=== PATIENT | female | born 1950 | race Caucasian/White ===

== ENCOUNTER 2020-09-01 17:21 | Observation (INO) ==
[2020-09-01 17:55] LABS: Basophils # (auto) 0.02 K/uL (0-0.2); Basophils % (auto) 0.2 %; Eosinophils # (auto) 0.32 K/uL (0-0.5); Eosinophils % (auto) 3.3 %; Hematocrit (blood only) 36.5 % (37-47); Hemoglobin 12.3 g/dL (12.0-16.0); Immature Granulocytes # (auto) 0.02 K/uL (0.00-0.02); Immature Granulocytes % (auto) 0.2 %; Lymphocytes # (auto) 1.85 K/uL (1.2-3.4); Lymphocytes % (auto) 19.2 %; Mean Corpuscular Hemoglobin 29.2 pg (25-34); Mean Corpuscular Hgb Conc 33.7 g/dL (32-36); Mean Corpuscular Volume 86.7 fL (80-100); Mean Platelet Volume 8.9 fL (7.4-10.4); Monocytes # (auto) 0.64 K/uL (0.11-0.59); Monocytes % (auto) 6.6 %; Neutrophils % (auto) 70.5 %; Platelet Count 248 K/uL (130-400); RDW Coefficient of Variation 12.8 % (11.5-14.5); Red Blood Count 4.21 M/uL (4.2-5.4); White Blood Count 9.65 K/uL (4.8-10.8)
[2020-09-01 18:05] LABS: Partial Thromboplastin Ratio 0.9; Partial Thromboplastin Time 22.8 Seconds (21.0-31.0); Prothrombin Time 10.1 Seconds (9.0-12.0)
[2020-09-01 18:10] LABS: Alanine Aminotransferase 16 U/L (12-78); Albumin Level 3.4 gm/dl (3.4-5.0); Aspartate Aminotransferase 11 U/L (15-37); BUN Creatinine Ratio 13.7 (10-20); Blood Urea Nitrogen 17 mg/dl (7-18); Calcium 8.6 mg/dl (8.5-10.1); Carbon Dioxide 27 mmol/L (21-32); Chloride 103 mmol/L (98-107); Creatinine Clr Calc Pharmacy 44.6 ml/min; Est GFR (African American) 50.3; Est GFR (Non-African American) 43.4; Glucose 132 mg/dl (70-99); Lipase 140 U/L (73-393); Magnesium 1.7 mg/dl (1.8-2.4); Potassium 3.7 mmol/L (3.5-5.1); Sodium 136 mmol/L (136-145)
--- NOTE | 2020-09-01 18:14 | CT Scan Report ---
CT SCAN OF THE BRAIN WITHOUT IV CONTRAST CLINICAL HISTORY: Generalized weakness. Nausea. COMPARISON STUDY: CT of the brain dated 03/25/2018. TECHNIQUE: Unenhanced axial CT scan of the brain is performed from the vertex to the skull base. A do se lowering technique was utilized adhering to the principles of ALARA. FINDINGS: Brain parenchyma: There are age-related involutional changes noting mild to moderate subcortical and periventricular microangiopathic change. There is no hemorrhage, mass effect, or evidence of acute t erritorial ischemia by CT criteria. Chronic lacunar infarcts are noted in the left basal ganglia. Gra y-white matter differentiation is preserved. No extra-axial fluid collection is seen. Ventricles, sulci, cisterns: Prominent secondary to involutional change. Intracranial vasculature: There is atherosclerotic calcification of the cavernous carotid and vertebr al arteries. Calvarium: Unremarkable. Sinuses and mastoids: There is evidence of previous paranasal sinus surgery. The visualized paranasal sinuses are clear. The mastoid air cells are well pneumatized. Orbits: The bony orbits are grossly intact. IMPRESSION: There is no hemorrhage, mass effect, or evidence of acute territorial ischemia by CT martinez genao. ACT 112: Negative or not required by law. Electronically signed by: Noam Luque M.D. 09/01/2020 6:13 PM
--- NOTE | 2020-09-01 18:15 | Emergency Department Note ---
Impression & Plan Weakness, Confusion, Hypomagnesemia, Near syncope ED Provider Note NAME: LIU BALLARD AGE: 70 SEX: F : 1950 ARRIVES VIA: Ambulance INFORMANT: Patient, the patient's family members ED PROVIDER(S): Hai Huston DO CHIEF COMPLAINT: Generalized weakness HPI: Patient is a 70-year-old female who presented to the emergency department for an evaluation of generalized weakness. The patient had 2 episodes today where she had what sounds like generalized weakness lower extremity weakness and near syncope. At this time the patient offers no specific complaints. She states that at the time she had significant nausea but did not have vomiting. She states that she felt very weak in both lower extremities. She denies having any weakness in the arms. She denies having any headache. She denies having any chest pain or difficulty breathing at this time. Apparently the patient did have some outpatient laboratory studies and was sent to the emergency department for evaluation. The patient denies having any recent falls or striking her head. The patient states that she has been compliant with all of her outpatient medication regimen. Currently she is being evaluated for a bladder mass. She did have a bladder ultrasound today. She also had outpatient laboratory studies today. ROS: See above HPI for pertinent positives & negatives. A total of 10 systems reviewed and were otherwise negative. PAST MEDICAL HISTORY: See Below PAST SURGICAL HISTORY: See Below FAMILY HISTORY: See Below SOCIAL HISTORY: See Below HOME MEDICATIONS: See Below ALLERGIES: See Below VITALS: See Below PHYSICAL EXAMINATION: GENERAL: The patient is awake and alert. The patient is nonanxious appearing. EARS, NOSE, MOUTH AND THROAT: The nose is without any evidence of any deformity. NECK: The neck is nontender and supple. RESPIRATORY: Normal respiratory effort is noted there is no evidence of wheezing rhonchi or rales CARDIOVASCULAR: Regular rate and rhythm noted there no murmurs rubs or gallops normal S1 normal S2. GASTROINTESTINAL: The abdomen is soft and nondistended. There is no specific te nderness guarding rigidity. MUSCULOSKELETAL/EXTREMITIES: There is no evidence of gross deformity full range of motion is noted in the hips and shoulders. SKIN: Trace pedal edema was noted bilaterally. Skin is warm dry. NEUROLOGIC: Patient is awake alert and oriented x3. The patient is able to hol d each leg off the bed for greater than 5 seconds. Track Laying Equipment Operator strength is symmetric. There is no facial droop. MEDICAL DECISION MAKING: The patient is a 70-year-old female who presented to the emergency department by ambulance. The patient lives at [facility]. She does have a history of a stroke in the past. The patient was with her power of imaging account manager who is a friend this morning. She had a work-up for a bladder mass as well as a pancreatic mass. This is something the patient has known and is currently undergoing radiographic work-up of. She was at our facility this morning having studies done. After the study she became very weak and needed help standing. According to her friend who witnessed this there was no specific unilateral weakness or slurred speech. She appeared to be having difficulty breathing. The patient himself complains of no cough. She denies having any chest pain. She had another episode which was similar. At that time she was evaluated by the nursing staff at the [facility]. She was sent to the emergency department for further evaluation. She did have a D-dimer which was reportedly elevated but given the patient's lack of complaints at this time for chest pain or shortness of breath I do not feel that this D-dimer would need explored further. Furthermore the patient would have a negative D-dimer with age adjustment. I discussed the patient's laboratory and radiographic studies with her and her power of imaging account manager. She was treated with IV fluids and magnesium replacement. There was significant concern that the patient's condition could deteriorate again. Her power of imaging account manager was also concerned because the patient appears to be intermittently short of breath as well as confused. For this reason I will discuss his case with the hospitalist group for possible inpatient management and observation. Triage Nursing notes reviewed. Prior medical records reviewed Vital Signs: reviewed and remarkable for no significant abnormalities Differential diagnosis: Infection, dehydration, metabolic abnormality, hypo/hyperglycemia, electrolyte disturbance, anemia, hypoxia, cardiac sources, intracerebral event, toxicologic, neurologic, as well as other pathologies. ER treatment provided: See below Diagnostics interpreted by me: ECG: EKG was obtained in the emergency department. My interpretation is normal sinus rhythm at 73 bpm. There was no ectopy. Diffuse T wave flattening was noted. There was no acute ST segment abnormalities noted. This was compared to a tracing from March 262017. The T wave abnormalities appear new compared the previous tracing. Cardiac Monitoring: An order was placed for continuous cardiac monitoring. The monitor shows a rate of 75 bpm with sinus rhythm. Laboratory studies: As stated above and show below. Imaging studies: See below Consultation(s): 1940: I discussed this case with Dr. Fair who is on for the [facility] hospitalist group. He will evaluate the patient in the emergency department. Past Med/Surg History Medical History (Updated 09/01/20 @ 19:22 by Hai Huston DO) CVA (cerebral vascular accident) Depression Hx of recurrent urinary tract infection Retinopathy Family History Other Family history unknown Social History Smoking Status: Former smoker Hx Alcohol Use: No Hx Substance Use: No Preferred Language: Tristanian Communication Ability: Impaired Wool Merchant Required: No Beliefs That Will Affect Care: None Current Living Situation: [facility] Feels Safe at Home: Yes Assistive Devices: Glasses and Walker Allergies Allergies Allergy/AdvReac Type Severity Reaction Status Date / Time ampicillin Allergy Mild Gastrointestinal Verified 09/01/20 19:09 Upset prednisone Allergy Mild ITCHING Verified 09/01/20 19:09 azithromycin AdvReac Mild Gastrointestinal Verified 09/01/20 19:09 Upset lisinopril AdvReac Mild Gastrointestinal Verified 09/01/20 19:09 Upset Home Meds Home Medications Medication Instructions Recorded Confirmed atorvastatin 80 mg PO 02/10/18 09/01/20 cholecalciferol (vitamin D3) 2,000 unit PO QAM 02/10/18 09/01/20 [Vitamin D3] oMo Serna U-100 Insulin 16 unit SUBCUT 03/25/18 09/01/20 Januvia 100 mg PO QAM 03/25/18 09/01/20 cyanocobalamin (vitamin B-12) 1,000 mcg PO QAM 03/25/18 09/01/20 [Vitamin B-12] amlodipine 2.5 mg PO QAM 09/01/20 09/01/20 aspirin 81 mg PO QAM 09/01/20 09/01/20 bimatoprost [Lumigan] 1 drp OPB HS 09/01/20 09/01/20 cetirizine 10 mg PO 09/01/20 09/01/20 citalopram 40 mg PO QAM 09/01/20 09/01/20 ferrous sulfate 325 mg PO QAM 09/01/20 09/01/20 losartan 100 mg PO QAM 09/01/20 09/01/20 metformin 500 mg PO QAM 09/01/20 09/01/20 polyethylene glycol 3350 [Miralax] 17 g PO QAM 09/01/20 09/01/20 potassium chloride 10 meq PO BID 09/01/20 09/01/20 Results & Data (ED) Vital Signs Vital Signs - 24 hr 09/01/20 17:21 09/01/20 17:46 09/01/20 17:49 Temperature 37.0 C Temperature Source Oral Pulse Rate 75 75 73 Pulse Rate from SpO2 Sensor 72 Pulse Rhythm Regular Regular Respiratory Rate 18 18 19 Respiratory Effort / Characteristics Non-Labored Spontaneous Respiratory Depth Normal Respiratory Pattern Regular Blood Pressure 138/59 L 112/64 Blood Pressure Mean 85 80 Pulse Oximetry 97 97 98 Oxygen Delivery Method Room Air Room Air Sepsis Recent Fever Within 48 Hours No Sepsis New/Unexplained Change in Mental Status No Sepsis Action Taken by Nursing No Action Required 09/01/20 18:31 09/01/20 19:00 09/01/20 19:30 Temperature Temperature Source Pulse Rate 67 61 70 Pulse Rate from SpO2 Sensor 63 70 Pulse Rhythm Respiratory Rate 20 17 22 Respiratory Effort / Characteristics Respiratory Depth Respiratory Pattern Blood Pressure 135/70 109/66 131/81 Blood Pressure Mean 91 80 97 Pulse Oximetry 99 99 100 Oxygen Delivery Method Sepsis Recent Fever Within 48 Hours Sepsis New/Unexplained Change in Mental Status Sepsis Action Taken by [facility] Medications Current Medication List: was personally reviewed by me Laboratory Data Attestation: I reviewed the patient's lab results. Result diagrams: 09/01/20 17:45 09/01/20 17:45 Lab Results 09/01/20 09/01/20 09/01/20 Range/Units 17:45 17:45 17:45 WBC 9.65 (4.8-10.8) K/uL RBC 4.21 (4.2-5.4) M/uL Hgb 12.3 (12.0-16.0) g/dL Hct 36.5 L (37-47) % MCV 86.7 (80-100) fL MCH 29.2 (25-34) pg MCHC 33.7 (32-36) g/dL RDW Std Deviation 41.0 (36.4-46.3) fL RDW Coeff of Rocky 12.8 (11.5-14.5) % Plt Count 248 (130-400) K/uL MPV 8.9 (7.4-10.4) fL Immature Gran % (Auto) 0.2 % Neut % (Auto) 70.5 % Lymph % (Auto) 19.2 % [place] % (Auto) 6.6 % Eos % (Auto) 3.3 % Baso % (Auto) 0.2 % Neut # (Auto) 6.80 H (1.4-6.5) K/uL Lymph # (Auto) 1.85 (1.2-3.4) K/uL [place] # (Auto) 0.64 H (0.11-0.59) K/uL Eos # (Auto) 0.32 (0-0.5) K/uL Baso # (Auto) 0.02 (0-0.2) K/uL Immature Gran # (Auto) 0.02 (0.00-0.02) K/uL PT 10.1 (9.0-12.0) Seconds INR 1.0 (0.9-1.1) APTT 22.8 (21.0-31.0) Seconds PTT Ratio 0.9 Sodium 136 (136-145) mmol/L Potassium 3.7 (3.5-5.1) mmol/L Chloride 103 (98-107) mmol/L Carbon Dioxide 27 (21-32) mmol/L Anion Gap 6.0 (3-11) BUN 17 (7-18) mg/dl Creatinine 1.26 H (0.6-1.2) mg/dl Est Cr Clr Drug Dosing 44.6 ml/min Est GFR ( Amer) 50.3 Est GFR (Non-Af Amer) 43.4 BUN/Creatinine Ratio 13.7 (10-20) Glucose 132 H (70-99) mg/dl Calcium 8.6 (8.5-10.1) mg/dl Magnesium 1.7 L (1.8-2.4) mg/dl Total Bilirubin 1.2 H (0.2-1) mg/dl AST 11 L (15-37) U/L ALT 16 (12-78) U/L Alkaline Phosphatase 98 (45-117) U/L Total Creatine Kinase 63 (26-192) U/L Troponin I < 0.015 (0-0.045) ng/ml Total Protein 7.0 (6.4-8.2) gm/dl Albumin 3.4 (3.4-5.0) gm/dl Globulin 3.6 (2.5-4.0) gm/dl Albumin/Globulin Ratio 1.0 (0.9-2) Lipase 140 (73-393) U/L TSH 6.270 H (0.300-4.500) uIu/ml Free T4 1.04 (0.8-1.6) ng/dl COVID-19 Eval Order 09/01/20 Range/Units 19:30 WBC (4.8-10.8) K/uL RBC (4.2-5.4) M/uL Hgb (12.0-16.0) g/dL Hct (37-47) % MCV (80-100) fL MCH (25-34) pg MCHC (32-36) g/dL RDW Std Deviation (36.4-46.3) fL RDW Coeff of Rocky (11.5-14.5) % Plt Count (130-400) K/uL MPV (7.4-10.4) fL Immature Gran % (Auto) % Neut % (Auto) % Lymph % (Auto) % [place] % (Auto) % Eos % (Auto) % Baso % (Auto) % Neut # (Auto) (1.4-6.5) K/uL Lymph # (Auto) (1.2-3.4) K/uL [place] # (Auto) (0.11-0.59) K/uL Eos # (Auto) (0-0.5) K/uL Baso # (Auto) (0-0.2) K/uL Immature Gran # (Auto) (0.00-0.02) K/uL PT (9.0-12.0) Seconds INR (0.9-1.1) APTT (21.0-31.0) Seconds PTT Ratio Sodium (136-145) mmol/L Potassium (3.5-5.1) mmol/L Chloride (98-107) mmol/L Carbon Dioxide (21-32) mmol/L Anion Gap (3-11) BUN (7-18) mg/dl Creatinine (0.6-1.2) mg/dl Est Cr Clr Drug Dosing ml/min Est GFR ( Amer) Est GFR (Non-Af Amer) BUN/Creatinine Ratio (10-20) Glucose (70-99) mg/dl Calcium (8.5-10.1) mg/dl Magnesium (1.8-2.4) mg/dl Total Bilirubin (0.2-1) mg/dl AST (15-37) U/L ALT (12-78) U/L Alkaline Phosphatase (45-117) U/L Total Creatine Kinase (26-192) U/L Troponin I (0-0.045) ng/ml Total Protein (6.4-8.2) gm/dl Albumin (3.4-5.0) gm/dl Globulin (2.5-4.0) gm/dl Albumin/Globulin Ratio (0.9-2) Lipase (73-393) U/L TSH (0.300-4.500) uIu/ml Free T4 (0.8-1.6) ng/dl COVID-19 Eval Order CovFluRsv at [facility] Administered Medications Magnesium Sulfate/Dextrose (Magnesium Sulfate / D5w) 1 gm in 100 mls @ 100 mls/hr IV NOW STA Stop: 09/01/20 20:21 Last Admin: 09/01/20 19:30 Dose: 100 mls/hr Documented by: [id number] Discontinued Medications Sodium Chloride (Nss 1000ml) 500 mls @ 999 mls/hr IV .Q31M ONE Stop: 09/01/20 19:22 Last Infusion: 09/01/20 19:35 Dose: 0 mls/hr Documented by: [id number] Admin: 09/01/20 19:03 Dose: 999 mls/hr Documented by: [id number] Imaging Data Radiologist's Impression: Chest X-Ray 09/01/20 17:37 SINGLE VIEW CHEST CLINICAL HISTORY: Generalized weakness. FINDINGS: An AP, portable, upright chest radiograph is compared to study dated 03/25/2018. Surgical clips project over the mediastinum. The cardiomediastinal silhouette is unremarkable. The lungs and pleural spaces are clear. No pneumothorax is seen. The skeletal structures are osteopenic. The bony thorax is grossly intact. IMPRESSION: No active disease in the chest. ACT 112: Negative or not required by law. Electronically signed by: Noam Luque M.D. 09/01/2020 6:[address] 09/01/20 17:37 CT SCAN OF THE BRAIN WITHOUT IV CONTRAST CLINICAL HISTORY: Generalized weakness. Nausea. COMPARISON STUDY: CT of the brain dated 03/25/2018. TECHNIQUE: Unenhanced axial CT scan of the brain is performed from the vertex to the skull base. A dose lowering technique was utilized adhering to the principles of ALARA. FINDINGS: Brain parenchyma: There are age-related involutional changes noting mild to moderate subcortical and periventricular microangiopathic change. There is no hemorrhage, mass effect, or evidence of acute territorial ischemia by CT crite mary. Chronic lacunar infarcts are noted in the left basal ganglia. Woo-white matter differentiation is preserved. No extra-axial fluid collection is seen. Ventricles, sulci, cisterns: Prominent secondary to involutional change. Intracranial vasculature: There is atherosclerotic calcification of the cavernous carotid and vertebral arteries. Calvarium: Unremarkable. Sinuses and mastoids: There is evidence of previous paranasal sinus surgery. The visualized paranasal sinuses are clear. The mastoid air cells are well pneumatized. Orbits: The bony orbits are grossly intact. IMPRESSION: There is no hemorrhage, mass effect, or evidence of acute territorial ischemia by CT criteria. ACT 112: Negative or not required by law. Electronically signed by: Noam Luque M.D. 09/01/2020 6:13 PM Abdomen/Pelvis CT 09/01/20 17:40 CT SCAN OF THE ABDOMEN AND PELVIS WITHOUT IV CONTRAST CLINICAL HISTORY: Nausea. COMPARISON STUDY: Abdominal CT dated 08/25/2020. TECHNIQUE: CT scan of the abdomen and pelvis is performed from the lung bases to the proximal femora. Images are reviewed in the axial, sagittal, and coronal planes. IV contrast was not administered for this examination. Note that the examination was performed in suboptimal fashion without oral and IV contrast. A dose lowering technique was utilized adhering to the principles of ALARA. The examination is degraded by motion artifact. CT DOSE: 1641.33 mGy.cm FINDINGS: Lung bases: The heart is normal in size noting a small pericardial effusion. The mitral annulus is densely calcified. The lung bases are clear noting bibasilar scarring/atelectasis. There is a tiny hiatal hernia. Liver: The unenhanced liver is normal in size, contour, and attenuation. There is no intrahepatic biliary ductal dilatation. Gallbladder: The gallbladder is contracted and contains calcified gallstones. There is no CT evidence of acute cholecystitis. Spleen: Normal in size and attenuation. Pancreas: The subcentimeter hypodensity is again suggested in the pancreatic tail on image #129. The unenhanced pancreas is moderately atrophic and otherwise grossly unremarkable. Adrenal glands: Unremarkable. Kidneys: The unenhanced kidneys demonstrate cortical atrophy and are without hydronephrosis. There are no renal calculi identified. There is no evidence of contour deforming renal mass lesion. Abdominal vasculature: The abdominal aorta is normal in course and caliber noting mild atherosclerotic calcification. Bowel: There is mild colonic diverticulosis without CT evidence of acute diverticulitis. The stomach is distended with ingested material. No bowel obstruction is seen. The appendix is not identified and reported surgically absent. Peritoneum: There is no intraperitoneal free air or abdominal ascites. Mesenteric haziness is similar to previous. Lymphadenopathy: None. Pelvic viscera: The bladder nodule suggested on 08/25/2020 is not visualized, likely due to lack of IV contrast. The bladder is grossly unremarkable. There are calcified uterine fibroids. No adnexal lesion is seen. Skeletal structures: The skeletal structures are osteopenic. There is mild to moderate lumbosacral spondylosis and scoliosis. Sclerotic change is noted in the sacroiliac joints. No lytic or blastic lesions are seen. IMPRESSION: 1. Suboptimal examination without oral and IV contrast. The examination is also degraded by motion artifact. 2. There are no acute infectious or inflammatory findings in the abdomen or pelvis. 3. Colonic diverticulosis without CT evidence of acute diverticulitis. 4. Cholelithiasis. 5. A subcentimeter hypodensity in the pancreatic tail and a subcentimeter b ladder nodule suggested on 08/25/2020 are not well assessed on this unenhanced examination. See report of the prior study for detailed findings. 6. Additional findings as above. ACT 112: Negative or not required by law. Electronically signed by: Noam Luque M.D. 09/01/2020 6:34 PM Discharge Plan Visit Data Chief Complaint: Illness ED Provider: Hai Huston Discharge Problem: Weakness, Confusion, Hypomagnesemia, Near syncope Patient Disposition: Being Evaluated by Hospitalist Condition: Good Forms Stand Alone Forms: My [facility] Handprint Prescriptions Prescriptions: No Action cyanocobalamin (vitamin B-12) [Vitamin B-12] 500 mcg Tablet 1,000 mcg PO QAM RF: 0 Januvia 100 mg Tablet 100 mg PO QAM RF: 0 Basaglar KwikPen U-100 Insulin 100 unit/mL (3 mL) Insulin Pen 16 unit SUBCUT HS RF: 0 atorvastatin 80 mg Tablet 80 mg PO HS RF: 0 cholecalciferol (vitamin D3) [Vitamin D3] 2,000 unit Capsule 2,000 unit PO QAM RF: 0 citalopram 40 mg tablet 40 mg PO QAM RF: 0 cetirizine 10 mg Tablet 10 mg PO HS RF: 0 amlodipine 2.5 mg tablet 2.5 mg PO QAM RF: 0 potassium chloride 10 mEq tablet extended release 10 meq PO BID RF: 0 ferrous sulfate 325 mg (65 mg iron) Tablet 325 mg PO QAM RF: 0 aspirin 81 mg Tablet,Chewable 81 mg PO QAM RF: 0 polyethylene glycol 3350 [Miralax] 17 gram/dose Powder 17 g PO QAM RF: 0 losartan 100 mg tablet 100 mg PO QAM RF: 0 metformin 500 mg tablet extended release 24 hr 500 mg PO QAM RF: 0 Lumigan 0.01 % drops 1 drp OPB HS RF: 0 [place]errals [place] [[place] Care Provider] -
[2020-09-01 18:20] LABS: Alkaline Phosphatase 98 U/L (45-117); Bilirubin,Total 1.2 mg/dl (0.2-1); Creatine Kinase 63 U/L (26-192); Globulin 3.6 gm/dl (2.5-4.0); Troponin I < 0.015 ng/ml (0-0.045)
--- NOTE | 2020-09-01 18:28 | XRay Report ---
SINGLE VIEW CHEST CLINICAL HISTORY: Generalized weakness. FINDINGS: An AP, portable, upright chest radiograph is compared to study dated 03/25/2018. Surgical c lips project over the mediastinum. The cardiomediastinal silhouette is unremarkable. The lungs and pl eural spaces are clear. No pneumothorax is seen. The skeletal structures are osteopenic. The bony tho rax is grossly intact. IMPRESSION: No active disease in the chest. ACT 112: Negative or not required by law. Electronically signed by: Noam Luque M.D. 09/01/2020 6:26 PM
[2020-09-01 18:33] LABS: T4 Free Thyroxine 1.04 ng/dl (0.8-1.6)
--- NOTE | 2020-09-01 18:35 | CT Scan Report ---
CT SCAN OF THE ABDOMEN AND PELVIS WITHOUT IV CONTRAST CLINICAL HISTORY: Nausea. COMPARISON STUDY: Abdominal CT dated 08/25/2020. TECHNIQUE: CT scan of the abdomen and pelvis is performed from the lung bases to the proximal femora. Images are reviewed in the axial, sagittal, and coronal planes. IV contrast was not administered for this examination. Note that the examination was performed in suboptimal fashion without oral and IV contrast. A dose lowering technique was utilized adhering to the principles of ALARA. The examination is degraded by motion artifact. CT DOSE: 1641.33 mGy.cm FINDINGS: Lung bases: The heart is normal in size noting a small pericardial effusion. The mitral annulus is de nsely calcified. The lung bases are clear noting bibasilar scarring/atelectasis. There is a tiny hiat al hernia. Liver: The unenhanced liver is normal in size, contour, and attenuation. There is no intrahepatic tereza iary ductal dilatation. Gallbladder: The gallbladder is contracted and contains calcified gallstones. There is no CT evidence of acute cholecystitis. Spleen: Normal in size and attenuation. Pancreas: The subcentimeter hypodensity is again suggested in the pancreatic tail on image #129. The unenhanced pancreas is moderately atrophic and otherwise grossly unremarkable. Adrenal glands: Unremarkable. Kidneys: The unenhanced kidneys demonstrate cortical atrophy and are without hydronephrosis. There ar e no renal calculi identified. There is no evidence of contour deforming renal mass lesion. Abdominal vasculature: The abdominal aorta is normal in course and caliber noting mild atheroscleroti c calcification. Bowel: There is mild colonic diverticulosis without CT evidence of acute diverticulitis. The stomach is distended with ingested material. No bowel obstruction is seen. The appendix is not identified an d reported surgically absent. Peritoneum: There is no intraperitoneal free air or abdominal ascites. Mesenteric haziness is similar to previous. Lymphadenopathy: None. Pelvic viscera: The bladder nodule suggested on 08/25/2020 is not visualized, likely due to lack of IV contrast. The bladder is grossly unremarkable. There are calcified uterine fibroids. No adnexal lesi on is seen. Skeletal structures: The skeletal structures are osteopenic. There is mild to moderate lumbosacral sp ondylosis and scoliosis. Sclerotic change is noted in the sacroiliac joints. No lytic or blastic lesi ons are seen. IMPRESSION: 1. Suboptimal examination without oral and IV contrast. The examination is also degraded by motion ar tifact. 2. There are no acute infectious or inflammatory findings in the abdomen or pelvis. 3. Colonic diverticulosis without CT evidence of acute diverticulitis. 4. Cholelithiasis. 5. A subcentimeter hypodensity in the pancreatic tail and a subcentimeter bladder nodule suggested on 08/25/2020 are not well assessed on this unenhanced examination. See report of the prior study for de tailed findings. 6. Additional findings as above. ACT 112: Negative or not required by law. Electronically signed by: Noam Luque M.D. 09/01/2020 6:34 PM
[2020-09-01] MEDS ORDERED: SODIUM CHLORIDE 0.9% 1000ML 500 ML IV ONE (18:52)
[2020-09-01] MEDS ORDERED: MAGNESIUM SULFATE / D5W 1 GM/100 ML BAG IV STA (19:22)
[2020-09-01 20:20] LABS: Influenza A virus by PCR Negative (Neg); Influenza B virus by PCR Negative (Neg); RSV by PCR Negative (Neg)
[2020-09-01 20:31] LABS: SARS CoV2 RNA(COVID-19) InHosp POSITIVE (Negative)
--- NOTE | 2020-09-01 23:02 | History and Physical Report ---
DATE OF ADMISSION: 09/01/2020 CHIEF COMPLAINT: Weakness. HISTORY OF PRESENT ILLNESS: This is a 70-year-old female with past medical history significant for type 2 diabetes, nonproliferative diabetic retinopathy of left eye, chronic kidney disease stage III, hyperlipidemia, hypertension, diastolic dysfunction, history of urinary incontinence, history of CVA with hemiplegia on the right side, ambulates with a walker, depression, , history of tobacco abuse. Currently living in personal correction, was brought in because of weakness. The patient was recently found to have bladder mass had ultrasound today morning for it. After that ultrasound she went for breakfast with her friends. After breakfast, she could not walk, she was feeling very weak and near syncope. She has some nausea, but no vomiting, no cough, no chest pain, no fevers and she went to her personal correction. At the personal correction she had similar symptoms and in the personal correction some lab was done and D-dimer was slightly elevated in the 500 range and she was sent here for further evaluation here. Her hemodynamics are stable, afebrile, no leukocytosis. Creatinine is 1.2 which seemed to be at baseline. Magnesium is 1.7, which was replaced in the ER, but CT of the head and CT of the abdomen and pelvis were fine. Chest x-ray was okay. She was saturating fine on room air. She says she took 2 shots of COVID vaccine. Last shot was about 2 weeks ago, but her SARS-CoV-2 PCR came back positive in the ER. No infiltrate on chest x-ray and she is hemodynamically stable and saturating 100% on room air. Denies any headache, denies any dizziness, no blurred vision, no earache, no runny nose, no sore throat, no cough. Her appetite is okay and no difficulty swallowing. Currently, no chest pain, no shortness of breath, no abdominal pain. Normal bowel and bladder movements. She ambulates with a walker. ALLERGIES: AMPICILLIN, PENICILLIN, ERYTHROMYCIN AND LISINOPRIL. PAST MEDICAL HISTORY: As mentioned above. PAST SURGICAL HISTORY: Right breast lesion excision, bilateral iridotomy, appendectomy. MEDICATIONS: The patient is on amlodipine 2.5 mg p.o. a.m., aspirin 81 mg p.o. a.m., atorvastatin 80 mg p.o. at bedtime, Basaglar insulin 16 units subcutaneous at bedtime, Lumigan 1 drop ophthalmic at bedtime, cetirizine 10 mg p.o. at bedtime, vitamin D 2000 units p.o. a.m., citalopram 40 mg p.o. a.m., vitamin B12 1000 mcg p.o. a.m., ferrous sulfate 325 mg p.o. a.m., Januvia 100 mg p.o. a.m., losartan 100 mg p.o. a.m., metformin 500 mg p.o. a.m., MiraLax 17 grams p.o. a.m., potassium chloride 10 mEq p.o. b.i.d. FAMILY HISTORY: Significant for mother has Alzheimer disease and thyroid disorder. Father has diabetes, heart disorder, hypertension. Brother has pancreatic cancer. SOCIAL HISTORY: , currently living in a personal correction. Smoked an average of 0.5 packs a day for 30 years. Former smoker. Alcohol rarely. No drug use. REVIEW OF SYMPTOMS: As per HPI. Rest of the review of systems negative. PHYSICAL EXAMINATION: GENERAL: The patient is of moderate build, not in acute distress. VITAL SIGNS: Temperature 37, pulse 70, respiratory rate 22, blood pressure 131/81, oxygen 100% on room air. HEENT: Pupils equal, round, reactive to light. Oral mucosa moist. NECK: No JVD, no neck masses. CARDIOVASCULAR: S1, S2, regular rate and rhythm, no murmur, no gallop. RESPIRATORY SYSTEM: Normal AP diameter. No accessory muscle use. No wheezing, no crackles. ABDOMEN: Soft, bowel sounds present. Mild abdominal discomfort. No guarding, no rigidity. No distention. CENTRAL NERVOUS SYSTEM: Cranial nerves II-XII grossly intact, nonfocal. Right lower extremity power, 3-4/5 strength. EXTREMITIES: No edema, no erythema. LABORATORY DATA: WBC 9.6, hemoglobin 12.3, hematocrit 36.5, platelets 248. PT 10.1, INR 1, APTT 22.8. Sodium 136, potassium 3.7, chloride 103, bicarbonate 27, BUN 17, creatinine 1.2, serum glucose 132, calcium 8.6, magnesium 1.7, total bilirubin 1.2, AST 11, ALT 16, alkaline phosphatase 98, total creatinine kinase 63, troponin I less than 0.015. Lipase 140. TSH 6.2, free T4 1.04. SARS-CoV-2 PCR positive. Influenza A and B PCR negative, RSV PCR negative. IMAGING: CT abdomen and pelvis without contrast shows no acute infectious or inflammatory findings in the abdomen and pelvis, colonic diverticulosis without CT evidence of acute diverticulitis, cholelithiasis, subcentimeter hyperdensity in the pancreatic tail and subcentimeter in the bladder noted on CT scan on 08/25/2020 are not well assessed on this unenhanced exam. CT of the head, no acute findings. Chest x-ray, no acute findings. EKG: Normal sinus rhythm, rate of 73, left axis deviation, nonspecific T-wave abnormality, no significant change was found, rate of 73. ASSESSMENT AND PLAN: This is a 70-year-old female who presents with weakness, question of some shortness of breath. 1. Weakness, ambulatory dysfunction, could not able to ambulate today when she went outside for breakfast with her friends, similar thing happened in the personal correction and symptoms include somewhat short of breath, but D-dimer was slightly elevated and she was sent in here. D-dimer was slightly higher in the 500s which is normal adjusted for her age per er and she was saturating fine on room air and hemodynamics are stable. Her SARS-CoV-2 came back as positive. She said she had 2 shots of the COVID vaccine, the last one was about 2 weeks ago. Chest x-ray, no infiltrates seen. We will get a CT of the chest. We will place on gentle fluids. We will also follow urinalysis and monitor in the hospital. PT and OT before discharge. 2.Covid. Possible cause of weakness .Saturating fine on room air. Will follow ct chest. follow inflammaory markers. 3. History of cerebrovascular accident, right sided weakness and ambulates with a walker. On aspirin, high dose statin. 4. History of diabetes. Hold Januvia. Hold metformin. Continue her home Lantus, long-acting insulin and continue on insulin sliding scale. Follow HbA1c levels. Follow the blood sugars. 5. History of hypertension. Continue losartan, amlodipine. We will monitor the blood pressure. 6. History of hyperlipidemia. Continue statin. 7. Depression. Continue citalopram. 8. Bladder mass and pancreatic mass,had ultrasound today. Needs to follow up once discharged from the hospital. 9. History of hypokalemia, on potassium supplement. Follow the labs. 10 History of past tobacco abuse. 11. Deep venous thrombosis prophylaxis. We will place her on Lovenox. Level 1 full code. PT and OT prior to discharge. Social service to help with discharge planning. LAZARO
[2020-09-01] MEDS ORDERED: NITROGLYCERIN SL 0.4 MG/TAB TAB SL PRN (23:36)
[2020-09-01] MEDS ORDERED: ONDANSETRON INJ 2 MG/ML 2 ML VIAL IV PRN (23:36)
[2020-09-01] MEDS ORDERED: ACETAMINOPHEN 325 MG TAB PO PRN (23:36)
[2020-09-02] MEDS: SODIUM CHLORIDE 0.9% 1000ML 1,000 ML IV SCH ×3 (00:08→20:40)
[2020-09-02 00:41] LABS: Appearance Urine Clear (Clear); Bacteria Urine Automated Negative (Negative); Bilirubin Urine Negative (Negative); Blood Urine Negative (Negative); Cast Urine Automated 0 /lpf (0-5); Color Urine Yellow; Glucose Urine UA Negative (Negative); Ketones Urine Negative (Negative); Leukocyte Esterase Urine Trace (Negative); Nitrite Urine Negative (Negative); Protein Urine Negative (Negative); RBC Urine Automated 0-4 /hpf (0-4); Urobilinogen Urine Negative (Negative); pH Urine 5.5 (4.5-7.5)
[2020-09-02 06:40] LABS: BUN Creatinine Ratio 17.8 (10-20); Blood Urea Nitrogen 19 mg/dl (7-18); Calcium 8.4 mg/dl (8.5-10.1); Carbon Dioxide 28 mmol/L (21-32); Chloride 111 mmol/L (98-107); Est GFR (Non-African American) 51.8; Glucose 180 mg/dl (70-99); Magnesium 2.3 mg/dl (1.8-2.4); Sodium 141 mmol/L (136-145)
[2020-09-02 06:43] LABS: Basophils # (auto) 0.03 K/uL (0-0.2); Basophils % (auto) 0.4 %; Eosinophils # (auto) 0.37 K/uL (0-0.5); Eosinophils % (auto) 4.5 %; Hematocrit (blood only) 35.9 % (37-47); Hemoglobin 12.2 g/dL (12.0-16.0); Immature Granulocytes # (auto) 0.01 K/uL (0.00-0.02); Immature Granulocytes % (auto) 0.1 %; Lymphocytes # (auto) 1.46 K/uL (1.2-3.4); Lymphocytes % (auto) 17.7 %; Mean Corpuscular Hemoglobin 29.5 pg (25-34); Mean Corpuscular Volume 86.7 fL (80-100); Mean Platelet Volume 9.2 fL (7.4-10.4); Monocytes # (auto) 0.77 K/uL (0.11-0.59); Monocytes % (auto) 9.3 %; Neutrophils # (auto) 5.62 K/uL (1.4-6.5); Platelet Count 241 K/uL (130-400); RDW Coefficient of Variation 12.8 % (11.5-14.5); RDW Standard Deviation 41.5 fL (36.4-46.3); Red Blood Count 4.14 M/uL (4.2-5.4); White Blood Count 8.26 K/uL (4.8-10.8)
[2020-09-02 06:46] LABS: C Reactive Protein < 0.29 mg/dl (0-0.29); Ferritin 151.4 ng/ml (8-388); Troponin I < 0.015 ng/ml (0-0.045)
[2020-09-02 07:11] LABS: D Dimer 710 ug/L FEU (0-500)
[2020-09-02 07:32] LABS: Estimated Average Glucose 171 mg/dl; Hemoglobin A1C 7.6 % (4.5-5.6)
[2020-09-02] MEDS ORDERED: OPTIRAY 320 125ml IV ONE (08:37)
--- NOTE | 2020-09-02 08:57 | Electrocardiogram Report ---
Test Reason : Blood Pressure : / mmHG Vent. Rate : 073 BPM Atrial Rate : 073 BPM P-R Int : 196 ms QRS Dur : 090 ms QT Int : 432 ms P-R-T Axes : -21 -44 -12 degrees QTc Int : 475 ms Normal sinus rhythm Left axis deviation Diffuse Nonspecific T wave abnormality Abnormal ECG When compared with ECG of 26-MAR-2018 06:36, No significant change was found Confirmed by Poncho Rivera ([id number]) on 09/02/2020 8:57:32 AM Referred By: REFERRED SELF Confirmed By:Poncho Rivera
--- NOTE | 2020-09-02 09:00 | CT Scan Report ---
CT ANGIOGRAM OF THE CHEST CLINICAL HISTORY: Atypical chest pain or shortness of breath. Possible acute pulmonary embolism COMPARISON STUDY: Chest x-ray dated 09/01/2020 TECHNIQUE: Following the IV administration of 120 mL of Optiray-320, CT angiogram of the thorax was p erformed from the thoracic inlet to the lung bases utilizing the pulmonary embolus protocol. Images a re reviewed in the axial, sagittal, and coronal planes. IV contrast was administered without complica tion. MIP imaging was performed. A dose lowering technique was utilized adhering to the principles o f ALARA. CT DOSE: 362.40 mGy.cm FINDINGS: No pathologically enlarged axillary mediastinal or hilar lymph nodes were visualized. There was no evidence of thoracic aortic dilatation. There were no pulmonary artery filling defects to indicate acute pulmonary embolism. No pleural effusions are visualized. There is respiratory motion artifact. There are no areas of parenchymal consolidation to indicate pne umonia. There is mild basilar atelectasis. There are coronary artery calcifications. There is minimal pericardial fluid. There is probable cholelithiasis IMPRESSION: 1. No evidence of acute pulmonary embolism 2. No evidence of focal pulmonary consolidation. 3. Probable cholelithiasis. ACT 112: Negative or not required by law. Electronically signed by: Yoel Short M.D. 09/02/2020 8:59 AM
--- NOTE | 2020-09-02 09:11 | Ultrasound Report ---
US venous doppler LE BI CLINICAL HISTORY: Positive d-dimer. Covid positive patient. Possible DVT. COMPARISON STUDY: No previous studies for comparison. FINDINGS: Real-time and color flow Doppler imaging were performed. Flow was seen within the femoral, popliteal and calf veins with no intraluminal thrombus demonstrated. The saphenous vein is patent. IMPRESSION: No evidence of lower extremity DVT. ACT 112: Negative or not required by law. Electronically signed by: Yoel Short M.D. 09/02/2020 9:10 AM
[2020-09-02] MEDS: LOSARTAN POTASSIUM 50 MG TAB PO SCH (09:26)
[2020-09-02] MEDS: CITALOPRAM 40 MG TAB PO SCH (09:26)
[2020-09-02] MEDS: POTASSIUM CHLORIDE 10 MEQ TABCR PO SCH ×2 (09:27→20:41)
[2020-09-02] MEDS: CYANOCOBALAMIN 500 MCG TABLET (VITAMIN B-12) PO SCH (09:27)
[2020-09-02] MEDS: amLODIPine BESYLATE 5 MG TAB PO SCH (09:27)
[2020-09-02] MEDS: ASPIRIN 81 MG ECTAB PO SCH (09:27)
[2020-09-02] MEDS: FERROUS SULFATE 325 MG TAB PO SCH (09:28)
[2020-09-02] MEDS: ENOXAPARIN INJ 40 MG/0.4 ML SYR SQ SCH (09:28)
[2020-09-02] MEDS: POLYETHYLENE (MIRALAX) 17 GM PACK PO SCH (09:28)
[2020-09-02] MEDS: CHOLECALCIFEROL 1,000 UNITS 25 MCG TAB PO SCH (09:28)
[2020-09-02] MEDS: INSULIN ASPART 100 UNITS/ML 3 ML PEN SC SCH ×4 (10:16→21:19)
[2020-09-02] MEDS ORDERED: CETIRIZINE HCL 10 MG TABLET PO SCH (21:00)
[2020-09-02] MEDS ORDERED: BIMATOPROST 0.01% OP SOLN 2.5 ML BTL OP SCH (21:00)
[2020-09-02] MEDS ORDERED: ATORVASTATIN 40 MG TAB PO SCH (21:00)
[2020-09-02] MEDS ORDERED: INSULIN GLARGINE SOLOSTAR 100 UNITS/ML 3 ML PEN SQ SCH (21:00)
[2020-09-03] MEDS: SODIUM CHLORIDE 0.9% 1000ML 1,000 ML IV SCH (05:45)
[2020-09-03 06:30] LABS: Hematocrit (blood only) 35.5 % (37-47); Hemoglobin 11.7 g/dL (12.0-16.0); Mean Corpuscular Volume 87.9 fL (80-100); Mean Platelet Volume 9.5 fL (7.4-10.4); Platelet Count 231 K/uL (130-400); RDW Coefficient of Variation 12.9 % (11.5-14.5); RDW Standard Deviation 41.6 fL (36.4-46.3); Red Blood Count 4.04 M/uL (4.2-5.4); White Blood Count 7.67 K/uL (4.8-10.8)
[2020-09-03 06:58] LABS: BUN Creatinine Ratio 14.1 (10-20); Creatinine Clr Calc Pharmacy 54.1 ml/min; Est GFR (African American) 68.2; Est GFR (Non-African American) 58.9; Magnesium 1.9 mg/dl (1.8-2.4); Potassium 3.8 mmol/L (3.5-5.1)
[2020-09-03 06:59] LABS: Phosphorus 2.7 mg/dl (2.5-4.9)
--- NOTE | 2020-09-03 07:45 | Hospitalist Progress Note ---
Date of Service September 02, 2020 Assessment & Plan (1) Weakness: (2) Near syncope: This is a 70-year-old female who presents with weakness, question of some shortness of breath. 1. Weakness, ambulatory dysfunction, could not able to ambulate when she went outside for breakfast with her friends, similar thing happened in the personal alf and symptoms include somewhat short of breath, but D-dimer was slightly elevated and she was sent in here. D-dimer was slightly higher in the 500s which is normal adjusted for her age and she was saturating fine on room air and hemodynamics are stable. Her SARS-CoV-2 came back as positive. She said she had 2 shots of the COVID vaccine, the last one was about 2 weeks ago. Chest x-ray, no infiltrates seen. CT PE of the chest obtained, and negative for PE or pneumonia. Placed on gentle fluids. Urinalysis also obtained and negative. PT and OT before discharge. Discussed further with patient's friend/caregiver Sulema, patient drank a lot of water in the morning, for her bladder ultrasound test, and then vomited. She had several episodes of weakness and some transient shortness of breath. Sulema reports that patient is quite deconditioned, does not ambulate/move much usually. 2. Covid. Possible cause of weakness Saturating fine on room air. CT chest obtained and negative for PE or pneumonia. follow inflammatory markers. Currently feeling well, no complaints, able to ambulate in the room. Awaiting PT OT eval. 3. History of CVA, right sided weakness and ambulates with a walker. On aspirin, high dose statin. 4. History of diabetes. Hold Januvia. Hold metformin. Continue her home Lantus, long-acting insulin and continue on insulin sliding scale. Follow HbA1c levels. Follow the blood sugars. 5. History of hypertension. Continue losartan, amlodipine. We will monitor the blood pressure. 6. History of hyperlipidemia. Continue statin. 7. Depression. Continue citalopram. 8. Bladder mass and pancreatic mass, had ultrasound today. Needs to follow up once discharged from the hospital. 9. History of hypokalemia, on potassium supplement. Follow the labs. 10 History of past tobacco abuse. DVT prophylaxis. We will place her on Lovenox. Admission and Anticipated Discharge Date Admission Date: September 01, 2020 Subjective Patient seen in follow-up of weakness Currently patient is lying in bed, in no acute distress She was able to walk to bathroom, no significant weakness noted in the hospital She denies any dizziness, lightheadedness, chest pain shortness of breath Discussed with Sulema, patient's friend/caregiver Per Sulema, patient drank a lot of water in the morning for her bladder ultrasound, and then threw up. Then became weak several times during the day. Sulema also says that patient is quite deconditioned, does not walk or move much usually. Review of Systems Review of Systems: All systems reviewed & are unremarkable except as noted in HPI & below Constitutional: no fever and no chills Respiratory: no cough and no dyspnea Cardiovascular: no chest pain and no palpitations Gastrointestinal: no abdominal pain, no nausea and no vomiting Physical Exam Physical Exam: GENERAL: The patient is of moderate build, not in acute distress. HEENT: NC/AT, EOMI, Pupils equal, round, reactive to light. Oral mucosa moist. NECK: No JVD, no neck masses. CARDIOVASCULAR: S1, S2, regular rate and rhythm, no murmur, no gallop. RESPIRATORY SYSTEM: Normal AP diameter. No accessory muscle use. No wheezing, no crackles. ABDOMEN: Soft, bowel sounds present. Mild abdominal discomfort. No guarding, no rigidity. No distention. NEURO: Cranial nerves II-XII grossly intact, nonfocal. Right lower extremity, 3-4/5 strength. EXTREMITIES: No edema, no erythema. Results & Data Results & Data ([facility]) Vital Signs (Past 12 Hours) Vital Signs Temp Pulse Pulse Resp BP Pulse Ox 09/03/20 07:25 36.5 C 65 17 136/89 97 09/03/20 03:52 36.7 C 69 18 133/94 96 09/02/20 23:33 37 C 66 18 124/63 95 09/02/20 23:13 68 09/02/20 20:09 37 C 61 18 127/83 98 Laboratory Results 09/03/20 09/03/20 09/03/20 Range/Units 07:24 05:54 05:54 WBC 7.67 (4.8-10.8) K/uL RBC 4.04 L (4.2-5.4) M/uL Hgb 11.7 L (12.0-16.0) g/dL Hct 35.5 L (37-47) % MCV 87.9 (80-100) fL MCH 29.0 (25-34) pg MCHC 33.0 (32-36) g/dL RDW Std Deviation 41.6 (36.4-46.3) fL RDW Coeff of Rocky 12.9 (11.5-14.5) % Plt Count 231 (130-400) K/uL MPV 9.5 (7.4-10.4) fL Sodium 141 (136-145) mmol/L Potassium 3.8 (3.5-5.1) mmol/L Chloride 113 H (98-107) mmol/L Carbon Dioxide 24 (21-32) mmol/L Anion Gap 4.0 (3-11) BUN 14 (7-18) mg/dl Creatinine 0.98 (0.6-1.2) mg/dl Est Cr Clr Drug Dosing 54.1 ml/min Est GFR ( Amer) 68.2 Est GFR (Non-Af Amer) 58.9 BUN/Creatinine Ratio 14.1 (10-20) Glucose 112 H (70-99) mg/dl POC Glucose 137 H (70-99) mg/dl Calcium 8.0 L (8.5-10.1) mg/dl Phosphorus 2.7 (2.5-4.9) mg/dl Magnesium 1.9 (1.8-2.4) mg/dl 09/02/20 09/02/20 09/02/20 Range/Units 16:43 11:15 07:42 WBC (4.8-10.8) K/uL RBC (4.2-5.4) M/uL Hgb (12.0-16.0) g/dL Hct (37-47) % MCV (80-100) fL MCH (25-34) pg MCHC (32-36) g/dL RDW Std Deviation (36.4-46.3) fL RDW Coeff of Rocky (11.5-14.5) % Plt Count (130-400) K/uL MPV (7.4-10.4) fL Sodium (136-145) mmol/L Potassium (3.5-5.1) mmol/L Chloride (98-107) mmol/L Carbon Dioxide (21-32) mmol/L Anion Gap (3-11) BUN (7-18) mg/dl Creatinine (0.6-1.2) mg/dl Est Cr Clr Drug Dosing ml/min Est GFR ( Amer) Est GFR (Non-Af Amer) BUN/Creatinine Ratio (10-20) Glucose (70-99) mg/dl POC Glucose 125 H 183 H 145 H (70-99) mg/dl Calcium (8.5-10.1) mg/dl Phosphorus (2.5-4.9) mg/dl Magnesium (1.8-2.4) mg/dl Medications Administered Current Inpatient Medications Acetaminophen (Acetaminophen 325 Mg Tab) 650 mg PO Q4H PRN PRN Reason: Pain or Fever Stop: 10/01/20 23:35 Amlodipine Besylate (Amlodipine Besylate 5 Mg Tab) 2.5 mg PO [facility] Stop: 10/02/20 08:59 Last Admin: 09/02/20 09:27 Dose: 2.5 mg Documented by: Aspirin (Aspirin 81 Mg Ectab) 81 mg PO [facility] Stop: 10/02/20 08:59 Last Admin: 09/02/20 09:27 Dose: 81 mg Documented by: Atorvastatin Calcium (Atorvastatin 40 Mg Tab) 80 mg PO [facility] Stop: 10/02/20 20:59 Last Admin: 09/02/20 20:41 Dose: 80 mg Documented by: Bimatoprost (Bimatoprost 0.01% Op Soln 2.5 Ml Btl) 1 drops OP [facility] Stop: 10/02/20 20:59 Last Admin: 09/02/20 20:41 Dose: 1 drops Documented by: Cetirizine HCl (Cetirizine Hcl 10 Mg Tablet) 10 mg PO [facility] Stop: 10/02/20 20:59 Last Admin: 09/02/20 20:41 Dose: 10 mg Documented by: Citalopram Hydrobromide (Citalopram 40 Mg Tab) 40 mg PO [facility] Stop: 10/02/20 08:59 Last Admin: 09/02/20 09:26 Dose: 40 mg Documented by: Cyanocobalamin (Cyanocobalamin 500 Mcg Tablet (Vitamin B-12)) 1,000 mcg PO [facility] Stop: 10/02/20 08:59 Last Admin: 09/02/20 09:27 Dose: 1,000 mcg Documented by: Enoxaparin Sodium (Enoxaparin Inj 40 Mg/0.4 Ml Syr) 40 mg SQ Q24H [facility] Stop: 10/02/20 08:59 Last Admin: 09/02/20 09:28 Dose: 40 mg Documented by: Ferrous Sulfate (Ferrous Sulfate 325 Mg Tab) 325 mg PO QAM [facility] Stop: 10/02/20 08:59 Last Admin: 09/02/20 09:28 Dose: 325 mg Documented by: Sodium Chloride (Nss 1000ml) 1,000 mls @ 100 mls/hr IV .Q10H [facility] Stop: 10/01/20 23:35 Last Admin: 09/03/20 05:45 Dose: 100 mls/hr Documented by: Insulin Aspart (Insulin Aspart 100 Units/Ml 3 Ml Pen) 0 units SC ACHS [facility] Stop: 10/02/20 07:29 Last Admin: 09/02/20 21:19 Dose: Not Given Documented by: Insulin Glargine (Insulin Glargine Solostar 100 Units/Ml 3 Ml Pen) 16 units SQ HS [facility] Stop: 10/02/20 20:59 Last Admin: 09/02/20 21:19 Dose: 16 units Documented by: Losartan Potassium (Losartan Potassium 50 Mg Tab) [facility] [place] Stop: 10/02/20 08:59 Last Admin: 09/02/20 09:26 Dose: 100 mg Documented by: Nitroglycerin (Nitroglycerin Sl 0.4 Mg/Tab Tab) 0.4 mg SL UD PRN PRN Reason: Chest Pain Stop: 10/01/20 23:35 Ondansetron HCl (Ondansetron Inj 2 Mg/Ml 2 Ml Vial) 4 mg IV Q6H PRN PRN Reason: Nausea Stop: 10/01/20 23:35 Polyethylene Glycol (Polyethylene (Miralax) 17 Gm Pack) 17 gm PO [facility] Stop: 10/02/20 08:59 Last Admin: 09/02/20 09:28 Dose: Not Given Documented by: Potassium Chloride (Potassium Chloride 10 Meq Tabcr) 10 meq PO BID [facility] Stop: 10/02/20 08:59 Last Admin: 09/02/20 20:41 Dose: 10 meq Documented by: Vitamin D (Cholecalciferol 1,000 Units 25 Mcg Tab) 2,000 units [facility] [place] Stop: 10/02/20 08:59 Last Admin: 09/02/20 09:28 Dose: 2,000 units Documented by:
[2020-09-03] MEDS: CYANOCOBALAMIN 500 MCG TABLET (VITAMIN B-12) PO SCH (07:46)
[2020-09-03] MEDS: CHOLECALCIFEROL 1,000 UNITS 25 MCG TAB PO SCH (07:46)
[2020-09-03] MEDS: ASPIRIN 81 MG ECTAB PO SCH (07:46)
[2020-09-03] MEDS: LOSARTAN POTASSIUM 50 MG TAB PO SCH (07:46)
[2020-09-03] MEDS: amLODIPine BESYLATE 5 MG TAB PO SCH (07:46)
[2020-09-03] MEDS: CITALOPRAM 40 MG TAB PO SCH (07:46)
[2020-09-03] MEDS: POTASSIUM CHLORIDE 10 MEQ TABCR PO SCH (07:47)
[2020-09-03] MEDS: ENOXAPARIN INJ 40 MG/0.4 ML SYR SQ SCH (07:47)
[2020-09-03] MEDS: FERROUS SULFATE 325 MG TAB PO SCH (07:47)
[2020-09-03] MEDS: POLYETHYLENE (MIRALAX) 17 GM PACK PO SCH (07:48)
--- NOTE | 2020-09-03 08:05 | Hospitalist Progress Note ---
Date of Service September 03, 2020 Assessment & Plan (1) Weakness: (2) Near syncope: This is a 70-year-old female who presents with weakness, question of some shortness of breath. 1. Weakness, ambulatory dysfunction, could not able to ambulate when she went outside for breakfast with her friends, similar thing happened in the personal [facility] and symptoms include somewhat short of breath, but D-dimer was slightly elevated and she was sent in here. D-dimer was slightly higher in the 500s which is normal adjusted for her age and she was saturating fine on room air and hemodynamics are stable. Her SARS-CoV-2 came back as positive. She said she had 2 shots of the COVID vaccine, the last one was about 2 weeks ago. Chest x-ray, no infiltrates seen. CT PE of the chest obtained, and negative for PE or pneumonia. Placed on gentle fluids on admission. Urinalysis also obtained and negative. Mag bit low on admission, replaced. PT and OT obtained, patient to return back to [facility]. Discussed further with patient's friend/caregiver Sulema, patient drank a lot of water in the morning, for her bladder ultrasound test, and then vomited. She had several episodes of weakness and some transient shortness of breath. Sulema reports that patient is quite deconditioned, does not ambulate/move much usually. 2. Covid. Possible cause of weakness Saturating fine on room air. CT chest obtained and negative for PE or pneumonia. follow inflammatory markers. CRP normal Currently feeling well, no complaints, able to ambulate in the room. PT OT obtained, patient to return back to [facility] 3. History of CVA, right sided weakness and ambulates with a walker. On aspirin, high dose statin. 4. History of diabetes. Hold Januvia. Hold metformin. Continue her home Lantus, long-acting insulin and continue on insulin sliding scale. Current HbA1c 7.6%. Follow the blood sugars. Follow up as outpt. 5. History of hypertension. Continue losartan, amlodipine. We will monitor the blood pressure. 6. History of hyperlipidemia. Continue statin. 7. Depression. Continue citalopram. 8. Bladder mass and pancreatic mass, had ultrasound today. Needs to follow up once discharged from the hospital. 9. History of hypokalemia, on potassium supplement. Follow the labs. 10 History of past tobacco abuse. DVT prophylaxis. Lovenox while inpt. Dispo: Return to [facility] Admission and Anticipated Discharge Date Admission Date: September 01, 2020 Subjective Patient seen in follow-up of weakness Currently patient is lying in bed, in no acute distress She was able to walk to bathroom, no significant weakness noted in the hospital She denies any dizziness, lightheadedness, chest pain shortness of breath Discussed with Sulema, patient's friend/caregiver Per Sulema, patient drank a lot of water in the morning for her bladder ultrasound, and then threw up. Then became weak several times during the day. Sulema also says that patient is quite deconditioned, does not walk or move much usually. Today again patient has no complaints, she was seen by PT, recommend return to [facility] Review of Systems Review of Systems: All systems reviewed & are unremarkable except as noted in HPI & below Constitutional: no fever and no chills Respiratory: no cough and no dyspnea Cardiovascular: no chest pain and no palpitations Gastrointestinal: no abdominal pain, no nausea and no vomiting Physical Exam Physical Exam: GENERAL: The patient is of moderate build, not in acute distress. HEENT: NC/AT, EOMI, Pupils equal, round, reactive to light. Oral mucosa moist. NECK: No JVD, no neck masses. CARDIOVASCULAR: S1, S2, regular rate and rhythm, no murmur, no gallop. RESPIRATORY SYSTEM: Normal AP diameter. No accessory muscle use. No wheezing, no crackles. ABDOMEN: Soft, bowel sounds present. Mild abdominal discomfort. No guarding, no rigidity. No distention. NEURO: Cranial nerves II-XII grossly intact, nonfocal. Right lower extremity, 3-4/5 strength (prior stroke) EXTREMITIES: No edema, no erythema. Results & Data Results & Data ([facility]) Vital Signs (Past 12 Hours) Vital Signs Temp Pulse Pulse Resp BP Pulse Ox 09/03/20 07:25 36.5 C 65 17 136/89 97 09/03/20 03:52 36.7 C 69 18 133/94 96 09/02/20 23:33 37 C 66 18 124/63 95 09/02/20 23:13 68 09/02/20 20:09 37 C 61 18 127/83 98 Laboratory Results 09/03/20 09/03/20 09/03/20 Range/Units 07:24 05:54 05:54 WBC 7.67 (4.8-10.8) K/uL RBC 4.04 L (4.2-5.4) M/uL Hgb 11.7 L (12.0-16.0) g/dL Hct 35.5 L (37-47) % MCV 87.9 (80-100) fL MCH 29.0 (25-34) pg MCHC 33.0 (32-36) g/dL RDW Std Deviation 41.6 (36.4-46.3) fL RDW Coeff of Rocky 12.9 (11.5-14.5) % Plt Count 231 (130-400) K/uL MPV 9.5 (7.4-10.4) fL Sodium 141 (136-145) mmol/L Potassium 3.8 (3.5-5.1) mmol/L Chloride 113 H (98-107) mmol/L Carbon Dioxide 24 (21-32) mmol/L Anion Gap 4.0 (3-11) BUN 14 (7-18) mg/dl Creatinine 0.98 (0.6-1.2) mg/dl Est Cr Clr Drug Dosing 54.1 ml/min Est GFR ( Amer) 68.2 Est GFR (Non-Af Amer) 58.9 BUN/Creatinine Ratio 14.1 (10-20) Glucose 112 H (70-99) mg/dl POC Glucose 137 H (70-99) mg/dl Calcium 8.0 L (8.5-10.1) mg/dl Phosphorus 2.7 (2.5-4.9) mg/dl Magnesium 1.9 (1.8-2.4) mg/dl 09/02/20 09/02/20 Range/Units 16:43 11:15 WBC (4.8-10.8) K/uL RBC (4.2-5.4) M/uL Hgb (12.0-16.0) g/dL Hct (37-47) % MCV (80-100) fL MCH (25-34) pg MCHC (32-36) g/dL RDW Std Deviation (36.4-46.3) fL RDW Coeff of Rocky (11.5-14.5) % Plt Count (130-400) K/uL MPV (7.4-10.4) fL Sodium (136-145) mmol/L Potassium (3.5-5.1) mmol/L Chloride (98-107) mmol/L Carbon Dioxide (21-32) mmol/L Anion Gap (3-11) BUN (7-18) mg/dl Creatinine (0.6-1.2) mg/dl Est Cr Clr Drug Dosing ml/min Est GFR ( Amer) Est GFR (Non-Af Amer) BUN/Creatinine Ratio (10-20) Glucose (70-99) mg/dl POC Glucose 125 H 183 H (70-99) mg/dl Calcium (8.5-10.1) mg/dl Phosphorus (2.5-4.9) mg/dl Magnesium (1.8-2.4) mg/dl Medications Administered Current Inpatient Medications Acetaminophen (Acetaminophen 325 Mg Tab) 650 mg PO Q4H PRN PRN Reason: Pain or Fever Stop: 10/01/20 23:35 Amlodipine Besylate (Amlodipine Besylate 5 Mg Tab) 2.5 mg PO [facility] Stop: 10/02/20 08:59 Last Admin: 09/03/20 07:46 Dose: 2.5 mg Documented by: Aspirin (Aspirin 81 Mg Ectab) 81 mg PO [facility] Stop: 10/02/20 08:59 Last Admin: 09/03/20 07:46 Dose: 81 mg Documented by: Atorvastatin Calcium (Atorvastatin 40 Mg Tab) 80 mg PO [facility] Stop: 10/02/20 20:59 Last Admin: 09/02/20 20:41 Dose: 80 mg Documented by: Bimatoprost (Bimatoprost 0.01% Op Soln 2.5 Ml Btl) 1 drops OP [facility] Stop: 10/02/20 20:59 Last Admin: 09/02/20 20:41 Dose: 1 drops Documented by: Cetirizine HCl (Cetirizine Hcl 10 Mg Tablet) 10 mg PO [facility] Stop: 10/02/20 20:59 Last Admin: 09/02/20 20:41 Dose: 10 mg Documented by: Citalopram Hydrobromide (Citalopram 40 Mg Tab) 40 mg PO [facility] Stop: 10/02/20 08:59 Last Admin: 09/03/20 07:46 Dose: 40 mg Documented by: Cyanocobalamin (Cyanocobalamin 500 Mcg Tablet (Vitamin B-12)) 1,000 mcg PO QAM [facility] Stop: 10/02/20 08:59 Last Admin: 09/03/20 07:46 Dose: 1,000 mcg Documented by: Enoxaparin Sodium (Enoxaparin Inj 40 Mg/0.4 Ml Syr) 40 mg SQ Q24H [facility] Stop: 10/02/20 08:59 Last Admin: 09/03/20 07:47 Dose: 40 mg Documented by: Ferrous Sulfate (Ferrous Sulfate 325 Mg Tab) 325 mg PO QAM [facility] Stop: 10/02/20 08:59 Last Admin: 09/03/20 07:47 Dose: 325 mg Documented by: Sodium Chloride (Nss 1000ml) 1,000 mls @ 100 mls/hr IV .Q10H [facility] Stop: 10/01/20 23:35 Last Admin: 09/03/20 05:45 Dose: 100 mls/hr Documented by: Insulin Aspart (Insulin Aspart 100 Units/Ml 3 Ml Pen) 0 units SC ACHS [facility] Stop: 10/02/20 07:29 Last Admin: 09/02/20 21:19 Dose: Not Given Documented by: Insulin Glargine (Insulin Glargine Solostar 100 Units/Ml 3 Ml Pen) 16 units SQ HS [facility] Stop: 10/02/20 20:59 Last Admin: 09/02/20 21:19 Dose: 16 units Documented by: Losartan Potassium (Losartan Potassium 50 Mg Tab) [facility] [place]: 10/02/20 08:59 Last Admin: 09/03/20 07:46 Dose: 100 mg Documented by: Nitroglycerin (Nitroglycerin Sl 0.4 Mg/Tab Tab) 0.4 mg SL UD PRN PRN Reason: Chest Pain Stop: 10/01/20 23:35 Ondansetron HCl (Ondansetron Inj 2 Mg/Ml 2 Ml Vial) 4 mg IV Q6H PRN PRN Reason: Nausea Stop: 10/01/20 23:35 Polyethylene Glycol (Polyethylene (Miralax) 17 Gm Pack) [facility] [place]: 10/02/20 08:59 Last Admin: 09/03/20 07:48 Dose: Not Given Documented by: Potassium Chloride (Potassium Chloride 10 Meq Tabcr) 10 meq PO BID [facility] Stop: 10/02/20 08:59 Last Admin: 09/03/20 07:47 Dose: 10 meq Documented by: Vitamin D (Cholecalciferol 1,000 Units 25 Mcg Tab) 2,000 units PO QAM [facility] Stop: 10/02/20 08:59 Last Admin: 09/03/20 07:46 Dose: 2,000 units Documented by:
[2020-09-03] MEDS: INSULIN ASPART 100 UNITS/ML 3 ML PEN SC SCH ×2 (08:29→12:45)
--- NOTE | 2020-09-03 14:35 | Discharge Summary ---
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 Currently living in personal group home, was brought in because of weakness. The patient was recently found to have bladder mass had ultrasound today morning for it. After that ultrasound she went for breakfast with her friends. After breakfast, she could not walk, she was feeling very weak and near syncope. She has some nausea, but no vomiting, no cough, no chest pain, no fevers and she went to her personal group home. At the personal group home she had similar symptoms and in the personal group home some lab was done and D-dimer was slightly elevated in the 500 range and she was sent here for further evaluation here. Her hemodynamics are stable, afebrile, no leukocytosis. Creatinine is 1.2 which seemed to be at baseline. Magnesium is 1.7, which was replaced in the ER, but CT of the head and CT of the abdomen and pelvis were fine. Chest x-ray was okay. She was saturating fine on room air. She says she took 2 shots of COVID vaccine. Last shot was about 2 weeks ago, but her SARS-CoV-2 PCR came back positive in the ER. No infiltrate on chest x-ray and she is hemodynamically stable and saturating 100% on room air. Denies any headache, denies any dizziness, no blurred vision, no earache, no runny nose, no sore throat, no cough. Her appetite is okay and no difficulty swallowing. Currently, no chest pain, no shortness of breath, no abdominal pain. Normal bowel and bladder movements. She ambulates with a walker. Admission Exam Per Admitting Provider GENERAL: The patient is of moderate build, not in acute distress. VITAL SIGNS: Temperature 37, pulse 70, respiratory rate 22, blood pressure 131/81, oxygen 100% on room air. HEENT: Pupils equal, round, reactive to light. Oral mucosa moist. NECK: No JVD, no neck masses. CARDIOVASCULAR: S1, S2, regular rate and rhythm, no murmur, no gallop. RESPIRATORY SYSTEM: Normal AP diameter. No accessory muscle use. No wheezing, no crackles. ABDOMEN: Soft, bowel sounds present. Mild abdominal discomfort. No guarding, no rigidity. No distention. CENTRAL NERVOUS SYSTEM: Cranial nerves II-XII grossly intact, nonfocal. Right lower extremity power, 3-4/5 strength. EXTREMITIES: No edema, no erythema. Principal Diagnosis Weakness, ambulatory dysfunction Hypomagnesemia History of COVID 19 Discharge Exam GENERAL: The patient is of moderate build, not in acute distress. HEENT: NC/AT, EOMI, Pupils equal, round, reactive to light. Oral mucosa moist. NECK: No JVD, no neck masses. CARDIOVASCULAR: S1, S2, regular rate and rhythm, no murmur, no gallop. RESPIRATORY SYSTEM: Normal AP diameter. No accessory muscle use. No wheezing, no crackles. ABDOMEN: Soft, bowel sounds present. Mild abdominal discomfort. No guarding, no rigidity. No distention. NEURO: Cranial nerves II-XII grossly intact, nonfocal. Right lower extremity, 3-4/5 strength (prior stroke) EXTREMITIES: No edema, no erythema. Discharge Data Allergies Allergy/AdvReac Type Severity Reaction Status Date / Time ampicillin Allergy Mild Gastrointestinal Verified 09/01/20 19:09 Upset prednisone Allergy Mild ITCHING Verified 09/01/20 19:09 azithromycin AdvReac Mild Gastrointestinal Verified 09/01/20 19:09 Upset lisinopril AdvReac Mild Gastrointestinal Verified 09/01/20 19:09 Upset Consultations 09/01/20 19:41 ED Decision to Admit Stat Ordered Studies 09/01/20 17:37 CT head/brain wo con Stat IMPRESSION: There is no hemorrhage, mass effect, or evidence of acute territorial ischemia by CT criteria. 09/01/20 17:40 CT abd pelvis wo con Stat IMPRESSION: 1. Suboptimal examination without oral and IV contrast. The examination is also degraded by motion artifact. 2. There are no acute infectious or inflammatory findings in the abdomen or pelvis. 3. Colonic diverticulosis without CT evidence of acute diverticulitis. 4. Cholelithiasis. 5. A subcentimeter hypodensity in the pancreatic tail and a subcentimeter bladder nodule suggested on 08/25/2020 are not well assessed on this unenhanced examination. See report of the prior study for detailed findings. 6. Additional findings in full report. 04/03/21 07:15 CT angio chest PE protocol Urgent IMPRESSION: 1. No evidence of acute pulmonary embolism 2. No evidence of focal pulmonary consolidation. 3. Probable cholelithiasis. 09/02/20 07:16 US venous doppler LE BI Urgent IMPRESSION: No evidence of lower extremity DVT. Hospital Course (1) Weakness: (2) Near syncope: This is a 70-year-old female who presents with weakness, question of some shortness of breath. 1. Weakness, ambulatory dysfunction, could not able to ambulate when she went outside for breakfast with her friends, similar thing happened in the personal group home and symptoms include somewhat short of breath, but D-dimer was slightly elevated and she was sent in here. D-dimer was slightly higher in the 500s which is normal adjusted for her age and she was saturating fine on room air and hemodynamics are stable. Her SARS-CoV-2 came back as positive. She said she had 2 shots of the COVID vaccine, the last one was about 2 weeks ago. Chest x-ray, no infiltrates seen. CT PE of the chest obtained, and negative for PE or pneumonia. Placed on gentle fluids on admission. Urinalysis also obtained and negative. Mag bit low on admission, replaced. PT and OT obtained, patient to return back to personal group home. Discussed further with patient's friend/caregiver Sulema, patient drank a lot of water in the morning, for her bladder ultrasound test, and then vomited. She had several episodes of weakness and some transient shortness of breath. Sulema reports that patient is quite deconditioned, does not ambulate/move much usuall y. 2. Covid. Possible cause of weakness Saturating fine on room air. CT chest obtained and negative for PE or pneumonia. follow inflammatory markers. CRP normal Currently feeling well, no complaints, able to ambulate in the room. PT OT obtained, patient to return back to personal group home 3. History of CVA, right sided weakness and ambulates with a walker. On aspi rin, high dose statin. 4. History of diabetes. Hold Januvia. Hold metformin. Continue her home Lantus, long-acting insulin and continue on insulin sliding scale. Current HbA1c 7.6%. Follow the blood sugars. Follow up as outpt. 5. History of hypertension. Continue losartan, amlodipine. We will monitor the blood pressure. 6. History of hyperlipidemia. Continue statin. 7. Depression. Continue citalopram. 8. Bladder mass and pancreatic mass, had ultrasound today. Needs to follow up once discharged from the hospital. 9. History of hypokalemia, on potassium supplement. Follow the labs. 10 History of past tobacco abuse. DVT prophylaxis. Lovenox while inpt. Dispo: Return to personal group home Total Time Total Time Spent Total Time Spent (In Minutes): 35 Total Time Includes: Examination of the Patient, Discharge Planning and Medication Reconciliation Discharge Plan Discharge Items Patient Disposition: Personal Nursing Home Reason For Visit: WEAKNESS Discharge Diagnosis: Weakness, ambulatory dysfunction Hypomagnesemia History of COVID 19 Condition on Discharge: Good Activity: Per Instructions section Non-emergency contact: Primary Care Provider Call non-emergency contact if: you have any medication questions and your symptoms worsen Follow-up/Referrals: [facility] [place] [Primary Care Provider] - Diet: Carb Consistent or DM2 and Heart Healthy Addtl Attending Provider Instructions: Follow-up with your primary care provider within a week. There were no medication changes made. Make sure to follow-up with your other appointments as scheduled. Addtl Recruiting Manager Provider Instructions: Coronavirus disease 2019 (COVID-19) is a virus that causes a respiratory illness. It is caused by a coronavirus called 2019 novel coronavirus (2019- nCoV). There are many types of coronavirus. Coronaviruses are a very common cause of bronchitis. They may sometimes cause lung infection(pneumonia). Symptoms can range from mild to severe respiratory illness. These viruses are also foundin some animals. COVID-19 was first found in people in [facility], in late 2019. In 2020, several cases of COVID-19 have been confirmed in the [place] Public health officials are working to find the source. How the virus spreads is not yet fully known. It may be spread through droplets of fluid that a person coughs or sneezes into the air. It may be spread if you touch a surface with virus on it, such as a handle or object, and then touch your mouth. What are the symptoms of COVID-19? Some people have no symptoms or mild symptoms. Symptoms may appear 2 to 14 days after contact with the virus. Symptoms can include: Fever Coughing Trouble breathing What are possible complications from COVID-19? In many cases, this virus can cause infection (pneumonia) in both lungs. In some cases, this can cause . How is COVID-19 diagnosed? Your healthcare provider will ask about your symptoms. He or she will also ask about your recent travel and contact with sick people. Testing for the virus is only done through the CDC. If yourhealthcare provider thinks you may have COVID- 19, he or she will work with your local health department and the CDC on testing. Follow all instructions from your healthcare provider. COVID-19 is diagnosed by: Nasal and throat swab. A cotton-tipped swab is wiped inside your nose or throat. This is done to check for viruses in your nasal mucus. Sputum culture. A small sample of mucus coughed from your lungs (sputum) is collected if you have a cough. It is checked for the virus. How is COVID-19 treated? There is currently no medicine to treat the virus. Treatment is done to help your body while it fights the virus. This is known as supportive care. Supportive care may include: Pain medicine. These include acetaminophen and ibuprofen. They are used to help ease pain and reduce fever. Bed rest. This helps your body fight the illness. For severe illness, you may need to stay in the hospital. Care during severe illness may include: IV (intravenous) fluids.These are given through a vein to help keep your body hydrated. Oxygen. Supplemental oxygen or ventilation with a breathing machine (ventilator) may be given. This is done to keep enough oxygen in your body. Are you at risk for COVID-19? If youve been to a place where people have been sick with this virus, you are at risk for infection. You are at risk if you: Recently traveled to an affected area Had contact with a sick person who recently traveled to this area Had contact with a person who was diagnosed with COVID-19 How can COVID-19 be prevented? There is no vaccine yet. The best prevention is to not have contact with the virus. The CDC advises that people should not travel to areas where there are COVID-19 outbreaks right now for any reason that is not urgent. To help prevent spreading the infection, wash your hands often, or use an alcohol-basedhand consulting project director. If you are in an area with COVID-19: Wash your hands often. Or use an alcohol-based hand consulting project director often. Only touch your eyes, nose, or mouth with clean hands. Dont have contact with people who are sick. Follow local instructions about being in public. For example, you may be told to not use public transport for a period of time. Stay away from markets that have live or animals. Wash your hands after touching any animals. Don't touch animals that may be sick. Dont share eating or drinking tools with sick people. Dont kiss someone who is sick. Clean surfaces often with disinfectant. If you were in an area with COVID-19 in the last 14 days: Call your healthcare provider. He or she can talk with local health staff to see what action may be needed. Follow all instructions from your provider. Take your temperature every morning and evening for at least 14 days. This is to check for fever. Keep a record of the readings. Keep watch for symptoms of the virus. Tell your provider right away if you have symptoms. If you were in an area with COVID-19 and have a fever or other symptoms: Dont panic. Keep in mind that other illnesses can cause similar symptoms. Stay away from work, school, and public places. Limit physical contact with family members. Don't kiss anyone or share eating or drinking utensils. Clean surfaces you touch with disinfectant. This is to help prevent the virus from spreading. Call your healthcare provider. Explain that you have been exposed to COVID-19 and have symptoms. Do this before going to any hospital. Wait for instructions. Keep in mind that healthcare staff may wear protective equipment such as masks, gowns, gloves, and eye protection. You may be put in a separate room. This is to prevent the possible virus from spreading. Tell the healthcare staff about recent travel. This includes local travel on public transport. Staff may need to find other people you have been in contact with. Follow all instructions the healthcare staff give you. If you have been diagnosed with COVID-19 Follow all instructions from your healthcare provider. Dont leave your home, except to get medical care. Call your healthcare providers office before going. They can prepare and give you instructions. This will help prevent the virus from spreading. Dont go to work, school, or public areas. Dont use public transport or taxis. Stay away from other people in your home. Have them wear face masks around you. Dont share household items or food. Wear a face mask if you can. This includes at home or in a medical facility. Cover your face with a tissue when you cough or sneeze. Throw the tissue away. Wash your hands. Wash your hands often. Caregivers should: Follow all instructions from healthcare staff. Wear a face mask and protective clothing as advised. Wash hands often. Keep track of the sick persons symptoms. Clean surfaces, fabrics, and laundry thoroughly. Keep other people away from the sick person. When to call your healthcare provider Call your healthcare provider: If youve recently traveled and have symptoms If you have been diagnosed with COVID-19 and your symptoms are worse To learn more To find out more about COVID-19, visit the CDC website at www.cdc.gov/coronavirus/2019-ncov/index.html. [employer]. [address] [place] [address]. All rights reserved. This information is not intended as a substitute for professional medical care. Always follow your healthcare professional's instructions. This information has been adapted from [employer] Home Isolation COVID-19 Instructions The following information about Home Isolation is from the CDC Website: https://www.cdc.gov/coronavirus/2019-ncov/hcp/lstfmnmg-xcpzrrr-oxsrkf.html Stay home except to get medical care People who are mildly ill with COVID-19 are able to isolate at home during their illness. You should restrict activities outside your home, except for getting medical care. Do not go to work, school, or public areas. Avoid using public transportation, ride-sharing, or taxis. Separate yourself from other people and animals in your home People: As much as possible, you should stay in a specific room and away from other people in your home. Also, you should use a separate bathroom, if available. Animals: You should restrict contact with pets and other animals while you are sick with COVID-19, just like you would around other people. Although there have not been reports of pets or other animals becoming sick with COVID-19, it is still recommended that people sick with COVID-19 limit contact with animals until more information is known about the virus. When possible, have another member of your household care for your animals while you are sick. If you are sick with COVID-19, avoid contact with your pet, including petting, snuggling, being kissed or licked, and sharing food. If you must care for your pet or be around animals while you are sick, wash your hands before and after you interact with pets and wear a face mask. Call ahead before visiting your doctor If you have a medical appointment, call the healthcare provider and tell them that you have or may have COVID-19. This will help the healthcare providers office take steps to keep other people from getting infected or exposed. Wear a face mask You should wear a face mask when you are around other people (e.g., sharing a room or vehicle) or pets and before you enter a healthcare providers office. If you are not able to wear a face mask (for example, because it causes trouble breathing), then people who live with you should not stay in the same room with you, or they should wear a face mask if they enter your room. Cover your coughs and sneezes Cover your mouth and nose with a tissue when you cough or sneeze. Throw used tissues in a lined trash can. Immediately wash your hands with soap and water for at least 20 seconds or, if soap and water are not available, clean your hands with an alcohol-based hand consulting project director that contains at least 60% alcohol. Clean your hands often Wash your hands often with soap and water for at least 20 seconds, especially after blowing your nose, coughing, or sneezing; going to the bathroom; and before eating or preparing food. If soap and water are not readily available, use an alcohol-based hand consulting project director with at least 60% alcohol, covering all surfaces of your hands and rubbing them together until they feel dry. Soap and water are the best option if hands are visibly dirty. Avoid touching your eyes, nose, and mouth with unwashed hands. Avoid sharing personal household items You should not share dishes, drinking glasses, cups, eating utensils, towels, or bedding with other people or pets in your home. After using these items, they should be washed thoroughly with soap and water. Clean all high-touch surfaces everyday High touch surfaces include counters, tabletops, doorknobs, bathroom fixtures, toilets, phones, keyboards, tablets, and bedside tables. Also, clean any surfaces that may have blood, stool, or body fluids on them. Use a household cleaning spray or wipe, according to the label instructions. Labels contain instructions for safe and effective use of the cleaning product including precautions you should take when applying the product, such as wearing gloves and making sure you have good ventilation during use of the product. Monitor your symptoms Seek prompt medical attention if your illness is worsening (e.g., difficulty breathing).Beforeseeking care, call your healthcare provider and tell them that you have, or are being evaluated for, COVID-19. Put on a face mask before you enter the facility. These steps will help the healthcare providers office to keep other people in the office or waiting room from getting infected or exposed. Ask your healthcare provider to call the local or state health department. Persons who are placed under active monitoring or facilitated self- monitoring should follow instructions provided by their local health department or occupational health professionals, as appropriate. When working with your local health department check their available hours. If you have a medical emergency and need to call 911, notify the dispatch person tomas that you have, or are being evaluated for COVID-19. If possible, put on a face mask before emergency medical services arrive. Discontinuing home isolation Patients with confirmed COVID-19 should remain under home isolation precautions until the risk of secondary transmission to others is thought to be low. The decision to discontinue home isolation precautions should be made on a upal-[id number] basis, in consultation with healthcare providers and [facility] and local health departments. Pending Studies at Discharge: No Stand-Alone Forms: [facility], Smoking Cessation Skilled Items Patient informed of condition?: Yes DNR: No Discharge Level of Care: Other Communicable Disease: No Discharge Prognosis: Stable Lines: None Urinary Catheter: No Medications and DC Order Prescriptions: Continued cyanocobalamin (vitamin B-12) [Vitamin B-12] 500 mcg Tablet 1,000 mcg PO QAM RF: 0 Januvia 100 mg Tablet 100 mg PO QAM RF: 0 Basaglar KwikPen U-100 Insulin 100 unit/mL (3 mL) Insulin Pen 16 unit SUBCUT HS RF: 0 atorvastatin 80 mg Tablet 80 mg PO HS RF: 0 cholecalciferol (vitamin D3) [Vitamin D3] 2,000 unit Capsule 2,000 unit PO QAM RF: 0 citalopram 40 mg tablet 40 mg PO QAM RF: 0 cetirizine 10 mg Tablet 10 mg PO HS RF: 0 amlodipine 2.5 mg tablet 2.5 mg PO QAM RF: 0 potassium chloride 10 mEq tablet extended release 10 meq PO BID RF: 0 ferrous sulfate 325 mg (65 mg iron) Tablet 325 mg PO QAM RF: 0 aspirin 81 mg Tablet,Chewable 81 mg PO QAM RF: 0 polyethylene glycol 3350 [Miralax] 17 gram/dose Powder 17 g PO QAM RF: 0 losartan 100 mg tablet 100 mg PO QAM RF: 0 metformin 500 mg tablet extended release 24 hr 500 mg PO QAM RF: 0 Lumigan 0.01 % drops 1 drp OPB HS RF: 0 Discharge Orders: Discharge Order (Routine); Ordered 09/03/20 Ordered By: Nixon Dale/Other Patient Handouts: Managing Type 2 Diabetes, Managing Diabetes: The A1C Test Admission Data Admit Date/Time: 09/01/20 21:30 Attending Provider: Nixon Dale Admit Provider: Kwabena Fair Primary Care Provider: [facility] [place] Other Providers: Kwabena Fair
--- NOTE | 2020-10-02 11:02 | Coding Query ---
A supporting diagnosis is required for the test/procedure performed on this patient in order for us to be reimbursed by the patient's insurance. Please provide a supporting diagnosis for the following test/procedure listed below next to the test name along with your signature. *If there is no additional diagnosis for this patient that would support the following test/procedure please document that below next to the test/procedure. Test(s)/Procedure(s) that require a supporting diagnosis: Venous Doppler DIAGNOSIS:____Elevated dimer, rule out DVT Provider Signature: ___Kwabena Fair Date: ___10/02/2020____ Thank you Sandra Carvre Health Information Management Once completed, please kindly fax back to [phone] For questions please call [phone] LAZARO
== END 2020-09-03 17:05 | disposition home or self-care (01) ==
LOC: ED 17:21 → 2E 21:30 → INTOOBSV 21:30 → 2E 22:32

== ENCOUNTER 2021-02-24 12:16 | Inpatient (IN) ==
[~2021-02-24 12:16] MED LIST: ceFAZolin 2000MG 2,000 MG/15 ML SYR IV SCH
[2021-02-24] MEDS ORDERED: LACTATED RINGER'S 1,000 ML IV SCH (12:45)
[2021-02-24] MEDS: MoRPHine SULFATE 2 MG/ML CARP IV PRN ×2 (12:51→16:25)
[2021-02-24 12:58] LABS: Basophils # (auto) 0.02 K/uL (0-0.2); Basophils % (auto) 0.2 %; Eosinophils # (auto) 0.17 K/uL (0-0.5); Eosinophils % (auto) 1.3 %; Hematocrit (blood only) 41.6 % (37-47); Hemoglobin 13.3 g/dL (12.0-16.0); Immature Granulocytes # (auto) 0.08 K/uL (0.00-0.02); Immature Granulocytes % (auto) 0.6 %; Lymphocytes # (auto) 1.41 K/uL (1.2-3.4); Lymphocytes % (auto) 11.1 %; Mean Corpuscular Volume 90.8 fL (80-100); Monocytes # (auto) 0.68 K/uL (0.11-0.59); Monocytes % (auto) 5.4 %; Neutrophils # (auto) 10.33 K/uL (1.4-6.5); Neutrophils % (auto) 81.4 %; Platelet Count 260 K/uL (130-400); RDW Coefficient of Variation 12.8 % (11.5-14.5); RDW Standard Deviation 42.3 fL (36.4-46.3); Red Blood Count 4.58 M/uL (4.2-5.4); White Blood Count 12.69 K/uL (4.8-10.8)
[2021-02-24 13:09] LABS: Partial Thromboplastin Ratio 0.9; Partial Thromboplastin Time 22.7 Seconds (21.0-31.0); Prothrombin Time 10.3 Seconds (9.0-12.0)
[2021-02-24 13:13] LABS: Alanine Aminotransferase 24 U/L (12-78); Albumin Level 3.5 gm/dl (3.4-5.0); Aspartate Aminotransferase 20 U/L (15-37); BUN Creatinine Ratio 10.3 (10-20); Blood Urea Nitrogen 13 mg/dl (7-18); Calcium 8.7 mg/dl (8.5-10.1); Carbon Dioxide 28 mmol/L (21-32); Chloride 110 mmol/L (98-107); Est GFR (Non-African American) 43.1 ml/min; Glucose 156 mg/dl (70-99); Potassium 3.8 mmol/L (3.5-5.1); Sodium 142 mmol/L (136-145)
--- NOTE | 2021-02-24 13:15 | XRay Report ---
XR hip LT min 2V HISTORY: 71 years-old Female fall, hip pain, r/o fx acute left-sided hip pain status post fall COMPARISON: CT abdomen and pelvis 09/01/2020 TECHNIQUE: 2 views of the left hip FINDINGS: Moderate left hip osteoarthritis. There is an acute mildly impacted nondisplaced transcervical fractu re of the left femur. No dislocation or avascular necrosis. Mild soft tissue swelling. The imaged lef t hemipelvis appears intact. IMPRESSION: Acute mildly impacted nondisplaced transcervical fracture of the left femur. ACT 112: Negative or not required by law. The above report was generated using voice recognition software. It may contain grammatical, syntax o r spelling errors. Electronically signed by: James Edmonds M.D. 02/24/2021 1:14 PM
[2021-02-24 13:16] LABS: Albumin Globulin Ratio 0.9 (0.9-2); Alkaline Phosphatase 107 U/L (45-117); Bilirubin,Total 0.8 mg/dl (0.2-1); Globulin 3.8 gm/dl (2.5-4.0); Total Protein 7.3 gm/dl (6.4-8.2)
--- NOTE | 2021-02-24 13:16 | XRay Report ---
XR chest 1V portable HISTORY: 71 years-old Female preop preoperative exam. No acute chest complaints COMPARISON: Chest radiograph 09/01/2020, CTA chest 09/02/2020 TECHNIQUE: Supine AP view of the chest FINDINGS: Cardiac silhouette is mildly enlarged. Mild right hemidiaphragmatic elevation. Surgical clips project over the mid upper mediastinum. No pneumothorax, pleural effusion, airspace consolidation or overt p ulmonary edema. Degenerative changes of the shoulders and spine. IMPRESSION: No acute process. ACT 112: Negative or not required by law. The above report was generated using voice recognition software. It may contain grammatical, syntax o r spelling errors. Electronically signed by: James Edmonds M.D. 02/24/2021 1:15 PM
[2021-02-24 13:37] LABS: Appearance Urine Clear (Clear); Bilirubin Urine Negative (Negative); Blood Urine Negative (Negative); Color Urine Yellow; Glucose Urine UA Negative (Negative); Ketones Urine Negative (Negative); Leukocyte Esterase Urine Negative (Negative); Nitrite Urine Negative (Negative); Protein Urine Negative (Negative); Specific Gravity Urine 1.015 (1.000-1.030); Urobilinogen Urine Negative (Negative)
[2021-02-24] MEDS ORDERED: ACETAMINOPHEN 1,000 MG/100 ML VIAL IV STA (14:21)
--- NOTE | 2021-02-24 14:38 | History & Physical Report ---
Date of Service February 24, 2021 Assessment & Plan (1) Closed left hip fracture: Plan: Dr. Pearson is consulted will be kept n.p.o. until determine if going to surgery today or or tomorrow. Patient is low risk medically surgical risk calculator is under 10% for any calculation. Cardiac complications and pneumonia are extremely low. I do believe it is prudent to proceed to surgery as able to repair her hip fracture and then proceed to rehabilitation (2) Diabetes mellitus, type 2: Plan: Typically on Basaglar Januvia Metformin. Be on basal bolus insulin this time glycemic pharmacy management consult (3) CVA (cerebral vascular accident): Plan: Patient with history of CVA in the past with complete recovery typically on aspirin and atorvastatin, will hold aspirin in the perioperative. Continue atorvastatin (4) Depression: Plan: Citalopram will be continued (5) Hypertension: Plan: Typically on amlodipine and losartan for hypertension, hold amlodipine Losartan also for protection of diabetic nephropathy dose to be reduced in the face of orthopedic fracture (6) DVT prophylaxis: Plan: SCDs until postoperative state of hemostasis is achieved She is a full code History of Present Illness Primary Care Provider: [facility] 71-year-old female with history of diabetes and stroke with full recovery was a ground-level fall sustaining left hip fracture this morning at [facility]. Patient is a challenging historian not knowing her baseline I do believe she has some dementia probably based upon her previous stroke. She says she has challenges writing with her right hand and walking with her right leg. Subsequently she fell on her way from the bathroom this morning. She states that her blood sugar may have been low this morning and she did not eat breakfast. Currently there is no other signs of injury. She denies having any chest pain orthopnea or dyspnea on exertion however with her questionable historian difficult to ascertain. Her labs are on revealing her EKG although read as accelerated junctional rhythm looks similar to her old and I do believe it sinus rhythm chest x-ray is unremarkable and x-ray of her hip shows a left femoral neck fracture Allergies Allergy/AdvReac Type Severity Reaction Status Date / Time prednisone Allergy Mild ITCHING Verified 02/24/21 14:31 ampicillin AdvReac Mild Gastrointestinal Verified 02/24/21 14:31 Upset azithromycin AdvReac Mild Gastrointestinal Verified 02/24/21 14:31 Upset lisinopril AdvReac Mild Gastrointestinal Verified 02/24/21 14:31 Upset Home Medications Medication Instructions Recorded Confirmed Type atorvastatin 80 mg tablet 80 mg PO HS 02/10/18 02/24/21 History cholecalciferol (vitamin D3) 50 2,000 unit PO QAM 02/10/18 02/24/21 History mcg (2,000 unit) capsule (Vitamin D3) cyanocobalamin (vitamin B-12) 500 1,000 mcg PO QAM 03/25/18 02/24/21 History mcg tablet (Vitamin B-12) insulin glargine 100 unit/mL (3 16 unit SUBCUT QPM 03/25/18 02/24/21 History mL) subcutaneous pen (Basaglar KwikPen U-100 Insulin) sitagliptin 100 mg tablet (Januvia) 100 mg PO QAM 03/25/18 02/24/21 History amlodipine 2.5 mg tablet 2.5 mg PO QAM 09/01/20 02/24/21 History aspirin 81 mg chewable tablet 81 mg PO QAM 09/01/20 02/24/21 History bimatoprost 0.01 % eye drops 1 drp OPB HS 09/01/20 02/24/21 History (Lumigan) citalopram 40 mg tablet 40 mg PO QAM 09/01/20 02/24/21 History ferrous sulfate 325 mg (65 mg 325 mg PO QAM 09/01/20 02/24/21 History iron) tablet losartan 100 mg tablet 100 mg PO QAM 09/01/20 02/24/21 History metformin 500 mg tablet,extended 500 mg PO QAM 09/01/20 02/24/21 History release 24 hr polyethylene glycol 3350 17 17 g PO DAILY PRN 09/01/20 02/24/21 History gram/dose oral powder (Miralax) potassium chloride 10 mEq 10 meq PO BID 09/01/20 02/24/21 History tablet,extended release fesoterodine 4 mg tablet,extended 4 mg PO QAM 10/04/20 02/24/21 History release 24 hr (Toviaz) magnesium oxide 250 mg PO QPM 10/04/20 02/24/21 History acetaminophen 325 mg tablet 650 mg PO QID PRN 10/19/20 02/24/21 History (Tylenol) [id number] 1 applic TOPICAL BID 10/19/20 02/24/21 History petrolatum topical cream (Cetaphil Moisturizing) albuterol sulfate 90 mcg/actuation 2 puff INHALATION QID PRN 11/07/20 02/24/21 History aerosol inhaler cetirizine 5 mg tablet 5 mg PO QPM 11/07/20 02/24/21 History clobetasol 0.05 % topical cream 1 applic TOPICAL BID PRN 11/07/20 02/24/21 History nystatin 100,000 unit/gram topical 1 applic TOPICAL DAILY PRN 11/07/20 02/24/21 History cream Past Med/Surg History Medical History (Updated 02/24/21 @ 14:37 by Naresh Cardenas MD) Anemia Bladder cancer Bladder tumor CVA (cerebral vascular accident) 03/2018 [facility] Depression Diabetes mellitus, type 2 Encephalopathy Glaucoma History of benign bladder tumor History of COVID-19 Had both vaccines, but presented to [facility] 09/01/20 with weakness and tested + for COVID. Saturating fine on RA, discharged to longterm. 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 Beliefs That Will Affect Care: None marital status: / Current Living Situation: Personal Care Facility Feels Safe at Home: Yes Assistive Devices: None Review of Systems Review of Systems: Mild distress and fatigue no headache, no visual changes no speech or swallowing issues no chest pain, pressure or palpitations no shortness of breath, cough or wheezes no abdominal pain, nausea or vomiting, diarrhea or constipation no dysuria, hematuria or frequency Hip pain specially to movement no back pain, CVA tenderness or radicular pain no bruising, bleeding or rashes no focal signs of weakness or numbness or altered sensation no complaints of anxiety or depression.. Physical Exam Physical Exam: The patient appeared well nourished and normally developed. Vital signs as documented. Head exam is normocephalic atraumatic Neck is without JVD, thyromegaly, or carotid bruits. Lungs are clear to auscultation, no focal loss of breath sounds Cardiac exam, Rhythm is regular.. No murmurs, rubs or gallops. Abdominal exam reveals normal bowel sounds, soft non tender, no masses Extremities are nonedematous and Left leg is shortened nonrotated pulses are intact bilaterally although complaining of difficulty writing is no significant cutting machine tender decorative strength or intrinsic hand muscle weakness to the right Neurologic exam is alert and oriented, no focal loss of strength or sensation however patient is difficult times having a cohesive story about why she fell Skin is without bruises or rashes Psychologically is without concerns for anxiety or depression believe she has some memory impairment Results & Data Results & Data ([facility]) Vital Signs (Past 12 Hours) Vital Signs Temp Pulse Resp BP Pulse Ox 02/24/21 12:03 98.2 F 82 16 150/82 H 97 Diagnostic Findings Hip x-ray 02/24/2021 transcervical fracture of the left femur mildly impacted and nondisplaced Chest x-ray 02/24/2021 shows no acute disease ECG Additional Comments: Though read as accelerated junctional I do believe she is in sinus rhythm with a narrow complex QRS similar to old EKGs PG Care Time/CCT Total # of Minutes Spent Total Time Spent with Patient: Total time spent is greater than 50% in coordination of care (as documented) at patient's floor/unit and/or counseling patient: Coding Level of Care Code 04442 Initial Inpt Care Lvl 3 Diagnoses Diabetes mellitus, type 2 E11.9 CVA (cerebral vascular accident) I63.9 Closed left hip fracture S72.002A Depression F32.9 Hypertension I10 DVT prophylaxis Z29.9
--- NOTE | 2021-02-24 15:41 | CT Scan Report ---
CT hip LT wo con HISTORY: 71 years-old Female fall, fracture, preop acute left hip pain status post fall COMPARISON: [Radiographs of same day TECHNIQUE: Multiple axial CT images of the left hip were obtained without the use of IV contrast. A d ose lowering technique was used consistent with the principals of PHYLLIS. FINDINGS: The imaged intrapelvic structures are unremarkable. Decompressed urinary bladder with Michael catheter. Colonic diverticulosis. There is an acute comminuted impacted transcervical fracture of the left femur with fracture separati on measuring up to 1.4 cm. Fracture fragments are displaced a few millimeters both medially and later ally. Mild associated apex volar angulation. Left hip osteoarthritis. No dislocation or additional fr acture. Small left hip hemarthrosis. Lateral hip contusion. IMPRESSION: Acute comminuted impacted mildly displaced and angulated transcervical fracture of the left femur. ACT 112: Negative or not required by law. The above report was generated using voice recognition software. It may contain grammatical, syntax o r spelling errors. Electronically signed by: James Edmonds M.D. 02/24/2021 3:40 PM
--- NOTE | 2021-02-24 16:10 | Emergency Department Note ---
History of Present Illness General Chief complaint: Hip Pain Time Seen by Provider: 02/24/21 12:30 History of Present Illness Maximum Pain Intensity: 8 This 71-year-old female with a history of anemia, cancer, stroke, depression, type 2 diabetes, COVID-19 infection, hypertension, elevated lipids, neutropenia, renal insufficiency, retinopathy, and history of COVID-19 infection in August, is seen today for evaluation of left hip pain. Patient states she was at her residence at [facility], and lost her balance in the bathroom. She fell, landing on her left hip. There was immediate onset of pain. She was unable to bear weight or ambulate. No prior history of significant hip injury. She was found by personal care staff and was sent to the ED for evaluation. No prior history of significant hip injury. She arrives by ambulance. She denies any numbness or tingling. There was no loss of consciousness. She denies striking her head. She denies any chest pain or shortness of breath at the time of the fall. She did not eat breakfast this morning. She states that may have contributed to her fall. She is a diabetic. Patient does have a history of previous stroke but states she had a full recovery. She does have some residual weakness in her right upper and lower ext remity. No other complaints. Home Medications Medication Instructions Recorded Confirmed Type atorvastatin 80 mg tablet 80 mg PO HS 02/10/18 02/24/21 History cholecalciferol (vitamin D3) 50 2,000 unit PO QAM 02/10/18 02/24/21 History mcg (2,000 unit) capsule (Vitamin D3) cyanocobalamin (vitamin B-12) 500 1,000 mcg PO QAM 03/25/18 02/24/21 History mcg tablet (Vitamin B-12) insulin glargine 100 unit/mL (3 16 unit SUBCUT QPM 03/25/18 02/24/21 History mL) subcutaneous pen (Basaglar KwikPen U-100 Insulin) sitagliptin 100 mg tablet (Januvia) 100 mg PO QAM 03/25/18 02/24/21 History amlodipine 2.5 mg tablet 2.5 mg PO QAM 09/01/20 02/24/21 History aspirin 81 mg chewable tablet 81 mg PO QAM 09/01/20 02/24/21 History bimatoprost 0.01 % eye drops 1 drp OPB HS 09/01/20 02/24/21 History (Lumigan) citalopram 40 mg tablet 40 mg PO QAM 09/01/20 02/24/21 History ferrous sulfate 325 mg (65 mg 325 mg PO QAM 09/01/20 02/24/21 History iron) tablet losartan 100 mg tablet 100 mg PO QAM 09/01/20 02/24/21 History metformin 500 mg tablet,extended 500 mg PO QAM 09/01/20 02/24/21 History release 24 hr polyethylene glycol 3350 17 17 g PO DAILY PRN 09/01/20 02/24/21 History gram/dose oral powder (Miralax) potassium chloride 10 mEq 10 meq PO BID 09/01/20 02/24/21 History tablet,extended release fesoterodine 4 mg tablet,extended 4 mg PO QAM 10/04/20 02/24/21 History release 24 hr (Toviaz) magnesium oxide 250 mg PO QPM 10/04/20 02/24/21 History acetaminophen 325 mg tablet 650 mg PO QID PRN 10/19/20 02/24/21 History (Tylenol) josgzzob-pluwhbahzkd-gxcoe 1 applic TOPICAL BID 10/19/20 02/24/21 History petrolatum topical cream (Cetaphil Moisturizing) albuterol sulfate 90 mcg/actuation 2 puff INHALATION QID PRN 11/07/20 02/24/21 History aerosol inhaler cetirizine 5 mg tablet 5 mg PO QPM 11/07/20 02/24/21 History clobetasol 0.05 % topical cream 1 applic TOPICAL BID PRN 11/07/20 02/24/21 History nystatin 100,000 unit/gram topical 1 applic TOPICAL DAILY PRN 11/07/20 02/24/21 History cream Allergies Allergy/AdvReac Type Severity Reaction Status Date / Time prednisone Allergy Mild ITCHING Verified 02/24/21 14:31 ampicillin AdvReac Mild Gastrointestinal Verified 02/24/21 14:31 Upset azithromycin AdvReac Mild Gastrointestinal Verified 02/24/21 14:31 Upset lisinopril AdvReac Mild Gastrointestinal Verified 02/24/21 14:31 Upset Past Med/Surg History Medical History Anemia Bladder cancer Bladder tumor CVA (cerebral vascular accident) 03/2018 [facility] Depression Diabetes mellitus, type 2 Encephalopathy Glaucoma History of benign bladder tumor History of COVID-19 Had both vaccines, but presented to [facility] 09/01/20 with weakness and tested + for COVID. Saturating fine on RA, discharged to [facility]. HTN (hypertension) Hx of recurrent urinary tract infection Hyperlipemia Neutropenia Pancreatic cyst Renal insufficiency Retinopathy Surgical History History of cystoscopy Transurethral Resection Bladder Tumor Hx of appendectomy Family History Father Diabetes Heart disease Hypertension Other Family history unknown Social History Smoking Status: Never smoker Second Hand Exposure: No; Hx Alcohol Use: No Hx Substance Use: No Preferred Language: Zambian Communication Ability: Impaired Stone Mason Required: No Beliefs That Will Affect Care: None marital status: / Current Living Situation: Personal Care [facility] Other Information That Helps Us Care for You: No Feels Safe at Home: Yes Safety Concerns: Feels Safe At This Time Assistive Devices: Glasses and Walker Review of Systems Unobtainable due to cognitive status Patient is a poor historian. Physical Exam Vital Signs Vital Signs - 24 hr 02/24/21 12:03 02/24/21 13:00 02/24/21 15:35 Temperature 36.8 C Temperature Source Oral Pulse Rate 82 82 93 H Pulse Rate from SpO2 Sensor 81 92 H Pulse Rhythm Regular Pulse Strength Normal Respiratory Rate 16 17 17 Respiratory Effort / Characteristics Non-Labored Respiratory Depth Normal Blood Pressure 150/82 H 147/93 H 139/81 Blood Pressure Mean 104 111 100 Pulse Oximetry 97 92 98 Oxygen Delivery Method Room Air Sepsis Recent Fever Within 48 Hours No Sepsis New/Unexplained Change in Mental Status N/A Sepsis Action Taken by Nursing No Action Required General: Well-developed, elderly female, who looks older than her stated age. Conversive. Alert and oriented to the place. Skin: Warm and dry with good turgor. No rashes or lesions. No ecchymosis or e rythema. The patient is not diaphoretic. No abrasions. HEENT: Normocephalic atraumatic. Eyes PERRLA, EOMI. No conjunctiva or scleral injection. Ears TMs intact bilaterally with good light reflexes. No erythema or bulging. No hemotympanum. Canals are patent. Nares patent bilaterally without turbinate enlargement. No significant drainage. No epistaxis. Oropharynx without erythema or exudate. Uvula midline, oral mucosa moist. No lesions present. Lymphatics are palpated without anterior or posterior chain enlargement or tenderness. Heart: Heart RRR. No MGR. Peripheral pulses are 2+. Lungs: Lungs are clear to auscultation. No crackles rhonchi or wheezing. Good air movement. The patient is able to take a deep breath. Abdomen: Abdomen was inspected, auscultated, and palpated. Bowel sounds present x 4. Soft, nontender to palpation. No hepato-splenomegaly. No masses noted. No rebound. Musculoskeletal: Patient has no discomfort with palpation over her cervical spine, chest wall, or upper extremities. She has no pain with passive motion of her shoulders, elbows, or wrists. There is a weakness of her right hand. This is reportedly baseline according to her. Her left leg is flexed and supported on a pillow. She has focal discomfort with palpation over the greater trochanter and anterior flexion crease of the left hip. Supple motion of the right hip for both logrolling as well as hip flexion. Intact motor function to both knees and ankles without pain at those joints. Left knee motion does cause left hip pain. Neurologic: Cranial nerves II through XII are intact. Gross sensation is intact across the upper and lower extremities by soft touch. Patient appears to suffer some baseline confusion and is a poor historian. She is unclear as to who her PCP is as well as possible reasons for her fall. Course Administered Medications Acetaminophen (Acetaminophen 500 Mg Tab) 1,000 mg PO TID PRN PRN Reason: Pain Stop: 03/26/21 16:51 Last Admin: 03/02/21 13:24 Dose: 1,000 mg Documented by: [id number] Admin: 02/28/21 16:21 Dose: 1,000 mg Documented by: [id number] Admin: 02/25/21 13:42 Dose: 1,000 mg Documented by: [id number] Amlodipine Besylate (Amlodipine Besylate 5 Mg Tab) 2.5 mg [facility] [place] Stop: 03/28/21 09:29 Last Admin: 03/02/21 09:22 Dose: 2.5 mg Documented by: [id number] Admin: 03/01/21 09:35 Dose: 2.5 mg Documented by: [id number] Admin: 02/28/21 09:33 Dose: 2.5 mg Documented by: [id number] Admin: 02/27/21 09:58 Dose: 2.5 mg Documented by: [id number] Admin: 02/26/21 09:18 Dose: 2.5 mg Documented by: [id number] Aspirin (Aspirin 81 Mg Chew) 81 mg PO [facility] [place] Stop: 03/28/21 09:29 Last Admin: 02/28/21 10:29 Dose: Not Given Documented by: [id number] Admin: 02/27/21 09:57 Dose: 81 mg Documented by: [id number] Admin: 02/26/21 09:18 Dose: 81 mg Documented by: [id number] Atorvastatin Calcium (Atorvastatin 40 Mg Tab) 80 mg PO [facility] Stop: 03/26/21 20:59 Last Admin: 03/01/21 21:23 Dose: 80 mg Documented by: [id number] Admin: 02/28/21 21:29 Dose: 80 mg Documented by: [id number] Admin: 02/27/21 21:56 Dose: 80 mg Documented by: [id number] Admin: 02/26/21 20:52 Dose: 80 mg Documented by: [id number] Admin: 02/25/21 20:40 Dose: 80 mg Documented by: [id number] Admin: 02/24/21 22:36 Dose: 80 mg Documented by: [id number] Bimatoprost (Bimatoprost 0.01% Op Soln 2.5 Ml Btl) 1 drops OP [facility] Stop: 03/30/21 15:59 Last Admin: 03/01/21 21:23 Dose: 1 drops Documented by: [id number] Admin: 02/28/21 21:30 Dose: 1 drops Documented by: [id number] Citalopram Hydrobromide (Citalopram 40 Mg Tab) 40 mg PO QA [facility] Stop: 03/27/21 08:59 Last Admin: 03/02/21 09:23 Dose: 40 mg Documented by: [id number] Admin: 03/01/21 09:36 Dose: 40 mg Documented by: [id number] Admin: 02/28/21 09:33 Dose: 40 mg Documented by: [id number] Admin: 02/27/21 09:58 Dose: 40 mg Documented by: [id number] Admin: 02/26/21 08:57 Dose: 40 mg Documented by: [id number] Admin: 02/25/21 09:24 Dose: 40 mg Documented by: [id number] Docusate Sodium (Docusate Sodium 100 Mg Cap) 100 mg PO BID [facility] Stop: 03/26/21 21:41 Last Admin: 03/02/21 09:26 Dose: 100 mg Documented by: [id number] Admin: 03/01/21 21:23 Dose: 100 mg Documented by: [id number] Admin: 03/01/21 09:36 Dose: Not Given Documented by: [id number] Admin: 02/28/21 21:29 Dose: 100 mg Documented by: [id number] Admin: 02/28/21 09:39 Dose: 100 mg Documented by: [id number] Admin: 02/27/21 22:05 Dose: 100 mg Documented by: [id number] Admin: 02/27/21 09:58 Dose: 100 mg Documented by: [id number] Admin: 02/26/21 20:52 Dose: 100 mg Documented by: [id number] Admin: 02/26/21 08:58 Dose: 100 mg Documented by: [id number] Admin: 02/25/21 20:40 Dose: 100 mg Documented by: [id number] Admin: 02/25/21 09:24 Dose: 100 mg Documented by: [id number] Admin: 02/24/21 22:35 Dose: 100 mg Documented by: [id number] Ferrous Sulfate (Ferrous Sulfate 325 Mg Tab) 325 mg PO QAM [facility] Stop: 03/27/21 08:59 Last Admin: 03/02/21 09:23 Dose: 325 mg Documented by: [id number] Admin: 03/01/21 09:36 Dose: 325 mg Documented by: [id number] Admin: 02/28/21 09:33 Dose: 325 mg Documented by: [id number] Admin: 02/27/21 09:58 Dose: 325 mg Documented by: [id number] Admin: 02/26/21 08:57 Dose: 325 mg Documented by: [id number] Admin: 02/25/21 09:24 Dose: 325 mg Documented by: [id number] Piperacillin Sod/Tazobactam (Sod 3.375 gm/ Dextrose) 115 mls @ 28.75 mls/hr IV Q8H [facility]; Protocol Stop: 03/10/21 11:59 Last Infusion: 03/02/21 13:40 Dose: 0 mls/hr Documented by: [id number] Admin: 03/02/21 09:27 Dose: 28.8 mls/hr Documented by: [id number] Infusion: 03/02/21 05:20 Dose: 0 mls/hr Documented by: [id number] Admin: 03/02/21 01:19 Dose: 28.8 mls/hr Documented by: [id number] Infusion: 03/01/21 21:30 Dose: 0 mls/hr Documented by: [id number] Admin: 03/01/21 17:30 Dose: 28.8 mls/hr Documented by: [id number] Infusion: 03/01/21 13:45 Dose: 0 mls/hr Documented by: [id number] Admin: 03/01/21 09:38 Dose: 28.8 mls/hr Documented by: [id number] Infusion: 03/01/21 05:28 Dose: 0 mls/hr Documented by: [id number] Admin: 03/01/21 01:25 Dose: 28.8 mls/hr Documented by: [id number] Infusion: 02/28/21 22:10 Dose: 0 mls/hr Documented by: [id number] Admin: 02/28/21 18:09 Dose: 28.8 mls/hr Documented by: [id number] Insulin Aspart (Insulin Aspart 100 Units/Ml 3 Ml Pen) 0 units SC ACHS [facility] Stop: 03/31/21 05:59 Last Admin: 03/02/21 13:25 Dose: 2 units Documented by: [id number] Cosigned by: [id number] Admin: 03/02/21 09:20 Dose: 2 units Documented by: [id number] Cosigned by: [id number] Admin: 03/01/21 21:23 Dose: 1 units Documented by: [id number] Cosigned by: [id number] Admin: 03/01/21 17:55 Dose: 4 units Documented by: [id number] Cosigned by: [id number] Admin: 03/01/21 13:04 Dose: 2 units Documented by: [id number] Cosigned by: [id number] Insulin Glargine (Insulin Glargine Solostar 100 Units/Ml 3 Ml Pen) 0 units SC HS [facility]; Protocol Stop: 03/29/21 20:59 Last Admin: 03/01/21 21:24 Dose: 20 units Documented by: [id number] Cosigned by: [id number] Admin: 02/28/21 21:32 Dose: 25 units Documented by: [id number] Cosigned by: [id number] Admin: 02/27/21 21:59 Dose: 25 units Documented by: [id number] Cosigned by: [id number] Losartan Potassium (Losartan Potassium 50 Mg Tab) 100 mg PO QAM [facility] Stop: 03/29/21 08:59 Last Admin: 03/02/21 09:23 Dose: 100 mg Documented by: [id number] Admin: 03/01/21 09:35 Dose: 100 mg Documented by: [id number] Admin: 02/28/21 09:33 Dose: 100 mg Documented by: [id number] Admin: 02/27/21 09:57 Dose: 100 mg Documented by: [id number] Melatonin (Melatonin 3 Mg Tab) 3 mg PO HS PRN PRN Reason: Sleep Stop: 03/28/21 02:32 Last Admin: 02/26/21 02:58 Dose: 3 mg Documented by: [id number] Miscellaneous (Toviaz~Order Awaiting Action) 1 ea N/A QS [facility] Stop: 03/26/21 22:29 Last Admin: 03/02/21 17:13 Dose: Not Given Documented by: [id number] Admin: 03/02/21 09:19 Dose: Not Given Documented by: [id number] Admin: 03/02/21 01:18 Dose: Not Given Documented by: [id number] Admin: 03/01/21 16:18 Dose: Not Given Documented by: [id number] Admin: 03/01/21 09:24 Dose: Not Given Documented by: [id number] Admin: 03/01/21 00:12 Dose: Not Given Documented by: [id number] Admin: 02/28/21 17:04 Dose: Not Given Documented by: [id number] Admin: 02/28/21 09:32 Dose: Not Given Documented by: [id number] Admin: 02/28/21 01:03 Dose: Not Given Documented by: [id number] Admin: 02/27/21 18:14 Dose: Not Given Documented by: [id number] Admin: 02/27/21 09:59 Dose: Not Given Documented by: [id number] Admin: 02/26/21 22:53 Dose: Not Given Documented by: [id number] Admin: 02/26/21 15:31 Dose: Not Given Documented by: [id number] Admin: 02/26/21 08:56 Dose: Not Given Documented by: [id number] Admin: 02/26/21 00:00 Dose: Not Given Documented by: [id number] Admin: 02/25/21 15:58 Dose: Not Given Documented by: [id number] Admin: 02/25/21 09:23 Dose: Not Given Documented by: [id number] Admin: 02/24/21 22:32 Dose: Not Given Documented by: [id number] Morphine Sulfate (Morphine Sulfate 4 Mg/Ml 1 Ml Carp\Vial) 4 mg IV Q4 PRN PRN Reason: Pain6-03/11 Stop: 03/10/21 16:51 Last Admin: 03/01/21 04:49 Dose: 4 mg Documented by: [id number] Admin: 02/25/21 10:49 Dose: 4 mg Documented by: [id number] Admin: 02/25/21 05:18 Dose: 4 mg Documented by: [id number] Admin: 02/24/21 17:23 Dose: 4 mg Documented by: [id number] Multivitamins (Multivitamin Tab) 1 tab PO QAM [facility] Stop: 03/27/21 08:59 Last Admin: 03/02/21 09:23 Dose: 1 tab Documented by: [id number] Admin: 03/01/21 09:37 Dose: 1 tab Documented by: [id number] Admin: 02/28/21 09:34 Dose: 1 tab Documented by: [id number] Admin: 02/27/21 09:58 Dose: 1 tab Documented by: [id number] Admin: 02/26/21 08:58 Dose: 1 tab Documented by: [id number] Admin: 02/25/21 09:25 Dose: 1 tab Documented by: [id number] Oxycodone HCl (Oxycodone Hcl Ir 5 Mg Tab (Immediate Release)) 5 mg PO Q6H PRN PRN Reason: Moderate Pain 2-610 Stop: 03/10/21 16:51 Last Admin: 03/01/21 15:24 Dose: 5 mg Documented by: [id number] Admin: 02/26/21 15:30 Dose: 5 mg Documented by: [id number] Admin: 02/25/21 13:27 Dose: 5 mg Documented by: [id number] Polyethylene Glycol (Polyethylene (Miralax) 17 Gm Pack) 17 gm PO BID [facility] Stop: 03/28/21 11:39 Last Admin: 03/02/21 09:32 Dose: Not Given Documented by: [id number] Admin: 03/01/21 21:23 Dose: Not Given Documented by: [id number] Admin: 03/01/21 09:25 Dose: Not Given Documented by: [id number] Admin: 02/28/21 21:30 Dose: 17 gm Documented by: [id number] Admin: 02/28/21 08:42 Dose: Not Given Documented by: [id number] Admin: 02/27/21 22:04 Dose: 17 gm Documented by: [id number] Admin: 02/27/21 09:58 Dose: 17 gm Documented by: [id number] Admin: 02/26/21 20:52 Dose: 17 gm Documented by: [id number] Admin: 02/26/21 13:10 Dose: 17 gm Documented by: [id number] Potassium Chloride (Potassium Chloride 10 Meq Tabcr) 10 meq PO BID [facility] Stop: 03/26/21 20:59 Last Admin: 03/02/21 09:26 Dose: 10 meq Documented by: [id number] Admin: 03/01/21 21:23 Dose: 10 meq Documented by: [id number] Admin: 03/01/21 09:38 Dose: 10 meq Documented by: [id number] Admin: 02/28/21 21:30 Dose: 10 meq Documented by: [id number] Admin: 02/28/21 09:39 Dose: 10 meq Documented by: [id number] Admin: 02/27/21 22:05 Dose: 10 meq Documented by: [id number] Admin: 02/27/21 09:58 Dose: 10 meq Documented by: [id number] Admin: 02/26/21 20:52 Dose: 10 meq Documented by: [id number] Admin: 02/26/21 08:57 Dose: 10 meq Documented by: [id number] Admin: 02/25/21 20:40 Dose: 10 meq Documented by: [id number] Admin: 02/25/21 09:25 Dose: 10 meq Documented by: [id number] Admin: 02/24/21 22:36 Dose: 10 meq Documented by: [id number] Rivaroxaban (Rivaroxaban 10 Mg Tablet) 10 mg PO DAILY [facility] Stop: 03/27/21 11:59 Last Admin: 03/02/21 09:22 Dose: 10 mg Documented by: [id number] Admin: 02/28/21 10:29 Dose: Not Given Documented by: [id number] Admin: 02/27/21 09:58 Dose: 10 mg Documented by: [id number] Admin: 02/26/21 08:57 Dose: 10 mg Documented by: [id number] Admin: 02/25/21 12:14 Dose: 10 mg Documented by: [id number] Sennosides (Senna 8.6 Mg Tab) 17.2 mg PO HS [facility] Stop: 03/26/21 21:41 Last Admin: 03/01/21 21:22 Dose: 17.2 mg Documented by: [id number] Admin: 02/28/21 21:31 Dose: 17.2 mg Documented by: [id number] Admin: 02/27/21 21:57 Dose: 17.2 mg Documented by: [id number] Admin: 02/26/21 20:52 Dose: 17.2 mg Documented by: [id number] Admin: 02/25/21 20:40 Dose: 17.2 mg Documented by: [id number] Admin: 02/24/21 22:35 Dose: 17.2 mg Documented by: [id number] Vitamin D (Cholecalciferol 1,000 Units 25 Mcg Tab) 2,000 units PO QAM [facility] Stop: 03/27/21 08:59 Last Admin: 03/02/21 09:23 Dose: 2,000 units Documented by: [id number] Admin: 03/01/21 09:36 Dose: 2,000 units Documented by: [id number] Admin: 02/28/21 09:33 Dose: 2,000 units Documented by: [id number] Admin: 02/27/21 09:57 Dose: 2,000 units Documented by: [id number] Admin: 02/26/21 08:58 Dose: 2,000 units Documented by: [id number] Admin: 02/25/21 09:24 Dose: 2,000 units Documented by: [id number] Discontinued Medications Bupivacaine HCl (Bupivacaine 0.5 % 5 Mg/1 Ml Mpf 30ml Vial) Confirm Administered Dose 30 ml .ROUTE .STK-MED ONE Stop: 02/24/21 18:11 Last Admin: 02/24/21 20:41 Dose: Not Given Documented by: [id number] Lactated Ringer's (Lr) 1,000 mls @ 75 mls/hr IV .[id number] [facility] Stop: 03/26/21 12:44 Last Infusion: 02/24/21 21:40 Dose: 0 mls/hr Documented by: [id number] Admin: 02/24/21 12:56 Dose: 75 mls/hr Documented by: [id number] Acetaminophen (Ofirmev) 1,000 mg in 100 mls @ 400 mls/hr IV NOW STA Stop: 02/24/21 14:35 Last Infusion: 02/24/21 16:40 Dose: 0 mls/hr Documented by: [id number] Admin: 02/24/21 15:08 Dose: 400 mls/hr Documented by: [id number] Cefazolin Sodium (Ancef 2000mg) 2,000 mg in 15 mls @ 3.75 mls/min IV PREOP [facility]; Protocol Stop: 02/25/21 05:59 Last Admin: 02/24/21 19:09 Dose: 3.75 mls/min Documented by: [id number] Sodium Chloride (Nss 1000ml) 1,000 mls @ 100 mls/hr IV .Q10H [facility] Stop: 02/25/21 17:41 Last Infusion: 02/25/21 17:53 Dose: 0 mls/hr Documented by: [id number] Admin: 02/25/21 07:41 Dose: 100 mls/hr Documented by: [id number] Infusion: 02/25/21 07:41 Dose: 100 mls/hr Documented by: [id number] Admin: 02/24/21 22:31 Dose: 100 mls/hr Documented by: [id number] Cefazolin Sodium (Ancef 2000mg) 2,000 mg in 15 mls @ 3.75 mls/min IV Q8H [facility]; Protocol Stop: 02/25/21 12:03 Last Admin: 02/25/21 13:28 Dose: 3.75 mls/min Documented by: [id number] Admin: 02/25/21 03:51 Dose: 3.75 mls/min Documented by: [id number] Sodium Chloride (Nss 1000ml) 1,000 mls @ 100 mls/hr IV .Q10H [facility] Stop: 03/29/21 11:44 Last Infusion: 03/02/21 16:34 Dose: 0 mls/hr Documented by: [id number] Admin: 03/02/21 14:08 Dose: 100 mls/hr Documented by: [id number] Infusion: 03/02/21 11:18 Dose: 100 mls/hr Documented by: [id number] Admin: 03/02/21 01:18 Dose: 100 mls/hr Documented by: [id number] Infusion: 03/02/21 01:18 Dose: 100 mls/hr Documented by: [id number] Admin: 03/01/21 16:17 Dose: 100 mls/hr Documented by: [id number] Infusion: 03/01/21 16:17 Dose: 100 mls/hr Documented by: [id number] Admin: 03/01/21 06:26 Dose: 100 mls/hr Documented by: [id number] Infusion: 03/01/21 06:26 Dose: 100 mls/hr Documented by: [id number] Admin: 02/28/21 21:35 Dose: 100 mls/hr Documented by: [id number] Infusion: 02/28/21 17:53 Dose: 100 mls/hr Documented by: [id number] Admin: 02/28/21 07:53 Dose: 100 mls/hr Documented by: [id number] Infusion: 02/28/21 07:53 Dose: 100 mls/hr Documented by: [id number] Admin: 02/27/21 22:05 Dose: 100 mls/hr Documented by: [id number] Infusion: 02/27/21 22:05 Dose: 100 mls/hr Documented by: [id number] Infusion: 02/27/21 18:28 Dose: 100 mls/hr Documented by: [id number] Admin: 02/27/21 13:06 Dose: 100 mls/hr Documented by: [id number] Piperacillin Sod/Tazobactam (Sod 3.375 gm/ Dextrose) 115 mls @ 230 mls/hr IV NOW ONE; Protocol Stop: 02/28/21 12:29 Last Infusion: 02/28/21 14:44 Dose: 0 mls/hr Documented by: [id number] Admin: 02/28/21 14:02 Dose: 230 mls/hr Documented by: [id number] Vancomycin HCl 1,750 mg/ (Sodium Chloride) 535 mls @ 200 mls/hr IV NOW ONE Stop: 03/01/21 16:40 Last Infusion: 03/01/21 17:27 Dose: 0 mls/hr Documented by: [id number] Admin: 03/01/21 14:39 Dose: 200 mls/hr Documented by: [id number] Vancomycin HCl 1,000 mg/ (Sodium Chloride) 270 mls @ 200 mls/hr IV Q12H [facility] Stop: 03/16/21 01:59 Last Infusion: 03/02/21 15:04 Dose: 0 mls/hr Documented by: [id number] Admin: 03/02/21 13:24 Dose: 200 mls/hr Documented by: [id number] Infusion: 03/02/21 02:43 Dose: 0 mls/hr Documented by: [id number] Admin: 03/02/21 01:20 Dose: 200 mls/hr Documented by: [id number] Insulin Aspart (Insulin Aspart 100 Units/Ml 3 Ml Pen) 0 units SC Q6 [facility] Stop: 03/26/21 17:59 Last Admin: 02/24/21 18:15 Dose: 1 units Documented by: [id number] Cosigned by: [id number] Insulin Aspart (Insulin Aspart 100 Units/Ml 3 Ml Pen) 0 units SC ACHS [facility] Stop: 03/26/21 22:59 Last Admin: 02/28/21 13:24 Dose: 7 units Documented by: [id number] Cosigned by: [id number] Admin: 02/28/21 09:34 Dose: 6 units Documented by: [id number] Cosigned by: [id number] Admin: 02/27/21 21:58 Dose: 3 units Documented by: [id number] Cosigned by: [id number] Admin: 02/27/21 18:16 Dose: 8 units Documented by: [id number] Cosigned by: [id number] Admin: 02/27/21 13:38 Dose: 11 units Documented by: [id number] Cosigned by: [id number] Admin: 02/27/21 10:00 Dose: 10 units Documented by: [id number] Cosigned by: [id number] Admin: 02/26/21 20:55 Dose: 3 units Documented by: [id number] Cosigned by: [id number] Admin: 02/26/21 18:07 Dose: 4 units Documented by: [id number] Cosigned by: [id number] Admin: 02/26/21 13:11 Dose: 11 units Documented by: [id number] Cosigned by: [id number] Admin: 02/26/21 08:59 Dose: 11 units Documented by: [id number] Cosigned by: [id number] Admin: 02/25/21 20:44 Dose: 2 units Documented by: [id number] Cosigned by: [id number] Admin: 02/25/21 18:21 Dose: 9 units Documented by: [id number] Cosigned by: [id number] Admin: 02/25/21 13:28 Dose: 10 units Documented by: [id number] Cosigned by: [id number] Admin: 02/25/21 09:26 Dose: 5 units Documented by: [id number] Cosigned by: [id number] Admin: 02/24/21 22:37 Dose: Not Given Documented by: [id number] Cosigned by: [id number] Insulin Aspart (Insulin Aspart 100 Units/Ml 3 Ml Pen) 0 units SC ACHS [facility] Stop: 03/30/21 16:29 Last Admin: 02/28/21 21:31 Dose: 3 units Documented by: [id number] Cosigned by: [id number] Admin: 02/28/21 18:10 Dose: 2 units Documented by: [id number] Cosigned by: [id number] Insulin Aspart (Insulin Aspart 100 Units/Ml 3 Ml Pen) 0 units SC Q6 [facility] Stop: 03/30/21 16:29 Last Admin: 03/01/21 13:22 Dose: Not Given Documented by: [id number] Admin: 03/01/21 06:26 Dose: Not Given Documented by: [id number] Cosigned by: [id number] Insulin Glargine (Insulin Glargine Solostar 100 Units/Ml 3 Ml Pen) 15 units SC TODAY@2130 [facility] Stop: 02/24/21 21:31 Last Admin: 02/24/21 22:36 Dose: 15 units Documented by: [id number] Cosigned by: [id number] Insulin Glargine (Insulin Glargine Solostar 100 Units/Ml 3 Ml Pen) 0 units SC HS [facility]; Protocol Stop: 03/27/21 20:59 Last Admin: 02/26/21 20:57 Dose: 20 units Documented by: [id number] Cosigned by: [id number] Admin: 02/25/21 20:44 Dose: 20 units Documented by: [id number] Cosigned by: [id number] Ioversol (Optiray 320 100ml) 94 ml IV ONCE ONE Stop: 02/28/21 10:09 Last Admin: 02/28/21 10:09 Dose: 94 ml Documented by: [id number] Lidocaine HCl (Lidocaine 1% Local 20 Ml Vial) Confirm Administered Dose 20 ml .ROUTE .STK-MED ONE Stop: 02/24/21 18:11 Last Admin: 02/24/21 20:41 Dose: Not Given Documented by: [id number] Losartan Potassium (Losartan Potassium 50 Mg Tab) 50 [facility] [place] Stop: 03/27/21 08:59 Last Admin: 02/26/21 08:57 Dose: 50 mg Documented by: [id number] Admin: 02/25/21 09:24 Dose: 50 mg Documented by: [id number] Losartan Potassium (Losartan Potassium 50 Mg Tab) 50 mg PO ONE ONE Stop: 02/26/21 15:31 Last Admin: 02/26/21 15:31 Dose: 50 mg Documented by: [id number] Miscellaneous (Bimatoprost- Order Awaiting Action) 1 ea N/A [facility] Stop: 03/27/21 00:00 Last Admin: 02/28/21 09:32 Dose: Not Given Documented by: [id number] Admin: 02/28/21 01:03 Dose: Not Given Documented by: [id number] Admin: 02/27/21 18:14 Dose: Not Given Documented by: [id number] Admin: 02/27/21 09:59 Dose: Not Given Documented by: [id number] Admin: 02/26/21 22:52 Dose: Not Given Documented by: [id number] Admin: 02/26/21 15:31 Dose: Not Given Documented by: [id number] Admin: 02/26/21 08:56 Dose: Not Given Documented by: [id number] Admin: 02/26/21 00:00 Dose: Not Given Documented by: [id number] Admin: 02/25/21 15:58 Dose: Not Given Documented by: [id number] Admin: 02/25/21 09:22 Dose: Not Given Documented by: [id number] Admin: 02/24/21 23:40 Dose: Not Given Documented by: [id number] Miscellaneous Information (Nursing To Pharmacy Communication) 1 ea N/A [facility] Stop: 03/30/21 14:14 Last Admin: 02/28/21 15:28 Dose: Not Given Documented by: [id number] Morphine Sulfate (Morphine Sulfate 2 Mg/Ml Carp) 2 mg IV Q1H PRN PRN Reason: Moderate Pain (Rating 3,4,5,6) Stop: 03/10/21 12:34 Last Admin: 02/24/21 16:25 Dose: 2 mg Documented by: [id number] Admin: 02/24/21 12:51 Dose: 2 mg Documented by: [id number] Potassium Chloride (Potassium Chloride Crtab 20 Meq Tabcr) 40 meq PO ONE ONE Stop: 02/28/21 08:14 Last Admin: 02/28/21 09:40 Dose: 40 meq Documented by: [id number] Potassium Chloride (Potassium Chloride Crtab 20 Meq Tabcr) 40 meq PO NOW STA Stop: 03/01/21 12:40 Last Admin: 03/01/21 13:06 Dose: 40 meq Documented by: [id number] Medical Decision Making Differential Diagnosis Fall, intracranial injury, cervical spine injury, hip fracture, pelvic fracture, contusion, dehydration, cardiac event Medical Records Attestation: I reviewed the patient's medical records. Home Medications Current Medication List: was personally reviewed by me Laboratory Data CBC, blood type and screen, chemistry panel, PT/INR, UA, and Covid test were obtained. WBCs are mildly elevated at 12.69. Normal H&H at 13.3 and 41.6. INR normal at 1.0. Blood type is B+. Renal panel shows normal sodium and potassium. BUN 13, elevated creatinine at 1.26. LFTs are unremarkable. Urine is also unremarkable with no evidence for infection.History of Covid positive in August. She tests negative today. Result diagrams: 03/02/21 06:40 03/02/21 06:40 Lab Results 02/24/21 02/24/21 02/24/21 Range/Units 12:48 12:48 12:48 WBC 12.69 H (4.8-10.8) K/uL RBC 4.58 (4.2-5.4) M/uL Hgb 13.3 (12.0-16.0) g/dL Hct 41.6 (37-47) % MCV 90.8 (80-100) fL MCH 29.0 (25-34) pg MCHC 32.0 (32-36) g/dL RDW Std Deviation 42.3 (36.4-46.3) fL RDW Coeff of Rocky 12.8 (11.5-14.5) % Plt Count 260 (130-400) K/uL MPV 9.0 (7.4-10.4) fL Immature Gran % (Auto) 0.6 % Neut % (Auto) 81.4 % Lymph % (Auto) 11.1 % Cole % (Auto) 5.4 % Eos % (Auto) 1.3 % Baso % (Auto) 0.2 % Neut # (Auto) 10.33 H (1.4-6.5) K/uL Lymph # (Auto) 1.41 (1.2-3.4) K/uL Cole # (Auto) 0.68 H (0.11-0.59) K/uL Eos # (Auto) 0.17 (0-0.5) K/uL Baso # (Auto) 0.02 (0-0.2) K/uL Immature Gran # (Auto) 0.08 H (0.00-0.02) K/uL PT 10.3 (9.0-12.0) Seconds INR 1.0 (0.9-1.1) APTT 22.7 (21.0-31.0) Seconds PTT Ratio 0.9 Sodium (136-145) mmol/L Potassium (3.5-5.1) mmol/L Chloride (98-107) mmol/L Carbon Dioxide (21-32) mmol/L Anion Gap (3-11) BUN (7-18) mg/dl Creatinine (0.6-1.2) mg/dl Est Cr Clr Drug Dosing Est GFR ( Amer) ml/min Est GFR (Non-Af Amer) ml/min BUN/Creatinine Ratio (10-20) Glucose (70-99) mg/dl Calcium (8.5-10.1) mg/dl Total Bilirubin (0.2-1) mg/dl AST (15-37) U/L ALT (12-78) U/L Alkaline Phosphatase (45-117) U/L Total Protein (6.4-8.2) gm/dl Albumin (3.4-5.0) gm/dl Globulin (2.5-4.0) gm/dl Albumin/Globulin Ratio (0.9-2) Urine Color Urine Appearance (Clear) Urine pH (4.5-7.5) Ur Specific [place] (1.000-1.030) Urine Protein (Negative) Urine Glucose (UA) (Negative) Urine Ketones (Negative) Urine Blood (Negative) Urine Nitrite (Negative) Urine Bilirubin (Negative) Urine Urobilinogen (Negative) Ur Leukocyte Esterase (Negative) Blood Type B Positive Antibody Screen NEGATIVE 02/24/21 02/24/21 Range/Units 12:48 13:24 WBC (4.8-10.8) K/uL RBC (4.2-5.4) M/uL Hgb (12.0-16.0) g/dL Hct (37-47) % MCV (80-100) fL MCH (25-34) pg MCHC (32-36) g/dL RDW Std Deviation (36.4-46.3) fL RDW Coeff of Rocky (11.5-14.5) % Plt Count (130-400) K/uL MPV (7.4-10.4) fL Immature Gran % (Auto) % Neut % (Auto) % Lymph % (Auto) % Cole % (Auto) % Eos % (Auto) % Baso % (Auto) % Neut # (Auto) (1.4-6.5) K/uL Lymph # (Auto) (1.2-3.4) K/uL Cole # (Auto) (0.11-0.59) K/uL Eos # (Auto) (0-0.5) K/uL Baso # (Auto) (0-0.2) K/uL Immature Gran # (Auto) (0.00-0.02) K/uL PT (9.0-12.0) Seconds INR (0.9-1.1) APTT (21.0-31.0) Seconds PTT Ratio Sodium 142 (136-145) mmol/L Potassium 3.8 (3.5-5.1) mmol/L Chloride 110 H (98-107) mmol/L Carbon Dioxide 28 (21-32) mmol/L Anion Gap 4.0 (3-11) BUN 13 (7-18) mg/dl Creatinine 1.26 H (0.6-1.2) mg/dl Est Cr Clr Drug Dosing Not Reportable Est GFR ( Amer) 50.0 ml/min Est GFR (Non-Af Amer) 43.1 ml/min BUN/Creatinine Ratio 10.3 (10-20) Glucose 156 H (70-99) mg/dl Calcium 8.7 (8.5-10.1) mg/dl Total Bilirubin 0.8 (0.2-1) mg/dl AST 20 (15-37) U/L ALT 24 (12-78) U/L Alkaline Phosphatase 107 (45-117) U/L Total Protein 7.3 (6.4-8.2) gm/dl Albumin 3.5 (3.4-5.0) gm/dl Globulin 3.8 (2.5-4.0) gm/dl Albumin/Globulin Ratio 0.9 (0.9-2) Urine Color Yellow Urine Appearance Clear (Clear) Urine pH 7.0 (4.5-7.5) Ur Specific [place] 1.015 (1.000-1.030) Urine Protein Negative (Negative) Urine Glucose (UA) Negative (Negative) Urine Ketones Negative (Negative) Urine Blood Negative (Negative) Urine Nitrite Negative (Negative) Urine Bilirubin Negative (Negative) Urine Urobilinogen Negative (Negative) Ur Leukocyte Esterase Negative (Negative) Blood Type Antibody Screen Imaging Data My Impression: Chest x-ray obtained today was reviewed by me and read by radiology. No pneumothorax, pleural effusion, pulmonary edema, or pneumonia is noted. She has degenerative changes of the shoulders and spine. No acute process is present. Hip and pelvis films obtained today shows a mildly impacted femoral neck fracture. No dislocation. CT scan imaging of the hip was requested by Dr. Gray. This confirms an acute comminuted impacted mildly displaced and angulated femoral neck fracture. Radiologist's Impression: Chest X-Ray 02/24/21 12:36 XR chest 1V portable HISTORY: 71 years-old Female preop preoperative exam. No acute chest complaints COMPARISON: Chest radiograph 09/01/2020, CTA chest 09/02/2020 TECHNIQUE: Supine AP view of the chest FINDINGS: Cardiac silhouette is mildly enlarged. Mild right hemidiaphragmatic elevation. Surgical clips project over the mid upper mediastinum. No pneumothorax, pleural effusion, airspace consolidation or overt pulmonary edema. Degenerative changes of the shoulders and spine. IMPRESSION: No acute process. ACT 112: Negative or not required by law. The above report was generated using voice recognition software. It may contain grammatical, syntax or spelling errors. Electronically signed by: James Edmonds M.D. 02/24/2021 1:15 PM Hip X-Ray 02/24/21 12:36 XR hip LT min 2V HISTORY: 71 years-old Female fall, hip pain, r/o fx acute left-sided hip pain status post fall COMPARISON: CT abdomen and pelvis 09/01/2020 TECHNIQUE: 2 views of the left hip FINDINGS: Moderate left hip osteoarthritis. There is an acute mildly impacted nondisplaced transcervical fracture of the left femur. No dislocation or avascular necrosis. Mild soft tissue swelling. The imaged left hemipelvis appears intact. IMPRESSION: Acute mildly impacted nondisplaced transcervical fracture of the left femur. ACT 112: Negative or not required by law. The above report was generated using voice recognition software. It may contain grammatical, syntax or spelling errors. Electronically signed by: James Edmonds M.D. 02/24/2021 1:[address] 02/24/21 14:29 CT hip LT wo con HISTORY: 71 years-old Female fall, fracture, preop acute left hip pain status post fall COMPARISON: [Radiographs of same day TECHNIQUE: Multiple axial CT images of the left hip were obtained without the use of IV contrast. A dose lowering technique was used consistent with the principals of ALARA. FINDINGS: The imaged intrapelvic structures are unremarkable. Decompressed urinary bladder with Michael catheter. Colonic diverticulosis. There is an acute comminuted impacted transcervical fracture of the left femur with fracture separation measuring up to 1.4 cm. Fracture fragments are displaced a few millimeters both medially and laterally. Mild associated apex volar angulation. Left hip osteoarthritis. No dislocation or additional fracture. Small left hip hemarthrosis. Lateral hip contusion. IMPRESSION: Acute comminuted impacted mildly displaced and angulated transcervical fracture of the left femur. ACT 112: Negative or not required by law. The above report was generated using voice recognition software. It may contain grammatical, syntax or spelling errors. Electronically signed by: James Edmonds M.D. 02/24/2021 3:40 PM ECG Data Additional Comments: EKG obtained today shows normal sinus rhythm with a rate of 87. No significant change when compared to EKG from August 2020. No acute ST or T wave changes. This was reviewed with Dr. Gaffney. Blood Pressure Blood Pressure Findings: Elevated blood pressure Additional Comments: Likely secondary to pain. MDM Narrative Patient was evaluated in room B 11. Conservative care measures were discussed. IV was established. Labs were obtained. EKG was also obtained. This was unremarkable. Imaging of her left hip and pelvis was obtained, confirming a femoral neck fracture. Because of this, preoperative chest film was obtained. Patient was given multiple doses of morphine 2mg IV every hour for pain control. Michael catheter was placed in anticipation of surgery. I did speak with Dr. Gray from [facility]. He requested a CT scan of the hip for surgical planning. This was obtained. Patient initially stated that her PCP was Dr. Ch. It was later ascertained that her PCP [id number] hospitalist group was consulted for admission with orthopedics as the consultation service. Please see that dictation for final hospital disposition. She will require surgical intervention, the timing of which will be determined by orthopedics. She remained stable while in the ED. Attending Attestation: Iveth Gaffney MD independently saw and evaluated this patient and agree with history and physical is otherwise documented by the physician child center assistant. See their note for full details. Patient in bed neuro intact in the left foot with pain in the left hip region worse with movement here. Xr with frx left hip. Will need ortho repair. Plan for admission for this. IV Tylenol additionally ordered for pain. Impression & Plan Closed left hip fracture Patient will go to the OR later today or tomorrow, based on her medical clearance. Lab values are unremarkable. EKG is unremarkable. Covid test is negative. Patient was seen in conjunction with Dr. Gaffney, who also evaluated the patient and concurred with today's diagnosis and treatment plan. Discharge Plan Visit Data Chief Complaint: Hip Pain ED Provider: Yuri Gaffney ED Midlevel Provider: Néstor Muniz Discharge Problem: Closed left hip fracture Patient Disposition: Admitted As Inpatient Discharge Instructions Interventions: ED Discharge Assessment Last Done: 02/24/21 16:30
[2021-02-24] MEDS ORDERED: bisacodyL 10 MG SUPP PR PRN ×2 (16:52→21:42)
[2021-02-24] MEDS ORDERED: GLUCAGON FOR INJ 1 MG VIAL SQ PRN (16:52)
[2021-02-24] MEDS ORDERED: ALUMINUM/MAGNESIUM SUSP 30 ML UDC PO PRN (16:52)
[2021-02-24] MEDS ORDERED: GLUCOSE 10 TABS/TUBE PO PRN (16:52)
[2021-02-24] MEDS ORDERED: POLYETHYLENE (MIRALAX) 17 GM PACK PO PRN (16:52)
[2021-02-24] MEDS ORDERED: ONDANSETRON INJ 2 MG/ML 2 ML VIAL IV PRN ×3 (16:52→21:42)
[2021-02-24] MEDS ORDERED: CARBOHYDRATES FOR HYPOGLYCEMIA PO PRN (16:52)
[2021-02-24] MEDS ORDERED: GLUCOSE 40% GEL 15 GM TUBE PO PRN (16:52)
[2021-02-24] MEDS ORDERED: MoRPHine SULFATE 2 MG/ML CARP IV PRN (16:52)
[2021-02-24] MEDS ORDERED: MAGNESIUM HYDROXIDE SUSP 30 ML UDC PO PRN ×2 (16:52→21:42)
[2021-02-24] MEDS ORDERED: PHARMACY GLYCEMIC MGMT CONSULT PRN (16:52)
[2021-02-24] MEDS ORDERED: DEXTROSE 50% 50 ML SYRINGE IV PRN (16:52)
[2021-02-24] MEDS ORDERED: NALOXONE HCL 0.4 MG/1 ML VIAL/CARP IV PRN ×2 (16:52→21:42)
[2021-02-24] MEDS: MoRPHine SULFATE 4 MG/ML 1 ML CARP\\VIAL IV PRN (17:23)
[2021-02-24] MEDS ORDERED: INSULIN ASPART 100 UNITS/ML 3 ML PEN SC SCH (18:00)
[2021-02-24] MEDS ORDERED: LIDOCAINE 1% LOCAL 20 ML VIAL ONE (18:10)
[2021-02-24] MEDS ORDERED: BUPIVACAINE 0.5 % 5 MG/1 ML MPF 30ML VIAL ONE (18:10)
[2021-02-24] MEDS ORDERED: PROPOFOL IV EMULSION 10 MG/ML 20 ML VIAL IV ONE (18:19)
--- NOTE | 2021-02-24 18:25 | Anesthesiology Consultation ---
Date of Service February 24, 2021 Assessment & Plan (1) Encounter for pre-operative examination: Chart Review Chart Review: Acceptable Risk for Surgery and Patient NOT seen in Pre Admission Testing Consults Requested none medicine is following the patient History Surgery Operation Date: 02/24/21 19:00 Proposed Procedures p Bipolar Hip Prosthesis(Left) - Andres Gray M.D. Height/Weight Weight: 82.4 kg Allergies Allergy/AdvReac Type Severity Reaction Status Date / Time prednisone Allergy Mild ITCHING Verified 02/24/21 14:31 ampicillin AdvReac Mild Gastrointestinal Verified 02/24/21 14:31 Upset azithromycin AdvReac Mild Gastrointestinal Verified 02/24/21 14:31 Upset lisinopril AdvReac Mild Gastrointestinal Verified 02/24/21 14:31 Upset Medications Home Medications Medication Instructions Recorded Confirmed Last Taken atorvastatin 80 mg tablet 80 mg PO 02/10/18 02/24/21 11/13/20 cholecalciferol (vitamin D3) 50 2,000 unit PO QAM 02/10/18 02/24/21 11/13/20 mcg (2,000 unit) capsule (Vitamin D3) cyanocobalamin (vitamin B-12) 500 1,000 mcg PO QAM 03/25/18 02/24/21 11/13/20 mcg tablet (Vitamin B-12) insulin glargine 100 unit/mL (3 16 unit SUBCUT QPM 03/25/18 02/24/21 11/14/20 mL) subcutaneous pen (Basaglar KwikPen U-100 Insulin) sitagliptin 100 mg tablet (Januvia) 100 mg PO QAM 03/25/18 02/24/21 11/14/20 amlodipine 2.5 mg tablet 2.5 mg PO QAM 09/01/20 02/24/21 11/13/20 aspirin 81 mg chewable tablet 81 mg PO QAM 09/01/20 02/24/21 11/13/20 bimatoprost 0.01 % eye drops 1 drp OPB 09/01/20 02/24/21 11/13/20 (Naseem) citalopram 40 mg tablet 40 mg PO QAM 09/01/20 02/24/21 11/13/20 ferrous sulfate 325 mg (65 mg 325 mg PO QAM 09/01/20 02/24/21 11/13/20 iron) tablet losartan 100 mg tablet 100 mg PO QAM 09/01/20 02/24/21 11/14/20 metformin 500 mg tablet,extended 500 mg PO QAM 09/01/20 02/24/21 11/13/20 release 24 hr polyethylene glycol 3350 17 17 g PO DAILY PRN 09/01/20 02/24/21 09/01/20 gram/dose oral powder (Miralax) potassium chloride 10 mEq 10 meq PO BID 09/01/20 02/24/21 11/13/20 tablet,extended release fesoterodine 4 mg tablet,extended 4 mg PO QAM 10/04/20 02/24/21 11/13/20 release 24 hr (Toviaz) magnesium oxide 250 mg PO QPM 10/04/20 02/24/21 11/13/20 acetaminophen 325 mg tablet 650 mg PO QID PRN 10/19/20 02/24/21 Unknown (Tylenol) [id number] 1 applic TOPICAL BID 10/19/20 02/24/21 02/23/21 20:00 petrolatum topical cream (Cetaphil Moisturizing) albuterol sulfate 90 mcg/actuation 2 puff INHALATION QID PRN 11/07/20 02/24/21 Unknown aerosol inhaler cetirizine 5 mg tablet 5 mg PO QPM 11/07/20 02/24/21 11/13/20 clobetasol 0.05 % topical cream 1 applic TOPICAL BID PRN 11/07/20 02/24/21 02/19/21 nystatin 100,000 unit/gram topical 1 applic TOPICAL DAILY PRN 11/07/20 02/24/21 Unknown cream Active Medications Generic Name Dose Route Start Last Admin Trade Name Freq PRN Reason Stop Dose Admin Lactated Ringer's 1,000 mls @ 75 mls/hr 02/24/21 12:45 02/24/21 12:56 Lr IV 03/26/21 12:44 75 mls/hr .[id number] ROSY Administration Insulin Aspart 0 units 02/24/21 18:00 02/24/21 18:15 Insulin Aspart 100 Units/Ml 3 Ml Pen SC 03/26/21 17:59 1 units Q6 ROSY Administration Morphine Sulfate 4 mg 02/24/21 16:52 02/24/21 17:23 Morphine Sulfate 4 Mg/Ml 1 Ml Carp\Vial IV 03/10/21 16:51 4 mg Q4 PRN Administration Pain6-03/11 Past Medical History Medical History Anemia Bladder cancer Bladder tumor CVA (cerebral vascular accident) 03/2018 [facility] Depression Diabetes mellitus, type 2 Encephalopathy Glaucoma History of benign bladder tumor History of COVID-19 Had both vaccines, but presented to [facility] 09/01/20 with weakness and tested + for COVID. Saturating fine on RA, discharged to [facility]. HTN (hypertension) Hx of recurrent urinary tract infection Hyperlipemia Neutropenia Pancreatic cyst Renal insufficiency Retinopathy Past Family History Family History Father Diabetes Heart disease Hypertension Other Family history unknown Past Surgical History Surgical History History of cystoscopy Transurethral Resection Bladder Tumor Hx of appendectomy Social History Smoking Status: Never smoker tobacco type: cigarettes Hx Alcohol Use: No Hx Substance Use: No Physical Exam Vital Signs Last Vital Signs Temp 36.8 C 02/24/21 16:00 Pulse 76 02/24/21 16:00 Resp 18 02/24/21 16:00 BP 125/68 02/24/21 16:00 Pulse Ox 99 02/24/21 16:00 Testing Laboratory Results 02/24/21 12:48 02/24/21 12:48 PT 10.3 Seconds (9.0-12.0) 02/24/21 12:48 INR 1.0 (0.9-1.1) 02/24/21 12:48 APTT 22.7 Seconds (21.0-31.0) 02/24/21 12:48 Urine Color Yellow 02/24/21 13:24 Urine Appearance Clear (Clear) 02/24/21 13:24 Urine pH 7.0 (4.5-7.5) 02/24/21 13:24 Ur Specific [place] 1.015 (1.000-1.030) 02/24/21 13:24 Urine Protein Negative (Negative) 02/24/21 13:24 Urine Glucose (UA) Negative (Negative) 02/24/21 13:24 Urine Ketones Negative (Negative) 02/24/21 13:24 Urine Nitrite Negative (Negative) 02/24/21 13:24 Ur Leukocyte Esterase Negative (Negative) 02/24/21 13:24 Blood Type Cancelled 02/24/21 17:03 Antibody Screen Cancelled 02/24/21 17:03 02/24/21 18:08 POC Glucose 143 H Electrocardiogram Date: 02/24/21 Accelerated junctional vs SR, rate 87, inferior infarct Chest X-Ray Date: 02/24/21 XR chest 1V portable HISTORY: 71 years-old Female preop preoperative exam. No acute chest complaints COMPARISON: Chest radiograph 09/01/2020, CTA chest 09/02/2020 TECHNIQUE: Supine AP view of the chest FINDINGS: Cardiac silhouette is mildly enlarged. Mild right hemidiaphragmatic elevation. Surgical clips project over the mid upper mediastinum. No pneumothorax, pleural effusion, airspace consolidation or overt pulmonary edema. Degenerative changes of the shoulders and spine. IMPRESSION: No acute process. ACT 112: Negative or not required by law. The above report was generated using voice recognition software. It may contain grammatical, syntax or spelling errors. Electronically signed by: James Edmonds M.D. 02/24/2021 1:15 PM Dictated: 02/24/21 1314Transcribed: 02/24/21 1314 Echocardiogram Date: 03/26/18 EF: 70 Other Findings: + LVH
[2021-02-24] MEDS ORDERED: ePHEDrine sulfate 50 MG/ML AMP IV PRN (18:38)
[2021-02-24] MEDS ORDERED: fentaNYL citrate 100 MCG/2 ML VIAL IV PRN (18:38)
[2021-02-24] MEDS ORDERED: ATROPINE SULFATE 0.1 MG/ML 10ML SYR IV PRN (18:38)
[2021-02-24] MEDS ORDERED: HYDROmorphone INJ 1 MG/ML SYRINGE IV PRN (18:38)
[2021-02-24] MEDS ORDERED: LABETALOL HCL IV 5 MG/ML 20ML IV PRN (18:38)
[2021-02-24] MEDS ORDERED: PHENYLEPHRINE 100MCG/ML 5ML SYR IV PRN (18:38)
[2021-02-24] MEDS ORDERED: fentaNYL citrate 100 MCG/2 ML VIAL ONE (18:41)
--- NOTE | 2021-02-24 18:50 | Orthopedic Consultation ---
Date of Consultation February 24, 2021 Assessment & Plan (1) Left displaced femoral neck fracture: She has a displaced left hip femoral neck fracture. This will require a left hip hemiarthroplasty to restore the ability to ambulate. This was explained in detail, and she is in agreement with the plan. Risks, benefits, and alternatives of surgery were explained in detail. The surgical procedure, as well as postoperative recovery and rehabilitation, was also explained in detail. Risks include bleeding; infection; damage to surrounding structures such as nerves, blood vessels, and tendons that run in the area; persistent pain or stiffness; hardware failure; dislocation; leg length discrepancy; blood clots; or need for further surgery. The patient understands all of this and wishes to proceed with surgery. Informed consent was obtained. History of Present Illness Reason for Consultation: Left hip fracture Attending Physician: Naresh Cardenas MD History of Present Illness Ms. Pressley is a 71-year-old female who sustained a ground-level fall earlier today while trying to get to the bathroom. She has a previous history of stroke, and has some residual right sided weakness, most significantly affecting her right leg. She normally ambulates around her apartment in [facility] without any ambulatory aids, but uses either a walker or wheelchair for longer distances. She had immediate pain and inability to bear weight on her left leg. Allergies Allergy/AdvReac Type Severity Reaction Status Date / Time prednisone Allergy Mild ITCHING Verified 02/24/21 14:31 ampicillin AdvReac Mild Gastrointestinal Verified 02/24/21 14:31 Upset azithromycin AdvReac Mild Gastrointestinal Verified 02/24/21 14:31 Upset lisinopril AdvReac Mild Gastrointestinal Verified 02/24/21 14:31 Upset Home Medications Medication Instructions Recorded Confirmed Type atorvastatin 80 mg tablet 80 mg PO HS 02/10/18 02/24/21 History cholecalciferol (vitamin D3) 50 2,000 unit PO QAM 02/10/18 02/24/21 History mcg (2,000 unit) capsule (Vitamin D3) cyanocobalamin (vitamin B-12) 500 1,000 mcg PO QAM 03/25/18 02/24/21 History mcg tablet (Vitamin B-12) insulin glargine 100 unit/mL (3 16 unit SUBCUT QPM 03/25/18 02/24/21 History mL) subcutaneous pen (Basaglar KwikPen U-100 Insulin) sitagliptin 100 mg tablet (Januvia) 100 mg PO QAM 03/25/18 02/24/21 History amlodipine 2.5 mg tablet 2.5 mg PO QAM 09/01/20 02/24/21 History aspirin 81 mg chewable tablet 81 mg PO QAM 09/01/20 02/24/21 History bimatoprost 0.01 % eye drops 1 drp OPB HS 09/01/20 02/24/21 History (Lumigan) citalopram 40 mg tablet 40 mg PO QAM 09/01/20 02/24/21 History ferrous sulfate 325 mg (65 mg 325 mg PO QAM 09/01/20 02/24/21 History iron) tablet losartan 100 mg tablet 100 mg PO QAM 09/01/20 02/24/21 History metformin 500 mg tablet,extended 500 mg PO QAM 09/01/20 02/24/21 History release 24 hr polyethylene glycol 3350 17 17 g PO DAILY PRN 09/01/20 02/24/21 History gram/dose oral powder (Miralax) potassium chloride 10 mEq 10 meq PO BID 09/01/20 02/24/21 History tablet,extended release fesoterodine 4 mg tablet,extended 4 mg PO QAM 10/04/20 02/24/21 History release 24 hr (Toviaz) magnesium oxide 250 mg PO QPM 10/04/20 02/24/21 History acetaminophen 325 mg tablet 650 mg PO QID PRN 10/19/20 02/24/21 History (Tylenol) [id number]-[id number] 1 applic TOPICAL BID 10/19/20 02/24/21 History petrolatum topical cream (Cetaphil Moisturizing) albuterol sulfate 90 mcg/actuation 2 puff INHALATION QID PRN 11/07/20 02/24/21 History aerosol inhaler cetirizine 5 mg tablet 5 mg PO QPM 11/07/20 02/24/21 History clobetasol 0.05 % topical cream 1 applic TOPICAL BID PRN 11/07/20 02/24/21 History nystatin 100,000 unit/gram topical 1 applic TOPICAL DAILY PRN 11/07/20 02/24/21 History cream Patient History Medical History Anemia Bladder cancer Bladder tumor CVA (cerebral vascular accident) 03/2018 [facility] Depression Diabetes mellitus, type 2 Encephalopathy Glaucoma History of benign bladder tumor History of COVID-19 Had both vaccines, but presented to [facility] 09/01/20 with weakness and tested + for COVID. Saturating fine on RA, discharged to [facility]. HTN (hypertension) Hx of recurrent urinary tract infection Hyperlipemia Neutropenia Pancreatic cyst Renal insufficiency Retinopathy Surgical History History of cystoscopy Transurethral Resection Bladder Tumor Hx of appendectomy Family History Father Diabetes Heart disease Hypertension Other Family history unknown Social History Smoking Status: Never smoker Second Hand Exposure: No; Hx Alcohol Use: No Hx Substance Use: No Preferred Language: French Communication Ability: Effective Supervisor Compressed Yeast Required: No Beliefs That Will Affect Care: None marital status: / Current Living Situation: Personal Care Facility Feels Safe at Home: Yes Assistive Devices: None Physical Exam Physical Exam: Examination of the left hip shows no open wounds. There is shortening and external rotation of the leg. There is mild swelling and tenderness to palpation of the thigh and hip area. Compartments are soft and compressible. Intact ankle dorsiflexion and plantarflexion. Results & Data ([facility]) Vital Signs (Past 12 Hours) Vital Signs Temp Pulse Pulse Resp BP BP Pulse Ox 02/24/21 16:00 36.8 C 95 H 76 18 155/83 H 125/68 99 02/24/21 15:35 93 H 17 139/81 98 02/24/21 13:00 82 17 147/93 H 92 02/24/21 12:03 36.8 C 82 16 150/82 H 97 Diagnostic Findings X-rays and CT scan of the left hip show a displaced femoral neck fracture.
[2021-02-24] MEDS ORDERED: BUPIVACAINE 0.5 % 5 MG/1 ML PF 10ML VIAL ONE (19:05)
[2021-02-24] MEDS ORDERED: MIDAZOLAM HCL 1 MG/ML 2ML VIAL ONE (19:22)
--- NOTE | 2021-02-24 20:40 | Post Operative Brief Note ---
Immediate Post Op Note v1 Date of Surgery February 24, 2021 Pre & Post Diagnosis Operation Date: 02/24/21 19:00 Pre-Op Diagnosis: Left Displaced Femoral Neck Fracture Post-Op Diagnosis: Left Displaced Femoral Neck Fracture I identified the patient and participated in the time-out.: Yes Procedure Operation Date: 02/24/21 19:00 Actual Procedures Left Hip Hemiarthroplasty - Andres Gray M.D. Surgeon Andres Gray Kettle Coordinator Se Rae PA-C Estimated Blood Loss 125 Findings Consistent with Post-Op Diagnosis
--- NOTE | 2021-02-24 20:50 | Operative Report ---
Post Operative Report Pre & Post Diagnosis Operation Date: 02/24/21 19:00 Pre-Op Diagnosis: Left Displaced Femoral Neck Fracture Post-Op Diagnosis: Left Displaced Femoral Neck Fracture I identified the patient and participated in the time-out.: Yes Procedure Operation Date: 02/24/21 19:00 Actual Procedures Left Hip Hemiarthroplasty for femoral neck fracture (25321) - Andres Gray M.D. Surgeon Andres Gray Gis Analyst Developer Se Rae PA-C Estimated Blood Loss 125 Findings Consistent with Post-Op Diagnosis Specimens None Drains None Anesthesia Type MAC Spinal Regional Disposition Disposition: Recovery Room Indications Ms. Pressley is a 71-year-old female who injured her left hip during a ground- level fall earlier today. She had immediate pain and inability to bear weight on her left leg. History, clinical exam, and imaging were consistent with the above diagnosis. Risks, benefits, and alternatives of surgery were explained in detail. The patient understood all this and wished to proceed. Description of Procedure Components implanted: Biomet Echo Bi-Metric press-fit [id number] mm Standard Femoral Stem 46mm RingLoc Bi-Polar Shell with + 0 mm Neck Patient was identified in the preoperative holding area. Operative extremity was marked. Patient was then brought back to the operating room, and general anesthesia was induced without complication. Appropriate weight-based dose of Ancef was infused intravenously for antibiotic prophylaxis. Patient was then turned in the lateral decubitus position with the left hip up. Hip positioner w as applied to hold the pelvis stable. Axillary roll was placed and all bony prominences were well padded. The left leg was then prepped and draped in a standard sterile fashion using Chlorhexidine prep. I made an incision over the lateral aspect of the hip for a posterolateral approach. I then dissected through subcutaneous tissues down to the iliotibial band. The iliotibial band was divided in line with its fibers at the posterior third of the greater trochanter. Greater trochanteric bursectomy was then performed to expose the posterolateral aspect of the hip. I released the piriformis tendon and short external rotators off of their attachment point at the posterolateral aspect of the greater trochanter. These tendons was tagged with #2 FiberWire sutures in a locking Gratis fashion for later repair. I then made a T-capsulotomy of the posterior hip joint capsule. The inferior leaf the capsulotomy was tagged with a #1 Vicryl suture for retraction during hip reduction and later repair. The femoral neck fracture was then easily identified. Comminuted fracture fragments were removed as they were encountered. I then marked the femoral neck about 1 cm proximal to the lesser trochanter and made the proximal femoral cut in line with the angle given by the proximal femoral resection guide. Femoral neck fracture fragments were then removed proximal to the neck cut. The femoral head was then removed and sized. Ligamentum teres was resected from the depth of the acetabulum and the acetabulum was copiously irrigated with sterile saline to insure that there were no remaining bone fragments. I then placed an appropriately-sized trial head into the acetabulum. It seated fully, had free range of motion, and had a good suction seal. I then used the box osteotome to remove a rectangle of bone at the posterolateral femur in line with the femoral canal to ensure that I was completely lateralized into the medial wall of the greater trochanter. Canal finder was then used down the center of the femoral canal. I then used a lateralizing reamer to ensure that I was completely lateralized to avoid varus positioning of the implant. I then sequentially reamed with the canal reamers until I got good cortical chatter. I then sequentially broached until I achieved good cortical fit. The final femoral stem was impacted into place. This showed excellent rotational stability. I then trialed with various neck lengths on the femoral stem while taking the hip through full range of motion. I selected a neck length that gave good stability of the hip through full range of motion, including in flexion, adduction, and internal rotation, as well as good range of motion in flexion and extension, and equal leg lengths. I then removed the trial femoral head and impacted the final femoral head onto the Domingo taper of the femoral stem. I then again reduced the hip and took it through full range of motion. Again, there was excellent stability of the hip with full range of motion. I was then satisfied with the procedure. The wound was copiously irrigated with sterile saline via pulsatile irrigation. I then closed the posterior capsulotomy with #2 FiberWire suture. I then made three drill holes in the posterior aspect of the greater trochanter and passed the previously placed FiberWire sutures in the piriformis tendon and short external rotators through these drill holes. The tendons were reapproximated and tied with the hip held in external rotation. I then closed the iliotibial band with a #1 Vicryl suture as a tacking stitch followed by a running #0 V-Lock suture. Deep dermal tissue was then closed with 2-0 V-Lock, and subcutaneous tissue was closed with 3-0 V- Lock. The incision was then sealed with Dermabond. Sterile dressings were then applied with Silverlon. Drapes were then removed and a hip abduction pillow was placed. The patient was then transferred over to the stretcher and taken to the Post-Anesthesia Care Unit in stable condition. There were no immediate complications from the procedure. I was present and scrubbed for the entire procedure. Due to the complex nature of the procedure, the entire surgery was performed with the operational assistance of Se Rae PA-C. The embroidery assistant, under direct supervision, was involved in the performance of all aspects of the surgical procedure including patient positioning, tissue retraction, hemostasis, wound closure, and dressing application. I attest to the content of the Intraoperative Record and any orders documented therein. Any exceptions are noted below.
[2021-02-24] MEDS ORDERED: DOCUSATE SODIUM/SENNA 50/8.6MG TAB PO SCH (21:00)
[2021-02-24] MEDS ORDERED: INSULIN GLARGINE SOLOSTAR 100 UNITS/ML 3 ML PEN SC SCH (21:30)
--- NOTE | 2021-02-24 21:30 | XRay Report ---
XR hip LT min 2V HISTORY: 71 years-old Female left hip hemiarthroplasty left hip total joint arthroplasty COMPARISON: Radiographs of the left hip of same day TECHNIQUE: 2 views of the left hip FINDINGS: Left hip total joint arthroplasty demonstrates satisfactory alignment. Expected postoperative soft ti ssue swelling and deep software. No acute fracture or retained foreign body identified. IMPRESSION: Left hip total joint arthroplasty with expected postoperative changes. ACT 112: Negative or not required by law. The above report was generated using voice recognition software. It may contain grammatical, syntax o r spelling errors. Electronically signed by: James Edmonds M.D. 02/24/2021 9:29 PM
[2021-02-24] MEDS ORDERED: METOCLOPRAMIDE HCL INJ 5 MG/ML 2 ML VIAL IV PRN (21:42)
[2021-02-24] MEDS ORDERED: Nursing to Pharmacy Communication SCH (22:00)
--- NOTE | 2021-02-24 22:17 | Anesthesiology Progress Note ---
Date of Service February 24, 2021 Anesthesia Post Procedure Vital Signs Vital Signs: Temp Pulse Pulse Pulse Pulse Resp BP 02/24/21 22:12 36.5 C 75 16 02/24/21 21:40 36.6 C 85 15 02/24/21 21:25 84 16 02/24/21 21:15 77 16 02/24/21 21:05 75 16 02/24/21 20:58 37.7 C H 71 16 02/24/21 16:50 37.2 C 94 H 14 02/24/21 16:00 36.8 C 95 H 76 18 155/83 H 02/24/21 15:35 93 H 17 139/81 02/24/21 13:00 82 17 147/93 H 02/24/21 12:03 36.8 C 82 16 150/82 H BP BP Pulse Ox 02/24/21 22:12 113/70 98 02/24/21 21:40 132/88 94 02/24/21 21:25 108/69 96 02/24/21 21:15 139/80 96 02/24/21 21:05 134/89 95 02/24/21 20:58 140/75 95 02/24/21 16:50 153/85 H 87 L 02/24/21 16:00 125/68 99 02/24/21 15:35 98 02/24/21 13:00 92 02/24/21 12:03 97 Pain Intensity Left Hip: Pain Intensity: 10 Transfer of Care Handoff Completed per policy Notes Mental Status: alert / awake / arousable and participated in evaluation Patient Amnestic to Procedure: Yes Nausea / Vomiting: adequately controlled Pain: adequately controlled Airway Patency, RR, SpO2: stable & adequate BP & HR: stable & adequate Hydration State: stable & adequate Anesthetic Complications: no major complications apparent
[2021-02-24] MEDS: SODIUM CHLORIDE 0.9% 1000ML 1,000 ML IV SCH (22:31)
[2021-02-24] MEDS: TOVIAZ~ORDER AWAITING ACTION SCH (22:32)
[2021-02-24] MEDS: DOCUSATE SODIUM 100 MG CAP PO SCH (22:35)
[2021-02-24] MEDS: SENNA 8.6 MG TAB PO SCH (22:35)
[2021-02-24] MEDS: POTASSIUM CHLORIDE 10 MEQ TABCR PO SCH (22:36)
[2021-02-24] MEDS: ATORVASTATIN 40 MG TAB PO SCH (22:36)
[2021-02-24] MEDS: INSULIN ASPART 100 UNITS/ML 3 ML PEN SC SCH (22:37)
[2021-02-25] MEDS: ceFAZolin 2000MG 2,000 MG/15 ML SYR IV SCH ×2 (03:51→13:28)
[2021-02-25] MEDS: MoRPHine SULFATE 4 MG/ML 1 ML CARP\\VIAL IV PRN ×2 (05:18→10:49)
[2021-02-25] MEDS: SODIUM CHLORIDE 0.9% 1000ML 1,000 ML IV SCH (07:41)
[2021-02-25] MEDS: TOVIAZ~ORDER AWAITING ACTION SCH ×2 (09:23→15:58)
[2021-02-25] MEDS: DOCUSATE SODIUM 100 MG CAP PO SCH ×2 (09:24→20:40)
[2021-02-25] MEDS: CHOLECALCIFEROL 1,000 UNITS 25 MCG TAB PO SCH (09:24)
[2021-02-25] MEDS: FERROUS SULFATE 325 MG TAB PO SCH (09:24)
[2021-02-25] MEDS: LOSARTAN POTASSIUM 50 MG TAB PO SCH (09:24)
[2021-02-25] MEDS: CITALOPRAM 40 MG TAB PO SCH (09:24)
[2021-02-25] MEDS: MULTIVITAMIN TAB PO SCH (09:25)
[2021-02-25] MEDS: POTASSIUM CHLORIDE 10 MEQ TABCR PO SCH ×2 (09:25→20:40)
[2021-02-25] MEDS: INSULIN ASPART 100 UNITS/ML 3 ML PEN SC SCH ×4 (09:26→20:44)
--- NOTE | 2021-02-25 11:56 | Orthopedic Progress Note ---
Date of Service February 25, 2021 Assessment & Plan (1) Left displaced femoral neck fracture: Plan: Postoperative day #1 status post left hip hemiarthroplasty for femoral neck fracture -Ancef x24 hours postoperatively -Xarelto 10 mg daily for DVT prophylaxis -I stressed to her that she needs to have her hip abduction pillow in place whenever she is in bed to keep her hip in a safe position while sleeping. We reviewed posterior hip precautions, including no flexion past 90 degrees, adduction past midline, and internal rotation of the hip. -Weightbearing as tolerated on her left leg. -She will likely require SNF placement upon discharge. -Okay for discharge when stable from a medical perspective and placement arranged. Follow-up with me in orthopedics clinic 10 to 14 days after surgery. Please call [facility] at [phone] to make an appointment. Orthopedics-specific discharge instructions were placed in the discharge section of the chart. Admission and Anticipated Discharge Date Admission Date: February 24, 2021 Subjective Patient is sleeping upon entering the room and appears to be resting comfortab ly, but when awoken she says her hip is "terrible". She reports no improvement in her pain compared to prior to surgery. She was out of bed sitting in a chair with therapy today. She is sleeping in bed without her abduction pillow in place; it is rolled up and sitting in her bedside chair. Physical Exam Physical Exam: Left hip dressings are clean, dry, and intact. Leg lengths look equal. Motor and sensory function is intact distally. Results & Data ([facility]) Vital Signs (Past 12 Hours) Vital Signs Temp Pulse Resp BP Pulse Ox 02/25/21 10:16 95 02/25/21 08:39 37.5 C 95 H 20 143/87 H 94 02/25/21 03:49 36.9 C 95 H 17 138/85 94 02/25/21 00:40 36.7 C 81 19 128/89 96 Diagnostic Findings Postoperative x-rays show left hip hemiarthroplasty in good position without evidence of dislocation, hardware failure, or loosening.
[2021-02-25] MEDS: RIVAROXABAN 10 MG TABLET PO SCH (12:14)
--- NOTE | 2021-02-25 13:21 | Pharmacy Report ---
Pharmacy Glycemic Short Note 2 - Date of Service February 25, 2021 - Glycemic Short BSG Results (Last 24 hours): 02/24/21 02/24/21 02/25/21 18:08 21:07 08:31 POC Glucose 143 H 136 H 157 H 02/25/21 12:49 POC Glucose 225 H OUTPATIENT ANTIDIABETIC REGIMEN: * Basaglar 16 units SQ HS * metformin 500 mg qam + Januvia 100 mg daily * A1c = 7.2% ASSESSMENT: * Krystal is a 71 yo female POD #1 s/p left hip hemiarthroplasty for femoral neck fracture * Patient was continued on home dose of basal insulin on admission. Novolog ACHS was added. She received no steroids adin-operatively. * she received 16 units of insulin yesterday * Today she experienced both fasting and post prandial BSG hyperglycemia, therefore I will change Lantus order to dose per scale (allowing for higher dose of 20 units if needed) and tighten novolog parameters. PLAN FOR INPATIENT GLYCEMIC CONTROL: * Hold outpatient oral diabetes medications * Basal insulin * Lantus 16-20 units SQ qHS (20 units for BSG 160 mg/dL or more) * Bolus insulin * NovoLog per scale ACHS or Q6hrs while NPO * Goal Range: Low 110 mg/dL - High 140 mg/dL * Correction Factor: 20 mg/dL/unit * Nutritional / Prandial insulin per carb ratio of 1 unit per 7 grams CHO consumed
[2021-02-25] MEDS: oxyCODONE HCL IR 5 MG TAB (IMMEDIATE RELEASE) PO PRN (13:27)
[2021-02-25] MEDS: ACETAMINOPHEN 500 MG TAB PO PRN (13:42)
--- NOTE | 2021-02-25 14:41 | Hospitalist Progress Note ---
Date of Service February 25, 2021 Assessment & Plan (1) Left displaced femoral neck fracture: Plan: S/P Left Hip Hemiarthroplasty for femoral neck fracture by Dr. Gray POD#1 On Xarelto for anticoagulation Weightbearing as tolerated left lower extremity Continue PT OT Bowel regimen to prevent constipation Needs follow-up with orthopedics upon discharge Likely need rehab placement Pain control DM II HbA1C: 7.2 on 02/12/21 Hold PO meds Continue Insulin therapy while hospitalized Monitor BGs H/O CVA Continue statin Resume aspirin as able Hypertension Continue home medication next Mood disorder Continue citalopram DVT prophylaxis On Xarelto CODE STATUS Full code Disposition Case management to help with discharge planning. Admission and Anticipated Discharge Date Admission Date: February 24, 2021 Subjective Patient is seen and examined bedside Left hip pain at surgical site is controlled Denies any nausea, vomiting, chest pain, dyspnea, dizziness Offers no other complaints Review of Systems Review of Systems: All systems reviewed & are unremarkable except as noted in Subjective Physical Exam Physical Exam: Physical Exam: Vitals signs as noted above General Appearance:Moderately built and nourished, no apparent distress Head: normocephalic, Atraumatic Eyes: normal inspection, EOMI Neck: supple, Trachea midline Respiratory/Chest: Normal breath sounds, CTA, No accessory muscle use Cardiovascular: S1, S2, No murmur Abdomen/GI:Soft, Non tender, Bowel sounds present Extremities/Musculoskeletal:normal inspection, no edema, Left hip surgical site in dressing Neurologic/Psych:AAOX3, grossly no focal neurological deficits Skin: normal color, warm Results & Data Results & Data ([facility]) Vital Signs (Past 12 Hours) Vital Signs Temp Pulse Resp BP Pulse Ox 02/25/21 13:37 37.8 C H 97 H 18 156/91 H 91 02/25/21 10:16 95 02/25/21 08:39 37.5 C 95 H 20 143/87 H 94 02/25/21 03:49 36.9 C 95 H 17 138/85 94
[2021-02-25] MEDS: SENNA 8.6 MG TAB PO SCH (20:40)
[2021-02-25] MEDS: ATORVASTATIN 40 MG TAB PO SCH (20:40)
[2021-02-25] MEDS: INSULIN GLARGINE SOLOSTAR 100 UNITS/ML 3 ML PEN SC SCH (20:44)
[2021-02-26] MEDS ORDERED: MELATONIN 3 MG TAB PO PRN (02:33)
--- NOTE | 2021-02-26 05:42 | Electrocardiogram Report ---
Test Reason : Blood Pressure : / mmHG Vent. Rate : 087 BPM Atrial Rate : 087 BPM P-R Int : 160 ms QRS Dur : 084 ms QT Int : 392 ms P-R-T Axes : 000 -55 028 degrees QTc Int : 471 ms Poor data quality, interpretation may be adversely affected Normal sinus rhythm Left axis deviation Nonspecific T wave abnormality Abnormal ECG When compared with ECG of 01-SEP-2020 17:46, No significant change Confirmed by William Pearson ([id number]) on 02/26/2021 5:42:23 AM Referred By: [facility] Confirmed By:William Pearson
[2021-02-26 08:02] LABS: Estimated Average Glucose 157 mg/dl; Hemoglobin A1C 7.1 % (4.5-5.6)
[2021-02-26] MEDS: TOVIAZ~ORDER AWAITING ACTION SCH ×4 (08:56→22:53)
[2021-02-26] MEDS: CITALOPRAM 40 MG TAB PO SCH (08:57)
[2021-02-26] MEDS: RIVAROXABAN 10 MG TABLET PO SCH (08:57)
[2021-02-26] MEDS: POTASSIUM CHLORIDE 10 MEQ TABCR PO SCH ×2 (08:57→20:52)
[2021-02-26] MEDS: FERROUS SULFATE 325 MG TAB PO SCH (08:57)
[2021-02-26] MEDS: LOSARTAN POTASSIUM 50 MG TAB PO SCH (08:57)
[2021-02-26] MEDS: DOCUSATE SODIUM 100 MG CAP PO SCH ×2 (08:58→20:52)
[2021-02-26] MEDS: MULTIVITAMIN TAB PO SCH (08:58)
[2021-02-26] MEDS: CHOLECALCIFEROL 1,000 UNITS 25 MCG TAB PO SCH (08:58)
[2021-02-26] MEDS: INSULIN ASPART 100 UNITS/ML 3 ML PEN SC SCH ×4 (08:59→20:55)
[2021-02-26 09:12] LABS: BUN Creatinine Ratio 15.2 (10-20); Calcium 8.6 mg/dl (8.5-10.1); Creatinine Clr Calc Pharmacy 46.6 ml/min; Est GFR (African American) 53.6 ml/min; Est GFR (Non-African American) 46.2 ml/min; Magnesium 1.8 mg/dl (1.8-2.4); Potassium 3.6 mmol/L (3.5-5.1)
--- NOTE | 2021-02-26 09:12 | Orthopedic Progress Note ---
Date of Service February 26, 2021 Assessment & Plan (1) Left displaced femoral neck fracture: Plan: Postoperative day #2 status post left hip hemiarthroplasty for femoral neck fracture -Labs pending this morning -Ancef x24 hours postoperatively -Xarelto 10 mg daily for DVT prophylaxis -Dr. Gray stressed to her that she needs to have her hip abduction pillow in place whenever she is in bed to keep her hip in a safe position while sleeping. We reviewed posterior hip precautions, including no flexion past 90 degrees, adduction past midline, and internal rotation of the hip. -Weightbearing as tolerated on her left leg. -She will likely require SNF placement upon discharge. -Okay for discharge when stable from a medical perspective and placement arranged. Follow-up with me in orthopedics clinic 10 to 14 days after surgery. Please call [facility] at [phone] to make an appointment. Orthopedics-specific discharge instructions were placed in the discharge section of the chart. Admission and Anticipated Discharge Date Admission Date: February 24, 2021 Subjective Postop day 2 Patient sitting up in bed eating breakfast. No complaints this morning. Pain is controlled at rest. States that her legs feel stiff this morning. Denies any shortness of breath, chest pain, lightheadedness. Physical Exam Physical Exam: Silverlon dressing is clean, dry, and intact. Thigh with mild swelling consistent with surgery, but soft. Calves are soft and nontender. Neurovascular is intact. Toes are mobile. Leg lengths appear equal. Results & Data ([facility]) Vital Signs (Past 12 Hours) Vital Signs Temp Pulse Pulse Resp BP Pulse Ox 02/26/21 07:28 37.4 C 99 H 16 162/82 H 95 02/25/21 22:32 37.5 C 100 H 18 151/81 H 93
[2021-02-26 09:18] LABS: Hematocrit (blood only) 29.3 % (37-47); Hemoglobin 9.5 g/dL (12.0-16.0); Mean Corpuscular Hemoglobin 28.4 pg (25-34); Mean Corpuscular Hgb Conc 32.4 g/dL (32-36); Mean Corpuscular Volume 87.5 fL (80-100); Mean Platelet Volume 8.5 fL (7.4-10.4); Platelet Count 180 K/uL (130-400); RDW Coefficient of Variation 13.1 % (11.5-14.5); RDW Standard Deviation 42.4 fL (36.4-46.3); Red Blood Count 3.35 M/uL (4.2-5.4); White Blood Count 13.63 K/uL (4.8-10.8)
[2021-02-26] MEDS: ASPIRIN 81 MG CHEW PO SCH (09:18)
[2021-02-26] MEDS: amLODIPine BESYLATE 5 MG TAB PO SCH (09:18)
[2021-02-26] MEDS: POLYETHYLENE (MIRALAX) 17 GM PACK PO SCH ×2 (13:10→20:52)
--- NOTE | 2021-02-26 15:16 | Hospitalist Progress Note ---
Date of Service February 26, 2021 Assessment & Plan (1) Left displaced femoral neck fracture: Plan: S/P Left Hip Hemiarthroplasty for femoral neck fracture by Dr. Gray, POD#2 activity and wound care orders as per ortho - weightbearing as tolerated LLE pain control with bowel regimen PT/OT On Xarelto for anticoagulation Acute Blood Loss Anemia Hgb 13.3 -> 9.5 No indication for transfusion at this time, follow H&H DM II HbA1C: 7.2 on 02/12/21 Hold PO meds Continue Insulin therapy while hospitalized Glycemic pharmacy following H/O CVA Continue statin ASA resumed today Hypertension BP mildly elevated Continue amlodipine, resume home dose of losartan 100 mg (has been receiving 50 mg) Mood disorder Continue citalopram DVT prophylaxis Xarelto per orthopedics Disposition Follow-up with orthopedics 10 to 14 days postop Awaiting SNF placement (typically resides at personal assisted) Case management to help with discharge planning. Admission and Anticipated Discharge Date Admission Date: February 24, 2021 Supervising Physician Co-Signing Physician Notes Patient is seen and examined at bedside. Patient states having some neck stiffness this morning. Denies any significant pain at surgical site. Also denies any chest pain, dyspnea, dizziness, nausea, abdominal pain. No bowel movement today. Physical Exam: Vitals signs as noted above General Appearance:Moderately built and nourished, no apparent distress Head: normocephalic, Atraumatic Eyes: normal inspection, EOMI Neck: supple, Trachea midline Respiratory/Chest: Normal breath sounds, CTA, No accessory muscle use Cardiovascular: S1, S2, No murmur Abdomen/GI:Soft, Non tender, Bowel sounds present Extremities/Musculoskeletal:normal inspection, no edema, Left hip surgical site in dressing Neurologic/Psych:AAOX3, grossly no focal neurological deficits Skin: normal color, warm S/P Left Hip Hemiarthroplasty for femoral neck fracture by Dr. Gray, POD#2 Acute blood loss postoperative anemia No indication for transfusion currently Monitor CBC Continue bowel regimen Continue insulin therapy for diabetes I personally reviewed the record. Patient is interviewed and examined at bedside. Patient's care is coordinated with Elizabeth Mayfield TRANSPORTATION PROJECT MANAGER. Please refer to the documentation above for details of patient's presentation and for discussion of other issues. Subjective Patient seen and examined. Resting in bed. Reports that legs feel weak. Pain is well controlled. Denies chest pain or shortness of breath. No abdominal pain or nausea. Michael remains in place. No recent BM. Review of Systems Review of Systems: All systems reviewed & are unremarkable except as noted in Subjective Physical Exam Constitutional: WD/WN, vitals as above Respiratory: normal respiratory effort, lungs clear to auscultation Cardiovascular: Rate/Rhythm: regular rate and regular rhythm Vessels: normal peripheral pulses Extremities: no edema Gastrointestinal (Abdomen): normal bowel sounds, soft, nontender, no hepatosplenomegaly Musculoskeletal: S/p left hip surgery, dressing dry and intact Skin: no rashes, warm and dry Neurologic: PERRL, EOMI, accommodation nl, no face palsy, no dysarthria Psychiatric: Orientation: alert and oriented x 3 Affect: + flat affect Insight: + limited insight Results & Data Results & [facility]) Vital Signs (Past 12 Hours) Vital Signs Temp Pulse Resp BP Pulse Ox 02/26/21 07:28 37.4 C 99 H 16 162/82 H 95 Laboratory Results Short CBC 02/26/21 Range/Units 08:27 WBC 13.63 H (4.8-10.8) K/uL Hgb 9.5 L D (12.0-16.0) g/dL Hct 29.3 L (37-47) % Plt Count 180 (130-400) K/uL BMP 02/26/21 08:27 Sodium 139 Potassium 3.6 Chloride 107 Carbon Dioxide 25 BUN 18 Creatinine 1.19 Glucose 187 H Calcium 8.6
[2021-02-26] MEDS: oxyCODONE HCL IR 5 MG TAB (IMMEDIATE RELEASE) PO PRN (15:30)
[2021-02-26] MEDS ORDERED: LOSARTAN POTASSIUM 50 MG TAB PO ONE (15:30)
--- NOTE | 2021-02-26 17:05 | XRay Report ---
XR chest 1V portable HISTORY: hypoxia COMPARISON: Chest 02/24/2021. FINDINGS: No pneumothorax. No pleural effusions. The heart remains top normal in size. There are surg ical clips overlying the superior mediastinum. This remains unchanged. No focal lung consolidations t o suggest pneumonia. No evidence for pulmonary edema. IMPRESSION: No significant change compared to the prior study. No acute process. ACT 112: Negative or not required by law. Electronically signed by: Emory Cuevas M.D. 02/26/2021 5:04 PM
[2021-02-26] MEDS: ATORVASTATIN 40 MG TAB PO SCH (20:52)
[2021-02-26] MEDS: SENNA 8.6 MG TAB PO SCH (20:52)
[2021-02-26] MEDS: INSULIN GLARGINE SOLOSTAR 100 UNITS/ML 3 ML PEN SC SCH (20:57)
[2021-02-27 08:06] LABS: Hematocrit (blood only) 28.2 % (37-47); Mean Corpuscular Hemoglobin 28.4 pg (25-34); Mean Corpuscular Hgb Conc 31.9 g/dL (32-36); Mean Platelet Volume 9.1 fL (7.4-10.4); Platelet Count 211 K/uL (130-400); RDW Standard Deviation 42.2 fL (36.4-46.3); Red Blood Count 3.17 M/uL (4.2-5.4); White Blood Count 15.71 K/uL (4.8-10.8)
[2021-02-27 08:37] LABS: BUN Creatinine Ratio 18.2 (10-20); Est GFR (African American) 71.2 ml/min; Est GFR (Non-African American) 61.5 ml/min; Potassium 3.5 mmol/L (3.5-5.1)
[2021-02-27] MEDS: CHOLECALCIFEROL 1,000 UNITS 25 MCG TAB PO SCH (09:57)
[2021-02-27] MEDS: LOSARTAN POTASSIUM 50 MG TAB PO SCH (09:57)
[2021-02-27] MEDS: ASPIRIN 81 MG CHEW PO SCH (09:57)
[2021-02-27] MEDS: FERROUS SULFATE 325 MG TAB PO SCH (09:58)
[2021-02-27] MEDS: POLYETHYLENE (MIRALAX) 17 GM PACK PO SCH ×2 (09:58→22:04)
[2021-02-27] MEDS: amLODIPine BESYLATE 5 MG TAB PO SCH (09:58)
[2021-02-27] MEDS: MULTIVITAMIN TAB PO SCH (09:58)
[2021-02-27] MEDS: RIVAROXABAN 10 MG TABLET PO SCH (09:58)
[2021-02-27] MEDS: DOCUSATE SODIUM 100 MG CAP PO SCH ×2 (09:58→22:05)
[2021-02-27] MEDS: CITALOPRAM 40 MG TAB PO SCH (09:58)
[2021-02-27] MEDS: POTASSIUM CHLORIDE 10 MEQ TABCR PO SCH ×2 (09:58→22:05)
[2021-02-27] MEDS: TOVIAZ~ORDER AWAITING ACTION SCH ×2 (09:59→18:14)
[2021-02-27] MEDS: INSULIN ASPART 100 UNITS/ML 3 ML PEN SC SCH ×4 (10:00→21:58)
--- NOTE | 2021-02-27 10:43 | Orthopedic Progress Note ---
Date of Service February 27, 2021 Assessment & Plan (1) Left displaced femoral neck fracture: Plan: Postoperative day #3 status post left hip hemiarthroplasty for femoral neck fracture -Xarelto 10 mg daily for DVT prophylaxis -Dr. Gray stressed to her that she needs to have her hip abduction pillow in place whenever she is in bed to keep her hip in a safe position while sleeping. We reviewed posterior hip precautions, including no flexion past 90 degrees, adduction past midline, and internal rotation of the hip. -Weightbearing as tolerated on her left leg. -She will likely require SNF placement upon discharge. -Okay for discharge when stable from a medical perspective and placement arranged. Follow-up with me in orthopedics clinic 10 to 14 days after surgery. Please call [facility] at [phone] to make an appointment. Orthopedics-specific discharge instructions were placed in the discharge section of the chart. Orthopedics will sign off at this time. Please call with any questions. Admission and Anticipated Discharge Date Admission Date: February 24, 2021 Subjective Postop day 3 Patient sitting up in bed awake. She seems a bit more groggy this morning. Answering questions appropriately. States she is having some left hip pain but appears comfortable. Currently getting her medications from nursing staff. Physical Exam Physical Exam: Silverlon dressing is clean, dry, and intact. Thigh does have some swelling consistent with surgery. No erythema noted. Calves are soft nontender. Neurovascular intact. Toes are mobile. Leg lengths appear equal. Results & Data ([facility]) Vital Signs (Past 12 Hours) Vital Signs Temp Pulse Resp BP Pulse Ox 02/27/21 07:38 37.3 C 98 H 18 159/81 H 96 Laboratory Results Laboratory Results WBC 15.71 K/uL (4.8-10.8) H 02/27/21 07:25 RBC 3.17 M/uL (4.2-5.4) L 02/27/21 07:25 Hgb 9.0 g/dL (12.0-16.0) L 02/27/21 07:25 Hct 28.2 % (37-47) L 02/27/21 07:25 MCV 89.0 fL (80-100) 02/27/21 07:25 MCH 28.4 pg (25-34) 02/27/21 07:25 MCHC 31.9 g/dL (32-36) L 02/27/21 07:25 RDW Std Deviation 42.2 fL (36.4-46.3) 02/27/21 07:25 RDW Coeff of [place] 13.0 % (11.5-14.5) 02/27/21 07:25 Plt Count 211 K/uL (130-400) 02/27/21 07:25 MPV 9.1 fL (7.4-10.4) 02/27/21 07:25 Immature Gran % (Auto) 0.6 % 02/24/21 12:48 Neut % (Auto) 81.4 % 02/24/21 12:48 Lymph % (Auto) 11.1 % 02/24/21 12:48 [place] % (Auto) 5.4 % 02/24/21 12:48 Eos % (Auto) 1.3 % 02/24/21 12:48 Baso % (Auto) 0.2 % 02/24/21 12:48 Neut # (Auto) 10.33 K/uL (1.4-6.5) H 02/24/21 12:48 Lymph # (Auto) 1.41 K/uL (1.2-3.4) 02/24/21 12:48 [place] # (Auto) 0.68 K/uL (0.11-0.59) H 02/24/21 12:48 Eos # (Auto) 0.17 K/uL (0-0.5) 02/24/21 12:48 Baso # (Auto) 0.02 K/uL (0-0.2) 02/24/21 12:48 Immature Gran # (Auto) 0.08 K/uL (0.00-0.02) H 02/24/21 12:48 PT 10.3 Seconds (9.0-12.0) 02/24/21 12:48 INR 1.0 (0.9-1.1) 02/24/21 12:48 APTT 22.7 Seconds (21.0-31.0) 02/24/21 12:48 PTT Ratio 0.9 02/24/21 12:48 Sodium 138 mmol/L (136-145) 02/27/21 07:25 Potassium 3.5 mmol/L (3.5-5.1) 02/27/21 07:25 Chloride 106 mmol/L (98-107) 02/27/21 07:25 Carbon Dioxide 24 mmol/L (21-32) 02/27/21 07:25 Anion Gap 8.0 (3-11) 02/27/21 07:25 BUN 17 mg/dl (7-18) 02/27/21 07:25 Creatinine 0.94 mg/dl (0.6-1.2) 02/27/21 07:25 Est Cr Clr Drug Dosing 59.0 ml/min 02/27/21 07:25 Est GFR ( Amer) 71.2 ml/min 02/27/21 07:25 Est GFR (Non-Af Amer) 61.5 ml/min 02/27/21 07:25 BUN/Creatinine Ratio 18.2 (10-20) 02/27/21 07:25 Glucose 167 mg/dl (70-99) H 02/27/21 07:25 POC Glucose 186 mg/dl (70-99) H 02/27/21 08:15 Estimat Average Glucose 157 mg/dl 02/25/21 07:25 Hemoglobin A1c 7.1 % (4.5-5.6) H 02/25/21 07:25 Calcium 9.0 mg/dl (8.5-10.1) 02/27/21 07:25 Magnesium 1.8 mg/dl (1.8-2.4) 02/26/21 08:27 Total Bilirubin 0.8 mg/dl (0.2-1) 02/24/21 12:48 AST 20 U/L (15-37) 02/24/21 12:48 ALT 24 U/L (12-78) 02/24/21 12:48 Alkaline Phosphatase 107 U/L (45-117) 02/24/21 12:48 Total Protein 7.3 gm/dl (6.4-8.2) 02/24/21 12:48 Albumin 3.5 gm/dl (3.4-5.0) 02/24/21 12:48 Globulin 3.8 gm/dl (2.5-4.0) 02/24/21 12:48 Albumin/Globulin Ratio 0.9 (0.9-2) 02/24/21 12:48 25-OH Vitamin D Total 49.5 ng/ml (30-100) 02/25/21 07:25 Urine Color Yellow 02/24/21 13:24 Urine Appearance Clear (Clear) 02/24/21 13:24 Urine pH 7.0 (4.5-7.5) 02/24/21 13:24 Ur Specific [place] 1.015 (1.000-1.030) 02/24/21 13:24 Urine Protein Negative (Negative) 02/24/21 13:24 Urine Glucose (UA) Negative (Negative) 02/24/21 13:24 Urine Ketones Negative (Negative) 02/24/21 13:24 Urine Blood Negative (Negative) 02/24/21 13:24 Urine Nitrite Negative (Negative) 02/24/21 13:24 Urine Bilirubin Negative (Negative) 02/24/21 13:24 Urine Urobilinogen Negative (Negative) 02/24/21 13:24 Ur Leukocyte Esterase Negative (Negative) 02/24/21 13:24 COVID-19 Eval Order Covid19 at [facility] 02/24/21 Unknown SARS-CoV-2 (PCR) NEGATIVE (Negative) 02/24/21 Unknown Blood Type Cancelled 02/24/21 17:03 Blood Type Recheck B Positive 02/24/21 17:03 Antibody Screen Cancelled 02/24/21 17:03
--- NOTE | 2021-02-27 10:51 | Pharmacy Report ---
Pharmacy Glycemic Short Note 2 - Date of Service February 27, 2021 - Glycemic Short BSG Results (Last 24 hours): 02/26/21 02/26/21 02/26/21 12:14 17:18 20:38 Glucose POC Glucose 255 H 190 H 185 H 02/27/21 02/27/21 07:25 08:15 Glucose 167 H POC Glucose 186 H OUTPATIENT ANTIDIABETIC REGIMEN: * Basaglar 16 units SQ HS * metformin 500 mg qam + Januvia 100 mg daily * A1c = 7.2% ASSESSMENT: 02/27 * Patient received total of 49 units of insulin yesterday, of which 20 units were basal insulin * Fasting BSG 167 mg/dL - continue with 20 units at HS * Plan to tighten CR more today as BSGs still in upper 100s yesterday 02/25 * Krystal is a 71 yo female POD #1 s/p left hip hemiarthroplasty for femoral neck fracture * Patient was continued on home dose of basal insulin on admission. Novolog ACHS was added. She received no steroids adin-operatively. * she received 16 units of insulin yesterday * Today she experienced both fasting and post prandial BSG hyperglycemia, ther efore I will change Lantus order to dose per scale (allowing for higher dose of 20 units if needed) and tighten novolog parameters. PLAN FOR INPATIENT GLYCEMIC CONTROL: * Hold outpatient oral diabetes medications * Basal insulin * Lantus 20 units HS * Bolus insulin * NovoLog per scale ACHS or Q6hrs while NPO * Goal Range: Low 110 mg/dL - High 140 mg/dL * Correction Factor: 20 mg/dL/unit * Nutritional / Prandial insulin per carb ratio of 1 unit per 6 grams CHO consumed PLAN FOR DISCHARGE: * A1c 7.2% - goal 7% ; it is reasonable to continue home diabetic medications upon discharge
[2021-02-27 11:16] LABS: Appearance Urine Clear (Clear); Bacteria Urine Automated Negative (Negative); Bilirubin Urine Negative (Negative); Blood Urine 2+ (Negative); Color Urine Dark Yellow; Epithelial Cell Urine Auto >30 /lpf (0-5); Glucose Urine UA 3+ (Negative); Ketones Urine 3+ (Negative); Leukocyte Esterase Urine Negative (Negative); Nitrite Urine Negative (Negative); Protein Urine 1+ (Negative); Specific Gravity Urine 1.031 (1.000-1.030); Urobilinogen Urine Negative (Negative); pH Urine 5.5 (4.5-7.5)
[2021-02-27 11:33] LABS: Mucus Urine Present (None Prsent)
--- NOTE | 2021-02-27 11:48 | Ultrasound Report ---
US extremity non-vascular ltd INDICATION: MN ^left hip swelling, eval for abscess TECHNIQUE: Real-time grayscale sonographic images of the left hip were obtained. Comparison: None available at the time of this dictation. FINDINGS: There is diffuse soft tissue edema but no drainable fluid collection is seen. IMPRESSION: Diffuse soft tissue edema without evidence of abscess. ACT 112: Negative or not required by law. Electronically signed by: Grzegorz Palmer M.D. 02/27/2021 11:46 AM
--- NOTE | 2021-02-27 12:01 | History & Physical Report ---
Date of Service February 27, 2021 Assessment & Plan (1) Left displaced femoral neck fracture: Plan: S/P Left Hip Hemiarthroplasty for femoral neck fracture by Dr. Gray, POD#2 activity and wound care orders as per ortho - weightbearing as tolerated LLE pain control with bowel regimen PT/OT On Xarelto for anticoagulation Acute Blood Loss Anemia Hgb 13.3 -> 9.5 No indication for transfusion at this time, follow H&H DM II HbA1C: 7.2 on 02/12/21 Hold PO meds Continue Insulin therapy while hospitalized Glycemic pharmacy following H/O CVA Continue statin ASA resumed today Hypertension BP mildly elevated Continue amlodipine, resume home dose of losartan 100 mg (has been receiving 50 mg) Mood disorder Continue citalopram DVT prophylaxis Xarelto per orthopedics Disposition Follow-up with orthopedics 10 to 14 days postop Awaiting SNF placement (typically resides at personal retirement) Case management to help with discharge planning. Admission and Anticipated Discharge Date Admission Date: February 24, 2021 History of Present Illness Primary Care Provider: [facility] Allergies Allergy/AdvReac Type Severity Reaction Status Date / Time prednisone Allergy Mild ITCHING Verified 02/24/21 14:31 ampicillin AdvReac Mild Gastrointestinal Verified 02/24/21 14:31 Upset azithromycin AdvReac Mild Gastrointestinal Verified 02/24/21 14:31 Upset lisinopril AdvReac Mild Gastrointestinal Verified 02/24/21 14:31 Upset Home Medications Medication Instructions Recorded Confirmed Type atorvastatin 80 mg tablet 80 mg PO HS 02/10/18 02/24/21 History cholecalciferol (vitamin D3) 50 2,000 unit PO QAM 02/10/18 02/24/21 History mcg (2,000 unit) capsule (Vitamin D3) cyanocobalamin (vitamin B-12) 500 1,000 mcg PO QAM 03/25/18 02/24/21 History mcg tablet (Vitamin B-12) insulin glargine 100 unit/mL (3 16 unit SUBCUT QPM 03/25/18 02/24/21 History mL) subcutaneous pen (Basaglar KwikPen U-100 Insulin) sitagliptin 100 mg tablet (Januvia) 100 mg PO QAM 03/25/18 02/24/21 History amlodipine 2.5 mg tablet 2.5 mg PO QAM 09/01/20 02/24/21 History aspirin 81 mg chewable tablet 81 mg PO QAM 09/01/20 02/24/21 History bimatoprost 0.01 % eye drops 1 drp OPB HS 09/01/20 02/24/21 History ([place]) citalopram 40 mg tablet 40 mg PO QAM 09/01/20 02/24/21 History ferrous sulfate 325 mg (65 mg 325 mg PO QAM 09/01/20 02/24/21 History iron) tablet losartan 100 mg tablet 100 mg PO QAM 09/01/20 02/24/21 History metformin 500 mg tablet,extended 500 mg PO QAM 09/01/20 02/24/21 History release 24 hr polyethylene glycol 3350 17 17 g PO DAILY PRN 09/01/20 02/24/21 History gram/dose oral powder (Miralax) potassium chloride 10 mEq 10 meq PO BID 09/01/20 02/24/21 History tablet,extended release fesoterodine 4 mg tablet,extended 4 mg PO QAM 10/04/20 02/24/21 History release 24 hr (Toviaz) magnesium oxide 250 mg PO QPM 10/04/20 02/24/21 History acetaminophen 325 mg tablet 650 mg PO QID PRN 10/19/20 02/24/21 History (Tylenol) tiknknxs-haksekwacow-xswds 1 applic TOPICAL BID 10/19/20 02/24/21 History petrolatum topical cream (Cetaphil Moisturizing) albuterol sulfate 90 mcg/actuation 2 puff INHALATION QID PRN 11/07/20 02/24/21 History aerosol inhaler cetirizine 5 mg tablet 5 mg PO QPM 11/07/20 02/24/21 History clobetasol 0.05 % topical cream 1 applic TOPICAL BID PRN 11/07/20 02/24/21 History nystatin 100,000 unit/gram topical 1 applic TOPICAL DAILY PRN 11/07/20 02/24/21 History cream Past Med/Surg History Medical History Anemia Bladder cancer Bladder tumor CVA (cerebral vascular accident) 03/2018 [facility] Depression Diabetes mellitus, type 2 Encephalopathy Glaucoma History of benign bladder tumor History of COVID-19 Had both vaccines, but presented to [facility] 09/01/20 with weakness and tested + for COVID. Saturating fine on RA, discharged to retirement. HTN (hypertension) Hx of recurrent urinary tract infection Hyperlipemia Neutropenia Pancreatic cyst Renal insufficiency Retinopathy Surgical History History of cystoscopy Transurethral Resection Bladder Tumor Hx of appendectomy Family History Father Diabetes Heart disease Hypertension Other Family history unknown Social History Smoking Status: Never smoker Second Hand Exposure: No; Hx Alcohol Use: No Hx Substance Use: No Preferred Language: Kinyarwanda Communication Ability: Impaired Manager Philosophy Required: No Beliefs That Will Affect Care: None marital status: / Current Living Situation: Personal Care [place] [facility] [place] Information That Helps Us Care for You: No Feels Safe at Home: Yes Safety Concerns: Feels Safe At This Time Assistive Devices: Glasses, Oxygen - Continuous and Walker Results & Data Results & Data ([facility]) Vital Signs (Past 12 Hours) Vital Signs Temp Pulse Resp BP Pulse Ox 02/27/21 07:38 37.3 C 98 H 18 159/81 H 96 Code Status & VTE Plan VTE Prophylaxis Plan VTE Prophylaxis will be ordered: Yes
--- NOTE | 2021-02-27 12:08 | Hospitalist Progress Note ---
Date of Service February 27, 2021 Assessment & Plan (1) Left displaced femoral neck fracture: Plan: S/P Left Hip Hemiarthroplasty for femoral neck fracture by Dr. Gray, POD#3 activity and wound care orders as per ortho - weightbearing as tolerated LLE pain control with bowel regimen PT/OT On Xarelto for anticoagulation Acute Blood Loss Anemia Hgb 13.3 -> 9.5 -> 9.0 No indication for transfusion at this time, follow H&H Hypoxia -88% on room air, saturating well on 1L O2 via nasal cannula -CXR unremarkable, has been receiving Xarelto for DVT prophylaxis -Likely due to atelectasis, incentive spirometry encouraged -Wean O2 as able Leukocytosis -Worsening leukocytosis noted, WBC 15 K today -Afebrile -Left hip US negative for abscess or fluid collection -No signs of pneumonia on CXR -UA does not suggest UTI however does suggest dehydration -will start IVF -No other infectious symptoms noted -Monitor CBC DM II HbA1C: 7.2 on 02/12/21 Hold PO meds Continue Insulin therapy while hospitalized Glycemic pharmacy following H/O CVA Continue statin, ASA Hypertension BP mildly elevated Continue amlodipine, home dose of losartan resumed yesterday - continue to monitor, make adjustments as needed Mood disorder Continue citalopram DVT prophylaxis Xarelto per orthopedics Disposition Follow-up with orthopedics 10 to 14 days postop Awaiting SNF placement (typically resides at personal residential) Case management to help with discharge planning. Admission and Anticipated Discharge Date Admission Date: February 24, 2021 Supervising Physician Co-Signing Physician Notes Patient is seen and examined at bedside. States leg pain at surgical site is 4/10 intensity. Noted leukocytosis. No obvious source of infection. Denies any chest pain, dyspnea, dizziness, nausea, abdominal pain. No bowel movement today. Physical Exam: Vitals signs as noted above General Appearance:Moderately built and nourished, no apparent distress Head: normocephalic, Atraumatic Eyes: normal inspection, EOMI Neck: supple, Trachea midline Respiratory/Chest: Normal breath sounds, CTA, No accessory muscle use Cardiovascular: S1, S2, No murmur Abdomen/GI:Soft, Non tender, Bowel sounds present Extremities/Musculoskeletal:normal inspection, no edema, Left hip surgical site in dressing Neurologic/Psych:AAOX3, grossly no focal neurological deficits Skin: normal color, warm S/P Left Hip Hemiarthroplasty for femoral neck fracture by Dr. Gray, POD#3 Acute blood loss postoperative anemia No indication for transfusion currently Continue bowel regimen Continue insulin therapy for diabetes Hb 9.0 today Persistent leukocytosis likely reactive Repeat urinalysis likely contaminated sample Chest x-ray showed no acute process Monitor CBC Wean off of oxygen as able Continue incentive spirometer I personally reviewed the record. Patient is interviewed and examined at bedside. Patient's care is coordinated with Elizabeth Mayfield NP. Please refer to the documentation above for details of patient's presentation and for discussion of other issues. Subjective Patient seen and examined. Resting in bed. Offers no complaints. Reports pain is well controlled. Had BM yesterday. No chest pain or shortness of breath. Denies lightheadedness and dizziness. Review of Systems Review of Systems: All systems reviewed & are unremarkable except as noted in Subjective Physical Exam Constitutional: WD/WN, vitals as above Respiratory: normal respiratory effort; no respiratory distress Auscultation: + diminished lung sounds Cardiovascular: Rate/Rhythm: regular rate and regular rhythm Vessels: normal peripheral pulses Extremities: no edema Gastrointestinal (Abdomen): Inspection/Auscultation: + abdomen distended and normal bowel sounds Percussion/Palpation: abdomen soft; abdomen nontender Musculoskeletal: S/p left hip surgery, dressing dry intact, + edema and tender to palpation, CSM checks intact to LLE Skin: no rashes, warm and dry Neurologic: no focal motor deficits Psychiatric: Orientation: alert and oriented x 3 Affect: + flat affect Results & Data Results & Data ([facility]) Vital Signs (Past 12 Hours) Vital Signs Temp Pulse Resp BP Pulse Ox 02/27/21 07:38 37.3 C 98 H 18 159/81 H 96 Laboratory Results Short CBC 02/27/21 Range/Units 07:25 WBC 15.71 H (4.8-10.8) K/uL Hgb 9.0 L (12.0-16.0) g/dL Hct 28.2 L (37-47) % Plt Count 211 (130-400) K/uL BMP 02/27/21 07:25 Sodium 138 Potassium 3.5 Chloride 106 Carbon Dioxide 24 BUN 17 Creatinine 0.94 Glucose 167 H Calcium 9.0 Urine 02/27/21 Range/Units Unknown Urine Color Dark Yellow Urine Appearance Clear (Clear) Urine pH 5.5 (4.5-7.5) Ur Specific [place] 1.031 H (1.000-1.030) Urine Protein 1+ H (Negative) Urine Glucose (UA) 3+ H (Negative) Diagnostic Findings Chest X-Ray 02/26/21 16:13 XR chest 1V portable HISTORY: hypoxia COMPARISON: Chest 02/24/2021. FINDINGS: No pneumothorax. No pleural effusions. The heart remains top normal in size. There are surgical clips overlying the superior mediastinum. This remains unchanged. No focal lung consolidations to suggest pneumonia. No evidence for pulmonary edema. IMPRESSION: No significant change compared to the prior study. No acute process. ACT 112: Negative or not required by law. Electronically signed by: Emory Cuevas M.D. 02/26/2021 5:04 PM Vascular Ultrasound 02/27/21 10:18 US extremity non-vascular ltd INDICATION: MN ^left hip swelling, eval for abscess TECHNIQUE: Real-time grayscale sonographic images of the left hip were obtained. Comparison: None available at the time of this dictation. FINDINGS: There is diffuse soft tissue edema but no drainable fluid collection is seen. IMPRESSION: Diffuse soft tissue edema without evidence of abscess. ACT 112: Negative or not required by law. Electronically signed by: Grzegorz Palmer M.D. 02/27/2021 11:46 AM
[2021-02-27] MEDS: SODIUM CHLORIDE 0.9% 1000ML 1,000 ML IV SCH ×2 (13:06→22:05)
[2021-02-27] MEDS ORDERED: INSULIN GLARGINE SOLOSTAR 100 UNITS/ML 3 ML PEN SC SCH (21:00)
[2021-02-27] MEDS: ATORVASTATIN 40 MG TAB PO SCH (21:56)
[2021-02-27] MEDS: SENNA 8.6 MG TAB PO SCH (21:57)
[2021-02-27] MEDS: INSULIN GLARGINE SOLOSTAR 100 UNITS/ML 3 ML PEN SC SCH (21:59)
[2021-02-28] MEDS: TOVIAZ~ORDER AWAITING ACTION SCH ×3 (01:03→17:04)
--- NOTE | 2021-02-28 06:13 | Electrocardiogram Report ---
Test Reason : Blood Pressure : / mmHG Vent. Rate : 099 BPM Atrial Rate : 099 BPM P-R Int : 152 ms QRS Dur : 090 ms QT Int : 376 ms P-R-T Axes : 036 -44 014 degrees QTc Int : 482 ms Poor data quality, interpretation may be adversely affected Normal sinus rhythm Left axis deviation Nonspecific ST and T wave abnormality Abnormal ECG When compared with ECG of 24-FEB-2021 13:54, No significant change Confirmed by William Pearson ([id number]) on 02/28/2021 6:12:47 AM Referred By: [facility] Confirmed By:William Pearson
[2021-02-28 06:59] LABS: Hematocrit (blood only) 23.6 % (37-47); Hemoglobin 7.6 g/dL (12.0-16.0); Mean Corpuscular Hemoglobin 28.6 pg (25-34); Mean Corpuscular Hgb Conc 32.2 g/dL (32-36); Mean Corpuscular Volume 88.7 fL (80-100); Mean Platelet Volume 8.7 fL (7.4-10.4); Platelet Count 210 K/uL (130-400); RDW Coefficient of Variation 13.2 % (11.5-14.5); Red Blood Count 2.66 M/uL (4.2-5.4); White Blood Count 14.07 K/uL (4.8-10.8)
[2021-02-28 07:30] LABS: BUN Creatinine Ratio 18.6 (10-20); Calcium 7.9 mg/dl (8.5-10.1); Creatinine Clr Calc Pharmacy 61.7 ml/min; Est GFR (African American) 75.1 ml/min; Est GFR (Non-African American) 64.8 ml/min; Potassium 3.4 mmol/L (3.5-5.1)
[2021-02-28] MEDS: SODIUM CHLORIDE 0.9% 1000ML 1,000 ML IV SCH ×2 (07:53→21:35)
[2021-02-28] MEDS ORDERED: SODIUM CHLORIDE 0.9% 250 ML IV PRN ×2 (08:11→08:33)
[2021-02-28] MEDS ORDERED: POTASSIUM CHLORIDE CRTAB 20 MEQ TABCR PO ONE (08:13)
[2021-02-28] MEDS: POLYETHYLENE (MIRALAX) 17 GM PACK PO SCH ×2 (08:42→21:30)
[2021-02-28] MEDS: CHOLECALCIFEROL 1,000 UNITS 25 MCG TAB PO SCH (09:33)
[2021-02-28] MEDS: FERROUS SULFATE 325 MG TAB PO SCH (09:33)
[2021-02-28] MEDS: amLODIPine BESYLATE 5 MG TAB PO SCH (09:33)
[2021-02-28] MEDS: LOSARTAN POTASSIUM 50 MG TAB PO SCH (09:33)
[2021-02-28] MEDS: CITALOPRAM 40 MG TAB PO SCH (09:33)
[2021-02-28] MEDS: MULTIVITAMIN TAB PO SCH (09:34)
[2021-02-28] MEDS: RIVAROXABAN 10 MG TABLET PO SCH ×2 (09:34→10:29)
[2021-02-28] MEDS: INSULIN ASPART 100 UNITS/ML 3 ML PEN SC SCH ×4 (09:34→21:31)
[2021-02-28] MEDS: DOCUSATE SODIUM 100 MG CAP PO SCH ×2 (09:39→21:29)
[2021-02-28] MEDS: POTASSIUM CHLORIDE 10 MEQ TABCR PO SCH ×2 (09:39→21:30)
[2021-02-28] MEDS: ASPIRIN 81 MG CHEW PO SCH ×2 (09:39→10:29)
[2021-02-28] MEDS ORDERED: OPTIRAY 320 100ml IV ONE (10:08)
--- NOTE | 2021-02-28 10:32 | CT Scan Report ---
CT hip LT w con HISTORY: 71 years-old Female swelling, anemia, eval for abscess/hematoma acute pain and swelling of the left hip COMPARISON: CT abdomen and pelvis of same day, CT left hip 02/24/2021 TECHNIQUE: Multiple axial CT images of the left hip were obtained following the intravenous ministrat ion of 94 mL Optiray 320. A dose lowering technique was used consistent with the principals of PHYLLIS. FINDINGS: Status post left hip total joint arthroplasty. Satisfactory alignment of the hardware. No acute fract ure or osseous erosion. Subcutaneous and deep tissue emphysema with edema and blood products within t he lateral subcutaneous and deep tissues. No discrete focal postoperative fluid collection. Linear chavarria bcentimeter radiodensities interposed between the gluteus serenity and minimus musculature are likely postoperative. Streak artifact from the hardware limits the study. Colonic diverticulosis. No acute intrapelvic abnormality identified. IMPRESSION: 1. Status post left hip total joint arthroplasty with mild subcutaneous edema and emphysema with smal l amount of subcutaneous blood products, likely expected postoperative changes. 2. No acute fracture. 3. No postoperative fluid collection identified ACT 112: Negative or not required by law. The above report was generated using voice recognition software. It may contain grammatical, syntax o r spelling errors. Electronically signed by: James Edmonds M.D. 02/28/2021 10:31 AM
--- NOTE | 2021-02-28 11:22 | CT Scan Report ---
CT abd pelvis IV con only CLINICAL INDICATION: MN ^1015 ^abdominal pain, leukocytosis, anemia. TECHNIQUE: Helical axial images of the abdomen and pelvis were obtained and displayed at 5 and 1 mm i ntervals. Automated dose lowering techniques and/or adjustment according to patient size were utilize d for this exam. This exam was performed with intravenous contrast. COMPARISON: None available at the time of this dictation. FINDINGS: Lower chest: Bibasilar atelectasis is seen. Liver: Unremarkable. No focal lesions are seen. Gallbladder and biliary tree: Layering gallstones versus sludge are seen. There is thickening of the gallbladder wall to approximately 3 mm with pericholecystic edema. No intra- or extrahepatic biliary ductal dilation. Pancreas: Unremarkable, no focal lesions. Spleen: Unremarkable. Adrenals: Unremarkable. Kidneys and ureters: There is a 11 mm cyst in the right kidney inferior pole. Additional subcentimete r hypodensities are too small to characterize. Bladder: Unremarkable. Reproductive organs: Multiple calcified fibroids are seen. Bowel: Diverticulosis is seen without evidence of diverticulitis. Lymph nodes Retroperitoneal: Unremarkable. Mesenteric: Subcentimeter lymph nodes are noted. Pelvic: Unremarkable. Peritoneum: Trace mistiness of the mesentery is noted, decreased from prior exam. Vessels: Atherosclerotic calcifications are seen. Abdominal wall: Unremarkable. Bones: Degenerative changes in the visualized spine. IMPRESSION: 1. Diffuse thickening of the gallbladder wall with surrounding edema, concerning for acute cholecyst itis. 2. Additional findings as above. ACT 112: Negative or not required by law. Electronically signed by: Grzegorz Palmer M.D. 02/28/2021 11:20 AM
[2021-02-28] MEDS ORDERED: PIPERACILL/TAZOBAC CONSULT ACTIVE PRN (11:25)
[2021-02-28] MEDS ORDERED: PIPERACILLIN/TAZOBACTAM 3.375 GM in DEXTROSE 5% 100 ML IV ONE (12:00)
[2021-02-28] MEDS ORDERED: Nursing to Pharmacy Communication SCH ×2 (14:15→16:30)
--- NOTE | 2021-02-28 14:18 | Hospitalist Progress Note ---
Date of Service February 28, 2021 Assessment & Plan (1) Left displaced femoral neck fracture: Plan: S/P Left Hip Hemiarthroplasty for femoral neck fracture by Dr. Gray, POD#4 activity and wound care orders as per ortho - weightbearing as tolerated LLE pain control with bowel regimen PT/OT Hold Xarelto DVT prophylaxis due to worsening anemia / possible need for additional surgery Acute Cholecystitis -Patient with persistent leukocytosis and abdominal tenderness on exam -CT abd/pelvis showing diffuse thickening of the gallbladder wall with surrounding edema, concerning for acute cholecystitis -WBC 14K, afebrile -start zosyn -blood cultures -general surgery consult, case discussed with Radha Yen PA-C Acute Blood Loss Anemia Hgb 13.3 -> 9.5 -> 9.0 -> 7.6 Transfuse [address] hip unremarkable, no bleeding on CT abd/pelvis Hold Xarelto DVT prophylaxis Hypoxia -resolved, now on room air -previously 88% on room air, required 1L -CXR unremarkable, has been receiving Xarelto for DVT prophylaxis -Likely due to atelectasis, incentive spirometry encouraged Leukocytosis -due to acute cholecystitis as above -Afebrile -Left hip US negative for abscess or fluid collection -No signs of pneumonia on CXR -UA does not suggest UTI however does suggest dehydration -will start IVF -No other infectious symptoms noted -Monitor CBC DM II HbA1C: 7.2 on 02/12/21 Hold PO meds Continue Insulin therapy while hospitalized Glycemic pharmacy following H/O CVA Continue statin Holding ASA due to anemia Hypertension BP controlled Continue amlodipine, home dose of losartan resumed 02/26 - continue to monitor, make adjustments as needed Mood disorder Continue citalopram DVT prophylaxis TEDs/SCDs while holding Xarelto Disposition Follow-up with orthopedics 10 to 14 days postop Likely will need SNF placement (typically resides at personal senior care) Case management to help with discharge planning. Admission and Anticipated Discharge Date Admission Date: February 24, 2021 Supervising Physician Co-Signing Physician Notes History and physical exam performed by 71-year-old man with diabetes, CVA who fall at home found to have a left hip fracture [left displaced femoral neck fracture] status post left hip hemiarthroplasty postop day 4. Had postop anemia. Was started on Xarelto for DVT prophylaxis. Today, patient is complaining of abdominal pain. Reports surgical site pain on the left hip that is stable. Denies any other symptoms. Physical exam notable for tachycardia, and the nurse especially lower abdomen and right quadrant. Lab work notable for WBC of 14, hemoglobin of 7.6 [was 13.3 preop], potassium of 3.4 Patient has postop anemia likely due to postop blood loss. We will give 1 unit of blood today. CT abdomen pelvis findings suggestive cholecystitis HR >90, leukocytosis possible sepsis from acute cholecystitis This may also be contributing to the anemia Getting 1 PRBC. Monitor after 1 PRBC Start zosyn Surgery consult Hold xarelto. NPO PMN Will reassess anticoagulation after possible surgery F/u CT hip Agree with other plans as above Subjective Patient seen examined. Resting in bed. Offers no complaints. Reports left hip pain is well controlled. Has some abdominal tenderness on exam however denies nausea, vomiting, diarrhea. No chest pain or shortness of breath. Physical Exam Constitutional: WD/WN, vitals as above Respiratory: normal respiratory effort, lungs clear to auscultation Cardiovascular: Rate/Rhythm: regular rate and regular rhythm Vessels: normal peripheral pulses Extremities: no edema Gastrointestinal (Abdomen): Inspection/Auscultation: + abdomen distended and normal bowel sounds Percussion/Palpation: + abdomen tender (lower abdominal and right sided abdominal tenderness ) and abdomen soft Musculoskeletal: s/p left hip surgery, + edema however is not tense, some mild incisional tenderness, no surrounding erythema or drainage Skin: no rashes, warm and dry Neurologic: no focal motor deficits Psychiatric: Orientation: alert, oriented to person and oriented to place; + not oriented to time Insight: + limited insight Results & Data Results & Data ([place]) Vital Signs (Past 12 Hours) Vital Signs Temp Pulse Pulse Resp BP BP Pulse Ox 02/28/21 13:59 37.0 C 97 H 18 139/78 92 02/28/21 13:09 36.9 C 101 H 18 144/91 H 92 02/28/21 12:09 37.1 C 102 H 18 151/77 H 93 02/28/21 11:39 37.0 C 91 H 18 133/73 92 02/28/21 11:24 37.0 C 96 H 18 145/78 H 92 02/28/21 11:04 37.2 C 99 H 18 125/76 90 02/28/21 07:37 37.2 C 86 16 135/72 91 Laboratory Results Short CBC 02/28/21 Range/Units 06:46 WBC 14.07 H (4.8-10.8) K/uL Hgb 7.6 L (12.0-16.0) g/dL Hct 23.6 L (37-47) % Plt Count 210 (130-400) K/uL BMP 02/28/21 06:46 Sodium 141 Potassium 3.4 L Chloride 110 H Carbon Dioxide 27 BUN 17 Creatinine 0.90 Glucose 152 H Calcium 7.9 L Diagnostic Findings Abdomen/Pelvis CT 02/28/21 08:34 CT abd pelvis IV con only CLINICAL INDICATION: [place] ^1015 ^abdominal pain, leukocytosis, anemia. TECHNIQUE: Helical axial images of the abdomen and pelvis were obtained and displayed at 5 and 1 mm intervals. Automated dose lowering techniques and/or adjustment according to patient size were utilized for this exam. This exam was performed with intravenous contrast. COMPARISON: None available at the time of this dictation. FINDINGS: Lower chest: Bibasilar atelectasis is seen. Liver: Unremarkable. No focal lesions are seen. Gallbladder and biliary tree: Layering gallstones versus sludge are seen. There is thickening of the gallbladder wall to approximately 3 mm with pericholecystic edema. No intra- or extrahepatic biliary ductal dilation. Pancreas: Unremarkable, no focal lesions. Spleen: Unremarkable. Adrenals: Unremarkable. Kidneys and ureters: There is a 11 mm cyst in the right kidney inferior pole. Additional subcentimeter hypodensities are too small to characterize. Bladder: Unremarkable. Reproductive organs: Multiple calcified fibroids are seen. Bowel: Diverticulosis is seen without evidence of diverticulitis. Lymph nodes Retroperitoneal: Unremarkable. Mesenteric: Subcentimeter lymph nodes are noted. Pelvic: Unremarkable. Peritoneum: Trace mistiness of the mesentery is noted, decreased from prior exam. Vessels: Atherosclerotic calcifications are seen. Abdominal wall: Unremarkable. Bones: Degenerative changes in the visualized spine. IMPRESSION: 1. Diffuse thickening of the gallbladder wall with surrounding edema, concerning for acute cholecystitis. 2. Additional findings as above. ACT 112: Negative or not required by law. Electronically signed by: Grzegorz Palmer M.D. 02/28/2021 11:[address] 02/28/21 09:42 CT hip LT w con HISTORY: 71 years-old Female swelling, anemia, eval for abscess/hematoma acute pain and swelling of the left hip COMPARISON: CT abdomen and pelvis of same day, CT left hip 02/24/2021 TECHNIQUE: Multiple axial CT images of the left hip were obtained following the intravenous ministration of 94 mL Optiray 320. A dose lowering technique was used consistent with the principals of PHYLLIS. FINDINGS: Status post left hip total joint arthroplasty. Satisfactory alignment of the hardware. No acute fracture or osseous erosion. Subcutaneous and deep tissue emphysema with edema and blood products within the lateral subcutaneous and deep tissues. No discrete focal postoperative fluid collection. Linear subcentimeter radiodensities interposed between the gluteus serenity and minimus musculature are likely postoperative. Streak artifact from the hardware limits the study. Colonic diverticulosis. No acute intrapelvic abnormality identified. IMPRESSION: 1. Status post left hip total joint arthroplasty with mild subcutaneous edema and emphysema with small amount of subcutaneous blood products, likely expected postoperative changes. 2. No acute fracture. 3. No postoperative fluid collection identified ACT 112: Negative or not required by law. The above report was generated using voice recognition software. It may contain grammatical, syntax or spelling errors. Electronically signed by: James Edmonds M.D. 02/28/2021 10:31 AM
--- NOTE | 2021-02-28 14:49 | Pharmacy Report ---
Pharmacy Glycemic Short Note 2 - Date of Service February 28, 2021 - Glycemic Short BSG Results (Last 24 hours): 02/27/21 02/27/21 02/28/21 17:30 20:40 06:46 Glucose 152 H POC Glucose 205 H 181 H 02/28/21 02/28/21 07:25 11:53 Glucose POC Glucose 158 H 231 H OUTPATIENT ANTIDIABETIC REGIMEN: * Basaglar 16 units SQ HS * metformin 500 mg qam + Januvia 100 mg daily * A1c = 7.2% ASSESSMENT: 02/28: * Krystal received 57 units of SQ insulin yesterday (25 units basal + 32 units bolus) * Despite tightening carb coverage yesterday, the patient continued to experience post prandial BSG elevation. I further tightened carb ratio to 5 this morning. Patient made NPO this afternoon. * Continue basal insulin doses per scale 02/27 * Patient received total of 49 units of insulin yesterday, of which 20 units were basal insulin * Fasting BSG 167 mg/dL - continue with 20 units at HS * Plan to tighten CR more today as BSGs still in upper 100s yesterday 02/25 * Krystal is a 71 yo female POD #1 s/p left hip hemiarthroplasty for femoral neck fracture * Patient was continued on home dose of basal insulin on admission. Novolog ACHS was added. She received no steroids adin-operatively. * she received 16 units of insulin yesterday * Today she experienced both fasting and post prandial BSG hyperglycemia, therefore I will change Lantus order to dose per scale (allowing for higher dose of 20 units if needed) and tighten novolog parameters. PLAN FOR INPATIENT GLYCEMIC CONTROL: * Hold outpatient oral diabetes medications * Basal insulin * Lantus 20-25 units HS (25 units for BSG 160 mg/dL or more) * Bolus insulin * NovoLog per scale ACHS or Q6hrs while NPO * Goal Range: Low 110 mg/dL - High 140 mg/dL * Correction Factor: 20 mg/dL/unit * Nutritional / Prandial insulin per carb ratio of 1 unit per 5 grams CHO consumed PLAN FOR DISCHARGE: * A1c 7.2% - goal 7% ; it is reasonable to continue home diabetic medications upon discharge
--- NOTE | 2021-02-28 15:33 | Surgery Consultation ---
Date of Consultation February 28, 2021 Assessment & Plan (1) Acute cholecystitis: 71 year-old female who is currently POD # 4 s/p left hip hemiarthroplasty for femoral neck fracture whose wbc continued to rise in postop setting up to 15K with anemia and CT scan showing diffuse thickening of gallbladder wall with surrounding edema concerning for acute cholecysitits. Per patient pain has been present likely for 1 week now even prior to her fall and surgery on Friday. Tolerated diet last evening. Afebrile. Leukocytosis mildly improved today. Started on IV Zosyn. Plan: Given her pain has been present for 1 week, recent surgery on Friday, Xarelto use, and age and comorbidities would like to continue conservative management for acute cholecystitis with IV antibiotics rather than cholecystectomy. Since her pain has been present for 1 week, there is likely significant inflammation that would make laparoscopic approach for cholecystectomy more difficult and increases the procedural risks. Patient was in agreement to continue conservative measures with IV antibiotics. Repeat am labs to monitor wbc and hemoglobin May have diet tonight NPO after midnight Will continue to follow along WIll update patients POA Dr. Rick has seen and examined pt, agrees with above. History of Present Illness Reason for Consultation: Acute Cholecystitis Requesting Physician: Elizabeth Mayfield Attending Physician: Adore Barton MD History of Present Illness Krystal is a 71 year-old female with multiple comorbidites including obesity, HTN, DM type 2, Stroke with right sided lower extremity weakness, renal insufficiency who sustained a fall and underwent left hip hemiarthroplasty for femoral neck fracture on Friday02/24/21. She is currently POD # 4. Our services consulted for increasing leukocytosis postoperatively, abdominal pain, and CT scan concerning for acute cholecystitis. Krystal states that she was having abdominal pain prior to her fall about 2-3 days prior. States the pain was located in the middle of her right side. No associated nausea or vomiting. No changes in her bowel habits, diarrhea, or blood in stools. No prior history of gallbladder problems. She currently says her pain is in her right abdomen. Pain when taking deep breath. Tolerated diet last evening without increased abdominal pain, nausea or vomiting. Has been NPO today. Allergies Allergy/AdvReac Type Severity Reaction Status Date / Time prednisone Allergy Mild ITCHING Verified 02/24/21 14:31 ampicillin AdvReac Mild Gastrointestinal Verified 02/24/21 14:31 Upset azithromycin AdvReac Mild Gastrointestinal Verified 02/24/21 14:31 Upset lisinopril AdvReac Mild Gastrointestinal Verified 02/24/21 14:31 Upset Home Medications Medication Instructions Recorded Confirmed Type atorvastatin 80 mg tablet 80 mg PO HS 02/10/18 02/24/21 History cholecalciferol (vitamin D3) 50 2,000 unit PO QAM 02/10/18 02/24/21 History mcg (2,000 unit) capsule (Vitamin D3) cyanocobalamin (vitamin B-12) 500 1,000 mcg PO QAM 03/25/18 02/24/21 History mcg tablet (Vitamin B-12) insulin glargine 100 unit/mL (3 16 unit SUBCUT QPM 03/25/18 02/24/21 History mL) subcutaneous pen (Basaglar KwikPen U-100 Insulin) sitagliptin 100 mg tablet (Januvia) 100 mg PO QAM 03/25/18 02/24/21 History amlodipine 2.5 mg tablet 2.5 mg PO QAM 09/01/20 02/24/21 History aspirin 81 mg chewable tablet 81 mg PO QAM 09/01/20 02/24/21 History bimatoprost 0.01 % eye drops 1 drp OPB HS 09/01/20 02/24/21 History (Naseem) citalopram 40 mg tablet 40 mg PO QAM 09/01/20 02/24/21 History ferrous sulfate 325 mg (65 mg 325 mg PO QAM 09/01/20 02/24/21 History iron) tablet losartan 100 mg tablet 100 mg PO QAM 09/01/20 02/24/21 History metformin 500 mg tablet,extended 500 mg PO QAM 09/01/20 02/24/21 History release 24 hr polyethylene glycol 3350 17 17 g PO DAILY PRN 09/01/20 02/24/21 History gram/dose oral powder (Miralax) potassium chloride 10 mEq 10 meq PO BID 09/01/20 02/24/21 History tablet,extended release fesoterodine 4 mg tablet,extended 4 mg PO QAM 10/04/20 02/24/21 History release 24 hr (Toviaz) magnesium oxide 250 mg PO QPM 10/04/20 02/24/21 History acetaminophen 325 mg tablet 650 mg PO QID PRN 10/19/20 02/24/21 History (Tylenol) [id number]-[id number]-[id number] 1 applic TOPICAL BID 10/19/20 02/24/21 History petrolatum topical cream (Cetaphil Moisturizing) albuterol sulfate 90 mcg/actuation 2 puff INHALATION QID PRN 11/07/20 02/24/21 History aerosol inhaler cetirizine 5 mg tablet 5 mg PO QPM 11/07/20 02/24/21 History clobetasol 0.05 % topical cream 1 applic TOPICAL BID PRN 11/07/20 02/24/21 History nystatin 100,000 unit/gram topical 1 applic TOPICAL DAILY PRN 11/07/20 02/24/21 History cream Patient History Medical History Anemia Bladder cancer Bladder tumor CVA (cerebral vascular accident) 03/2018 [facility] Depression Diabetes mellitus, type 2 Encephalopathy Glaucoma History of benign bladder tumor History of COVID-19 Had both vaccines, but presented to [facility] 09/01/20 with weakness and tested + for COVID. Saturating fine on RA, discharged to correction. HTN (hypertension) Hx of recurrent urinary tract infection Hyperlipemia Neutropenia Pancreatic cyst Renal insufficiency Retinopathy Surgical History History of cystoscopy Transurethral Resection Bladder Tumor Hx of appendectomy Family History Father Diabetes Heart disease Hypertension Other Family history unknown Social History Smoking Status: Never smoker Second Hand Exposure: No; Hx Alcohol Use: No Hx Substance Use: No Preferred Language: Montserratian Communication Ability: Impaired Assembler Trim Required: No Beliefs That Will Affect Care: None marital status: / Current Living Situation: Personal Care [place] [facility] [place] That Helps Us Care for You: No Feels Safe at Home: Yes Safety Concerns: Feels Safe At This Time Assistive Devices: Glasses Review of Systems Review of Systems: All systems reviewed & are unremarkable except as noted in HPI & below Physical Exam Constitutional: + obese; no acute distress and not ill appearing Respiratory: normal respiratory effort, lungs clear to auscultation Cardiovascular: RRR, no murmur, no edema Gastrointestinal (Abdomen): Inspection/Auscultation: abdomen normal to inspection, normal bowel sounds and + abdominal surgical scar (RLQ); abdomen not distended Percussion/Palpation: + abdomen tender (RUQ and RLQ), + guarding (RUQ and RLQ) and abdomen soft; abdomen not rigid Skin: no rashes, warm and dry Psychiatric: Orientation: alert and oriented x 3 Results & Data ([facility]) Vital Signs (Past 12 Hours) Vital Signs Temp Pulse Pulse Resp BP BP Pulse Ox 02/28/21 14:00 37.0 C 97 H 18 139/78 92 02/28/21 13:59 37.0 C 97 H 18 139/78 92 02/28/21 13:09 36.9 C 101 H 18 144/91 H 92 02/28/21 12:09 37.1 C 102 H 18 151/77 H 93 02/28/21 11:39 37.0 C 91 H 18 133/73 92 02/28/21 11:24 37.0 C 96 H 18 145/78 H 92 02/28/21 11:04 37.2 C 99 H 18 125/76 90 02/28/21 07:37 37.2 C 86 16 135/72 91 Laboratory Results 02/28/21 02/28/21 02/28/21 Range/Units 11:53 09:02 07:25 WBC (4.8-10.8) K/uL RBC (4.2-5.4) M/uL Hgb (12.0-16.0) g/dL Hct (37-47) % MCV (80-100) fL MCH (25-34) pg MCHC (32-36) g/dL RDW Std Deviation (36.4-46.3) fL RDW Coeff of Rocky (11.5-14.5) % Plt Count (130-400) K/uL MPV (7.4-10.4) fL Sodium (136-145) mmol/L Potassium (3.5-5.1) mmol/L Chloride (98-107) mmol/L Carbon Dioxide (21-32) mmol/L Anion Gap (3-11) BUN (7-18) mg/dl Creatinine (0.6-1.2) mg/dl Est Cr Clr Drug Dosing ml/min Est GFR ( Amer) ml/min Est GFR (Non-Af Amer) ml/min BUN/Creatinine Ratio (10-20) Glucose (70-99) mg/dl POC Glucose 231 H 158 H (70-99) mg/dl Calcium (8.5-10.1) mg/dl Blood Type B Positive Antibody Screen NEGATIVE Crossmatch See Detail 02/28/21 02/28/21 02/27/21 Range/Units 06:46 06:46 20:40 WBC 14.07 H (4.8-10.8) K/uL RBC 2.66 L (4.2-5.4) M/uL Hgb 7.6 L (12.0-16.0) g/dL Hct 23.6 L (37-47) % MCV 88.7 (80-100) fL MCH 28.6 (25-34) pg MCHC 32.2 (32-36) g/dL RDW Std Deviation 43.0 (36.4-46.3) fL RDW Coeff of Rocky 13.2 (11.5-14.5) % Plt Count 210 (130-400) K/uL MPV 8.7 (7.4-10.4) fL Sodium 141 (136-145) mmol/L Potassium 3.4 L (3.5-5.1) mmol/L Chloride 110 H (98-107) mmol/L Carbon Dioxide 27 (21-32) mmol/L Anion Gap 5.0 (3-11) BUN 17 (7-18) mg/dl Creatinine 0.90 (0.6-1.2) mg/dl Est Cr Clr Drug Dosing 61.7 ml/min Est GFR ( Amer) 75.1 ml/min Est GFR (Non-Af Amer) 64.8 ml/min BUN/Creatinine Ratio 18.6 (10-20) Glucose 152 H (70-99) mg/dl POC Glucose 181 H (70-99) mg/dl Calcium 7.9 L (8.5-10.1) mg/dl Blood Type Antibody Screen Crossmatch 02/27/21 Range/Units 17:30 WBC (4.8-10.8) K/uL RBC (4.2-5.4) M/uL Hgb (12.0-16.0) g/dL Hct (37-47) % MCV (80-100) fL MCH (25-34) pg MCHC (32-36) g/dL RDW Std Deviation (36.4-46.3) fL RDW Coeff of Rocky (11.5-14.5) % Plt Count (130-400) K/uL MPV (7.4-10.4) fL Sodium (136-145) mmol/L Potassium (3.5-5.1) mmol/L Chloride (98-107) mmol/L Carbon Dioxide (21-32) mmol/L Anion Gap (3-11) BUN (7-18) mg/dl Creatinine (0.6-1.2) mg/dl Est Cr Clr Drug Dosing ml/min Est GFR ( Amer) ml/min Est GFR (Non-Af Amer) ml/min BUN/Creatinine Ratio (10-20) Glucose (70-99) mg/dl POC Glucose 205 H (70-99) mg/dl Calcium (8.5-10.1) mg/dl Blood Type Antibody Screen Crossmatch Diagnostic Findings CT abd pelvis IV con only CLINICAL INDICATION: MN ^1015 ^abdominal pain, leukocytosis, anemia. TECHNIQUE: Helical axial images of the abdomen and pelvis were obtained and displayed at 5 and 1 mm intervals. Automated dose lowering techniques and/or adjustment according to patient size were utilized for this exam. This exam was performed with intravenous contrast. COMPARISON: None available at the time of this dictation. FINDINGS: Lower chest: Bibasilar atelectasis is seen. Liver: Unremarkable. No focal lesions are seen. Gallbladder and biliary tree: Layering gallstones versus sludge are seen. There is thickening of the gallbladder wall to approximately 3 mm with pericholecystic edema. No intra- or extrahepatic biliary ductal dilation. Pancreas: Unremarkable, no focal lesions. Spleen: Unremarkable. Adrenals: Unremarkable. Kidneys and ureters: There is a 11 mm cyst in the right kidney inferior pole. Additional subcentimeter hypodensities are too small to characterize. Bladder: Unremarkable. Reproductive organs: Multiple calcified fibroids are seen. Bowel: Diverticulosis is seen without evidence of diverticulitis. Lymph nodes Retroperitoneal: Unremarkable. Mesenteric: Subcentimeter lymph nodes are noted. Pelvic: Unremarkable. Peritoneum: Trace mistiness of the mesentery is noted, decreased from prior exam. Vessels: Atherosclerotic calcifications are seen. Abdominal wall: Unremarkable. Bones: Degenerative changes in the visualized spine. IMPRESSION: 1. Diffuse thickening of the gallbladder wall with surrounding edema, concerning for acute cholecystitis. 2. Additional findings as above.
[2021-02-28] MEDS: ACETAMINOPHEN 500 MG TAB PO PRN (16:21)
[2021-02-28] MEDS ORDERED: INSULIN ASPART 100 UNITS/ML 3 ML PEN SC SCH (18:00)
[2021-02-28] MEDS: PIPERACILLIN/TAZOBACTAM 3.375 GM in DEXTROSE 5% 100 ML IV SCH (18:09)
[2021-02-28] MEDS: ATORVASTATIN 40 MG TAB PO SCH (21:29)
[2021-02-28] MEDS: BIMATOPROST 0.01% OP SOLN 2.5 ML BTL OP SCH (21:30)
[2021-02-28] MEDS: SENNA 8.6 MG TAB PO SCH (21:31)
[2021-02-28] MEDS: INSULIN GLARGINE SOLOSTAR 100 UNITS/ML 3 ML PEN SC SCH (21:32)
[2021-03-01] MEDS: TOVIAZ~ORDER AWAITING ACTION SCH ×3 (00:12→16:18)
[2021-03-01] MEDS ORDERED: Nursing to Pharmacy Communication SCH ×2 (00:30→12:15)
[2021-03-01] MEDS: PIPERACILLIN/TAZOBACTAM 3.375 GM in DEXTROSE 5% 100 ML IV SCH ×3 (01:25→17:30)
[2021-03-01] MEDS: MoRPHine SULFATE 4 MG/ML 1 ML CARP\\VIAL IV PRN (04:49)
[2021-03-01] MEDS: INSULIN ASPART 100 UNITS/ML 3 ML PEN SC SCH ×5 (06:26→21:23)
[2021-03-01] MEDS: SODIUM CHLORIDE 0.9% 1000ML 1,000 ML IV SCH ×2 (06:26→16:17)
[2021-03-01 07:48] LABS: Hematocrit (blood only) 26.3 % (37-47); Hemoglobin 8.7 g/dL (12.0-16.0); Mean Corpuscular Hemoglobin 28.6 pg (25-34); Mean Corpuscular Hgb Conc 33.1 g/dL (32-36); Mean Corpuscular Volume 86.5 fL (80-100); Mean Platelet Volume 8.7 fL (7.4-10.4); Platelet Count 216 K/uL (130-400); RDW Coefficient of Variation 13.7 % (11.5-14.5); RDW Standard Deviation 43.3 fL (36.4-46.3); Red Blood Count 3.04 M/uL (4.2-5.4); White Blood Count 12.21 K/uL (4.8-10.8)
[2021-03-01 08:20] LABS: BUN Creatinine Ratio 15.1 (10-20); Creatinine Clr Calc Pharmacy 63.1 ml/min; Est GFR (African American) 77.2 ml/min; Est GFR (Non-African American) 66.6 ml/min; Potassium 3.4 mmol/L (3.5-5.1)
[2021-03-01] MEDS: POLYETHYLENE (MIRALAX) 17 GM PACK PO SCH ×2 (09:25→21:23)
[2021-03-01] MEDS: LOSARTAN POTASSIUM 50 MG TAB PO SCH (09:35)
[2021-03-01] MEDS: amLODIPine BESYLATE 5 MG TAB PO SCH (09:35)
[2021-03-01] MEDS: FERROUS SULFATE 325 MG TAB PO SCH (09:36)
[2021-03-01] MEDS: CHOLECALCIFEROL 1,000 UNITS 25 MCG TAB PO SCH (09:36)
[2021-03-01] MEDS: DOCUSATE SODIUM 100 MG CAP PO SCH ×2 (09:36→21:23)
[2021-03-01] MEDS: CITALOPRAM 40 MG TAB PO SCH (09:36)
[2021-03-01] MEDS: MULTIVITAMIN TAB PO SCH (09:37)
[2021-03-01] MEDS: POTASSIUM CHLORIDE 10 MEQ TABCR PO SCH ×2 (09:38→21:23)
--- NOTE | 2021-03-01 11:21 | Hospitalist Progress Note ---
Date of Service March 01, 2021 Assessment & Plan (1) Left displaced femoral neck fracture: Plan: POD #5 S/P Left Hip Hemiarthroplasty for femoral neck fracture by Dr. Gray Activity and wound care orders as per ortho - weightbearing as tolerated LLE Pain control with bowel regimen PT/OT Hold Xarelto DVT prophylaxis due to worsening anemia / possible need for additional surgery Acute Cholecystitis -Persistent leukocytosis and abdominal tenderness on exam -> CT abd/pelvis showing diffuse thickening of the gallbladder wall with surrounding edema, concerning for acute cholecystitis -Conservative mgmt for now, per general surgery -WBC improved to 12 K today (from 14K), remains afebrile -Continue IV Zosyn, follow blood cultures Acute Blood Loss Anemia Hgb 13.3 -> 9.5 -> 9.0 -> 7.6 yesterday and transfused 1u prbcs. Hgb now 8.7 CT hip unremarkable, no bleeding on CT abd/pelvis Hold Xarelto DVT prophylaxis Hypoxia -Resolved, now 95% on room air -Previously 88% on room air, required 1L -CXR unremarkable, has been receiving Xarelto for DVT prophylaxis -Likely due to atelectasis, incentive spirometry encouraged DM II HbA1C: 7.2 on 02/12/21 Hold PO meds Continue Insulin therapy while hospitalized Glycemic pharmacy following H/O CVA Continue statin Holding ASA due to anemia Hypertension BP controlled Continue amlodipine, home dose of losartan resumed 02/26 - continue to monitor, make adjustments as needed Mood disorder Continue citalopram DVT prophylaxis TEDs/SCDs while holding Xarelto Disposition Follow-up with orthopedics 10 to 14 days postop Likely will need SNF placement (typically resides at personal group home) Case management to help with discharge planning. Patient seen in collaboration with Dr. Barton. Please see addendum. Admission and Anticipated Discharge Date Admission Date: February 24, 2021 Supervising Physician Co-Signing Physician Notes History and physical exam performed by me 71-year-old woman with diabetes, CVA who fall at home found to have a left hip fracture [left displaced femoral neck fracture] status post left hip he miarthroplasty postop day 4. Had postop anemia. Was started on Xarelto for DVT prophylaxis. Still complaining of abdominal pain but improved. Reports surgical site pain on the left hip is controlled Denies any other symptoms. Physical exam notable for abd tenderness Lab work notable for hemoglobin of 8.7 [was 13.3 preop], potassium of 3.4 Blood culture growing GPC in one bottle Repeat blood cultures on follow-up speciation and sensitivities Add Vancomycin to Zosyn for now CT abdomen pelvis findings suggestive cholecystitis Possible sepsis from acute cholecystitis Leukocytosis improving Surgery recommendation noted. Patient has postop anemia likely due to postop blood loss. Got 1 unit of blood on 02/28/2021 CT hip did not show postop fluid collection Patient Xarelto resumed. Holding aspirin for now Agree with other plans as detailed by Almita Cantor PA-C Subjective Patient seen examined lying in bed in 377-1. Denies abdominal pain at rest. Resting comfortably. Denies fever, chills, lightheadedness, headache, nausea, vomiting, dysuria, diarrhea or constipation. Review of Systems Constitutional: At least ten systems reviewed and negative except as noted in the HPI. Physical Exam Physical Exam: General Appearance: WD/WN, vitals as above, NAD, lying in bed, conversing easily Head: normocephalic, atraumatic Eyes: normal inspection, PERRL, conjunctivae normal, anicteric sclerae ENT: external ear and nose normal, oropharynx normal Neck: normal visual inspection, trachea midline, no thyromegaly Respiratory: normal respiratory effort, lungs clear to auscultation, no wheeze, rales, rhonchi. No accessory muscle use Cardiovascular: regular rate, rhythm, no murmur, normal peripheral pulses, no BLE edema. Vessels: no JVD Chest: normal inspection of chest Abdomen/GI: normal bowel sounds, soft with TTP in RUQ, RLQ and LLQ, no hepatosplenomegaly Extremities/Musculoskeletal: L hip with surgical bandage in place, no cyanosis or clubbing, extremities motor strength 5/5 Neurologic: PERRL, EOMI, accommodation nl, no face palsy, no dysarthria, CN's II-XI intact bilaterally and moves all extremities Psychiatric: A+Ox3, +limited judgement/insight Skin: no rashes, normal color, warm/dry Results & Data Results & Data ([facility]) Vital Signs (Past 12 Hours) Vital Signs Temp Pulse Resp BP Pulse Ox 03/01/21 07:52 36.8 C 86 18 133/75 95 Laboratory Results Short CBC 03/01/21 Range/Units 07:28 WBC 12.21 H (4.8-10.8) K/uL Hgb 8.7 L (12.0-16.0) g/dL Hct 26.3 L (37-47) % Plt Count 216 (130-400) K/uL BMP 03/01/21 07:28 Sodium 142 Potassium 3.4 L Chloride 112 H Carbon Dioxide 25 BUN 13 Creatinine 0.88 Glucose 118 H Calcium 8.0 L Diagnostic Findings Chest X-Ray 02/24/21 12:36 XR chest 1V portable HISTORY: 71 years-old Female preop preoperative exam. No acute chest complaints COMPARISON: Chest radiograph 09/01/2020, CTA chest 09/02/2020 TECHNIQUE: Supine AP view of the chest FINDINGS: Cardiac silhouette is mildly enlarged. Mild right hemidiaphragmatic elevation. Surgical clips project over the mid upper mediastinum. No pneumothorax, pleural effusion, airspace consolidation or overt pulmonary edema. Degenerative changes of the shoulders and spine. IMPRESSION: No acute process. ACT 112: Negative or not required by law. The above report was generated using voice recognition software. It may contain grammatical, syntax or spelling errors. Electronically signed by: James Edmonds M.D. 02/24/2021 1:15 PM Hip X-Ray 02/24/21 12:36 XR hip LT min 2V HISTORY: 71 years-old Female fall, hip pain, r/o fx acute left-sided hip pain status post fall COMPARISON: CT abdomen and pelvis 09/01/2020 TECHNIQUE: 2 views of the left hip FINDINGS: Moderate left hip osteoarthritis. There is an acute mildly impacted nondisplaced transcervical fracture of the left femur. No dislocation or avascular necrosis. Mild soft tissue swelling. The imaged left hemipelvis appears intact. IMPRESSION: Acute mildly impacted nondisplaced transcervical fracture of the left femur. ACT 112: Negative or not required by law. The above report was generated using voice recognition software. It may contain grammatical, syntax or spelling errors. Electronically signed by: James Edmonds M.D. 02/24/2021 1:[address] 02/24/21 14:29 CT hip LT wo con HISTORY: 71 years-old Female fall, fracture, preop acute left hip pain status post fall COMPARISON: [Radiographs of same day TECHNIQUE: Multiple axial CT images of the left hip were obtained without the use of IV contrast. A dose lowering technique was used consistent with the principals of ALARA. FINDINGS: The imaged intrapelvic structures are unremarkable. Decompressed urinary bladder with Michael catheter. Colonic diverticulosis. There is an acute comminuted impacted transcervical fracture of the left femur with fracture separation measuring up to 1.4 cm. Fracture fragments are displaced a few millimeters both medially and laterally. Mild associated apex volar angulation. Left hip osteoarthritis. No dislocation or additional fracture. Small left hip hemarthrosis. Lateral hip contusion. IMPRESSION: Acute comminuted impacted mildly displaced and angulated transcervical fracture of the left femur. ACT 112: Negative or not required by law. The above report was generated using voice recognition software. It may contain grammatical, syntax or spelling errors. Electronically signed by: James Edmonds M.D. 02/24/2021 3:40 PM Hip X-Ray 02/24/21 21:14 XR hip LT min 2V HISTORY: 71 years-old Female left hip hemiarthroplasty left hip total joint arthroplasty COMPARISON: Radiographs of the left hip of same day TECHNIQUE: 2 views of the left hip FINDINGS: Left hip total joint arthroplasty demonstrates satisfactory alignment. Expected postoperative soft tissue swelling and deep software. No acute fracture or retained foreign body identified. IMPRESSION: Left hip total joint arthroplasty with expected postoperative changes. ACT 112: Negative or not required by law. The above report was generated using voice recognition software. It may contain grammatical, syntax or spelling errors. Electronically signed by: James Edmonds M.D. 02/24/2021 9:29 PM Chest X-Ray 02/26/21 16:13 XR chest 1V portable HISTORY: hypoxia COMPARISON: Chest 02/24/2021. FINDINGS: No pneumothorax. No pleural effusions. The heart remains top normal in size. There are surgical clips overlying the superior mediastinum. This remains unchanged. No focal lung consolidations to suggest pneumonia. No evidence for pulmonary edema. IMPRESSION: No significant change compared to the prior study. No acute process. ACT 112: Negative or not required by law. Electronically signed by: Emory Cuevas M.D. 02/26/2021 5:04 PM Vascular Ultrasound 02/27/21 10:18 US extremity non-vascular ltd INDICATION: MN ^left hip swelling, eval for abscess TECHNIQUE: Real-time grayscale sonographic images of the left hip were obtained. Comparison: None available at the time of this dictation. FINDINGS: There is diffuse soft tissue edema but no drainable fluid collection is seen. IMPRESSION: Diffuse soft tissue edema without evidence of abscess. ACT 112: Negative or not required by law. Electronically signed by: Grzegorz Palmer M.D. 02/27/2021 11:46 AM Abdomen/Pelvis CT 02/28/21 08:34 CT abd pelvis IV con only CLINICAL INDICATION: MN ^1015 ^abdominal pain, leukocytosis, anemia. TECHNIQUE: Helical axial images of the abdomen and pelvis were obtained and displayed at 5 and 1 mm intervals. Automated dose lowering techniques and/or adjustment according to patient size were utilized for this exam. This exam was performed with intravenous contrast. COMPARISON: None available at the time of this dictation. FINDINGS: Lower chest: Bibasilar atelectasis is seen. Liver: Unremarkable. No focal lesions are seen. Gallbladder and biliary tree: Layering gallstones versus sludge are seen. There is thickening of the gallbladder wall to approximately 3 mm with pericholecystic edema. No intra- or extrahepatic biliary ductal dilation. Pancreas: Unremarkable, no focal lesions. Spleen: Unremarkable. Adrenals: Unremarkable. Kidneys and ureters: There is a 11 mm cyst in the right kidney inferior pole. Additional subcentimeter hypodensities are too small to characterize. Bladder: Unremarkable. Reproductive organs: Multiple calcified fibroids are seen. Bowel: Diverticulosis is seen without evidence of diverticulitis. Lymph nodes Retroperitoneal: Unremarkable. Mesenteric: Subcentimeter lymph nodes are noted. Pelvic: Unremarkable. Peritoneum: Trace mistiness of the mesentery is noted, decreased from prior exam. Vessels: Atherosclerotic calcifications are seen. Abdominal wall: Unremarkable. Bones: Degenerative changes in the visualized spine. IMPRESSION: 1. Diffuse thickening of the gallbladder wall with surrounding edema, concerning for acute cholecystitis. 2. Additional findings as above. ACT 112: Negative or not required by law. Electronically signed by: Grzegorz Palmer M.D. 02/28/2021 11:[address] 02/28/21 09:42 CT hip LT w con HISTORY: 71 years-old Female swelling, anemia, eval for abscess/hematoma acute pain and swelling of the left hip COMPARISON: CT abdomen and pelvis of same day, CT left hip 02/24/2021 TECHNIQUE: Multiple axial CT images of the left hip were obtained following the intravenous ministration of 94 mL Optiray 320. A dose lowering technique was used consistent with the principals of PHYLLIS. FINDINGS: Status post left hip total joint arthroplasty. Satisfactory alignment of the hardware. No acute fracture or osseous erosion. Subcutaneous and deep tissue emphysema with edema and blood products within the lateral subcutaneous and deep tissues. No discrete focal postoperative fluid collection. Linear subcentimeter radiodensities interposed between the gluteus serenity and minimus musculature are likely postoperative. Streak artifact from the hardware limits the study. Colonic diverticulosis. No acute intrapelvic abnormality identified. IMPRESSION: 1. Status post left hip total joint arthroplasty with mild subcutaneous edema and emphysema with small amount of subcutaneous blood products, likely expected postoperative changes. 2. No acute fracture. 3. No postoperative fluid collection identified ACT 112: Negative or not required by law. The above report was generated using voice recognition software. It may contain grammatical, syntax or spelling errors. Electronically signed by: James Edmonds M.D. 02/28/2021 10:31 AM
--- NOTE | 2021-03-01 12:00 | Surgery Progress Note ---
Date of Service March 01, 2021 Assessment & Plan (1) Acute cholecystitis: Plan: 71 year-old female who is currently POD # 5 s/p left hip hemiarthroplasty for femoral neck fracture whose wbc continued to rise in postop setting up to 15K with anemia and CT scan showing diffuse thickening of gallbladder wall with surrounding edema concerning for acute cholecysitits. 03/01/2021: Leukocytosis improved to 12K today (14K yesterday). Plan: Given her pain has been present for 1 week, recent surgery on 02/24/21, Xarelto use (currently held), age , and comorbidities, would like to continue conservative management for acute cholecystitis with IV antibiotics rather than cholecystectomy. Since her pain has been present for 1 week, there is likely significant inflammation that would make laparoscopic approach for cholecystectomy more difficult and increases the procedural risks. Patient was in agreement to continue conservative measures with IV antibiotics. continue Zosyn Repeat am labs to monitor wbc and hemoglobin May have low fat diet Will continue to follow along Dr. Rick has seen and examined pt, agrees with above. Admission and Anticipated Discharge Date Admission Date: February 24, 2021 Subjective patient states he is feeling "blahh" abdominal pain in her belly but cannot specify exactly where at no nausea or vomiting did not eat much last night, "wasnt hungry" Physical Exam Constitutional: WD/WN, vitals as above no acute distress and not ill appearing Respiratory: normal respiratory effort; no respiratory distress, no labored breathing and no retractions Gastrointestinal (Abdomen): Inspection/Auscultation: abdomen normal to inspection and normal bowel sounds; abdomen not distended Percussion/Palpation: + abdomen tender (RUQ and right adomen, slightly better than yesterday) and abdomen soft; no guarding and abdomen not rigid Skin: no rashes, warm and dry Psychiatric: Orientation: alert, oriented to person and cooperative Results & Data ([facility]) Vital Signs (Past 12 Hours) Vital Signs Temp Pulse Resp BP Pulse Ox 03/01/21 07:52 36.8 C 86 18 133/75 95 Laboratory Results 03/01/21 03/01/21 03/01/21 Range/Units 07:28 07:28 06:22 WBC 12.21 H (4.8-10.8) K/uL RBC 3.04 L (4.2-5.4) M/uL Hgb 8.7 L (12.0-16.0) g/dL Hct 26.3 L (37-47) % MCV 86.5 (80-100) fL MCH 28.6 (25-34) pg MCHC 33.1 (32-36) g/dL RDW Std Deviation 43.3 (36.4-46.3) fL RDW Coeff of Rocky 13.7 (11.5-14.5) % Plt Count 216 (130-400) K/uL MPV 8.7 (7.4-10.4) fL Sodium 142 (136-145) mmol/L Potassium 3.4 L (3.5-5.1) mmol/L Chloride 112 H (98-107) mmol/L Carbon Dioxide 25 (21-32) mmol/L Anion Gap 5.0 (3-11) BUN 13 (7-18) mg/dl Creatinine 0.88 (0.6-1.2) mg/dl Est Cr Clr Drug Dosing 63.1 ml/min Est GFR ( Amer) 77.2 ml/min Est GFR (Non-Af Amer) 66.6 ml/min BUN/Creatinine Ratio 15.1 (10-20) Glucose 118 H (70-99) mg/dl POC Glucose 127 H (70-99) mg/dl Calcium 8.0 L (8.5-10.1) mg/dl Crossmatch 02/28/21 02/28/21 02/28/21 Range/Units 20:40 17:03 11:53 WBC (4.8-10.8) K/uL RBC (4.2-5.4) M/uL Hgb (12.0-16.0) g/dL Hct (37-47) % MCV (80-100) fL MCH (25-34) pg MCHC (32-36) g/dL RDW Std Deviation (36.4-46.3) fL RDW Coeff of Rocky (11.5-14.5) % Plt Count (130-400) K/uL MPV (7.4-10.4) fL Sodium (136-145) mmol/L Potassium (3.5-5.1) mmol/L Chloride (98-107) mmol/L Carbon Dioxide (21-32) mmol/L Anion Gap (3-11) BUN (7-18) mg/dl Creatinine (0.6-1.2) mg/dl Est Cr Clr Drug Dosing ml/min Est GFR ( Amer) ml/min Est GFR (Non-Af Amer) ml/min BUN/Creatinine Ratio (10-20) Glucose (70-99) mg/dl POC Glucose 171 H 168 H 231 H (70-99) mg/dl Calcium (8.5-10.1) mg/dl Crossmatch 02/28/21 Range/Units 09:02 WBC (4.8-10.8) K/uL RBC (4.2-5.4) M/uL Hgb (12.0-16.0) g/dL Hct (37-47) % MCV (80-100) fL MCH (25-34) pg MCHC (32-36) g/dL RDW Std Deviation (36.4-46.3) fL RDW Coeff of Rocky (11.5-14.5) % Plt Count (130-400) K/uL MPV (7.4-10.4) fL Sodium (136-145) mmol/L Potassium (3.5-5.1) mmol/L Chloride (98-107) mmol/L Carbon Dioxide (21-32) mmol/L Anion Gap (3-11) BUN (7-18) mg/dl Creatinine (0.6-1.2) mg/dl Est Cr Clr Drug Dosing ml/min Est GFR ( Amer) ml/min Est GFR (Non-Af Amer) ml/min BUN/Creatinine Ratio (10-20) Glucose (70-99) mg/dl POC Glucose (70-99) mg/dl Calcium (8.5-10.1) mg/dl Crossmatch See Detail
[2021-03-01] MEDS ORDERED: POTASSIUM CHLORIDE CRTAB 20 MEQ TABCR PO STA (12:39)
[2021-03-01] MEDS ORDERED: VANCOMYCIN CONSULT ACTIVE PRN (13:50)
[2021-03-01] MEDS ORDERED: VANCOMYCIN HCL 1,750 MG in SODIUM CHLORIDE 0.9% 500 ML IV ONE (14:00)
[2021-03-01] MEDS: oxyCODONE HCL IR 5 MG TAB (IMMEDIATE RELEASE) PO PRN (15:24)
[2021-03-01] MEDS: SENNA 8.6 MG TAB PO SCH (21:22)
[2021-03-01] MEDS: BIMATOPROST 0.01% OP SOLN 2.5 ML BTL OP SCH (21:23)
[2021-03-01] MEDS: ATORVASTATIN 40 MG TAB PO SCH (21:23)
[2021-03-01] MEDS: INSULIN GLARGINE SOLOSTAR 100 UNITS/ML 3 ML PEN SC SCH (21:24)
[2021-03-02] MEDS: SODIUM CHLORIDE 0.9% 1000ML 1,000 ML IV SCH ×2 (01:18→14:08)
[2021-03-02] MEDS: TOVIAZ~ORDER AWAITING ACTION SCH ×4 (01:18→22:56)
[2021-03-02] MEDS: PIPERACILLIN/TAZOBACTAM 3.375 GM in DEXTROSE 5% 100 ML IV SCH ×3 (01:19→17:50)
[2021-03-02] MEDS: VANCOMYCIN HCL 1,000 MG in SODIUM CHLORIDE 0.9% 250 ML IV SCH ×2 (01:20→13:24)
[2021-03-02 07:06] LABS: Hematocrit (blood only) 27.2 % (37-47); Mean Corpuscular Hemoglobin 28.6 pg (25-34); Mean Corpuscular Hgb Conc 33.1 g/dL (32-36); Mean Corpuscular Volume 86.3 fL (80-100); Mean Platelet Volume 8.7 fL (7.4-10.4); Platelet Count 257 K/uL (130-400); RDW Coefficient of Variation 13.8 % (11.5-14.5); RDW Standard Deviation 43.6 fL (36.4-46.3); Red Blood Count 3.15 M/uL (4.2-5.4); White Blood Count 11.41 K/uL (4.8-10.8)
[2021-03-02 07:37] LABS: Albumin Level 1.7 gm/dl (3.4-5.0); BUN Creatinine Ratio 12.4 (10-20); Bilirubin Direct 0.4 mg/dl (0-0.2); Calcium 8.1 mg/dl (8.5-10.1); Creatinine Clr Calc Pharmacy 66.1 ml/min; Est GFR (African American) 81.6 ml/min; Est GFR (Non-African American) 70.4 ml/min; Potassium 3.5 mmol/L (3.5-5.1)
[2021-03-02 07:39] LABS: Bilirubin,Total 1.3 mg/dl (0.2-1)
--- NOTE | 2021-03-02 08:43 | Surgery Progress Note ---
Date of Service March 02, 2021 Assessment & Plan (1) Acute cholecystitis: Plan: 71 year-old female who is currently POD # 6 s/p left hip hemiarthroplasty for femoral neck fracture whose wbc continued to rise in postop setting up to 15K with anemia and CT scan showing diffuse thickening of gallbladder wall with surrounding edema concerning for acute cholecysitits. 03/01/2021: Leukocytosis improved to 11K today (12K yesterday). LFTs slightly elevated. Plan: Given her pain has been present for 1 week, recent surgery on 02/24/21, Xarelto use (currently held), age , and comorbidities, would like to continue conservative management for acute cholecystitis with IV antibiotics rather than cholecystectomy. Since her pain has been present for 1 week, there is likely significant inflammation that would make laparoscopic approach for cholecystectomy more difficult and increases the procedural risks. Patient was in agreement to continue conservative measures with IV antibiotics. We will also continue to monitor the LFTs. continue Zosyn Repeat am labs to monitor wbc and hemoglobin May have low fat diet Will continue to follow along Admission and Anticipated Discharge Date Admission Date: February 24, 2021 Subjective states she is feeling better today. less pain. denies nausea. tolerated dinner last night Physical Exam Constitutional: WD/WN, vitals as above Eyes: PERRL, conjunctivae normal, anicteric sclerae Neck: trachea midline, no thyromegaly Gastrointestinal (Abdomen): Inspection/Auscultation: abdomen normal to inspec tion; abdomen not distended Percussion/Palpation: abdomen soft; abdomen nontender, no guarding and abdomen not rigid Musculoskeletal: Extremities: no cyanosis and no clubbing Skin: no rashes, warm and dry Results & Data ([facility]) Vital Signs (Past 12 Hours) Vital Signs Temp Pulse Resp BP BP Pulse Ox 03/02/21 08:01 87 18 156/88 H 96 03/02/21 07:13 37 C 86 18 160/88 H 155/103 H 95 03/01/21 23:41 37.1 C 88 18 155/83 H 93
[2021-03-02] MEDS: INSULIN ASPART 100 UNITS/ML 3 ML PEN SC SCH ×4 (09:20→20:46)
[2021-03-02] MEDS: amLODIPine BESYLATE 5 MG TAB PO SCH (09:22)
[2021-03-02] MEDS: RIVAROXABAN 10 MG TABLET PO SCH (09:22)
[2021-03-02] MEDS: LOSARTAN POTASSIUM 50 MG TAB PO SCH (09:23)
[2021-03-02] MEDS: MULTIVITAMIN TAB PO SCH (09:23)
[2021-03-02] MEDS: CITALOPRAM 40 MG TAB PO SCH (09:23)
[2021-03-02] MEDS: CHOLECALCIFEROL 1,000 UNITS 25 MCG TAB PO SCH (09:23)
[2021-03-02] MEDS: FERROUS SULFATE 325 MG TAB PO SCH (09:23)
[2021-03-02] MEDS: DOCUSATE SODIUM 100 MG CAP PO SCH ×2 (09:26→20:40)
[2021-03-02] MEDS: POTASSIUM CHLORIDE 10 MEQ TABCR PO SCH ×2 (09:26→20:40)
[2021-03-02] MEDS: POLYETHYLENE (MIRALAX) 17 GM PACK PO SCH ×2 (09:32→20:35)
--- NOTE | 2021-03-02 11:50 | Hospitalist Progress Note ---
Date of Service March 02, 2021 Assessment & Plan (1) Left displaced femoral neck fracture: Plan: POD #5 S/P Left Hip Hemiarthroplasty for femoral neck fracture by Dr. Gray Activity and wound care orders as per ortho - weightbearing as tolerated LLE Pain control with bowel regimen Continue PT/OT Limited mobility at baseline prior to fall, per discussion with POA Xarelto resumed yesterday for VTE ppx Hgb continues to improve Acute Cholecystitis Persistent leukocytosis and abdominal tenderness on exam -> CT abd/pelvis showing diffuse thickening of the gallbladder wall with surrounding edema, concerning for acute cholecystitis Conservative mgmt for now, per general surgery WBC continues to improve from 12 to 11.4k today, remains afebrile Tbli 1.3, dbili 0.4, AST 290, ALT 234, alk phos 220 Per discussion with surgery, patient is high risk for surgery. Plan to continue IV Zosyn over the weekend and if no improvement or worsening, will re-image Continue IV Zosyn, follow blood cultures Acute Blood Loss Anemia Hgb 13.3 -> 9.5 -> 9.0 -> 7.6 yesterday and transfused 1u prbcs. Hgb improving, now 9 CT hip unremarkable, no bleeding on CT abd/pelvis Xarelto resumed for DVT ppx in post-operative setting Hypoxia Resolved, now 95% on room air CXR unremarkable, has been receiving Xarelto for DVT prophylaxis Likely due to atelectasis, incentive spirometry encouraged DM II HbA1C: 7.2 on 02/12/21 Hold PO meds Continue Insulin therapy while hospitalized Glycemic pharmacy following H/O CVA Residual R sided weakness, cognitive deficits per discussion with POA Continue statin Holding ASA due to anemia - consider resuming soon if hgb continues to improve Hypertension BP controlled. Continue amlodipine, losartan resumed 02/26 Mood disorder Continue citalopram DVT prophylaxis Xarelto resumed Disposition Follow-up with orthopedics 10 to 14 days postop Likely will need SNF placement ([facility]) Case management to help with discharge planning. Updated NITA Vasquez over the phone today. Patient seen in collaboration with Dr. Barton. Please see addendum. Admission and Anticipated Discharge Date Admission Date: February 24, 2021 Supervising Physician Co-Signing Physician Notes 71-year-old woman with diabetes, CVA who fall at home found to have a left hip fracture [left displaced femoral neck fracture] status post left hip hemiarthroplasty postop day 4. Had postop anemia. Was started on Xarelto for DVT prophylaxis. Still reports abd pain Denied any nausea, vomiting, diarrhea Left hip surgical site pain controlled Physical exam notable for abd tenderness (RUQ and RLQ) Lab work notable for hemoglobin of 9[was 13.3 preop], potassium of 3.5 Blood culture growing CONS in one bottle Repeat blood cultures negative so far CT abdomen pelvis findings suggestive cholecystitis Possible sepsis from acute cholecystitis Leukocytosis continue to improve CONS likely contaminant. D/C vanc for now. Continue zosyn Discussed with surgeon. Recs noted. Will manage medically for now due to increased procedural risks per surgeon Patient has postop anemia likely due to postop blood loss. Got 1 unit of blood on 02/28/2021 CT hip did not show postop fluid collection Patient Xarelto resumed. Holding aspirin for now Hb stable Agree with other plans as detailed by Almita Cantor PA-C Subjective Patient seen and examined in 377-1. Reports that abdominal pain is about the same as yesterday. Per nursing, is eating some of low fat diet, likely <50% of food. No fever, chills or nausea. Is participating with PT and OT services. Was able to stand up at bedside with assistance. Per discussion with POA over the phone, patient with ambulatory dysfunction at baseline from stroke 3 years ago, limited insight into health issues and difficulty retaining information from conversations. Not a reliable historian. Review of Systems Review of Systems: At least ten systems reviewed and negative except as noted in the HPI. Physical Exam Physical Exam: General Appearance: WD/WN, vitals as above, NAD, sitting up in bed, pleasant, conversing easily Head: normocephalic, atraumatic Eyes: normal inspection, PERRL, conjunctivae normal, anicteric sclerae ENT: external ear and nose normal, oropharynx normal Neck: normal visual inspection, trachea midline, no thyromegaly Respiratory: normal respiratory effort, lungs clear to auscultation, no wheeze, rales, rhonchi. No accessory muscle use Cardiovascular: regular rate, rhythm, no murmur, normal peripheral pulses, no BLE edema. Vessels: no JVD Chest: normal inspection of chest Abdomen/GI: normal bowel sounds, soft, TTP of RUQ, RLQ and LLQ but no guarding, no hepatosplenomegaly Extremities/Musculoskeletal: L hip with surgical bandage in place. No cyanosis or clubbing, extremities motor strength 5/5 Neurologic: PERRL, EOMI, accommodation nl, no face palsy, no dysarthria, CN's II-XI intact bilaterally and moves all extremities Psychiatric: A+Ox3, euthymic affect Skin: no rashes, normal color, warm/dry Results & Data Results & Data ([facility]) Vital Signs (Past 12 Hours) Vital Signs Temp Pulse Resp BP BP Pulse Ox 03/02/21 08:01 87 18 156/88 H 96 03/02/21 07:13 37 C 86 18 160/88 H 155/103 H 95 Laboratory Results Short CBC 03/02/21 Range/Units 06:40 WBC 11.41 H (4.8-10.8) K/uL Hgb 9.0 L (12.0-16.0) g/dL Hct 27.2 L (37-47) % Plt Count 257 (130-400) K/uL BMP 03/02/21 06:40 Sodium 139 Potassium 3.5 Chloride 107 Carbon Dioxide 26 BUN 10 Creatinine 0.84 Glucose 78 Calcium 8.1 L Liver Function 03/02/21 Range/Units 06:40 Total Bilirubin 1.3 H (0.2-1) mg/dl Direct Bilirubin 0.4 H (0-0.2) mg/dl AST 290 H (15-37) U/L ALT 234 H (12-78) U/L Alkaline Phosphatase 220 H (45-117) U/L Albumin 1.7 L (3.4-5.0) gm/dl Diagnostic Findings Chest X-Ray 02/24/21 12:36 XR chest 1V portable HISTORY: 71 years-old Female preop preoperative exam. No acute chest complaints COMPARISON: Chest radiograph 09/01/2020, CTA chest 09/02/2020 TECHNIQUE: Supine AP view of the chest FINDINGS: Cardiac silhouette is mildly enlarged. Mild right hemidiaphragmatic elevation. Surgical clips project over the mid upper mediastinum. No pneumothorax, pleural effusion, airspace consolidation or overt pulmonary edema. Degenerative changes of the shoulders and spine. IMPRESSION: No acute process. ACT 112: Negative or not required by law. The above report was generated using voice recognition software. It may contain grammatical, syntax or spelling errors. Electronically signed by: James Edmonds M.D. 02/24/2021 1:15 PM Hip X-Ray 02/24/21 12:36 XR hip LT min 2V HISTORY: 71 years-old Female fall, hip pain, r/o fx acute left-sided hip pain status post fall COMPARISON: CT abdomen and pelvis 09/01/2020 TECHNIQUE: 2 views of the left hip FINDINGS: Moderate left hip osteoarthritis. There is an acute mildly impacted nondisplaced transcervical fracture of the left femur. No dislocation or avascular necrosis. Mild soft tissue swelling. The imaged left hemipelvis appears intact. IMPRESSION: Acute mildly impacted nondisplaced transcervical fracture of the left femur. ACT 112: Negative or not required by law. The above report was generated using voice recognition software. It may contain grammatical, syntax or spelling errors. Electronically signed by: James Edmonds M.D. 02/24/2021 1:[address] 02/24/21 14:29 CT hip LT wo con HISTORY: 71 years-old Female fall, fracture, preop acute left hip pain status post fall COMPARISON: [Radiographs of same day TECHNIQUE: Multiple axial CT images of the left hip were obtained without the use of IV contrast. A dose lowering technique was used consistent with the principals of ALARA. FINDINGS: The imaged intrapelvic structures are unremarkable. Decompressed urinary bladder with Michael catheter. Colonic diverticulosis. There is an acute comminuted impacted transcervical fracture of the left femur with fracture separation measuring up to 1.4 cm. Fracture fragments are displaced a few millimeters both medially and laterally. Mild associated apex volar angulation. Left hip osteoarthritis. No dislocation or additional fracture. Small left hip hemarthrosis. Lateral hip contusion. IMPRESSION: Acute comminuted impacted mildly displaced and angulated transcervical fracture of the left femur. ACT 112: Negative or not required by law. The above report was generated using voice recognition software. It may contain grammatical, syntax or spelling errors. Electronically signed by: James Edmonds M.D. 02/24/2021 3:40 PM Hip X-Ray 02/24/21 21:14 XR hip LT min 2V HISTORY: 71 years-old Female left hip hemiarthroplasty left hip total joint arthroplasty COMPARISON: Radiographs of the left hip of same day TECHNIQUE: 2 views of the left hip FINDINGS: Left hip total joint arthroplasty demonstrates satisfactory alignment. Expected postoperative soft tissue swelling and deep software. No acute fracture or retained foreign body identified. IMPRESSION: Left hip total joint arthroplasty with expected postoperative changes. ACT 112: Negative or not required by law. The above report was generated using voice recognition software. It may contain grammatical, syntax or spelling errors. Electronically signed by: James Edmonds M.D. 02/24/2021 9:29 PM Chest X-Ray 02/26/21 16:13 XR chest 1V portable HISTORY: hypoxia COMPARISON: Chest 02/24/2021. FINDINGS: No pneumothorax. No pleural effusions. The heart remains top normal in size. There are surgical clips overlying the superior mediastinum. This remains unchanged. No focal lung consolidations to suggest pneumonia. No evidence for pulmonary edema. IMPRESSION: No significant change compared to the prior study. No acute process. ACT 112: Negative or not required by law. Electronically signed by: Emory Cuevas M.D. 02/26/2021 5:04 PM Vascular Ultrasound 02/27/21 10:18 US extremity non-vascular ltd INDICATION: MN ^left hip swelling, eval for abscess TECHNIQUE: Real-time grayscale sonographic images of the left hip were obtained. Comparison: None available at the time of this dictation. FINDINGS: There is diffuse soft tissue edema but no drainable fluid collection is seen. IMPRESSION: Diffuse soft tissue edema without evidence of abscess. ACT 112: Negative or not required by law. Electronically signed by: Grzegorz Palmer M.D. 02/27/2021 11:46 AM Abdomen/Pelvis CT 02/28/21 08:34 CT abd pelvis IV con only CLINICAL INDICATION: MN ^1015 ^abdominal pain, leukocytosis, anemia. TECHNIQUE: Helical axial images of the abdomen and pelvis were obtained and displayed at 5 and 1 mm intervals. Automated dose lowering techniques and/or adjustment according to patient size were utilized for this exam. This exam was performed with intravenous contrast. COMPARISON: None available at the time of this dictation. FINDINGS: Lower chest: Bibasilar atelectasis is seen. Liver: Unremarkable. No focal lesions are seen. Gallbladder and biliary tree: Layering gallstones versus sludge are seen. There is thickening of the gallbladder wall to approximately 3 mm with pericholecystic edema. No intra- or extrahepatic biliary ductal dilation. Pancreas: Unremarkable, no focal lesions. Spleen: Unremarkable. Adrenals: Unremarkable. Kidneys and ureters: There is a 11 mm cyst in the right kidney inferior pole. Additional subcentimeter hypodensities are too small to characterize. Bladder: Unremarkable. Reproductive organs: Multiple calcified fibroids are seen. Bowel: Diverticulosis is seen without evidence of diverticulitis. Lymph nodes Retroperitoneal: Unremarkable. Mesenteric: Subcentimeter lymph nodes are noted. Pelvic: Unremarkable. Peritoneum: Trace mistiness of the mesentery is noted, decreased from prior exam. Vessels: Atherosclerotic calcifications are seen. Abdominal wall: Unremarkable. Bones: Degenerative changes in the visualized spine. IMPRESSION: 1. Diffuse thickening of the gallbladder wall with surrounding edema, concerning for acute cholecystitis. 2. Additional findings as above. ACT 112: Negative or not required by law. Electronically signed by: Grzegorz Palmer M.D. 02/28/2021 11:[address] 02/28/21 09:42 CT hip LT w con HISTORY: 71 years-old Female swelling, anemia, eval for abscess/hematoma acute pain and swelling of the left hip COMPARISON: CT abdomen and pelvis of same day, CT left hip 02/24/2021 TECHNIQUE: Multiple axial CT images of the left hip were obtained following the intravenous ministration of 94 mL Optiray 320. A dose lowering technique was used consistent with the principals of ALARA. FINDINGS: Status post left hip total joint arthroplasty. Satisfactory alignment of the hardware. No acute fracture or osseous erosion. Subcutaneous and deep tissue emphysema with edema and blood products within the lateral subcutaneous and deep tissues. No discrete focal postoperative fluid collection. Linear subcentimeter radiodensities interposed between the gluteus serenity and minimus musculature are likely postoperative. Streak artifact from the hardware limits the study. Colonic diverticulosis. No acute intrapelvic abnormality identified. IMPRESSION: 1. Status post left hip total joint arthroplasty with mild subcutaneous edema and emphysema with small amount of subcutaneous blood products, likely expected postoperative changes. 2. No acute fracture. 3. No postoperative fluid collection identified ACT 112: Negative or not required by law. The above report was generated using voice recognition software. It may contain grammatical, syntax or spelling errors. Electronically signed by: James Edmonds M.D. 02/28/2021 10:31 AM
[2021-03-02] MEDS: ACETAMINOPHEN 500 MG TAB PO PRN (13:24)
--- NOTE | 2021-03-02 14:13 | Pharmacy Report ---
Pharmacy Abx Dose Short Note - Date of Service March 02, 2021 - Assessment & Plan Assessment 71 year old F receiving vancomycin and zosyn for treatment of possible bacteremia and acute cholecystitis * Coagulase negative staph growing in / BC obtained on 02/28. Repeat BC obtained 03/01 are pending * patient afebrile with WBC trending downward Plan Vancomycin * Loading dose: 1750 mg * Maintenance dose: 1000 mg (12 mg/kg) IV q12h * This regimen is predicted to achieve a goal AUC of 400-600 * Trough level will be ordered for 03/03 @ 1330 if vanco continues Pharmacy will continue to follow and will adjust dose/frequency as necessary. Thank you.
--- NOTE | 2021-03-02 14:18 | Pharmacy Report ---
Pharmacy Glycemic Short Note 2 - Date of Service March 02, 2021 - Glycemic Short BSG Results (Last 24 hours): 03/01/21 03/01/21 03/02/21 17:21 20:18 06:40 Glucose 78 POC Glucose 140 H 154 H 03/02/21 03/02/21 08:06 12:14 Glucose POC Glucose 84 118 H OUTPATIENT ANTIDIABETIC REGIMEN: * Basaglar 16 units SQ HS * metformin 500 mg qam + Januvia 100 mg daily * A1c = 7.2% ASSESSMENT: 03/02: * Krystal received 27 units of insulin yesterday. This was significantly less than previous days likely due to NPO status * Fasting BSG below goal. I anticipate improvement since patient has resumed diet. * Post prandial BSGs are at goal - no change in novolog 02/28: * Krystal received 57 units of SQ insulin yesterday (25 units basal + 32 units bolus) * Despite tightening carb coverage yesterday, the patient continued to experience post prandial BSG elevation. I further tightened carb ratio to 5 this morning. Patient made NPO this afternoon. * Continue basal insulin doses per scale 02/27 * Patient received total of 49 units of insulin yesterday, of which 20 units were basal insulin * Fasting BSG 167 mg/dL - continue with 20 units at HS * Plan to tighten CR more today as BSGs still in upper 100s yesterday 02/25 * Krystal is a 71 yo female POD #1 s/p left hip hemiarthroplasty for femoral neck fracture * Patient was continued on home dose of basal insulin on admission. Novolog ACHS was added. She received no steroids adin-operatively. * she received 16 units of insulin yesterday * Today she experienced both fasting and post prandial BSG hyperglycemia, therefore I will change Lantus order to dose per scale (allowing for higher dose of 20 units if needed) and tighten novolog parameters. PLAN FOR INPATIENT GLYCEMIC CONTROL: * Hold outpatient oral diabetes medications * Basal insulin * Lantus 20-25 units HS (25 units for BSG 160 mg/dL or more) * Bolus insulin * NovoLog per scale ACHS or Q6hrs while NPO * Goal Range: Low 110 mg/dL - High 140 mg/dL * Correction Factor: 20 mg/dL/unit * Nutritional / Prandial insulin per carb ratio of 1 unit per 5 grams CHO consumed PLAN FOR DISCHARGE: * A1c 7.2% - goal 7% ; it is reasonable to continue home diabetic medications upon discharge
[2021-03-02] MEDS: BIMATOPROST 0.01% OP SOLN 2.5 ML BTL OP SCH (20:33)
[2021-03-02] MEDS: SENNA 8.6 MG TAB PO SCH (20:34)
[2021-03-02] MEDS: ATORVASTATIN 40 MG TAB PO SCH (20:35)
[2021-03-02] MEDS: INSULIN GLARGINE SOLOSTAR 100 UNITS/ML 3 ML PEN SC SCH (20:47)
[2021-03-03] MEDS: PIPERACILLIN/TAZOBACTAM 3.375 GM in DEXTROSE 5% 100 ML IV SCH ×3 (01:47→18:12)
--- NOTE | 2021-03-03 06:02 | Surgery Progress Note ---
Date of Service March 03, 2021 Assessment & Plan (1) Acute cholecystitis: Plan: Due to the duration of patient's onset of pain, recent surgery, Xarelto use, and other comorbidities it was elected to pursue conservative management for her acute cholecystitis rather than undergoing surgical intervention. Recommend continued antibiotics while in hospital Continue to monitor serial labs No need for acute surgical intervention Admission and Anticipated Discharge Date Admission Date: February 24, 2021 Subjective Patient is resting comfortably in bed. She denies any nausea vomiting. She denies any abdominal pain. She specifically notes she does not have any postprandial pain after eating. Physical Exam Gastrointestinal (Abdomen): Abdomen is soft, nontender, nondistended. Palpation did not elicit any pain Results & Data ([facility]) Vital Signs (Past 12 Hours) Vital Signs Temp Pulse Resp BP Pulse Ox 03/02/21 22:22 37.0 C 79 17 147/71 H 94 PG Care Time/CCT Total # of Minutes Spent Total Time Spent with Patient: Total time spent is greater than 50% in coordination of care (as documented) at patient's floor/unit and/or counseling patient: Coding Level of Care Code 15025 Subseq Hosp Care Lvl 1 Diagnoses Acute cholecystitis K81.0
[2021-03-03] MEDS: TOVIAZ~ORDER AWAITING ACTION SCH ×3 (08:36→22:00)
[2021-03-03] MEDS: DOCUSATE SODIUM 100 MG CAP PO SCH ×2 (09:42→20:47)
[2021-03-03] MEDS: POTASSIUM CHLORIDE 10 MEQ TABCR PO SCH ×2 (09:42→20:47)
[2021-03-03] MEDS: LOSARTAN POTASSIUM 50 MG TAB PO SCH (09:43)
[2021-03-03] MEDS: CHOLECALCIFEROL 1,000 UNITS 25 MCG TAB PO SCH (09:43)
[2021-03-03] MEDS: RIVAROXABAN 10 MG TABLET PO SCH (09:43)
[2021-03-03] MEDS: MULTIVITAMIN TAB PO SCH (09:43)
[2021-03-03] MEDS: CITALOPRAM 40 MG TAB PO SCH (09:43)
[2021-03-03] MEDS: amLODIPine BESYLATE 5 MG TAB PO SCH (09:43)
[2021-03-03] MEDS: POLYETHYLENE (MIRALAX) 17 GM PACK PO SCH ×2 (09:44→20:44)
[2021-03-03] MEDS: FERROUS SULFATE 325 MG TAB PO SCH (09:44)
[2021-03-03] MEDS: INSULIN ASPART 100 UNITS/ML 3 ML PEN SC SCH ×4 (09:48→20:49)
[2021-03-03 10:45] LABS: Hematocrit (blood only) 31.6 % (37-47); Hemoglobin 10.5 g/dL (12.0-16.0); Mean Corpuscular Hemoglobin 28.4 pg (25-34); Mean Corpuscular Hgb Conc 33.2 g/dL (32-36); Mean Corpuscular Volume 85.4 fL (80-100); Platelet Count 344 K/uL (130-400); RDW Coefficient of Variation 13.7 % (11.5-14.5); RDW Standard Deviation 42.8 fL (36.4-46.3)
[2021-03-03 11:32] LABS: Albumin Globulin Ratio 0.4 (0.9-2); BUN Creatinine Ratio 10.1 (10-20); Bilirubin,Total 1.3 mg/dl (0.2-1); Calcium 8.7 mg/dl (8.5-10.1); Creatinine Clr Calc Pharmacy 57.2 ml/min; Est GFR (African American) 68.6 ml/min; Est GFR (Non-African American) 59.2 ml/min; Globulin 4.8 gm/dl (2.5-4.0); Potassium 3.3 mmol/L (3.5-5.1); Total Protein 6.8 gm/dl (6.4-8.2)
--- NOTE | 2021-03-03 11:36 | Hospitalist Progress Note ---
Date of Service March 03, 2021 Assessment & Plan (1) Left displaced femoral neck fracture: Plan: POD #7 S/P Left Hip Hemiarthroplasty for femoral neck fracture by Dr. Gray Activity and wound care orders as per ortho - weightbearing as tolerated LLE Pain control with bowel regimen Continue PT/OT Limited mobility at baseline prior to fall, per discussion with POA On xarelto for DVT ppx Hgb continues to improve Acute Cholecystitis Persistent leukocytosis and abdominal tenderness on exam -> CT abd/pelvis showing diffuse thickening of the gallbladder wall with surrounding edema, concerning for acute cholecystitis Surgery recommends medical management for now Per discussion with surgery, patient is high risk for surgery. Plan to continue IV Zosyn over the weekend and if no improvement or worsening, will re-image Continue IV Zosyn, Monitor elevated LFT Acute Blood Loss Anemia Post op anemia Hgb 13.3 -> 9.5 -> 9.0 -> 7.6 and transfused 1u prbcs. Hgb improving, now 10.5 CT hip unremarkable, no bleeding on CT abd/pelvis Xarelto resumed for DVT ppx in post-operative setting Hypoxia Resolved, now 95% on room air CXR unremarkable, has been receiving Xarelto for DVT prophylaxis Likely due to atelectasis, incentive spirometry encouraged DM II HbA1C: 7.2 on 02/12/21 Hold PO meds Continue Insulin therapy while hospitalized Glycemic pharmacy following H/O CVA Residual R sided weakness, cognitive deficits per discussion with POA Continue statin Holding ASA due to anemia - consider resuming soon if hgb continues to improve Hypertension BP controlled. Continue amlodipine, losartan Mood disorder Continue citalopram DVT prophylaxis Xarelto resumed Disposition Follow-up with orthopedics 10 to 14 days postop Likely will need SNF placement ([facility] resides at [facility]) Admission and Anticipated Discharge Date Admission Date: February 24, 2021 Subjective 71-year-old woman with diabetes, CVA who fall at home found to have a left hip fracture [left displaced femoral neck fracture] status post left hip hemiarthroplasty postop day 4. Had postop anemia. Was started on Xarelto for DVT prophylaxis. Developed abd pain and CT showed acute cholecystitis Patient seen and examined today Reports abd pain is improving about 4/10 today, not referred Denied nausea, vomiting Denied any chills, diarrhea Denied dysuria, freq, urgency, hematuria Review of Systems Review of Systems: All systems reviewed & are unremarkable except as noted in Subjective Physical Exam Constitutional: + well hydrated and + obese; no acute distress Eyes: PERRL, conjunctivae normal, anicteric sclerae ENMT: external ear and nose normal, oropharynx normal Respiratory: normal respiratory effort, lungs clear to auscultation Cardiovascular: RRR S1 S2 Gastrointestinal (Abdomen): RUQ/RLQ tenderness soft, normal bowel sounds Musculoskeletal: No pedal edema Neurologic: PERRL, EOMI, accommodation nl, no face palsy, no dysarthria Psychiatric: A+Ox3, euthymic affect Results & Data Results & Data ([facility]) Vital Signs (Past 12 Hours) Vital Signs Temp Pulse Resp BP BP Pulse Ox 03/03/21 07:59 37.1 C 90 16 174/88 H 176/86 H 96 Laboratory Results Abnormal lab results 03/02/21 03/02/21 03/03/21 Range/Units 17:04 20:41 08:38 WBC (4.8-10.8) K/uL RBC (4.2-5.4) M/uL Hgb (12.0-16.0) g/dL Hct (37-47) % Sodium (136-145) mmol/L Potassium (3.5-5.1) mmol/L Glucose (70-99) mg/dl POC Glucose 139 H 165 H 122 H (70-99) mg/dl Total Bilirubin (0.2-1) mg/dl AST (15-37) U/L ALT (12-78) U/L Alkaline Phosphatase (45-117) U/L Albumin (3.4-5.0) gm/dl Globulin (2.5-4.0) gm/dl Albumin/Globulin Ratio (0.9-2) 03/03/21 03/03/21 03/03/21 Range/Units 10:15 10:15 12:16 WBC 12.80 H (4.8-10.8) K/uL RBC 3.70 L (4.2-5.4) M/uL Hgb 10.5 L (12.0-16.0) g/dL Hct 31.6 L (37-47) % Sodium 135 L (136-145) mmol/L Potassium 3.3 L (3.5-5.1) mmol/L Glucose 197 H (70-99) mg/dl POC Glucose 184 H (70-99) mg/dl Total Bilirubin 1.3 H (0.2-1) mg/dl AST 217 H (15-37) U/L ALT 243 H (12-78) U/L Alkaline Phosphatase 305 H (45-117) U/L Albumin 2.0 L (3.4-5.0) gm/dl Globulin 4.8 H (2.5-4.0) gm/dl Albumin/Globulin Ratio 0.4 L (0.9-2)
[2021-03-03] MEDS: SENNA 8.6 MG TAB PO SCH (20:44)
[2021-03-03] MEDS: BIMATOPROST 0.01% OP SOLN 2.5 ML BTL OP SCH (20:45)
[2021-03-03] MEDS: ATORVASTATIN 40 MG TAB PO SCH (20:45)
[2021-03-03] MEDS: INSULIN GLARGINE SOLOSTAR 100 UNITS/ML 3 ML PEN SC SCH (20:50)
[2021-03-04] MEDS: PIPERACILLIN/TAZOBACTAM 3.375 GM in DEXTROSE 5% 100 ML IV SCH ×3 (01:23→17:37)
[2021-03-04] MEDS: oxyCODONE HCL IR 5 MG TAB (IMMEDIATE RELEASE) PO PRN (05:36)
--- NOTE | 2021-03-04 05:50 | Surgery Progress Note ---
Date of Service March 04, 2021 Assessment & Plan (1) Acute cholecystitis: Plan: Continue conservative management for cholecystitis due to underlying medical comorbidities, anticoagulant use, and recent surgery Recommend continued antibiotics while in hospital Continue to monitor serial labs No need for acute surgical intervention Admission and Anticipated Discharge Date Admission Date: February 24, 2021 Subjective Patient is resting comfortably in bed. She denies any abdominal pain. She is tolerating solid food and notes that this is not causing any nausea or vomiting. She notes that food consumption does not exacerbate any abdominal pain. Physical Exam Gastrointestinal (Abdomen): Abdomen is soft, nontender, nondistended. There is no pain with palpation on today's exam Results & Data ([facility]) Vital Signs (Past 12 Hours) Vital Signs Temp Pulse Resp BP Pulse Ox 03/03/21 22:18 37.1 C 85 16 125/74 99 PG Care Time/CCT Total # of Minutes Spent Total Time Spent with Patient: Total time spent is greater than 50% in coordination of care (as documented) at patient's floor/unit and/or counseling patient: Coding Level of Care Code 98131 Subseq Hosp Care Lvl 1 Diagnoses Acute cholecystitis K81.0
[2021-03-04] MEDS: TOVIAZ~ORDER AWAITING ACTION SCH ×3 (07:13→22:39)
[2021-03-04] MEDS: POLYETHYLENE (MIRALAX) 17 GM PACK PO SCH ×2 (08:48→21:21)
[2021-03-04] MEDS: POTASSIUM CHLORIDE 10 MEQ TABCR PO SCH ×2 (08:57→21:20)
[2021-03-04] MEDS: LOSARTAN POTASSIUM 50 MG TAB PO SCH (08:57)
[2021-03-04] MEDS: MULTIVITAMIN TAB PO SCH (08:57)
[2021-03-04] MEDS: DOCUSATE SODIUM 100 MG CAP PO SCH ×2 (08:57→21:20)
[2021-03-04] MEDS: RIVAROXABAN 10 MG TABLET PO SCH (08:57)
[2021-03-04] MEDS: FERROUS SULFATE 325 MG TAB PO SCH (08:58)
[2021-03-04] MEDS: CHOLECALCIFEROL 1,000 UNITS 25 MCG TAB PO SCH (08:58)
[2021-03-04] MEDS: CITALOPRAM 40 MG TAB PO SCH (08:58)
[2021-03-04] MEDS: amLODIPine BESYLATE 5 MG TAB PO SCH (08:58)
[2021-03-04] MEDS: INSULIN ASPART 100 UNITS/ML 3 ML PEN SC SCH ×4 (10:22→21:15)
[2021-03-04 11:10] LABS: Hematocrit (blood only) 30.3 % (37-47); Mean Corpuscular Hemoglobin 28.7 pg (25-34); Mean Corpuscular Volume 86.8 fL (80-100); Mean Platelet Volume 8.6 fL (7.4-10.4); Platelet Count 379 K/uL (130-400); RDW Standard Deviation 44.4 fL (36.4-46.3); Red Blood Count 3.49 M/uL (4.2-5.4); White Blood Count 13.14 K/uL (4.8-10.8)
[2021-03-04 11:39] LABS: Calcium 8.8 mg/dl (8.5-10.1); Creatinine Clr Calc Pharmacy 50.5 ml/min; Est GFR (African American) 58.9 ml/min; Est GFR (Non-African American) 50.8 ml/min; Potassium 3.6 mmol/L (3.5-5.1)
[2021-03-04 11:42] LABS: Albumin Globulin Ratio 0.4 (0.9-2); Bilirubin,Total 1.2 mg/dl (0.2-1); Globulin 4.8 gm/dl (2.5-4.0); Total Protein 6.8 gm/dl (6.4-8.2)
--- NOTE | 2021-03-04 11:47 | Hospitalist Progress Note ---
Date of Service March 04, 2021 Assessment & Plan (1) Left displaced femoral neck fracture: Plan: POD #8 S/P Left Hip Hemiarthroplasty for femoral neck fracture by Dr. Gray Activity and wound care orders as per ortho - weightbearing as tolerated LLE Continue PT/OT Limited mobility at baseline prior to fall, per discussion with POA On xarelto for DVT ppx Hgb continues to improve Acute Cholecystitis Persistent leukocytosis and abdominal tenderness on exam -> CT abd/pelvis showing diffuse thickening of the gallbladder wall with surrounding edema, concerning for acute cholecystitis Surgery recommends medical management for now Abd pain resolved Elevated LFTs improving Continue IV Zosyn Acute Blood Loss Anemia Post op anemia Hgb 13.3 -> 9.5 -> 9.0 -> 7.6 and transfused 1u prbcs. Hgb improving, now 10. CT hip unremarkable, no bleeding on CT abd/pelvis Xarelto resumed for DVT ppx in post-operative setting Hypoxia Resolved, now 95% on room air CXR unremarkable, has been receiving Xarelto for DVT prophylaxis Likely due to atelectasis, incentive spirometry encouraged DM II HbA1C: 7.2 on 02/12/21 Hold PO meds Continue Insulin therapy while hospitalized Glycemic pharmacy following H/O CVA Residual R sided weakness, cognitive deficits per discussion with POA Continue statin Holding ASA due to anemia - consider resuming soon if hgb continues to improve Hypertension BP controlled. Continue amlodipine, losartan Mood disorder Continue citalopram DVT prophylaxis Xarelto Disposition Follow-up with orthopedics 10 to 14 days postop Likely will need SNF placement ([facility]) Admission and Anticipated Discharge Date Admission Date: February 24, 2021 Subjective 71-year-old woman with diabetes, CVA who fall at home found to have a left hip fracture [left displaced femoral neck fracture] status post left hip hemiarthroplasty postop day 4. Had postop anemia. Was started on Xarelto for DVT prophylaxis. Developed abd pain and CT showed acute cholecystitis Patient seen and examined today Reports abd pain is resolved today Denied nausea, vomiting Denied any chills, diarrhea Denied dysuria, freq, urgency, hematuria Review of Systems Review of Systems: All systems reviewed & are unremarkable except as noted in Subjective Physical Exam Constitutional: + well hydrated and + obese; no acute distress Eyes: PERRL, conjunctivae normal, anicteric sclerae ENMT: external ear and nose normal, oropharynx normal Respiratory: normal respiratory effort, lungs clear to auscultation Cardiovascular: Rate/Rhythm: regular rate and regular rhythm S1 S2 Gastrointestinal (Abdomen): normal bowel sounds, soft, nontender, no hepatosplenomegaly Musculoskeletal: Clean dressing over left hip surgical site Neurologic: PERRL, EOMI, accommodation nl, no face palsy, no dysarthria Psychiatric: A+Ox3, euthymic affect Results & Data Results & Data ([facility]) Vital Signs (Past 12 Hours) Vital Signs Temp Pulse Resp BP Pulse Ox 03/04/21 07:41 36.9 C 81 16 144/73 H 95 Laboratory Results Abnormal lab results 03/03/21 03/03/21 03/04/21 Range/Units 17:15 20:39 08:14 WBC (4.8-10.8) K/uL RBC (4.2-5.4) M/uL Hgb (12.0-16.0) g/dL Hct (37-47) % Glucose (70-99) mg/dl POC Glucose 106 H 169 H 140 H (70-99) mg/dl Total Bilirubin (0.2-1) mg/dl AST (15-37) U/L ALT (12-78) U/L Alkaline Phosphatase (45-117) U/L Albumin (3.4-5.0) gm/dl Globulin (2.5-4.0) gm/dl Albumin/Globulin Ratio (0.9-2) 03/04/21 03/04/21 03/04/21 Range/Units 10:48 10:48 12:09 WBC 13.14 H (4.8-10.8) K/uL RBC 3.49 L (4.2-5.4) M/uL Hgb 10.0 L (12.0-16.0) g/dL Hct 30.3 L (37-47) % Glucose 190 H (70-99) mg/dl POC Glucose 169 H (70-99) mg/dl Total Bilirubin 1.2 H (0.2-1) mg/dl AST 96 H (15-37) U/L ALT 158 H (12-78) U/L Alkaline Phosphatase 250 H (45-117) U/L Albumin 2.0 L (3.4-5.0) gm/dl Globulin 4.8 H (2.5-4.0) gm/dl Albumin/Globulin Ratio 0.4 L (0.9-2)
[2021-03-04] MEDS: INSULIN GLARGINE SOLOSTAR 100 UNITS/ML 3 ML PEN SC SCH (21:15)
[2021-03-04] MEDS: BIMATOPROST 0.01% OP SOLN 2.5 ML BTL OP SCH (21:16)
[2021-03-04] MEDS: ATORVASTATIN 40 MG TAB PO SCH (21:16)
[2021-03-04] MEDS: SENNA 8.6 MG TAB PO SCH (21:17)
[2021-03-05] MEDS: PIPERACILLIN/TAZOBACTAM 3.375 GM in DEXTROSE 5% 100 ML IV SCH ×3 (02:02→17:54)
[2021-03-05 07:18] LABS: Hematocrit (blood only) 30.2 % (37-47); Hemoglobin 9.5 g/dL (12.0-16.0); Mean Corpuscular Hemoglobin 27.9 pg (25-34); Mean Corpuscular Hgb Conc 31.5 g/dL (32-36); Mean Corpuscular Volume 88.6 fL (80-100); Mean Platelet Volume 8.5 fL (7.4-10.4); Platelet Count 358 K/uL (130-400); RDW Standard Deviation 45.8 fL (36.4-46.3); Red Blood Count 3.41 M/uL (4.2-5.4); White Blood Count 12.06 K/uL (4.8-10.8)
[2021-03-05 07:50] LABS: Albumin Level 1.8 gm/dl (3.4-5.0); BUN Creatinine Ratio 13.5 (10-20); Calcium 8.6 mg/dl (8.5-10.1); Creatinine Clr Calc Pharmacy 51.9 ml/min; Est GFR (African American) 60.9 ml/min; Est GFR (Non-African American) 52.6 ml/min; Potassium 3.5 mmol/L (3.5-5.1)
[2021-03-05 07:53] LABS: Albumin Globulin Ratio 0.4 (0.9-2); Globulin 4.4 gm/dl (2.5-4.0); Total Protein 6.2 gm/dl (6.4-8.2)
[2021-03-05] MEDS: POLYETHYLENE (MIRALAX) 17 GM PACK PO SCH ×2 (10:03→20:39)
[2021-03-05] MEDS: TOVIAZ~ORDER AWAITING ACTION SCH ×3 (10:03→22:55)
[2021-03-05] MEDS: INSULIN ASPART 100 UNITS/ML 3 ML PEN SC SCH ×4 (10:04→20:34)
[2021-03-05] MEDS: FERROUS SULFATE 325 MG TAB PO SCH (10:05)
[2021-03-05] MEDS: CHOLECALCIFEROL 1,000 UNITS 25 MCG TAB PO SCH (10:05)
[2021-03-05] MEDS: MULTIVITAMIN TAB PO SCH (10:06)
[2021-03-05] MEDS: CITALOPRAM 40 MG TAB PO SCH (10:06)
[2021-03-05] MEDS: amLODIPine BESYLATE 5 MG TAB PO SCH (10:06)
[2021-03-05] MEDS: LOSARTAN POTASSIUM 50 MG TAB PO SCH (10:06)
[2021-03-05] MEDS: RIVAROXABAN 10 MG TABLET PO SCH (10:07)
[2021-03-05] MEDS: POTASSIUM CHLORIDE 10 MEQ TABCR PO SCH ×2 (10:26→20:34)
[2021-03-05] MEDS: DOCUSATE SODIUM 100 MG CAP PO SCH ×2 (10:26→20:33)
--- NOTE | 2021-03-05 11:21 | Pharmacy Report ---
Pharmacy Glycemic Short Note 2 - Date of Service March 05, 2021 - Glycemic Short BSG Results (Last 24 hours): 03/04/21 03/04/21 03/04/21 10:48 12:09 16:49 Glucose 190 H POC Glucose 169 H 133 H 03/04/21 03/05/21 03/05/21 20:38 07:03 08:11 Glucose 71 POC Glucose 203 H 75 OUTPATIENT ANTIDIABETIC REGIMEN: * Basaglar 16 units SQ HS * metformin 500 mg qam + Januvia 100 mg daily * A1c = 7.2% ASSESSMENT: 03/05 * Patient's blood sugars yesterday were [phone] mg/dL. * Fasting today is 71 mg/dL. * Patient received 52 units of insulin (25 units of basal and 27 units of bolus) yesterday. * Due to decreasing fasting BSGs, decrease Lantus by 10% to 22 units. * Tighten CR as BSGs trend upwards throughout the day. 03/02: * Krystal received 27 units of insulin yesterday. This was significantly less than previous days likely due to NPO status * Fasting BSG below goal. I anticipate improvement since patient has resumed diet. * Post prandial BSGs are at goal - no change in novolog 02/28: * Krystal received 57 units of SQ insulin yesterday (25 units basal + 32 units bolus) * Despite tightening carb coverage yesterday, the patient continued to experience post prandial BSG elevation. I further tightened carb ratio to 5 this morning. Patient made NPO this afternoon. * Continue basal insulin doses per scale 02/27 * Patient received total of 49 units of insulin yesterday, of which 20 units were basal insulin * Fasting BSG 167 mg/dL - continue with 20 units at HS * Plan to tighten CR more today as BSGs still in upper 100s yesterday 02/25 * Krystal is a 71 yo female POD #1 s/p left hip hemiarthroplasty for femoral neck fracture * Patient was continued on home dose of basal insulin on admission. Novolog ACHS was added. She received no steroids adin-operatively. * she received 16 units of insulin yesterday * Today she experienced both fasting and post prandial BSG hyperglycemia, therefore I will change Lantus order to dose per scale (allowing for higher dose of 20 units if needed) and tighten novolog parameters. PLAN FOR INPATIENT GLYCEMIC CONTROL: * Hold outpatient oral diabetes medications * Basal insulin * Lantus 22 units HS * Bolus insulin * NovoLog per scale ACHS or Q6hrs while NPO * Goal Range: Low 110 mg/dL - High 140 mg/dL * Correction Factor: 20 mg/dL/unit * Nutritional / Prandial insulin per carb ratio of 1 unit per 4 grams CHO consumed PLAN FOR DISCHARGE: * A1c 7.2% - goal 7% ; it is reasonable to continue home diabetic medications upon discharge
--- NOTE | 2021-03-05 12:24 | Hospitalist Progress Note ---
Date of Service March 05, 2021 Assessment & Plan (1) Left displaced femoral neck fracture: Plan: POD #9 S/P Left Hip Hemiarthroplasty for femoral neck fracture by Dr. Gray Activity and wound care orders as per ortho - weightbearing as tolerated LLE Continue PT/OT Limited mobility at baseline prior to fall, per discussion with POA On xarelto for DVT ppx Hgb continues to improve Acute Cholecystitis Persistent leukocytosis and abdominal tenderness on exam -> CT abd/pelvis showing diffuse thickening of the gallbladder wall with surrounding edema, concerning for acute cholecystitis Surgery recommends medical management for now Abd pain resolved Elevated LFTs improving Continue IV Zosyn, transition to oral Augmentin to complete 10 day course and close OP follow up with surgery Acute Blood Loss Anemia Post op anemia Hgb 13.3 -> 9.5 -> 9.0 -> 7.6 and transfused 1u prbcs. Hgb improving, now 9.5 CT hip unremarkable, no bleeding on CT abd/pelvis Xarelto resumed for DVT ppx in post-operative setting Hypoxia Resolved, now 95% on room air CXR unremarkable, has been receiving Xarelto for DVT prophylaxis Likely due to atelectasis, incentive spirometry encouraged DM II HbA1C: 7.2 on 02/12/21 Hold PO meds Continue Insulin therapy while hospitalized Glycemic pharmacy following H/O CVA Residual R sided weakness, cognitive deficits per discussion with POA Continue statin Holding ASA due to anemia - resume and monitor Hypertension BP controlled. Continue amlodipine, losartan Mood disorder Continue citalopram DVT prophylaxis Xarelto Disposition Follow-up with orthopedics 10 to 14 days postop Likely will need SNF placement ([facility] resides at [facility]) - awaiting placement when bed available Pt was seen and examined in collaboration with Dr. Barton, please see addendum Please contact via [place] text with questions or concerns to Mervat Wall). Admission and Anticipated Discharge Date Admission Date: February 24, 2021 Supervising Physician Co-Signing Physician Notes 71-year-old woman with diabetes, CVA who fall at home found to have a left hip fracture [left displaced femoral neck fracture] status post left hip hemiarthroplasty postop day 4. Had postop anemia. Was started on Xarelto for DVT prophylaxis. Developed abd pain and CT showed acute cholecystitis Patient seen and examined today. Reports some left lower abdominal pain. Denies any other complaints at this time. Physical exam notable for clean dressing over surgical site. I did not appreciate abdominal tenderness during my evaluation. However Mervat Hernandez did note RUQ tenderness during her evaluation earlier. Labs notable for WBC of 12, hemoglobin of 9.5, improving LFTs [AST of 63, ALT of 115, alk phos of 199] Left displaced femoral neck fracture Status post left hip hemiarthroplasty Acute cholecystitis Acute blood loss anemia Continue PT/OT while waiting for rehab placement Continue Zosyn for now. Plan to transition to p.o. Augmentin on discharge to complete 10 days of total treatment. Surgery on board and plan to follow-up outpatient for possible cholecystectomy Continue Xarelto for DVT prophylaxis monitor hemoglobin Agree with other plans as detailed by Mervat Gallagher PA-C Subjective 71-year-old woman with diabetes, CVA who fall at home found to have a left hip fracture [left displaced femoral neck fracture] status post left hip hemiarthroplasty postop day 4. Had postop anemia. Was started on Xarelto for DVT prophylaxis. Developed abd pain and CT showed acute cholecystitis Pt was seen and examined in room 377-1. Overall offers no complaints. Denies f/c/s, chest pain, sob, n/v/d, abdominal pain. She is tolerating diet and admits to moving bowels. Review of Systems Review of Systems: All systems reviewed & are unremarkable except as noted in HPI & below Physical Exam Physical Exam: Gen: WD/WN, F, lying in bed, NAD, A&O x3 HEENT: Normocephalic, atraumatic, conjunctivae moist, sclerae anicteric, mucous membranes moist. Lung: Clear to Auscultation bilaterally, no wheezes/rales/rhonchi Heart: Regular rate, regular rhythm, no murmurs, rubs, or gallops Abdomen: Soft, tender to palp on light and deep in RUQ, no rebound or guarding, ND +BS x 4 Extremities: No edema, SCDS in place, dressing to L lateral hip CDI Skin: Warm, no rash, negative turgor. Results & Data Results & Data ([facility]) Vital Signs (Past 12 Hours) Vital Signs Temp Pulse Resp BP Pulse Ox 03/05/21 07:48 37.1 C 78 18 121/67 96 Laboratory Results Short CBC 03/05/21 Range/Units 07:03 WBC 12.06 H (4.8-10.8) K/uL Hgb 9.5 L (12.0-16.0) g/dL Hct 30.2 L (37-47) % Plt Count 358 (130-400) K/uL BMP 03/05/21 07:03 Sodium 140 Potassium 3.5 Chloride 107 Carbon Dioxide 26 BUN 14 Creatinine 1.07 Glucose 71 Calcium 8.6 Liver Function 03/05/21 Range/Units 07:03 Total Bilirubin 1.0 (0.2-1) mg/dl AST 63 H (15-37) U/L ALT 115 H (12-78) U/L Alkaline Phosphatase 199 H (45-117) U/L Albumin 1.8 L (3.4-5.0) gm/dl
--- NOTE | 2021-03-05 12:37 | Surgery Progress Note ---
Date of Service March 05, 2021 Assessment & Plan (1) Acute cholecystitis: Plan: 71 year-old female who is currently POD # 9 s/p left hip hemiarthroplasty for femoral neck fracture whose wbc continued to rise in postop setting up to 15K with anemia and CT scan showing diffuse thickening of gallbladder wall with surrounding edema concerning for acute cholecystitis. 03/05/2021: - leukocytosis improved to 12k - lfts improving, t. bili 1.0 - no RUQ abdominal pain, n,v tolerating diet Plan: Continue conservative measures for acute cholecystitis Another 7 days of Abx recommended Low fat diet continue medical management will follow along Dr. Rick has seen and examined pt, agrees with above Admission and Anticipated Discharge Date Admission Date: February 24, 2021 Subjective feeling better, sitting up in chair at bedside upon entering room having some LLQ abdominal pain No RUQ abdominal pain no nausea or vomiting no pain after eating Physical Exam Constitutional: well developed, well nourished and + obese; no acute distress and not ill appearing Respiratory: normal respiratory effort; no respiratory distress, no labored breathing and no retractions Gastrointestinal (Abdomen): Inspection/Auscultation: abdomen normal to inspection; abdomen not distended and + abnormal bowel sounds Percussion/Palpation: + abdomen tender (LLQ on deep palpation, no RUQ abdominal pain) and abdomen soft; no guarding and abdomen not rigid Skin: no rashes, warm and dry Psychiatric: Orientation: alert, oriented to person and oriented to place Results & Data ([facility]) Vital Signs (Past 12 Hours) Vital Signs Temp Pulse Resp BP Pulse Ox 03/05/21 07:48 37.1 C 78 18 121/67 96 Laboratory Results 03/05/21 03/05/21 03/05/21 Range/Units 11:56 08:11 07:03 WBC 12.06 H (4.8-10.8) K/uL RBC 3.41 L (4.2-5.4) M/uL Hgb 9.5 L (12.0-16.0) g/dL Hct 30.2 L (37-47) % MCV 88.6 (80-100) fL MCH 27.9 (25-34) pg MCHC 31.5 L (32-36) g/dL RDW Std Deviation 45.8 (36.4-46.3) fL RDW Coeff of [place] 14.0 (11.5-14.5) % Plt Count 358 (130-400) K/uL MPV 8.5 (7.4-10.4) fL Sodium (136-145) mmol/L Potassium (3.5-5.1) mmol/L Chloride (98-107) mmol/L Carbon Dioxide (21-32) mmol/L Anion Gap (3-11) BUN (7-18) mg/dl Creatinine (0.6-1.2) mg/dl Est Cr Clr Drug Dosing ml/min Est GFR ( Amer) ml/min Est GFR (Non-Af Amer) ml/min BUN/Creatinine Ratio (10-20) Glucose (70-99) mg/dl POC Glucose 91 75 (70-99) mg/dl Calcium (8.5-10.1) mg/dl Total Bilirubin (0.2-1) mg/dl AST (15-37) U/L ALT (12-78) U/L Alkaline Phosphatase (45-117) U/L Total Protein (6.4-8.2) gm/dl Albumin (3.4-5.0) gm/dl Globulin (2.5-4.0) gm/dl Albumin/Globulin Ratio (0.9-2) 03/05/21 03/04/21 03/04/21 Range/Units 07:03 20:38 16:49 WBC (4.8-10.8) K/uL RBC (4.2-5.4) M/uL Hgb (12.0-16.0) g/dL Hct (37-47) % MCV (80-100) fL MCH (25-34) pg MCHC (32-36) g/dL RDW Std Deviation (36.4-46.3) fL RDW Coeff of Rocky (11.5-14.5) % Plt Count (130-400) K/uL MPV (7.4-10.4) fL Sodium 140 (136-145) mmol/L Potassium 3.5 (3.5-5.1) mmol/L Chloride 107 (98-107) mmol/L Carbon Dioxide 26 (21-32) mmol/L Anion Gap 8.0 (3-11) BUN 14 (7-18) mg/dl Creatinine 1.07 (0.6-1.2) mg/dl Est Cr Clr Drug Dosing 51.9 ml/min Est GFR ( Amer) 60.9 ml/min Est GFR (Non-Af Amer) 52.6 ml/min BUN/Creatinine Ratio 13.5 (10-20) Glucose 71 (70-99) mg/dl POC Glucose 203 H 133 H (70-99) mg/dl Calcium 8.6 (8.5-10.1) mg/dl Total Bilirubin 1.0 (0.2-1) mg/dl AST 63 H (15-37) U/L ALT 115 H (12-78) U/L Alkaline Phosphatase 199 H (45-117) U/L Total Protein 6.2 L (6.4-8.2) gm/dl Albumin 1.8 L (3.4-5.0) gm/dl Globulin 4.4 H (2.5-4.0) gm/dl Albumin/Globulin Ratio 0.4 L (0.9-2)
[2021-03-05] MEDS: BIMATOPROST 0.01% OP SOLN 2.5 ML BTL OP SCH (20:33)
[2021-03-05] MEDS: ATORVASTATIN 40 MG TAB PO SCH (20:33)
[2021-03-05] MEDS: SENNA 8.6 MG TAB PO SCH (20:34)
[2021-03-05] MEDS: INSULIN GLARGINE SOLOSTAR 100 UNITS/ML 3 ML PEN SC SCH (20:35)
[2021-03-06] MEDS: PIPERACILLIN/TAZOBACTAM 3.375 GM in DEXTROSE 5% 100 ML IV SCH ×2 (01:51→11:15)
[2021-03-06 07:44] LABS: Basophils # (auto) 0.03 K/uL (0-0.2); Basophils % (auto) 0.3 %; Eosinophils # (auto) 0.37 K/uL (0-0.5); Eosinophils % (auto) 3.4 %; Hematocrit (blood only) 30.9 % (37-47); Hemoglobin 9.9 g/dL (12.0-16.0); Immature Granulocytes # (auto) 0.05 K/uL (0.00-0.02); Immature Granulocytes % (auto) 0.5 %; Lymphocytes # (auto) 1.46 K/uL (1.2-3.4); Lymphocytes % (auto) 13.2 %; Mean Corpuscular Hemoglobin 28.2 pg (25-34); Mean Platelet Volume 8.3 fL (7.4-10.4); Monocytes # (auto) 1.02 K/uL (0.11-0.59); Monocytes % (auto) 9.3 %; Neutrophils # (auto) 8.09 K/uL (1.4-6.5); Neutrophils % (auto) 73.3 %; Platelet Count 371 K/uL (130-400); RDW Coefficient of Variation 13.9 % (11.5-14.5); RDW Standard Deviation 44.3 fL (36.4-46.3); Red Blood Count 3.51 M/uL (4.2-5.4); White Blood Count 11.02 K/uL (4.8-10.8)
[2021-03-06 08:20] LABS: Albumin Level 1.9 gm/dl (3.4-5.0); BUN Creatinine Ratio 13.6 (10-20); Calcium 8.6 mg/dl (8.5-10.1); Creatinine Clr Calc Pharmacy 50.9 ml/min; Est GFR (African American) 59.6 ml/min; Est GFR (Non-African American) 51.4 ml/min; Potassium 3.8 mmol/L (3.5-5.1)
[2021-03-06 08:23] LABS: Albumin Globulin Ratio 0.4 (0.9-2); Bilirubin,Total 0.9 mg/dl (0.2-1); Globulin 4.4 gm/dl (2.5-4.0); Total Protein 6.3 gm/dl (6.4-8.2)
[2021-03-06] MEDS: amLODIPine BESYLATE 5 MG TAB PO SCH (11:13)
[2021-03-06] MEDS: DOCUSATE SODIUM 100 MG CAP PO SCH ×2 (11:13→21:08)
[2021-03-06] MEDS: ASPIRIN 81 MG CHEW PO SCH (11:13)
[2021-03-06] MEDS: POTASSIUM CHLORIDE 10 MEQ TABCR PO SCH ×2 (11:13→21:08)
[2021-03-06] MEDS: TOVIAZ~ORDER AWAITING ACTION SCH ×2 (11:13→15:38)
[2021-03-06] MEDS: CITALOPRAM 40 MG TAB PO SCH (11:14)
[2021-03-06] MEDS: LOSARTAN POTASSIUM 50 MG TAB PO SCH (11:14)
[2021-03-06] MEDS: RIVAROXABAN 10 MG TABLET PO SCH (11:14)
[2021-03-06] MEDS: CHOLECALCIFEROL 1,000 UNITS 25 MCG TAB PO SCH (11:14)
[2021-03-06] MEDS: FERROUS SULFATE 325 MG TAB PO SCH (11:14)
[2021-03-06] MEDS: POLYETHYLENE (MIRALAX) 17 GM PACK PO SCH ×2 (11:14→21:09)
[2021-03-06] MEDS: MULTIVITAMIN TAB PO SCH (11:14)
[2021-03-06] MEDS: INSULIN ASPART 100 UNITS/ML 3 ML PEN SC SCH ×4 (11:15→21:15)
--- NOTE | 2021-03-06 11:30 | Pharmacy Report ---
Pharmacy Glycemic Short Note 2 - Date of Service March 06, 2021 - Glycemic Short BSG Results (Last 24 hours): 03/05/21 03/05/21 03/05/21 11:56 16:51 20:24 Glucose POC Glucose 91 105 H 160 H 03/06/21 03/06/21 07:31 08:06 Glucose 122 H POC Glucose 125 H OUTPATIENT ANTIDIABETIC REGIMEN: * Basaglar 16 units SQ HS * metformin 500 mg qam + Januvia 100 mg daily * A1c = 7.2% ASSESSMENT: 03/06 * Patient's blood sugars yesterday were [phone] mg/dL. * Fasting today is 125 mg/dL. * Patient received 30 units of insulin (22 units of basal and 8 units of bolus) yesterday. * Fasting reasonable so continue Lantus * BSGs stable throughout the day continue Novolog. 03/05 * Patient's blood sugars yesterday were [phone] mg/dL. * Fasting today is 71 mg/dL. * Patient received 52 units of insulin (25 units of basal and 27 units of bolus) yesterday. * Due to decreasing fasting BSGs, decrease Lantus by 10% to 22 units. * Tighten CR as BSGs trend upwards throughout the day. 03/02: * Krystal received 27 units of insulin yesterday. This was significantly less than previous days likely due to NPO status * Fasting BSG below goal. I anticipate improvement since patient has resumed diet. * Post prandial BSGs are at goal - no change in novolog 02/28: * Krystal received 57 units of SQ insulin yesterday (25 units basal + 32 units bolus) * Despite tightening carb coverage yesterday, the patient continued to experience post prandial BSG elevation. I further tightened carb ratio to 5 this morning. Patient made NPO this afternoon. * Continue basal insulin doses per scale 02/27 * Patient received total of 49 units of insulin yesterday, of which 20 units were basal insulin * Fasting BSG 167 mg/dL - continue with 20 units at HS * Plan to tighten CR more today as BSGs still in upper 100s yesterday 02/25 * Krystal is a 71 yo female POD #1 s/p left hip hemiarthroplasty for femoral neck fracture * Patient was continued on home dose of basal insulin on admission. Novolog ACHS was added. She received no steroids adin-operatively. * she received 16 units of insulin yesterday * Today she experienced both fasting and post prandial BSG hyperglycemia, therefore I will change Lantus order to dose per scale (allowing for higher dose of 20 units if needed) and tighten novolog parameters. PLAN FOR INPATIENT GLYCEMIC CONTROL: * Hold outpatient oral diabetes medications * Basal insulin * Lantus 22 units HS * Bolus insulin * NovoLog per scale ACHS or Q6hrs while NPO * Goal Range: Low 110 mg/dL - High 140 mg/dL * Correction Factor: 20 mg/dL/unit * Nutritional / Prandial insulin per carb ratio of 1 unit per 4 grams CHO consumed PLAN FOR DISCHARGE: * A1c 7.2% - goal 7% ; it is reasonable to continue home diabetic medications upon discharge
--- NOTE | 2021-03-06 13:57 | Surgery Progress Note ---
Date of Service March 06, 2021 Assessment & Plan (1) Acute cholecystitis: Plan: 71 year-old female who is currently POD # 10 s/p left hip hemiarthroplasty for femoral neck fracture whose wbc continued to rise in postop setting up to 15K with anemia and CT scan showing diffuse thickening of gallbladder wall with surrounding edema concerning for acute cholecystitis. 03/06/2021: - no RUQ abdominal pain, n,v tolerating diet Plan: Continue conservative measures for acute cholecystitis Another 7 days of Abx recommended Low fat diet continue medical management will follow along Admission and Anticipated Discharge Date Admission Date: February 24, 2021 Subjective feeling better, No RUQ abdominal pain no nausea or vomiting no pain after eating Physical Exam Constitutional: WD/WN, vitals as above Eyes: PERRL, conjunctivae normal, anicteric sclerae Neck: trachea midline, no thyromegaly Gastrointestinal (Abdomen): Inspection/Auscultation: abdomen normal to inspection; abdomen not distended Percussion/Palpation: abdomen soft; abdomen nontender, no guarding and abdomen not rigid Musculoskeletal: Extremities: no cyanosis and no clubbing Skin: no rashes, warm and dry Results & Data ([facility]) Vital Signs (Past 12 Hours) Vital Signs Temp Pulse Resp BP Pulse Ox 03/06/21 07:10 36.9 C 76 18 146/77 H 96
--- NOTE | 2021-03-06 14:10 | Hospitalist Progress Note ---
Date of Service March 06, 2021 Assessment & Plan (1) Left displaced femoral neck fracture: Plan: POD #10 S/P Left Hip Hemiarthroplasty for femoral neck fracture by Dr. Gray Activity and wound care orders as per ortho - weightbearing as tolerated LLE Continue PT/OT Limited mobility at baseline prior to fall, per discussion with POA On xarelto for DVT ppx Hgb continues to improve , 9.9 today Acute Cholecystitis Persistent leukocytosis and abdominal tenderness on exam -> CT abd/pelvis showing diffuse thickening of the gallbladder wall with surrounding edema, concerning for acute cholecystitis Surgery recommends medical management for now Abd pain resolved, Elevated LFTs improving Will de escalate antibiotic therapy today in favor of augmentin 875mg bid for 10 day course will need OP follow up with general surgery to discuss cholecystectomy Acute Blood Loss Anemia Post op anemia Hgb 13.3 -> 9.5 -> 9.0 -> 7.6 and transfused 1u prbcs. Hgb improving, now 9.9 CT hip unremarkable, no bleeding on CT abd/pelvis Xarelto resumed for DVT ppx in post-operative setting Hypoxia Resolved, now 95% on room air CXR unremarkable, has been receiving Xarelto for DVT prophylaxis Likely due to atelectasis, incentive spirometry encouraged DM II HbA1C: 7.2 on 02/12/21 Hold PO meds Continue Insulin therapy while hospitalized Glycemic pharmacy following - appreciate their management H/O CVA Residual R sided weakness, cognitive deficits per discussion with POA continue asa, statin Hypertension BP controlled. Continue amlodipine, losartan Mood disorder Continue citalopram DVT prophylaxis Xarelto Disposition Follow-up with orthopedics 10 to 14 days postop Likely will need SNF placement ([facility] - awaiting placement when bed available Pt was seen and examined in collaboration with Dr. Barton, please see addendum Admission and Anticipated Discharge Date Admission Date: February 24, 2021 Supervising Physician Co-Signing Physician Notes 71-year-old woman with diabetes, CVA who fall at home found to have a left hip fracture [left displaced femoral neck fracture] status post left hip hemiarthroplasty postop day 4. Had postop anemia. Was started on Xarelto for DVT prophylaxis. Developed abd pain and CT showed acute cholecystitis Patient seen and examined today. Reports some left lower abdominal pain. Denies any other complaints at this time. Labs notable for WBC of 11, hemoglobin of 9.9, improving LFTs [AST of 50, ALT of 91, alk phos of 183] Left displaced femoral neck fracture Status post left hip hemiarthroplasty Acute cholecystitis Acute blood loss anemia s/p 1 PRBC Continue PT/OT while waiting for rehab placement Transition to p.o. Augmentin on discharge to complete 10 days of total treatment. Surgery on board and plan to follow-up outpatient for possible cholecystectomy Continue Xarelto for DVT prophylaxis monitor hemoglobin Agree with other plans as detailed by Mervat Gallagher PA-C Subjective 71-year-old woman with diabetes, CVA who fall at home found to have a left hip fracture [left displaced femoral neck fracture] status post left hip hemiarthroplasty postop day 4. Had postop anemia. Was started on Xarelto for DVT prophylaxis. Developed abd pain and CT showed acute cholecystitis. Pt was seen and examined in room 377-1. Overall offers no complaints. Denies f/c/s, chest pain, sob, n/v/d, abdominal pain. She is tolerating diet. Has been out to the chair twice yesterday. She is waiting placement to rehab. Review of Systems Review of Systems: All systems reviewed & are unremarkable except as noted in HPI & below Physical Exam Physical Exam: Gen: WD/WN, F, lying in bed, NAD, A&O x3 HEENT: Normocephalic, atraumatic, conjunctivae moist, sclerae anicteric, mucous membranes moist. Lung: Clear to Auscultation bilaterally, no wheezes/rales/rhonchi Heart: Regular rate, regular rhythm, no murmurs, rubs, or gallops Abdomen: Soft, NT, ND +BS x 4 Extremities: No edema, SCDS in place, dressing to L lateral hip CDI Skin: Warm, no rash, negative turgor. Results & Data Results & Data ([facility]) Vital Signs (Past 12 Hours) Vital Signs Temp Pulse Resp BP Pulse Ox 03/06/21 07:10 36.9 C 76 18 146/77 H 96 Laboratory Results Short CBC 03/06/21 Range/Units 07:31 WBC 11.02 H (4.8-10.8) K/uL Hgb 9.9 L (12.0-16.0) g/dL Hct 30.9 L (37-47) % Plt Count 371 (130-400) K/uL BMP 03/06/21 07:31 Sodium 140 Potassium 3.8 Chloride 106 Carbon Dioxide 27 BUN 15 Creatinine 1.09 Glucose 122 H Calcium 8.6 Liver Function 03/06/21 Range/Units 07:31 Total Bilirubin 0.9 (0.2-1) mg/dl AST 50 H (15-37) U/L ALT 91 H (12-78) U/L Alkaline Phosphatase 183 H (45-117) U/L Albumin 1.9 L (3.4-5.0) gm/dl Medications Administered Current Inpatient Medications Acetaminophen (Acetaminophen 500 Mg Tab) 1,000 mg PO TID PRN PRN Reason: Pain Stop: 03/26/21 16:51 Last Admin: 03/02/21 13:24 Dose: 1,000 mg Documented by: Al Hydrox/Mg Hydrox/Simethicone (Aluminum/Magnesium Susp 30 Ml Udc) 30 ml PO Q6H PRN PRN Reason: Dyspepsia Stop: 03/26/21 16:51 Amlodipine Besylate (Amlodipine Besylate 5 Mg Tab) 2.5 mg PO [facility] Stop: 03/28/21 09:29 Last Admin: 03/06/21 11:13 Dose: 2.5 mg Documented by: Amoxicillin/Clavulanate Potassium (Amoxicillin/Clavulanate 875 Mg Tab) 1 tab PO BIDM [facility]; Protocol Stop: 03/10/21 23:59 Aspirin (Aspirin 81 Mg Chew) [facility] Stop: 03/28/21 09:29 Last Admin: 03/06/21 11:13 Dose: 81 mg Documented by: Atorvastatin Calcium (Atorvastatin 40 Mg Tab) 80 mg PO [facility] Stop: 03/26/21 20:59 Last Admin: 03/05/21 20:33 Dose: 80 mg Documented by: Bimatoprost (Bimatoprost 0.01% Op Soln 2.5 Ml Btl) 1 drops OP [facility] Stop: 03/30/21 15:59 Last Admin: 03/05/21 20:33 Dose: 1 drops Documented by: Bisacodyl (Bisacodyl 10 Mg Supp) 10 mg [place] DAILY PRN PRN Reason: Constipation Stop: 03/26/21 21:41 Citalopram Hydrobromide (Citalopram 40 Mg Tab) 40 mg PO QAM [facility] Stop: 03/27/21 08:59 Last Admin: 03/06/21 11:14 Dose: 40 mg Documented by: Dextrose (Dextrose 50% 50 Ml Syringe) 25 - 50 ml IV UD PRN; Protocol PRN Reason: Hypoglycemia Protocol Stop: 03/26/21 16:51 Docusate Sodium (Docusate Sodium 100 Mg Cap) 100 mg PO BID [facility] Stop: 03/26/21 21:41 Last Admin: 03/06/21 11:13 Dose: 100 mg Documented by: Ferrous Sulfate (Ferrous Sulfate 325 Mg Tab) 325 mg PO QAM [facility] Stop: 03/27/21 08:59 Last Admin: 03/06/21 11:14 Dose: 325 mg Documented by: Glucagon (Glucagon For Inj 1 Mg Vial) 1 mg SQ UD PRN; Protocol PRN Reason: Hypoglycemia Protocol Stop: 03/26/21 16:51 Glucose (Glucose 10 Tabs/Tube) 4 - 8 tabs PO UD PRN; Protocol PRN Reason: Hypoglycemia Protocol Stop: 03/26/21 16:51 Glucose (Glucose 40% Gel 15 Gm Tube) 15 - 30 gm PO UD PRN; Protocol PRN Reason: Hypoglycemia Protocol Stop: 03/26/21 16:51 Insulin Aspart (Insulin Aspart 100 Units/Ml 3 Ml Pen) 0 units SC ACHS [facility] Stop: 03/31/21 05:59 Last Admin: 03/06/21 13:46 Dose: 3 units Documented by: Insulin Glargine (Insulin Glargine Solostar 100 Units/Ml 3 Ml Pen) 22 units SC HS [facility]; Protocol Stop: 04/04/21 20:59 Last Admin: 03/05/21 20:35 Dose: 22 units Documented by: Losartan Potassium (Losartan Potassium 50 Mg Tab) 100 mg PO QAM [facility] Stop: 03/29/21 08:59 Last Admin: 03/06/21 11:14 Dose: 100 mg Documented by: Magnesium Hydroxide (Magnesium Hydroxide Susp 30 Ml Udc) 30 ml PO Q6H PRN PRN Reason: Constipation Stop: 03/26/21 21:41 Melatonin (Melatonin 3 Mg Tab) 3 mg PO HS PRN PRN Reason: Sleep Stop: 03/28/21 02:32 Last Admin: 02/26/21 02:58 Dose: 3 mg Documented by: Metoclopramide HCl (Metoclopramide Hcl Inj 5 Mg/Ml 2 Ml Vial) 10 mg IV Q6H PRN PRN Reason: Nausea And Vomiting Stop: 03/26/21 21:41 Miscellaneous (Carbohydrates For Hypoglycemia ) 15 - 30 gm PO UD PRN PRN Reason: Hypoglycemia Protocol Stop: 03/26/21 16:51 Miscellaneous (Toviaz~Order Awaiting Action) 1 ea N/A QS [facility] Stop: 03/26/21 22:29 Last Admin: 03/06/21 11:13 Dose: Not Given Documented by: Miscellaneous Information (Pharmacy Glycemic Mgmt Consult) 1 ea N/A UD PRN; Protocol PRN Reason: Consult Stop: 03/26/21 16:51 Morphine Sulfate (Morphine Sulfate 2 Mg/Ml Carp) 2 mg IV Q4 PRN PRN Reason: Pain 4-8 Stop: 03/10/21 16:51 Morphine Sulfate (Morphine Sulfate 4 Mg/Ml 1 Ml Carp\Vial) 4 mg IV Q4 PRN PRN Reason: Pain6-03/11 Stop: 03/10/21 16:51 Last Admin: 03/01/21 04:49 Dose: 4 mg Documented by: Multivitamins (Multivitamin Tab) 1 tab PO QAM [facility] Stop: 03/27/21 08:59 Last Admin: 03/06/21 11:14 Dose: 1 tab Documented by: Naloxone HCl (Naloxone Hcl 0.4 Mg/1 Ml Vial/Carp) 0.1 mg IV Q5M PRN PRN Reason: Oversedation/Resp Depression Stop: 03/26/21 21:41 Ondansetron HCl (Ondansetron Inj 2 Mg/Ml 2 Ml Vial) 4 mg IV Q6H PRN PRN Reason: Nausea And Vomiting Stop: 03/26/21 21:41 Oxycodone HCl (Oxycodone Hcl Ir 5 Mg Tab (Immediate Release)) 5 mg PO Q6H PRN PRN Reason: Moderate Pain 2-11/09 Stop: 03/10/21 16:51 Last Admin: 03/04/21 05:36 Dose: 5 mg Documented by: Polyethylene Glycol (Polyethylene (Miralax) 17 Gm Pack) 17 gm PO DAILY PRN PRN Reason: Constipation Stop: 03/26/21 16:51 Polyethylene Glycol (Polyethylene (Miralax) 17 Gm Pack) 17 gm PO BID [facility] Stop: 03/28/21 11:39 Last Admin: 03/06/21 11:14 Dose: 17 gm Documented by: Potassium Chloride (Potassium Chloride 10 Meq Tabcr) 10 meq PO BID [facility] Stop: 03/26/21 20:59 Last Admin: 03/06/21 11:13 Dose: 10 meq Documented by: Rivaroxaban (Rivaroxaban 10 Mg Tablet) 10 mg PO DAILY [facility] Stop: 03/27/21 11:59 Last Admin: 03/06/21 11:14 Dose: 10 mg Documented by: Sennosides (Senna 8.6 Mg Tab) 17.2 mg PO HS [facility] Stop: 03/26/21 21:41 Last Admin: 03/05/21 20:34 Dose: 17.2 mg Documented by: Vitamin D (Cholecalciferol 1,000 Units 25 Mcg Tab) 2,000 units PO QAM [facility] Stop: 03/27/21 08:59 Last Admin: 03/06/21 11:14 Dose: 2,000 units Documented by:
[2021-03-06] MEDS: AMOXICILLIN/CLAVULANATE 875 MG TAB PO SCH (16:56)
[2021-03-06] MEDS: BIMATOPROST 0.01% OP SOLN 2.5 ML BTL OP SCH (21:08)
[2021-03-06] MEDS: ATORVASTATIN 40 MG TAB PO SCH (21:09)
[2021-03-06] MEDS: SENNA 8.6 MG TAB PO SCH (21:09)
[2021-03-06] MEDS: INSULIN GLARGINE SOLOSTAR 100 UNITS/ML 3 ML PEN SC SCH (21:15)
[2021-03-07] MEDS: TOVIAZ~ORDER AWAITING ACTION SCH ×3 (00:05→15:56)
[2021-03-07] MEDS: LOSARTAN POTASSIUM 50 MG TAB PO SCH (09:38)
[2021-03-07] MEDS: RIVAROXABAN 10 MG TABLET PO SCH (09:38)
[2021-03-07] MEDS: AMOXICILLIN/CLAVULANATE 875 MG TAB PO SCH ×2 (09:38→18:09)
[2021-03-07] MEDS: CHOLECALCIFEROL 1,000 UNITS 25 MCG TAB PO SCH (09:38)
[2021-03-07] MEDS: FERROUS SULFATE 325 MG TAB PO SCH (09:38)
[2021-03-07] MEDS: amLODIPine BESYLATE 5 MG TAB PO SCH (09:39)
[2021-03-07] MEDS: MULTIVITAMIN TAB PO SCH (09:39)
[2021-03-07] MEDS: CITALOPRAM 40 MG TAB PO SCH (09:39)
[2021-03-07] MEDS: INSULIN ASPART 100 UNITS/ML 3 ML PEN SC SCH ×4 (09:41→20:07)
[2021-03-07] MEDS: POLYETHYLENE (MIRALAX) 17 GM PACK PO SCH ×2 (10:22→21:00)
[2021-03-07] MEDS: DOCUSATE SODIUM 100 MG CAP PO SCH ×2 (10:23→19:59)
[2021-03-07] MEDS: POTASSIUM CHLORIDE 10 MEQ TABCR PO SCH ×2 (10:24→19:59)
[2021-03-07] MEDS: ASPIRIN 81 MG CHEW PO SCH (10:24)
--- NOTE | 2021-03-07 12:06 | Hospitalist Progress Note ---
Date of Service March 07, 2021 Assessment & Plan (1) Left displaced femoral neck fracture: Plan: POD #11 S/P Left Hip Hemiarthroplasty for femoral neck fracture by Dr. Gray Activity and wound care orders as per ortho - weightbearing as tolerated LLE Continue PT/OT Limited mobility at baseline prior to fall, per discussion with POA On xarelto for DVT ppx Hgb continues to improve , 9.9 today Acute Cholecystitis Persistent leukocytosis and abdominal tenderness on exam -> CT abd/pelvis showing diffuse thickening of the gallbladder wall with surrounding edema, concerning for acute cholecystitis Surgery recommends medical management for now Abd pain resolved, Elevated LFTs improving Will de escalate antibiotic therapy today in favor of augmentin 875mg bid for 10 day course will need OP follow up with general surgery to discuss cholecystectomy Acute Blood Loss Anemia Post op anemia Hgb 13.3 -> 9.5 -> 9.0 -> 7.6 and transfused 1u prbcs. Hgb improving, now 9.9 CT hip unremarkable, no bleeding on CT abd/pelvis Xarelto resumed for DVT ppx in post-operative setting Hypoxia Resolved, now 95% on room air CXR unremarkable, has been receiving Xarelto for DVT prophylaxis Likely due to atelectasis, incentive spirometry encouraged DM II HbA1C: 7.2 on 02/12/21 Hold PO meds Continue Insulin therapy while hospitalized Glycemic pharmacy following - appreciate their management H/O CVA Residual R sided weakness, cognitive deficits per discussion with POA continue asa, statin Hypertension BP mostly controlled. BP 153/86 and 132/82 Continue amlodipine, losartan monitor Mood disorder Continue citalopram DVT prophylaxis Xarelto Dispo: awaiting placement, to be discharged to [facility] on Friday03/09/21 FULL CODE Pt was seen and examined in collaboration with Dr. Rasheed, please see addendum Admission and Anticipated Discharge Date Admission Date: February 24, 2021 Supervising Physician Co-Signing Physician Notes Patient is seen and examined at bedside. No new complaints. Tolerating diet. Discussed with patient's family over the phone. Denies chest pain, shortness of breath, dizziness, nausea. On exam patient is moderately built and nourished, no apparent distress, normocephalic atraumatic, EOMI, clear to auscultation, normal breath sounds, S1-S2, no murmur, no pedal edema, abdomen soft, NT, normal bowel sounds, alert, awake, oriented, grossly no focal deficits, left hip surgical site in dressing. Left displaced femoral neck fracture S/P left hip hemiarthroplasty. Waiting for rehab placement. Continue PT OT. Acute cholecystitis--continue Augmentin to complete 10-day course. Needs follow-up with surgery for cholecystectomy eventually. Monitor for postop anemia. I personally reviewed the record. Patient is interviewed and examined at bedside. Patient's care is coordinated with Mervat Gallagher PA-C. Please refer to the documentation above for details of patient's presentation and for discussion of other issues. Subjective 71-year-old woman with diabetes, CVA who fall at home found to have a left hip fracture [left displaced femoral neck fracture] status post left hip hemiarthroplasty postop day 11. Had postop anemia. Was started on Xarelto for DVT prophylaxis. Developed abd pain and CT showed acute cholecystitis. Pt was seen and examined in room 377-1. Overall feels well this morning. She slept well last night. Continues to tolerate diet. Denies f/c/s, chest pain, sob, n/v/d, abdominal pain. She is waiting placement to rehab. Review of Systems Review of Systems: All systems reviewed & are unremarkable except as noted in HPI & below Physical Exam Physical Exam: Gen: WD/WN, F, lying in bed, NAD, A&O x3 HEENT: Normocephalic, atraumatic, conjunctivae moist, sclerae anicteric, mucous membranes moist. Lung: Clear to Auscultation bilaterally, no wheezes/rales/rhonchi Heart: Regular rate, regular rhythm, no murmurs, rubs, or gallops Abdomen: Soft, NT, ND +BS x 4 Extremities: No edema, SCDS in place, dressing to L lateral hip CDI Skin: Warm, no rash, negative turgor. Results & Data Results & Data ([facility]) Vital Signs (Past 12 Hours) Vital Signs Temp Pulse Resp BP Pulse Ox 03/07/21 08:26 36.7 C 81 16 153/86 H 94 Medications Administered Current Inpatient Medications Acetaminophen (Acetaminophen 500 Mg Tab) 1,000 mg PO TID PRN PRN Reason: Pain Stop: 03/26/21 16:51 Last Admin: 03/02/21 13:24 Dose: 1,000 mg Documented by: Al Hydrox/Mg Hydrox/Simethicone (Aluminum/Magnesium Susp 30 Ml Udc) 30 ml PO Q6H PRN PRN Reason: Dyspepsia Stop: 03/26/21 16:51 Amlodipine Besylate (Amlodipine Besylate 5 Mg Tab) 2.5 mg PO [facility] Stop: 03/28/21 09:29 Last Admin: 03/07/21 09:39 Dose: 2.5 mg Documented by: Amoxicillin/Clavulanate Potassium (Amoxicillin/Clavulanate 875 Mg Tab) 1 tab PO BIDM [facility]; Protocol Stop: 03/10/21 23:59 Last Admin: 03/07/21 09:38 Dose: 1 tab Documented by: Aspirin (Aspirin 81 Mg Chew) 81 mg PO [facility] Stop: 03/28/21 09:29 Last Admin: 03/07/21 10:24 Dose: 81 mg Documented by: Atorvastatin Calcium (Atorvastatin 40 Mg Tab) 80 mg PO [facility] Stop: 03/26/21 20:59 Last Admin: 03/06/21 21:09 Dose: 80 mg Documented by: Bimatoprost (Bimatoprost 0.01% Op Soln 2.5 Ml Btl) 1 drops OP [facility] Stop: 03/30/21 15:59 Last Admin: 03/06/21 21:08 Dose: 1 drops Documented by: Bisacodyl (Bisacodyl 10 Mg Supp) 10 mg [place] DAILY PRN PRN Reason: Constipation Stop: 03/26/21 21:41 Citalopram Hydrobromide (Citalopram 40 Mg Tab) 40 mg PO [facility] Stop: 03/27/21 08:59 Last Admin: 03/07/21 09:39 Dose: 40 mg Documented by: Dextrose (Dextrose 50% 50 Ml Syringe) 25 - 50 ml IV UD PRN; Protocol PRN Reason: Hypoglycemia Protocol Stop: 03/26/21 16:51 Docusate Sodium (Docusate Sodium 100 Mg Cap) 100 mg PO BID [facility] Stop: 03/26/21 21:41 Last Admin: 03/07/21 10:23 Dose: Not Given Documented by: Ferrous Sulfate (Ferrous Sulfate 325 Mg Tab) 325 mg PO [facility] Stop: 03/27/21 08:59 Last Admin: 03/07/21 09:38 Dose: 325 mg Documented by: Glucagon (Glucagon For Inj 1 Mg Vial) 1 mg SQ UD PRN; Protocol PRN Reason: Hypoglycemia Protocol Stop: 03/26/21 16:51 Glucose (Glucose 10 Tabs/Tube) 4 - 8 tabs PO UD PRN; Protocol PRN Reason: Hypoglycemia Protocol Stop: 03/26/21 16:51 Glucose (Glucose 40% Gel 15 Gm Tube) 15 - 30 gm PO UD PRN; Protocol PRN Reason: Hypoglycemia Protocol Stop: 03/26/21 16:51 Insulin Aspart (Insulin Aspart 100 Units/Ml 3 Ml Pen) 0 units SC ACHS [facility] Stop: 03/31/21 05:59 Last Admin: 03/07/21 09:41 Dose: 16 units Documented by: Insulin Glargine (Insulin Glargine Solostar 100 Units/Ml 3 Ml Pen) 22 units SC HS [facility]; Protocol Stop: 04/04/21 20:59 Last Admin: 03/06/21 21:15 Dose: 22 units Documented by: Losartan Potassium (Losartan Potassium 50 Mg Tab) 100 mg PO QAM [facility] Stop: 03/29/21 08:59 Last Admin: 03/07/21 09:38 Dose: 100 mg Documented by: Magnesium Hydroxide (Magnesium Hydroxide Susp 30 Ml Udc) 30 ml PO Q6H PRN PRN Reason: Constipation Stop: 03/26/21 21:41 Melatonin (Melatonin 3 Mg Tab) 3 mg PO HS PRN PRN Reason: Sleep Stop: 03/28/21 02:32 Last Admin: 02/26/21 02:58 Dose: 3 mg Documented by: Metoclopramide HCl (Metoclopramide Hcl Inj 5 Mg/Ml 2 Ml Vial) 10 mg IV Q6H PRN PRN Reason: Nausea And Vomiting Stop: 03/26/21 21:41 Miscellaneous (Carbohydrates For Hypoglycemia ) 15 - 30 gm PO UD PRN PRN Reason: Hypoglycemia Protocol Stop: 03/26/21 16:51 Miscellaneous (Toviaz~Order Awaiting Action) 1 ea N/A QS [facility] Stop: 03/26/21 22:29 Last Admin: 03/07/21 09:37 Dose: Not Given Documented by: Miscellaneous Information (Pharmacy Glycemic Mgmt Consult) 1 ea N/A UD PRN; Protocol PRN Reason: Consult Stop: 03/26/21 16:51 Morphine Sulfate (Morphine Sulfate 2 Mg/Ml Carp) 2 mg IV Q4 PRN PRN Reason: Pain 4-01/09 Stop: 03/10/21 16:51 Morphine Sulfate (Morphine Sulfate 4 Mg/Ml 1 Ml Carp\Vial) 4 mg IV Q4 PRN PRN Reason: Pain6-10 Stop: 03/10/21 16:51 Last Admin: 03/01/21 04:49 Dose: 4 mg Documented by: Multivitamins (Multivitamin Tab) 1 tab PO QAM [facility] Stop: 03/27/21 08:59 Last Admin: 03/07/21 09:39 Dose: 1 tab Documented by: Naloxone HCl (Naloxone Hcl 0.4 Mg/1 Ml Vial/Carp) 0.1 mg IV Q5M PRN PRN Reason: Oversedation/Resp Depression Stop: 03/26/21 21:41 Ondansetron HCl (Ondansetron Inj 2 Mg/Ml 2 Ml Vial) 4 mg IV Q6H PRN PRN Reason: Nausea And Vomiting Stop: 03/26/21 21:41 Oxycodone HCl (Oxycodone Hcl Ir 5 Mg Tab (Immediate Release)) 5 mg PO Q6H PRN PRN Reason: Moderate Pain 2-11/09 Stop: 03/10/21 16:51 Last Admin: 03/04/21 05:36 Dose: 5 mg Documented by: Polyethylene Glycol (Polyethylene (Miralax) 17 Gm Pack) 17 gm PO DAILY PRN PRN Reason: Constipation Stop: 03/26/21 16:51 Polyethylene Glycol (Polyethylene (Miralax) 17 Gm Pack) 17 gm PO BID [facility] Stop: 03/28/21 11:39 Last Admin: 03/07/21 10:22 Dose: Not Given Documented by: Potassium Chloride (Potassium Chloride 10 Meq Tabcr) 10 meq PO BID [facility] Stop: 03/26/21 20:59 Last Admin: 03/07/21 10:24 Dose: 10 meq Documented by: Rivaroxaban (Rivaroxaban 10 Mg Tablet) 10 mg PO DAILY [facility] Stop: 03/27/21 11:59 Last Admin: 03/07/21 09:38 Dose: 10 mg Documented by: Sennosides (Senna 8.6 Mg Tab) 17.2 mg PO HS [facility] Stop: 03/26/21 21:41 Last Admin: 03/06/21 21:09 Dose: 17.2 mg Documented by: Vitamin D (Cholecalciferol 1,000 Units 25 Mcg Tab) 2,000 units PO [facility] Stop: 03/27/21 08:59 Last Admin: 03/07/21 09:38 Dose: 2,000 units Documented by:
[2021-03-07] MEDS: BIMATOPROST 0.01% OP SOLN 2.5 ML BTL OP SCH (19:59)
[2021-03-07] MEDS: ATORVASTATIN 40 MG TAB PO SCH (20:00)
[2021-03-07] MEDS: SENNA 8.6 MG TAB PO SCH (20:00)
[2021-03-07] MEDS: INSULIN GLARGINE SOLOSTAR 100 UNITS/ML 3 ML PEN SC SCH (20:06)
[2021-03-08] MEDS: TOVIAZ~ORDER AWAITING ACTION SCH ×3 (00:19→18:02)
[2021-03-08 06:21] LABS: Basophils # (auto) 0.03 K/uL (0-0.2); Basophils % (auto) 0.2 %; Eosinophils # (auto) 0.46 K/uL (0-0.5); Eosinophils % (auto) 3.6 %; Hematocrit (blood only) 33.3 % (37-47); Hemoglobin 10.4 g/dL (12.0-16.0); Immature Granulocytes # (auto) 0.05 K/uL (0.00-0.02); Immature Granulocytes % (auto) 0.4 %; Lymphocytes # (auto) 1.74 K/uL (1.2-3.4); Lymphocytes % (auto) 13.8 %; Mean Corpuscular Hgb Conc 31.2 g/dL (32-36); Mean Corpuscular Volume 89.5 fL (80-100); Mean Platelet Volume 8.6 fL (7.4-10.4); Monocytes # (auto) 0.82 K/uL (0.11-0.59); Monocytes % (auto) 6.5 %; Neutrophils # (auto) 9.55 K/uL (1.4-6.5); Neutrophils % (auto) 75.5 %; Platelet Count 456 K/uL (130-400); RDW Coefficient of Variation 14.1 % (11.5-14.5); Red Blood Count 3.72 M/uL (4.2-5.4); White Blood Count 12.65 K/uL (4.8-10.8)
[2021-03-08 07:01] LABS: Albumin Level 2.2 gm/dl (3.4-5.0); BUN Creatinine Ratio 12.3 (10-20); Calcium 9.1 mg/dl (8.5-10.1); Creatinine Clr Calc Pharmacy 52.9 ml/min; Est GFR (African American) 62.3 ml/min; Est GFR (Non-African American) 53.8 ml/min; Potassium 4.1 mmol/L (3.5-5.1)
[2021-03-08 07:02] LABS: Albumin Globulin Ratio 0.5 (0.9-2); Bilirubin,Total 0.8 mg/dl (0.2-1); Globulin 4.6 gm/dl (2.5-4.0); Total Protein 6.8 gm/dl (6.4-8.2)
[2021-03-08] MEDS: POLYETHYLENE (MIRALAX) 17 GM PACK PO SCH ×2 (08:50→20:14)
[2021-03-08] MEDS: DOCUSATE SODIUM 100 MG CAP PO SCH ×2 (08:50→20:14)
[2021-03-08] MEDS: INSULIN ASPART 100 UNITS/ML 3 ML PEN SC SCH ×4 (09:16→21:52)
[2021-03-08] MEDS: amLODIPine BESYLATE 5 MG TAB PO SCH (09:18)
[2021-03-08] MEDS: FERROUS SULFATE 325 MG TAB PO SCH (09:18)
[2021-03-08] MEDS: AMOXICILLIN/CLAVULANATE 875 MG TAB PO SCH ×2 (09:18→18:02)
[2021-03-08] MEDS: CITALOPRAM 40 MG TAB PO SCH (09:18)
[2021-03-08] MEDS: LOSARTAN POTASSIUM 50 MG TAB PO SCH (09:18)
[2021-03-08] MEDS: CHOLECALCIFEROL 1,000 UNITS 25 MCG TAB PO SCH (09:18)
[2021-03-08] MEDS: RIVAROXABAN 10 MG TABLET PO SCH (09:19)
[2021-03-08] MEDS: ASPIRIN 81 MG CHEW PO SCH (09:20)
[2021-03-08] MEDS: MULTIVITAMIN TAB PO SCH (09:20)
[2021-03-08] MEDS: POTASSIUM CHLORIDE 10 MEQ TABCR PO SCH ×2 (09:21→20:14)
--- NOTE | 2021-03-08 10:00 | Hospitalist Progress Note ---
Date of Service March 08, 2021 Assessment & Plan (1) Left displaced femoral neck fracture: Plan: S/P Left Hip Hemiarthroplasty for femoral neck fracture by Dr. Gray on 02/24/21 Activity and wound care orders as per ortho - weightbearing as tolerated LLE Continue PT/OT Limited mobility at baseline prior to fall, per discussion with POA On xarelto for DVT ppx Hgb continues to improve , 10.4 today Acute Cholecystitis Persistent leukocytosis and abdominal tenderness on exam -> CT abd/pelvis showing diffuse thickening of the gallbladder wall with surrounding edema, concerning for acute cholecystitis Surgery recommends medical management for now Abd pain resolved, Elevated LFTs improving Antibiotic therapy de-escalated in favor of Augmentin 875mg bid for 10 day course Will need OP follow up with general surgery to discuss cholecystectomy Acute Blood Loss Anemia Post op anemia Hgb 13.3 -> 9.5 -> 9.0 -> 7.6 and transfused 1u prbcs. Hgb improving, now 10.4 CT hip unremarkable, no bleeding on CT abd/pelvis Xarelto resumed for DVT ppx in post-operative setting Hypoxia Resolved, now 95% on room air CXR unremarkable, has been receiving Xarelto for DVT prophylaxis Likely due to atelectasis, incentive spirometry encouraged DM II HbA1C: 7.2 on 02/12/21 Hold PO meds Continue Insulin therapy while hospitalized Glycemic pharmacy following - appreciate their management H/O CVA Residual R sided weakness, cognitive deficits per discussion with POA continue asa, statin Hypertension BP mostly controlled. BP 143/84 today Continue amlodipine, losartan Monitor Mood disorder Continue citalopram DVT prophylaxis Xarelto Dispo: awaiting placement, to be discharged to [facility] on Friday03/09/21 FULL CODE Pt was seen and examined in collaboration with Dr. Rasheed, please see addendum Admission and Anticipated Discharge Date Admission Date: February 24, 2021 Supervising Physician Co-Signing Physician Notes Patient is seen and examined at bedside. States having poor sleep overnight. Tolerates diet. Denies abd pain, chest pain, shortness of breath, dizziness, nausea. On exam patient is moderately built and nourished, no apparent distress, normocephalic atraumatic, EOMI, clear to auscultation, normal breath sounds, S1-S2, no murmur, no pedal edema, abdomen soft, NT, normal bowel sounds, alert, awake, oriented, grossly no focal deficits, left hip surgical site in dressing. Left displaced femoral neck fracture S/P left hip hemiarthroplasty. Waiting for rehab placement. Continue PT OT. Acute cholecystitis--continue Augmentin to complete 10-day course. Needs follow-up with surgery for cholecystectomy eventually. Monitor for postop anemia. Continue current management. Likely discharge tomorrow. Hb stable. I personally reviewed the record. Patient is interviewed and examined at bedside. Patient's care is coordinated with Almita Bansal PA-C. Please refer to the documentation above for details of patient's presentation and for discussion of other issues. Subjective 71-year-old woman with diabetes, CVA who fall at home found to have a left hip fracture [left displaced femoral neck fracture] status post left hip hemiarthroplasty on 02/24/21. Had postop anemia. Was started on Xarelto for DVT prophylaxis. Developed abd pain and CT showed acute cholecystitis. Pt was seen and examined in room 377-1. Overall feels well this morning. Offers no new complaints. Continues to tolerate diet. Denies fever, chills, headache, chest pain, sob, n/v/d, abdominal pain. She is waiting placement to rehab with possible dc tomorrow. Review of Systems Review of Systems: At least ten systems reviewed and negative except as noted in the HPI. Physical Exam Physical Exam: Gen: WD/WN, F, sitting in bedside chair, NAD, A&O x3 HEENT: Normocephalic, atraumatic, conjunctivae moist, sclerae anicteric, mucous membranes moist Lung: Clear to Auscultation bilaterally, no wheezes/rales/rhonchi Heart: Regular rate, regular rhythm, no murmurs, rubs, or gallops Abdomen: Soft, NT, ND +BS x 4 Extremities: No edema, dressing to L lateral hip CDI Skin: Warm, no rash, negative turgor. Results & Data Results & Data ([facility]) Vital Signs (Past 12 Hours) Vital Signs Temp Pulse Resp BP Pulse Ox 03/08/21 07:37 36.6 C 77 16 143/84 H 99 03/07/21 22:09 37.0 C 80 20 131/71 93 Laboratory Results Short CBC 03/08/21 Range/Units 06:00 WBC 12.65 H (4.8-10.8) K/uL Hgb 10.4 L (12.0-16.0) g/dL Hct 33.3 L (37-47) % Plt Count 456 H (130-400) K/uL BMP 03/08/21 06:00 Sodium 137 Potassium 4.1 Chloride 106 Carbon Dioxide 27 BUN 13 Creatinine 1.05 Glucose 124 H Calcium 9.1 Liver Function 03/08/21 Range/Units 06:00 Total Bilirubin 0.8 (0.2-1) mg/dl AST 38 H (15-37) U/L ALT 66 (12-78) U/L Alkaline Phosphatase 174 H (45-117) U/L Albumin 2.2 L (3.4-5.0) gm/dl Diagnostic Findings Chest X-Ray 02/24/21 12:36 XR chest 1V portable HISTORY: 71 years-old Female preop preoperative exam. No acute chest complaints COMPARISON: Chest radiograph 09/01/2020, CTA chest 09/02/2020 TECHNIQUE: Supine AP view of the chest FINDINGS: Cardiac silhouette is mildly enlarged. Mild right hemidiaphragmatic elevation. Surgical clips project over the mid upper mediastinum. No pneumothorax, pleural effusion, airspace consolidation or overt pulmonary edema. Degenerative changes of the shoulders and spine. IMPRESSION: No acute process. ACT 112: Negative or not required by law. The above report was generated using voice recognition software. It may contain grammatical, syntax or spelling errors. Electronically signed by: James Edmonds M.D. 02/24/2021 1:15 PM Hip X-Ray 02/24/21 12:36 XR hip LT min 2V HISTORY: 71 years-old Female fall, hip pain, r/o fx acute left-sided hip pain status post fall COMPARISON: CT abdomen and pelvis 09/01/2020 TECHNIQUE: 2 views of the left hip FINDINGS: Moderate left hip osteoarthritis. There is an acute mildly impacted nondisplaced transcervical fracture of the left femur. No dislocation or avascular necrosis. Mild soft tissue swelling. The imaged left hemipelvis appears intact. IMPRESSION: Acute mildly impacted nondisplaced transcervical fracture of the left femur. ACT 112: Negative or not required by law. The above report was generated using voice recognition software. It may contain grammatical, syntax or spelling errors. Electronically signed by: James Edmonds M.D. 02/24/2021 1:[address] 02/24/21 14:29 CT hip LT wo con HISTORY: 71 years-old Female fall, fracture, preop acute left hip pain status post fall COMPARISON: [Radiographs of same day TECHNIQUE: Multiple axial CT images of the left hip were obtained without the use of IV contrast. A dose lowering technique was used consistent with the principals of ALARA. FINDINGS: The imaged intrapelvic structures are unremarkable. Decompressed urinary bladder with Michael catheter. Colonic diverticulosis. There is an acute comminuted impacted transcervical fracture of the left femur with fracture separation measuring up to 1.4 cm. Fracture fragments are displaced a few millimeters both medially and laterally. Mild associated apex volar angulation. Left hip osteoarthritis. No dislocation or additional fr acture. Small left hip hemarthrosis. Lateral hip contusion. IMPRESSION: Acute comminuted impacted mildly displaced and angulated transcervical fracture of the left femur. ACT 112: Negative or not required by law. The above report was generated using voice recognition software. It may contain grammatical, syntax or spelling errors. Electronically signed by: James Edmonds M.D. 02/24/2021 3:40 PM Hip X-Ray 02/24/21 21:14 XR hip LT min 2V HISTORY: 71 years-old Female left hip hemiarthroplasty left hip total joint arthroplasty COMPARISON: Radiographs of the left hip of same day TECHNIQUE: 2 views of the left hip FINDINGS: Left hip total joint arthroplasty demonstrates satisfactory alignment. Expected postoperative soft tissue swelling and deep software. No acute fracture or retained foreign body identified. IMPRESSION: Left hip total joint arthroplasty with expected postoperative changes. ACT 112: Negative or not required by law. The above report was generated using voice recognition software. It may contain grammatical, syntax or spelling errors. Electronically signed by: James Edmonds M.D. 02/24/2021 9:29 PM Chest X-Ray 02/26/21 16:13 XR chest 1V portable HISTORY: hypoxia COMPARISON: Chest 02/24/2021. FINDINGS: No pneumothorax. No pleural effusions. The heart remains top normal in size. There are surgical clips overlying the superior mediastinum. This remains unchanged. No focal lung consolidations to suggest pneumonia. No evidence for pulmonary edema. IMPRESSION: No significant change compared to the prior study. No acute process. ACT 112: Negative or not required by law. Electronically signed by: Emory Cuevas M.D. 02/26/2021 5:04 PM Vascular Ultrasound 02/27/21 10:18 US extremity non-vascular ltd INDICATION: MN ^left hip swelling, eval for abscess TECHNIQUE: Real-time grayscale sonographic images of the left hip were obtained. Comparison: None available at the time of this dictation. FINDINGS: There is diffuse soft tissue edema but no drainable fluid collection is seen. IMPRESSION: Diffuse soft tissue edema without evidence of abscess. ACT 112: Negative or not required by law. Electronically signed by: Grzegorz Palmer M.D. 02/27/2021 11:46 AM Abdomen/Pelvis CT 02/28/21 08:34 CT abd pelvis IV con only CLINICAL INDICATION: MN ^1015 ^abdominal pain, leukocytosis, anemia. TECHNIQUE: Helical axial images of the abdomen and pelvis were obtained and displayed at 5 and 1 mm intervals. Automated dose lowering techniques and/or adjustment according to patient size were utilized for this exam. This exam was performed with intravenous contrast. COMPARISON: None available at the time of this dictation. FINDINGS: Lower chest: Bibasilar atelectasis is seen. Liver: Unremarkable. No focal lesions are seen. Gallbladder and biliary tree: Layering gallstones versus sludge are seen. There is thickening of the gallbladder wall to approximately 3 mm with pericholecystic edema. No intra- or extrahepatic biliary ductal dilation. Pancreas: Unremarkable, no focal lesions. Spleen: Unremarkable. Adrenals: Unremarkable. Kidneys and ureters: There is a 11 mm cyst in the right kidney inferior pole. Additional subcentimeter hypodensities are too small to characterize. Bladder: Unremarkable. Reproductive organs: Multiple calcified fibroids are seen. Bowel: Diverticulosis is seen without evidence of diverticulitis. Lymph nodes Retroperitoneal: Unremarkable. Mesenteric: Subcentimeter lymph nodes are noted. Pelvic: Unremarkable. Peritoneum: Trace mistiness of the mesentery is noted, decreased from prior exam. Vessels: Atherosclerotic calcifications are seen. Abdominal wall: Unremarkable. Bones: Degenerative changes in the visualized spine. IMPRESSION: 1. Diffuse thickening of the gallbladder wall with surrounding edema, concerning for acute cholecystitis. 2. Additional findings as above. ACT 112: Negative or not required by law. Electronically signed by: Grzegorz Palmer M.D. 02/28/2021 11:[address] 02/28/21 09:42 CT hip LT w con HISTORY: 71 years-old Female swelling, anemia, eval for abscess/hematoma acute pain and swelling of the left hip COMPARISON: CT abdomen and pelvis of same day, CT left hip 02/24/2021 TECHNIQUE: Multiple axial CT images of the left hip were obtained following the intravenous ministration of 94 mL Optiray 320. A dose lowering technique was used consistent with the principals of ALA. FINDINGS: Status post left hip total joint arthroplasty. Satisfactory alignment of the hardware. No acute fracture or osseous erosion. Subcutaneous and deep tissue emphysema with edema and blood products within the lateral subcutaneous and deep tissues. No discrete focal postoperative fluid collection. Linear subcentimeter radiodensities interposed between the gluteus serenity and minimus musculature are likely postoperative. Streak artifact from the hardware limits the study. Colonic diverticulosis. No acute intrapelvic abnormality identified. IMPRESSION: 1. Status post left hip total joint arthroplasty with mild subcutaneous edema and emphysema with small amount of subcutaneous blood products, likely expected postoperative changes. 2. No acute fracture. 3. No postoperative fluid collection identified ACT 112: Negative or not required by law. The above report was generated using voice recognition software. It may contain grammatical, syntax or spelling errors. Electronically signed by: James Edmonds M.D. 02/28/2021 10:31 AM
[2021-03-08] MEDS ORDERED: INFLUENZA VACCINE HIGH DOSE PF 65+ 0.7 ML SYR IM ONE (13:03)
[2021-03-08] MEDS ORDERED: Influenza Vaccine-High Dose (Fluzone-HD) PF 65+ 0.7 ML SYR IM ONE (15:00)
--- NOTE | 2021-03-08 15:25 | Pharmacy Report ---
Pharmacy Glycemic Short Note 2 - Date of Service March 08, 2021 - Glycemic Short BSG Results (Last 24 hours): 03/07/21 03/07/21 03/08/21 17:36 19:51 06:00 Glucose 124 H POC Glucose 162 H 179 H 03/08/21 03/08/21 07:48 12:14 Glucose POC Glucose 126 H 220 H OUTPATIENT ANTIDIABETIC REGIMEN: * Basaglar 16 units SQ HS * metformin 500 mg qam + Januvia 100 mg daily * A1c = 7.2% ASSESSMENT: 03/08: * Patient received total 54 units of insulin yesterday; 22 units basal + 32 units bolus. * Fasting BSG = 126 mg/dl. Continued basal insulin the same as yesterday. * Post prandial BSGs except for pre-lunch BSG have been near goal. Continued Novolog parameters the same. 03/06 * Patient's blood sugars yesterday were [phone] mg/dL. * Fasting today is 125 mg/dL. * Patient received 30 units of insulin (22 units of basal and 8 units of bolus) yesterday. * Fasting reasonable so continue Lantus * BSGs stable throughout the day continue Novolog. 03/05 * Patient's blood sugars yesterday were [phone] mg/dL. * Fasting today is 71 mg/dL. * Patient received 52 units of insulin (25 units of basal and 27 units of bolus) yesterday. * Due to decreasing fasting BSGs, decrease Lantus by 10% to 22 units. * Tighten CR as BSGs trend upwards throughout the day. 03/02: * Krystal received 27 units of insulin yesterday. This was significantly less than previous days likely due to NPO status * Fasting BSG below goal. I anticipate improvement since patient has resumed diet. * Post prandial BSGs are at goal - no change in novolog 02/28: * Krystal received 57 units of SQ insulin yesterday (25 units basal + 32 units bolus) * Despite tightening carb coverage yesterday, the patient continued to experience post prandial BSG elevation. I further tightened carb ratio to 5 this morning. Patient made NPO this afternoon. * Continue basal insulin doses per scale 02/27 * Patient received total of 49 units of insulin yesterday, of which 20 units were basal insulin * Fasting BSG 167 mg/dL - continue with 20 units at HS * Plan to tighten CR more today as BSGs still in upper 100s yesterday 02/25 * Krystal is a 71 yo female POD #1 s/p left hip hemiarthroplasty for femoral neck fracture * Patient was continued on home dose of basal insulin on admission. Novolog ACHS was added. She received no steroids adin-operatively. * she received 16 units of insulin yesterday * Today she experienced both fasting and post prandial BSG hyperglycemia, therefore I will change Lantus order to dose per scale (allowing for higher dose of 20 units if needed) and tighten novolog parameters. PLAN FOR INPATIENT GLYCEMIC CONTROL: * Hold outpatient oral diabetes medications * Basal insulin * Lantus 22 units HS * Bolus insulin * NovoLog per scale ACHS or Q6hrs while NPO * Goal Range: Low 110 mg/dL - High 140 mg/dL * Correction Factor: 20 mg/dL/unit * Nutritional / Prandial insulin per carb ratio of 1 unit per 4 grams CHO consumed PLAN FOR DISCHARGE: * A1c 7.2% - goal 7% ; it is reasonable to continue home diabetic medications upon discharge
[2021-03-08] MEDS: SENNA 8.6 MG TAB PO SCH (20:14)
[2021-03-08] MEDS: ATORVASTATIN 40 MG TAB PO SCH (20:15)
[2021-03-08] MEDS: BIMATOPROST 0.01% OP SOLN 2.5 ML BTL OP SCH (20:15)
[2021-03-08] MEDS: INSULIN GLARGINE SOLOSTAR 100 UNITS/ML 3 ML PEN SC SCH (21:53)
[2021-03-09] MEDS: TOVIAZ~ORDER AWAITING ACTION SCH ×2 (00:06→09:41)
[2021-03-09 06:33] LABS: Basophils # (auto) 0.03 K/uL (0-0.2); Basophils % (auto) 0.2 %; Eosinophils # (auto) 0.34 K/uL (0-0.5); Eosinophils % (auto) 2.8 %; Hematocrit (blood only) 33.9 % (37-47); Hemoglobin 10.4 g/dL (12.0-16.0); Immature Granulocytes # (auto) 0.04 K/uL (0.00-0.02); Immature Granulocytes % (auto) 0.3 %; Lymphocytes # (auto) 1.44 K/uL (1.2-3.4); Lymphocytes % (auto) 11.9 %; Mean Corpuscular Hemoglobin 27.6 pg (25-34); Mean Corpuscular Hgb Conc 30.7 g/dL (32-36); Mean Corpuscular Volume 89.9 fL (80-100); Mean Platelet Volume 8.7 fL (7.4-10.4); Monocytes # (auto) 0.83 K/uL (0.11-0.59); Monocytes % (auto) 6.9 %; Neutrophils # (auto) 9.38 K/uL (1.4-6.5); Neutrophils % (auto) 77.9 %; Platelet Count 503 K/uL (130-400); RDW Coefficient of Variation 14.2 % (11.5-14.5); RDW Standard Deviation 45.9 fL (36.4-46.3); Red Blood Count 3.77 M/uL (4.2-5.4); White Blood Count 12.06 K/uL (4.8-10.8)
[2021-03-09 07:14] LABS: Albumin Globulin Ratio 0.5 (0.9-2); Albumin Level 2.1 gm/dl (3.4-5.0); BUN Creatinine Ratio 12.4 (10-20); Bilirubin,Total 0.7 mg/dl (0.2-1); Creatinine Clr Calc Pharmacy 46.3 ml/min; Est GFR (Non-African American) 45.8 ml/min; Globulin 4.5 gm/dl (2.5-4.0); Potassium 4.3 mmol/L (3.5-5.1); Total Protein 6.6 gm/dl (6.4-8.2)
[2021-03-09] MEDS: INSULIN ASPART 100 UNITS/ML 3 ML PEN SC SCH ×2 (09:37→13:30)
[2021-03-09] MEDS: FERROUS SULFATE 325 MG TAB PO SCH (09:38)
[2021-03-09] MEDS: LOSARTAN POTASSIUM 50 MG TAB PO SCH (09:38)
[2021-03-09] MEDS: AMOXICILLIN/CLAVULANATE 875 MG TAB PO SCH (09:38)
[2021-03-09] MEDS: RIVAROXABAN 10 MG TABLET PO SCH (09:39)
[2021-03-09] MEDS: MULTIVITAMIN TAB PO SCH (09:39)
[2021-03-09] MEDS: amLODIPine BESYLATE 5 MG TAB PO SCH (09:40)
[2021-03-09] MEDS: CHOLECALCIFEROL 1,000 UNITS 25 MCG TAB PO SCH (09:40)
[2021-03-09] MEDS: ASPIRIN 81 MG CHEW PO SCH (09:40)
[2021-03-09] MEDS: POLYETHYLENE (MIRALAX) 17 GM PACK PO SCH (09:41)
[2021-03-09] MEDS: DOCUSATE SODIUM 100 MG CAP PO SCH (09:41)
[2021-03-09] MEDS: CITALOPRAM 40 MG TAB PO SCH (09:41)
[2021-03-09] MEDS: POTASSIUM CHLORIDE 10 MEQ TABCR PO SCH (09:45)
--- NOTE | 2021-03-09 12:14 | Discharge Summary ---
Date of Service March 09, 2021 Admission HPI Per Admitting Provider 71-year-old female with history of diabetes and stroke with full recovery was a ground-level fall sustaining left hip fracture this morning at [facility]. Patient is a challenging historian not knowing her baseline I do believe she has some dementia probably based upon her previous stroke. She says she has challenges writing with her right hand and walking with her right leg. Subsequently she fell on her way from the bathroom this morning. She states that her blood sugar may have been low this morning and she did not eat breakfast. Currently there is no other signs of injury. She denies having any chest pain orthopnea or dyspnea on exertion however with her questionable historian difficult to ascertain. Her labs are on revealing her EKG although read as accelerated junctional rhythm looks similar to her old and I do believe it sinus rhythm chest x-ray is unremarkable and x-ray of her hip shows a left femoral neck fracture Admission Exam Per Admitting Provider The patient appeared well nourished and normally developed. Vital signs as documented. Head exam is normocephalic atraumatic Neck is without JVD, thyromegaly, or carotid bruits. Lungs are clear to auscultation, no focal loss of breath sounds Cardiac exam, Rhythm is regular.. No murmurs, rubs or gallops. 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 or intrinsic hand muscle weakness to the right Neurologic exam is alert and oriented, no focal loss of strength or sensation however patient is difficult times having a cohesive story about why she fell Skin is without bruises or rashes Psychologically is without concerns for anxiety or depression believe she has some memory impairment Principal Diagnosis left hip fracture, acute cholecystitis Discharge Exam Gen: WD/WN, F, sitting in bedside chair, NAD, A&O x3 HEENT: Normocephalic, atraumatic, conjunctivae moist, sclerae anicteric, mucous membranes moist Lung: Clear to Auscultation bilaterally, no wheezes/rales/rhonchi Heart: Regular rate, regular rhythm, no murmurs, rubs, or gallops Abdomen: Soft, NT, ND +BS x 4 Extremities: No edema, dressing to L lateral hip CDI Skin: Warm, no rash, negative turgor. Discharge Data Allergies Allergy/AdvReac Type Severity Reaction Status Date / Time prednisone Allergy Mild ITCHING Verified 02/24/21 14:31 ampicillin AdvReac Mild Gastrointestinal Verified 02/24/21 14:31 Upset azithromycin AdvReac Mild Gastrointestinal Verified 02/24/21 14:31 Upset lisinopril AdvReac Mild Gastrointestinal Verified 02/24/21 14:31 Upset Consultations 02/24/21 14:30 ED Decision to Admit Stat 02/24/21 16:52 Consult Anesthesiology Routine Consult Orthopedic Surgery Routine 02/28/21 11:25 Consult General Surgery Routine Procedures Performed Operation Date: 02/24/21 19:00 Actual Procedures p Left Hip Hemiarthroplasty, Uncemented(Left) - Andres Gray M.D. Ordered Studies 02/24/21 14:29 CT hip LT wo con Stat 02/27/21 10:18 US extremity non-vascular ltd Urgent 02/28/21 08:34 CT abd pelvis IV con only Urgent 02/28/21 09:42 CT hip LT w con Urgent Hospital Course (1) Left displaced femoral neck fracture: (2) Acute cholecystitis: (3) Renal insufficiency: (4) Hypertension: (5) Depression: (6) Diabetes mellitus, type 2: (7) CVA (cerebral vascular accident): This is a 71-year-old woman with diabetes, CVA who fell at home found to have a left hip fracture and underwent repair by Dr. Gray on 02/24/21. Recovery has been uncomplicated from orthopedic perspective with patient working with PT/OT and will continue to do so upon discharge to SNF. While admitted, patient mentioned abdominal pain had worsened and imaging revealed acute cholecystitis. General surgery was consulted and recommended conservative management with IV Zosyn. Antibiotics were then deescalated to Augmentin for 10-day course, which patient will complete upon discharge. Abdominal pain has improved and is no longer tender with palpation. Diet was advanced to regular diet without issue. WBC has continued to downtrend. Instructed to follow-up with orthopedic surgery at [facility] for hospital follow-up. Will also be contacted by Dr. Rick's office of general surgery for follow-up regarding gallbladder. Patient comfortable and hemodynamically stable at time of discharge. Total Time Total Time Spent Total Time Spent (In Minutes): 45 Discharge Plan Discharge Items Patient Disposition: Transfer Group Home Fac Reason For Visit: LEFT HIP FRACTURE, FEMORAL NECK Discharge Diagnosis: left hip fracture, acute cholecystitis Condition on Discharge: Good Activity: Per Instructions section Weightbearing: Left weightbearing Weightbearing Comment: as tolerated with walker Non-emergency contact: Primary Care Provider and Surgeon Call non-emergency contact if: your pain is not controlled, your temperature is above 101.5, your wound has increased redness and your wound has increased drainage Follow-up/Referrals: nAdres Gray M.D. [Physician] - (Follow up in 10-14 days from the day of surgery) [facility] [Primary Care Provider] - Diet: Low Fat Addlashae Attending Provider Instructions: Krystal, You were admitted for a left hip fracture and underwent repair by Dr. Gray on 02/24/21. Further instructions from orthopedic surgeon are in following section. While admitted, you were also found to have acute cholecystitis (inflammation of gallbladder). This was managed with IV antibiotics by the general surgery service. Pain has improved and you are now eating a regular diet without issue. MEDICATION CHANGES: Please continue Augmentin 875mg bid until finished for a total of a 10 day course. RECOMMENDATIONS FOR FOLLOW-UP: You will need to follow-up with Dr. Gray in orthopedic surgery clinic 10-14 days after surgery. Please call [facility] at [phone] to make an appointment. Please also follow up with general surgery for your gall bladder. General surgery office will schedule your follow up with Dr. Rick. OTHER INSTRUCTIONS: Seek medical attention if you have: * temperature above 101 * chest pain or trouble breathing * abdominal pain, nausea, vomiting * diarrhea, dark stools or bloody stools * any unanswered questions or concerns Call [phone] if symptoms are severe. Please take good care of yourself. Call if you have any questions or problems. You can reach a [facility] hospitalist on duty at [facility] 24 hours a day by calling [phone]. [facility] George Fruit Raiser Provider Instructions: Things to Watch Out For -Go to the Emergency Room if you have sudden onset of chest pain, shortness of breath, or uncontrollable pain. -Call the orthopedics clinic immediately if you have a sudden increase in the amount of wound drainage or the drainage becomes thick, yellow or green, or foul-smelling. -For routine questions regarding your hip surgery, call the orthopedics clinic at [phone] during regular business hours (8am-5pm). For urgent issues after regular business hours, you may call the clinic to be connected to the on-call physician. Dressings -A special waterproof, silver-impregnated dressing was placed on your shoulder. Keep this dressing in place for 1 week after surgery. You may shower with the waterproof dressing in place, but do not soak the dressing in the bathtub or pool. -One week after surgery, you may remove the waterproof dressing. You may continue to shower, and let water run BRIEFLY over the incision, but do not soak the incision in the bathtub or pool for 2 weeks. You may also gently clean the incision with mild soap and water; pat the incision dry after cleaning-do not rub the incision. Apply a new dressing daily thereafter. Weight Bearing -You may weight bear as tolerated on your operative leg. Use a walker for support and balance. Total Hip Precautions -Do not cross your legs, flex your hip past 90 degrees, or internally rotate your hip. -Keep the abduction pillow in place when you are in bed for the first 6 weeks after surgery. You may remove it when you are out of bed. -If you hear a clunk and your leg is suddenly much shorter and turned inward compared to your other leg, come to the Emergency Department immediately. Followup -You will need to follow-up with Dr. Gray in orthopedic surgery clinic 10- 14 days after surgery. Please call [facility] at [phone] to make an appointment. Pending Studies at Discharge: No Stand-Alone Forms: My [facility] Skilled Items Patient informed of condition?: Yes DNR: No Discharge Level of Care: Skilled Communicable Disease: No Discharge Prognosis: Stable Lines: None Urinary Catheter: No Medications and DC Order Prescriptions: New amoxicillin-pot clavulanate [Augmentin] 875-125 mg tablet 1 tab PO BID Qty: 14 RF: 0 Continued cyanocobalamin (vitamin B-12) [Vitamin B-12] 500 mcg Tablet 1,000 mcg PO QAM RF: 0 Januvia 100 mg Tablet 100 mg PO QAM RF: 0 Basaglar KwikPen U-100 Insulin 100 unit/mL (3 mL) Insulin Pen 16 unit SUBCUT QPM RF: 0 atorvastatin 80 mg Tablet 80 mg PO HS RF: 0 cholecalciferol (vitamin D3) [Vitamin D3] 2,000 unit Capsule 2,000 unit PO QAM RF: 0 magnesium oxide 250 mg magnesium Tablet 250 mg PO QPM RF: 0 Toviaz 4 mg tablet extended release 24 hr 4 mg PO QAM RF: 0 Cetaphil Moisturizing Cream 1 applic TOPICAL BID RF: 0 acetaminophen [Tylenol] 325 mg Tablet 650 mg PO QID PRN (Reason: Pain) RF: 0 cetirizine 5 mg Tablet 5 mg PO QPM RF: 0 clobetasol 0.05 % Cream 1 applic TOPICAL BID PRN (Reason: ECZEMA) RF: 0 nystatin 100,000 unit/gram Cream 1 applic TOPICAL DAILY PRN (Reason: Rash) RF: 0 albuterol sulfate 90 mcg/actuation Hfa Aerosol Inhaler 2 puff INHALATION QID PRN (Reason: Wheezing) RF: 0 citalopram 40 mg tablet 40 mg PO QAM RF: 0 amlodipine 2.5 mg tablet 2.5 mg PO QAM RF: 0 potassium chloride 10 mEq tablet extended release 10 meq PO BID RF: 0 ferrous sulfate 325 mg (65 mg iron) Tablet 325 mg PO QAM RF: 0 aspirin 81 mg Tablet,Chewable 81 mg PO QAM RF: 0 polyethylene glycol 3350 [Miralax] 17 gram/dose Powder 17 g PO DAILY PRN (Reason: Constipation) RF: 0 losartan 100 mg tablet 100 mg PO QAM RF: 0 metformin 500 mg tablet extended release 24 hr 500 mg PO QAM RF: 0 Lumigan 0.01 % drops 1 drp OPB HS RF: 0 Discharge Orders: Discharge Order (Routine); Ordered 03/09/21 Ordered By: Almita Dale/Other Patient Handouts: A1C, Managing Type 2 Diabetes Admission Data Admit Date/Time: 02/24/21 15:13 Attending Provider: José Luis Rasheed Admit Provider: José Luis Rasheed Primary Care Provider: [facility] Other Providers: Naresh Cardenas ; Ryan Read ; Andres Gray ; [facility] ; [facility] ; José Luis Rasheed ; Charles Rick ; Almita Bansal ; [place] Other Interventions: Discharge Summary Assessment (RN) Last Done: 03/09/21 13:38
--- NOTE | 2021-03-09 17:32 | Communication Note ---
Date of Service: March 09, 2021 Patient is seen and examined at bedside. States feeling well today. No new complaints. Tolerated diet. No recurrence of abdominal pain. Denies chest pain, shortness of breath, dizziness, nausea. On exam patient is moderately built and nourished, no apparent distress, normocephalic atraumatic, EOMI, clear to auscultation, normal breath sounds, S1-S2, no murmur, no pedal edema, abdomen soft, NT, normal bowel sounds, alert, awake, oriented, grossly no focal deficits, left hip surgical site in dressing. Left displaced femoral neck fracture S/P left hip hemiarthroplasty. Waiting for rehab placement. Continue PT OT. Acute cholecystitis--continue Augmentin to complete 10-day course. Needs follow-up with surgery for cholecystectomy eventually. Monitor for postop anemia. Plan to discharge to SNF today. Hb stable. I personally reviewed the record. Patient is interviewed and examined at bedside. Patient's care is coordinated with Almita Bansal PA-C. Please refer to the documentation above for details of patient's presentation and for discussion of other issues.
== END 2021-03-09 14:00 | DRG 522 ==
LOC: ED 12:16 → 3N 15:13 → SUATTDRO 15:13 → 3N 16:30
DX: K81.0 Acute cholecystitis; Z88.1 Allergy status to other antibiotic agents; I10 Essential (primary) hypertension; H40.9 Unspecified glaucoma; E11.9 Type 2 diabetes mellitus without complications; Z83.3 Family history of diabetes mellitus; Z88.8 Allergy status to other drugs, medicaments and biological substances; Z79.4 Long term (current) use of insulin; Z79.82 Long term (current) use of aspirin; D62 Acute posthemorrhagic anemia; W19.XXXA Unspecified fall, initial encounter; R09.02 Hypoxemia; S72.142A Displaced intertrochanteric fracture of left femur, initial encounter for closed fracture; J98.11 Atelectasis; Z85.51 Personal history of malignant neoplasm of bladder; F32.9 Major depressive disorder, single episode, unspecified; Y92.89 Other specified places as the place of occurrence of the external cause; Z86.16 Personal history of COVID-19

== ENCOUNTER 2023-08-08 13:05 | Inpatient (IN) ==
--- NOTE | 2023-08-08 13:36 | Emergency Department Note ---
Impression & Plan Slurred speech, Facial droop ED Provider Note Name: LIU BALLARD Age: 73 Sex: Female Arrives Via: Walk-In Informant: Patient & Friend (POA) ED Provider: Nakul Feng MD Chief Complaint: Speech difficulty Impression: As per impressions above Medical Decision Makin-year-old pleasant female arrives for evaluation of rapidly worsening of speech difficulty over the last 24 hours. She had already had a CT scan of the head this morning which was unremarkable. Symptoms ongoing for 24 hours thus is not a TNKase candidate and by exam does not have findings of large vessel occlusion. She does however clearly have speech difficulty she has a slight left facial droop and she has periodic choking which makes me concerned for aspiration risk. Workup otherwise relatively benign. No evidence of infection at this point. She had been on some antibiotics for cystitis I do not feel that this is consistent with UTI. My main suspicion is that the patient has had an acute stroke. She will need to come in for further workup and evaluation. She is on aspirin 81 mg daily currently. No concerns for missed doses at this point. Triage/Nursing Notes reviewed by Me Differential:Infection, dehydration, metabolic abnormality, hypo/hyperglycemia, electrolyte disturbance, anemia, hypoxia, cardiac sources, intracerebral event, toxicologic, neurologic, as well as other pathologies. Vital Signs: reviewed and remarkable for no significant abnormalities Interventions: held off on PO meds as she is aspiration risk Labs:ED labs Reviewed by me and remarkable for no significant abnormalities EKG:As per my interpretation. Indication stroke findings. Normal sinus rhythm at 80 bpm QTc of 454. There is no ectopy nor ischemia. Similar to EKG of September 05, 2022. Cardiac/Tele Monitoring: Cardiac Monitoring: An Order was placed for continuous cardiac monitoring. The monitor shows a rate of 70 with a normal sinus rhythm. Consults:Dr Doron PHILIPPE Hospitalist Plan: Disposition:Hospitalization. Condition: Good History of Present Illness: 73-year-old female arrives for evaluation of speech difficulty. Patient with slurred speech and difficulty saying words starting yesterday afternoon. It continued till this morning. PCP ordered CT head which was unremarkable. She was brought into the ER now as symptoms have persisted throughout the day. She also seems to be having trouble swallowing and seems to be coughing frequently. She is currently on an antibiotic for UTI. Patient denies any headache, neck pain, change in her normal strength of arms or legs. She is not having any chest pain, shortness of breath, abdominal pain, nausea, vomiting or other concerning signs or symptoms. Patient had a large stroke with extensive right-sided weakness about 5 years ago. She has improved significantly since then. Patient is on aspirin and 81 mg daily. She is currently on Cipro for cystitis. Patient had a cystoscopy about a week ago Past Medical History:See Below Home Medications:See Below Allergies:See Below Vitals:Blood Pressure: 136/79, Pulse 80, RR 20, T 36.0C, O2 93% on RA Physical Exam: GENERAL: Patient is well appearing and in no acute distress. RESPIRATORY: No dyspnea. Clear to auscultation and equal bilaterally. CARDIOVASCULAR: Regular rate and rhythm.No murmur appreciated. GASTROINTESTINAL: Abdomen soft, non-tender, no peritonitis. BACK: No midline tenderness, no CVA tenderness EXTREMITIES: Normal motion all extremities, no cyanosis, no edema. NEUROLOGIC: Awake looking on room responding to questions. She has mild weakness of her right arm and leg with some ataxia. She has a slight left facial weakness overcome with voluntary muscles. Patient has slurred jumbled speech which is difficult to understand. At times she seems to be choking when she tries to speak. SKIN: No rash, no jaundice, no diaphoresis. PSYCH: Appropriate GCS: 15 ED Course: Times/Reassessments: Stable and comfortable with plan for hospitalization Nakul Feng MD Past Med/Surg History Medical History (Updated 08/08/23 @ 20:24 by Nakul Feng MD) Cystitis Encounter for pre-operative examination Renal insufficiency DVT prophylaxis Bladder cancer Diabetes mellitus, type 2 History of COVID-19 Had both vaccines, but presented to [facility] 09/01/20 with weakness and tested + for COVID > resolved Glaucoma Anemia Hyperlipemia HTN (hypertension) Pancreatic cyst Neutropenia Encephalopathy Hx of recurrent urinary tract infection CVA (cerebral vascular accident) 2018 Retinopathy Depression Surgical History Hx of colonoscopy History of cystoscopy Transurethral Resection Bladder Tumor Hx of appendectomy Family History Father Diabetes Heart disease Hypertension Other Family history unknown Social History Smoking Status: Never smoker Second Hand Exposure: No; Do You Dip or Chew Tobacco: No; Hx Alcohol Use: No Hx Substance Use: No Preferred Language: Kiswahili Communication Ability: Effective Residential Leasing Agent Required: No Beliefs That Will Affect Care: None marital status: / Current Living Situation: Personal Care Facility Current Living Situation Comment: [facility] Feels Safe at Home: Yes Safety Concerns: Feels Safe At This Time Assistive Devices: Special Shoe, Walker and Wheelchair Allergies Allergies Allergy/AdvReac Type Severity Reaction Status Date / Time prednisone Allergy Mild ITCHING Verified 07/23/23 08:09 ampicillin AdvReac Mild Gastrointestinal Verified 07/23/23 08:09 Upset azithromycin AdvReac Mild Gastrointestinal Verified 07/23/23 08:09 Upset lisinopril AdvReac Mild Gastrointestinal Verified 07/23/23 08:09 Upset Home Meds Home Medications Medication Instructions Recorded Confirmed cholecalciferol (vitamin D3) 50 2,000 unit PO QAM 02/10/18 08/08/23 mcg (2,000 unit) capsule (Vitamin D3) cyanocobalamin (vitamin B-12) 500 1,000 mcg PO QAM 03/25/18 08/08/23 mcg tablet (Vitamin B-12) sitagliptin phosphate 100 mg 100 mg PO QAM 03/25/18 08/08/23 tablet (Januvia) amlodipine 2.5 mg tablet 2.5 mg PO QAM 09/01/20 08/08/23 aspirin 81 mg chewable tablet 81 mg PO QAM 09/01/20 08/08/23 bimatoprost 0.01 % eye drops 1 drp OPB HS 09/01/20 08/08/23 (Lumigan) ferrous sulfate 325 mg (65 mg 325 mg PO QAM 09/01/20 08/08/23 iron) tablet losartan 100 mg tablet 100 mg PO QAM 09/01/20 08/08/23 polyethylene glycol 3350 17 17 g PO DAILY PRN Constipation 09/01/20 08/08/23 gram/dose oral powder (Miralax) potassium chloride 10 mEq 10 meq PO BID 09/01/20 08/08/23 tablet,extended release fesoterodine 4 mg tablet,extended 4 mg PO QAM 10/04/20 08/08/23 release 24 hr (Toviaz) albuterol sulfate 90 mcg/actuation 2 puff inhalation QID PRN Wheezing 11/07/20 08/08/23 aerosol inhaler nystatin 100,000 unit/gram topical 1 applic topical DAILY PRN Rash 11/07/20 08/08/23 cream docusate sodium 100 mg capsule 100 mg PO DAILY PRN Constipation 07/23/23 08/08/23 (Colace) dorzolamide (PF) 2 % (PF) eye drops 2 drp ophthalmic (eye) TID 07/23/23 08/08/23 insulin glargine 100 unit/mL (3 12 unit subcut QPM 07/23/23 08/08/23 mL) subcutaneous pen (Basaglar KwikPen U-100 Insulin) ipratropium 0.5 mg-albuterol 3 mg 3 ml inhalation Q6H PRN Shortness 07/23/23 08/08/23 (2.5 mg base)/3 mL nebulization Of Breath Or Wheezing soln magnesium oxide 400 mg PO QPM 07/23/23 08/08/23 melatonin 3 mg capsule 3 mg PO HS 07/23/23 08/08/23 white petrolatum-mineral oil 94 1 applic ophthalmic (eye) HS 07/23/23 08/08/23 %-3 % eye ointment (Systane Nighttime) atorvastatin 40 mg tablet 40 mg PO HS 08/08/23 08/08/23 betamethasone dipropionate 0.05 % 1 applic topical DAILY PRN Itching 08/08/23 08/08/23 lotion cetirizine 10 mg tablet 10 mg PO DAILY 08/08/23 08/08/23 ciprofloxacin HCl 500 mg tablet 500 mg PO BID 08/08/23 08/08/23 citalopram 20 mg tablet 20 mg PO DAILY 08/08/23 08/08/23 hydrocortisone 2.5 % topical cream 1 applic topical DAILY PRN Itching 08/08/23 08/08/23 metformin 500 mg tablet 500 mg PO BID 08/08/23 08/08/23 Previous Rx's Medication Instructions Recorded ketoconazole 2 % shampoo 1 applic topical .COMPLEX #120 mL 08/08/22 Results & Data (ED) Vital Signs Vital Signs - 24 hr 08/08/23 13:14 08/08/23 13:37 08/08/23 13:51 Temperature 36.0 C L Temperature Source Temporal Artery Scan Pulse Rate 80 81 Pulse Rate [Finger] 79 Respiratory Rate 20 16 Respiratory Effort / Characteristics Non-Labored Spontaneous Non-Labored Respiratory Depth Normal Normal Blood Pressure 136/79 Blood Pressure [Right Arm] 140/89 Blood Pressure Mean 98 Blood Pressure Mean [Right Arm] 106 Pulse Oximetry 93 96 Oxygen Delivery Method Room Air Room Air Sepsis Recent Fever Within 48 Hours No Sepsis New/Unexplained Change in Mental Status N/A Sepsis Action Taken by Nursing No Action Required Laboratory Data 08/08/23 13:33 08/08/23 13:33 Lab Results 08/08/23 08/08/23 08/08/23 Range/Units 13:33 14:00 14:10 WBC 9.00 (4.8-10.8) K/ul RBC 4.66 (4.20-5.40) M/uL Hgb 13.7 (12.0-16.0) g/dl Hct 41.0 (37.0-47.0) % MCV 88.0 (80.0-100.0) fL MCH 29.4 (25.0-34.0) pg MCHC 33.4 (32.0-36.0) g/dL RDW Std Deviation 38.7 (36.4-46.3) fL RDW Coeff of [place] 12.1 (11.5-14.5) % Plt Count 254 (130-400) K/uL MPV 9.1 L (9.4-12.4) fL Immature Gran % (Auto) 0.3 % Neut % (Auto) 68.4 % Lymph % (Auto) 19.1 % [place] % (Auto) 6.3 % Eos % (Auto) 5.3 % Baso % (Auto) 0.6 % Neut # (Auto) 6.15 (1.40-6.50) K/uL Lymph # (Auto) 1.72 (1.20-3.40) K/uL [place] # (Auto) 0.57 (0.11-0.59) K/uL Eos # (Auto) 0.48 (0.00-0.50) K/uL Baso # (Auto) 0.05 (0.00-0.20) K/uL Immature Gran # (Auto) 0.03 (0.01-0.20) K/uL PT 10.9 (9.0-12.0) Seconds INR 1.0 (0.9-1.1) APTT 26 (21-31) Seconds PTT Ratio 0.9 Sodium 139 (136-145) mmol/L Potassium 3.9 (3.5-5.1) mmol/L Chloride 106 (98-107) mmol/L Carbon Dioxide 25 (21-32) mmol/L Anion Gap 8 (3-11) BUN 18 (6-23) mg/dl Creatinine 1.13 (0.6-1.2) mg/dl Est Cr Clr Drug Dosing 38.1 ml/min Est GFR ( Amer) 56.2 ml/min Est GFR (Non-Af Amer) 48.5 ml/min BUN/Creatinine Ratio 15.9 (10-20) Glucose 112 H (70-99(Fasting)) mg/dl Calcium 9.4 (8.6-10.3) mg/dl Magnesium 1.7 (1.7-2.4) mg/dl Total Bilirubin 0.7 (0.2-1.0) mg/dl AST 20 (13-39) U/L ALT 23 (7-52) U/L Alkaline Phosphatase 88 (34-104) U/L Troponin I High Sens 4.1 (0-14) pg/ml Total Protein 7.3 (6.0-8.3) gm/dl Albumin 4.3 (3.4-5.0) gm/dl Globulin 3.0 (2.5-4.0) gm/dl Albumin/Globulin Ratio 1.4 (0.9-2) Urine Color Yellow Urine Appearance Clear (Clear) Urine pH 6.0 (4.5-7.5) Ur Specific [place] 1.021 (1.000-1.030) Urine Protein Negative (Negative) Urine Glucose (UA) Negative (Negative) Urine Ketones Trace H (Negative) Urine Blood 1+ H (Negative) Urine Nitrite Negative (Negative) Urine Bilirubin Negative (Negative) Urine Urobilinogen Negative (Negative) Ur Leukocyte Esterase Trace H (Negative) Urine WBC (Auto) 5-10 H (0-5) /hpf Urine RBC (Auto) 5-10 H (0-4) /hpf U Hyaline Cast (Auto) 1-5 (0-5) /lpf U Epithel Cells (Auto) >30 H (0-5) /lpf Urine Bacteria (Auto) Negative (Negative) SARS-CoV-2, RNA, NAAT NEGATIVE (NEGATIVE) Administered Medications Lactated Ringer's (Lr) 1,000 mls @ 100 mls/hr IV .Q10H ROSY Stop: 09/07/23 15:59 Last Admin: 08/08/23 16:55 Dose: 100 mls/hr Documented By: LELA Insulin Aspart (Insulin Aspart Per Unit Charge) 0 units SC Q6 ROSY Stop: 09/07/23 17:59 Last Admin: 08/08/23 20:02 Dose: Not Given Documented By: PAH Discontinued Medications Aspirin (Aspirin 300 Mg Supp) 300 mg PA ONE ONE Stop: 08/08/23 15:15 Last Admin: 08/08/23 16:41 Dose: 300 mg Documented By: LELA Gadobutrol (Gadobutrol 65ml Vial) 6.2 ml IV ONCE ONE Stop: 08/08/23 19:08 Last Admin: 08/08/23 19:07 Dose: 6.2 ml Documented By: CECE Lactated Ringer's (Lr) 500 mls @ 999 mls/hr IV .Q31M ONE Stop: 08/08/23 16:06 Last Infusion: 08/08/23 17:05 Dose: Infused Documented By: Admin: 08/08/23 16:41 Dose: 999 mls/hr Documented By: LELA Cefepime HCl 2,000 mg/ Syringe 20 mls @ 5 mls/min IV NOW STA; Protocol Stop: 08/08/23 15:51 Last Admin: 08/08/23 16:55 Dose: 5 mls/min Documented By: LELA Ioversol (Optiray 320 125ml) 115 ml IV ONCE ONE Stop: 08/08/23 16:19 Last Admin: 08/08/23 16:18 Dose: 115 ml Documented By: NINI Imaging Data Radiologist's Impression: Chest X-Ray 08/08/23 13:32 XR chest 1V portable CLINICAL HISTORY: neuro deficit, acute stroke suspected TECHNIQUE: Single frontal radiograph of the chest was obtained. Comparison: Comparison is made to chest radiograph 09/05/2022 FINDINGS: No lines and tubes are seen. The cardiomediastinal silhouette is normal. The lungs are clear. No evidence of pleural effusion or pneumothorax. IMPRESSION: No acute chest disease. ACT 112: Negative or not required by law. Electronically signed by: Grzegorz Palmer M.D. 08/08/2023 2:29 PM Brain MRI 08/08/23 15:14 MR brain wo/w con CLINICAL HISTORY: CVA TECHNIQUE: Multiplanar and multisequence MR images of the brain were obtained prior to and following administration of gadolinium contrast. Comparison: Comparison is made to MRI brain 03/26/2018 FINDINGS: Restricted diffusion is seen in the right periventricular white matter. Foci of T2 and FLAIR hyperintensity are noted in the paraventricular areas consistent with chronic small vessel ischemic disease. Lacunar infarcts are seen in the bilateral insular cortex. The ventricular system is normal in appearance. No mass or abnormal enhancement is seen. There is no mass effect or midline shift. There is no evidence of acute intraparenchymal hemorrhage. No extra axial fluid collections are seen. The corpus callosum, pituitary gland, and cerebellar tonsils appear grossly unremarkable. Flow voids of the major intracranial arterial vessels are identified. The imaged portions of the paranasal sinuses, mastoid air cells, and orbits are unremarkable. IMPRESSION: Acute infarct in the right periventricular white matter. No evidence of hemorrhagic transformation. ACT 112: Negative or not required by law. Electronically signed by: Grzegorz Palmer M.D. 08/08/2023 7:47 PM Head CTA 08/08/23 15:14 CT angio neck with con, CT angio head w con CLINICAL HISTORY: CVA TECHNIQUE: CT angiography of the head and neck was performed following intravenous administration of iodinated contrast. Coronal and sagittal MIPS were obtained from the axial data set and were submitted for review. Automated dose lowering techniques and/or adjustment according to patient size were utilized for this examination. All measurements were calculated based on NASCET criteria. CT DOSE: 476.55 mGy.cm Comparison: Comparison is made to CTA head and neck 03/26/2018 FINDINGS: Lungs and soft tissues are unremarkable. CTA Neck: A 3 vessel aortic arch is shown. There is no significant atherosclerotic plaque in the aortic arch or the origins of the innominate, left common carotid, and left subclavian arteries. The common carotid, external carotid, cervical segments of the internal carotid arteries, and the cervical segments of the vertebral arteries are patent without hemodynamically significant stenosis. The left vertebral artery is dominant. CTA Head: The anterior and posterior cerebral circulations are patent. No hemodynamically significant stenosis, aneurysm, dissection, or arteriovenous malformation is shown. Incidental note is made of right-sided origin of the bilateral anterior cerebral arteries. There is approximately 50% stenosis of the supraclinoid left internal carotid artery. IMPRESSION: 1. No occlusion, hemodynamically significant stenosis, or dissection in the major cervical arteries. 2. No occlusion, hemodynamically significant stenosis, aneurysm, dissection, or arteriovenous malformation in the major intracranial arteries. 3. Additional findings as above. Assessment of stenosis of the internal carotid arteries is based on NASCET criteria. ACT 112: Negative or not required by law. Electronically signed by: Grzegorz Palmer M.D. 08/08/2023 4:41 PM Neck CTA 08/08/23 15:14 CT angio neck with con, CT angio head w con CLINICAL HISTORY: CVA TECHNIQUE: CT angiography of the head and neck was performed following intravenous administration of iodinated contrast. Coronal and sagittal MIPS were obtained from the axial data set and were submitted for review. Automated dose lowering techniques and/or adjustment according to patient size were utilized for this examination. All measurements were calculated based on NASCET criteria. CT DOSE: 476.55 mGy.cm Comparison: Comparison is made to CTA head and neck 03/26/2018 FINDINGS: Lungs and soft tissues are unremarkable. CTA Neck: A 3 vessel aortic arch is shown. There is no significant atherosclerotic plaque in the aortic arch or the origins of the innominate, left common carotid, and left subclavian arteries. The common carotid, external carotid, cervical segments of the internal carotid arteries, and the cervical segments of the vertebral arteries are patent without hemodynamically significant stenosis. The left vertebral artery is dominant. CTA Head: The anterior and posterior cerebral circulations are patent. No hemodynamically significant stenosis, aneurysm, dissection, or arteriovenous malformation is shown. Incidental note is made of right-sided origin of the bilateral anterior cerebral arteries. There is approximately 50% stenosis of the supraclinoid left internal carotid artery. IMPRESSION: 1. No occlusion, hemodynamically significant stenosis, or dissection in the major cervical arteries. 2. No occlusion, hemodynamically significant stenosis, aneurysm, dissection, or arteriovenous malformation in the major intracranial arteries. 3. Additional findings as above. Assessment of stenosis of the internal carotid arteries is based on NASCET criteria. ACT 112: Negative or not required by law. Electronically signed by: Grzegorz Palmer M.D. 08/08/2023 4:41 PM Discharge Plan Visit Data Chief Complaint: Neuro Symptoms/Deficit Stated Complaint: UNABLE TO SPEAK ED Provider: Nakul Feng Discharge Problem: Slurred speech, Facial droop Patient Disposition: Admitted As Inpatient Discharge Instructions Interventions: ED Discharge Assessment Last Done: 08/08/23 19:23
[2023-08-08 13:54] LABS: Basophils # (auto) 0.05 K/uL (0.00-0.20); Basophils % (auto) 0.6 %; Eosinophils # (auto) 0.48 K/uL (0.00-0.50); Eosinophils % (auto) 5.3 %; Hemoglobin 13.7 g/dl (12.0-16.0); Immature Granulocytes # (auto) 0.03 K/uL (0.01-0.20); Immature Granulocytes % (auto) 0.3 %; Lymphocytes # (auto) 1.72 K/uL (1.20-3.40); Lymphocytes % (auto) 19.1 %; Mean Corpuscular Hemoglobin 29.4 pg (25.0-34.0); Mean Corpuscular Hgb Conc 33.4 g/dL (32.0-36.0); Mean Platelet Volume 9.1 fL (9.4-12.4); Monocytes # (auto) 0.57 K/uL (0.11-0.59); Monocytes % (auto) 6.3 %; Neutrophils # (auto) 6.15 K/uL (1.40-6.50); Neutrophils % (auto) 68.4 %; Platelet Count 254 K/uL (130-400); RDW Coefficient of Variation 12.1 % (11.5-14.5); RDW Standard Deviation 38.7 fL (36.4-46.3); Red Blood Count 4.66 M/uL (4.20-5.40)
[2023-08-08 14:07] LABS: Albumin Globulin Ratio 1.4 (0.9-2); Albumin Level 4.3 gm/dl (3.4-5.0); BUN Creatinine Ratio 15.9 (10-20); Bilirubin,Total 0.7 mg/dl (0.2-1.0); Calcium 9.4 mg/dl (8.6-10.3); Creatinine Clr Calc Pharmacy 38.1 ml/min; Est GFR (African American) 56.2 ml/min; Est GFR (Non-African American) 48.5 ml/min; Magnesium 1.7 mg/dl (1.7-2.4); Potassium 3.9 mmol/L (3.5-5.1); Total Protein 7.3 gm/dl (6.0-8.3)
[2023-08-08 14:11] LABS: Troponin I High Sensitivity 4.1 pg/ml (0-14)
[2023-08-08 14:17] LABS: Partial Thromboplastin Ratio 0.9; Partial Thromboplastin Time 26 Seconds (21-31); Prothrombin Time 10.9 Seconds (9.0-12.0)
[2023-08-08 14:30] LABS: Appearance Urine Clear (Clear); Bacteria Urine Automated Negative (Negative); Bilirubin Urine Negative (Negative); Blood Urine 1+ (Negative); Color Urine Yellow; Epithelial Cell Urine Auto >30 /lpf (0-5); Glucose Urine UA Negative (Negative); Ketones Urine Trace (Negative); Leukocyte Esterase Urine Trace (Negative); Nitrite Urine Negative (Negative); Protein Urine Negative (Negative); Specific Gravity Urine 1.021 (1.000-1.030); Urobilinogen Urine Negative (Negative)
--- NOTE | 2023-08-08 14:30 | XRay Report ---
XR chest 1V portable CLINICAL HISTORY: neuro deficit, acute stroke suspected TECHNIQUE: Single frontal radiograph of the chest was obtained. Comparison: Comparison is made to chest radiograph 09/05/2022 FINDINGS: No lines and tubes are seen. The cardiomediastinal silhouette is normal. The lungs are clear. No evid ence of pleural effusion or pneumothorax. IMPRESSION: No acute chest disease. ACT 112: Negative or not required by law. Electronically signed by: Grzegorz Palmer M.D. 08/08/2023 2:29 PM
[2023-08-08] MEDS ORDERED: PHARMACIST DISCHARGE MED REC CONSULT PRN (15:14)
--- NOTE | 2023-08-08 15:15 | History & Physical Report ---
Date of Service August 08, 2023 Assessment & Plan (1) Stroke-like symptoms: Plan: -Admit to the PCU on tele and pulse oximetry -Currently stable and non-toxic appearing -Presented to the ED today for progressive slurred speech and difficulty swallowing which was noticed around 1:00 pm on 08/07/23 -Per her Medical POA, Sulema, the patient's previous baseline after her last CVA in 2018 was waxing cognition, right sided weakness with significant ambulatory dysfunction at baseline -Today the patient is presenting with slurred speech, difficulty swallowing, and new, left upper and lower extremity weakness compared to right -High suspicion for recurrent CVA or possible metastases from her hx of bladder cancer -While she was diagnosed with a UTI on 07/31, she did not have any of these symptoms until 08/06, do not think her UTI is causing her new symptoms today -CT of the head was negative for acute findings -Will obtain CTA of the head/neck, MRI of the brain w/wo con, and TTE for further evaluation -Strict NPO until evaluated by TAIL EDGER -Will allow for permissive HTN overnight -Will give 300 mg rectal aspirin now; will plan to continue with PO aspirin tomorrow -Fall/aspiration precautions -Incentive spirometry and cough assist ordered -SQ heparin for DVT PPX -AM CBC, CMP, mag, PT/INR, A1c, fasting lipid panel (2) UTI (urinary tract infection): Plan: -Patient had been receiving Augmentin at [facility] for UTI diagnosed on -Review of her Urine culture from 07/31 in our system shows her to be growing Pseudomonas -She has also grown Klebsiella in the past -Will start q12h Cefepime for now -Would try and confirm with [facility] how many days of abx she has received to determine need for ongoing treatment (3) Dyslipidemia: Plan: -Resume PO statin when able (4) CVA (cerebral vascular accident): Plan: -Previous CVA in 2018 -Follow stroke workup ordered on admission (5) Hypertension: Plan: -Stable -Will allow for permissive HTN overnight -Resume PO antihypertensives when clinically necessary and safe from a PO standpoint (6) Diabetes mellitus, type 2: Plan: -Monitor BAGS q6h, goal is 110-160 while NPO -Start CF 50 q6h while NPO -Normally takes 15 units HS lantus, will hold basal insulin for now as she is NPO (7) Bladder cancer: Plan: -Continue to follow with Urology on discharge Plan The patient was discussed with Dr. Sal at the time of the admission History of Present Illness Chief Complaint: Stroke-like symptoms Primary Care Provider: [facility] Krystal is a 73 year old female resident of [facility] with a PMH significant for previous CVA in 2018 with baseline right sided weakness, DMII, HTN, Depression, Bladder cancer S/P Transurethral Resection Bladder Tumor with Biopsy with Dr. Loo in 2021, and hyperlipidemia who presented to the [facility] ED with complaints of slurred speech and difficulty swallowing which began approximately 24 hours ago. She remained stable in the ED. Labs including CBC and CMP were unremarkable. The patient's UA appears to be improving compared to her UA on 07/31 when she was diagnosed with a UTI. CT of the head/brain wo con ordered this am by the PCP at [facility] was negative for acute findings. Chest xray was also read as negative for acute findings. We were asked to admit the patient for ongoing workup of her symptoms. At the time of the exam the patient was sitting in bed in no acute distress. Communication was difficult with the patient's current slurred speech and difficulty clearing secretions. She is currently alert and oriented to person, place, month, and year. States that the her slurred speech and swallowing diffic ulties started yesterday but cannot give me a time. She denies any new paresthesias or weakness in her extremities, fever, chills, chest pain, SOB, and pain, nausea, vomiting, diarrhea, dysuria hematuria, melena, and recent trauma. I was able to call and speak with her Friend/Medical POA, Sulema Mattson ([phone]). She states that she talks on the phone with the patient daily and visits her multiple times a week. She explains that since the patient's large stroke in 2018 the patient has had significant cognitive issues and right sided weakness. Sulema has been her medical POA since the last stroke in 2018. At baseline the patient has right sided weakness and significant mobility issues. She can ambulate small distances with the use of a walker and one person assist. She states that she spoke on the phone with patient yesterday around 1:00 pm and noticed that the patient's speech was slurred. She communicated her concerns to [facility] staff and called them multiple times yesterday for further workup as the patient's symptoms seemed to progress throughout the day. Sulema confirmed that Krystal is a full code at this time. She explains that the patient has been treated with Augmentin since 07/31 for UTI. Please refer to Dr. Sal' attestation for any changes to the treatment plan Allergies Allergy/AdvReac Type Severity Reaction Status Date / Time prednisone Allergy Mild ITCHING Verified 07/23/23 08:09 ampicillin AdvReac Mild Gastrointestinal Verified 07/23/23 08:09 Upset azithromycin AdvReac Mild Gastrointestinal Verified 07/23/23 08:09 Upset lisinopril AdvReac Mild Gastrointestinal Verified 07/23/23 08:09 Upset Home Medications Medication Instructions Recorded Confirmed Type cholecalciferol (vitamin D3) 50 2,000 unit PO QAM 02/10/18 08/08/23 History mcg (2,000 unit) capsule (Vitamin D3) cyanocobalamin (vitamin B-12) 500 1,000 mcg PO QAM 03/25/18 08/08/23 History mcg tablet (Vitamin B-12) sitagliptin phosphate 100 mg 100 mg PO QAM 03/25/18 08/08/23 History tablet (Januvia) amlodipine 2.5 mg tablet 2.5 mg PO QAM 09/01/20 08/08/23 History aspirin 81 mg chewable tablet 81 mg PO QAM 09/01/20 08/08/23 History bimatoprost 0.01 % eye drops 1 drp OPB HS 09/01/20 08/08/23 History (Lumigan) ferrous sulfate 325 mg (65 mg 325 mg PO QAM 09/01/20 08/08/23 History iron) tablet losartan 100 mg tablet 100 mg PO QAM 09/01/20 08/08/23 History polyethylene glycol 3350 17 17 g PO DAILY PRN Constipation 09/01/20 08/08/23 History gram/dose oral powder (Miralax) potassium chloride 10 mEq 10 meq PO BID 09/01/20 08/08/23 History tablet,extended release fesoterodine 4 mg tablet,extended 4 mg PO QAM 10/04/20 08/08/23 History release 24 hr (Toviaz) albuterol sulfate 90 mcg/actuation 2 puff inhalation QID PRN Wheezing 11/07/20 08/08/23 History aerosol inhaler nystatin 100,000 unit/gram topical 1 applic topical DAILY PRN Rash 11/07/20 08/08/23 History cream ketoconazole 2 % shampoo 1 applic topical .COMPLEX #120 mL 08/08/22 08/08/23 Rx docusate sodium 100 mg capsule 100 mg PO DAILY PRN Constipation 07/23/23 08/08/23 History (Colace) dorzolamide (PF) 2 % (PF) eye drops 2 drp ophthalmic (eye) TID 07/23/23 08/08/23 History insulin glargine 100 unit/mL (3 12 unit subcut QPM 07/23/23 08/08/23 History mL) subcutaneous pen (Basaglar KwikPen U-100 Insulin) ipratropium 0.5 mg-albuterol 3 mg 3 ml inhalation Q6H PRN Shortness 07/23/23 08/08/23 History (2.5 mg base)/3 mL nebulization Of Breath Or Wheezing soln magnesium oxide 400 mg PO QPM 07/23/23 08/08/23 History melatonin 3 mg capsule 3 mg PO HS 07/23/23 08/08/23 History white petrolatum-mineral oil 94 1 applic ophthalmic (eye) HS 07/23/23 08/08/23 History %-3 % eye ointment (Systane Nighttime) atorvastatin 40 mg tablet 40 mg PO HS 08/08/23 08/08/23 History betamethasone dipropionate 0.05 % 1 applic topical DAILY PRN Itching 08/08/23 08/08/23 History lotion cetirizine 10 mg tablet 10 mg PO DAILY 08/08/23 08/08/23 History ciprofloxacin HCl 500 mg tablet 500 mg PO BID 08/08/23 08/08/23 History citalopram 20 mg tablet 20 mg PO DAILY 08/08/23 08/08/23 History hydrocortisone 2.5 % topical cream 1 applic topical DAILY PRN Itching 08/08/23 08/08/23 History metformin 500 mg tablet 500 mg PO BID 08/08/23 08/08/23 History Past Med/Surg History Medical History (Updated 08/08/23 @ 16:10 by Cj Turner PA-C) Cystitis Encounter for pre-operative examination Renal insufficiency DVT prophylaxis Bladder cancer Diabetes mellitus, type 2 History of COVID-19 Had both vaccines, but presented to [facility] 09/01/20 with weakness and tested + for COVID > resolved Glaucoma Anemia Hyperlipemia HTN (hypertension) Pancreatic cyst Neutropenia Encephalopathy Hx of recurrent urinary tract infection CVA (cerebral vascular accident) 2018 Retinopathy Depression Surgical History Hx of colonoscopy History of cystoscopy Transurethral Resection Bladder Tumor Hx of appendectomy Family History Father Diabetes Heart disease Hypertension Other Family history unknown Social History Smoking Status: Former smoker Second Hand Exposure: No; Do You Dip or Chew Tobacco: No; Hx Alcohol Use: No Hx Substance Use: No Preferred Language: Nepali Communication Ability: Impaired 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 Required: No Beliefs That Will Affect Care: None marital status: / Current Living Situation: Personal Care Facility Current Living Situation Comment: [facility] Feels Safe at Home: Yes Assistive Devices: Walker Physical Exam Physical Exam: Physical Exam: General: In no acute distress, stated age, chronically ill appearing but non- toxic HEENT: Baseline right sided facial droop noted, no scleral icterus, pupils around round, symmetrical, and reactive to light, moist mucus membranes, tongue deviates slightly to the right when sticking out during CN exam, no abnormalities noted in the oropharynx on inspection, no swelling of the tongue or throat, trachea midline, no thyromegaly Chest/Pulm: No respiratory distress, symmetrical chest expansion, clear breath sounds throughout Cardiac: RRR, no murmurs noted Abdomen: Negative for ascites and bruising, normoactive bowel sounds, soft, non-tender to palpation throughout Musculoskeletal: Symmetrical and without signs of acute trauma, able to voluntarily move both upper extremities but with weakness BL Extremities: Radial, dorsalis pedis, and posterior tibial pulses are intact and symmetrical, no edema noted in the BL LE's Skin: Warm, dry, no rashes , lesions, or scars noted Neuro: Alert and oriented to person, place, month, year, CN II-XII tested slight right facial droop and tongue deviation to the right, otherwise WNL, patient with new left sided upper extremity weakness/coordination issues on cerebellar testing and pronator drift compared to right (right side is normally weaker since last CVA), LLE currently more weak than RLE which is new as well Psych: No acute distress, calm and cooperative during the exam Results & Data Results & Data Vital Signs (Past 12 Hours) Vital Signs Temp Pulse Pulse Resp BP BP Pulse Ox 08/08/23 13:51 79 16 140/89 96 08/08/23 13:37 81 08/08/23 13:14 36.0 C L 80 20 136/79 93 O2 Del Method 08/08/23 13:51 Room Air 08/08/23 13:37 08/08/23 13:14 Room Air Laboratory Results Abnormal lab results 08/08/23 08/08/23 Range/Units 13:33 14:00 MPV 9.1 L (9.4-12.4) fL Glucose 112 H (70-99(Fasting)) mg/dl Urine Ketones Trace H (Negative) Urine Blood 1+ H (Negative) Ur Leukocyte Esterase Trace H (Negative) Urine WBC (Auto) 5-10 H (0-5) /hpf Urine RBC (Auto) 5-10 H (0-4) /hpf U Epithel Cells (Auto) >30 H (0-5) /lpf Diagnostic Findings Chest X-Ray 08/08/23 13:32 XR chest 1V portable CLINICAL HISTORY: neuro deficit, acute stroke suspected TECHNIQUE: Single frontal radiograph of the chest was obtained. Comparison: Comparison is made to chest radiograph 09/05/2022 FINDINGS: No lines and tubes are seen. The cardiomediastinal silhouette is normal. The lungs are clear. No evidence of pleural effusion or pneumothorax. IMPRESSION: No acute chest disease. ACT 112: Negative or not required by law. Electronically signed by: Grzegorz Palmer M.D. 08/08/2023 2:29 PM ECG Additional Comments: Normal sinus rhythm Left axis deviation Low voltage QRS Cannot rule out Anterior infarct (cited on or before 08-AUG-2023) Abnormal ECG When compared with ECG of 05-SEP-2022 15:08, Nonspecific T wave abnormality has replaced inverted T waves in Inferior leads Code Status & VTE Plan Code Status Full code VTE Prophylaxis Plan VTE Prophylaxis will be ordered: Yes Supervising Physician Co-Signing Physician Notes I have personally seen, evaluated and examined the patient. I have also personally discussed the management of the patient with the resident physician/CEE and I agree with the exam findings documented in the history and physical examination and the documented assessment and plan unless otherwise stated below. Brief Exam: In general is a pleasant 74-year-old female she is alert and oriented. Patient is having obvious dysarthria. However she can comprehend significantly with communication her speech is slurred but intelligible. HEENT does appear she has some mild left-sided facial droop on my exam her tongue protrudes in the midline. Heart: Regular rate and rhythm I do not appreciate a tory murmur. She is undergoing echocardiogram at the time of my evaluation. Lungs: Relatively clear bilaterally. Not appreciate any adventitious sounds. Abdomen: Protuberant soft and nontender positive bowel sounds. Extremities: Intact I do not appreciate any clubbing cyanosis or significant edema. She does not report that she is right-hand dominant. She has chronic right sided weakness from an old CVA. However today she has left-sided weakness of the left upper and lower extremity compared to the right. I will bring her 4 out of 5 in her left extremities compared to 4+ out of 5 in her right. It appears she does have some degree of pronator drift as well exam is somewhat difficult again undergoing echocardiogram at the time of my evaluation. Neurologically: As discussed above. Consistent with a probable acute CVA. Assessment/plan: As described above. Stroke protocol. CTA stat. MRI with and without contrast given her history of malignancy. Please refer to orders for further planning. 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
[2023-08-08] MEDS ORDERED: GLUCOSE 40% GEL 15 GM TUBE PO PRN (15:48)
[2023-08-08] MEDS ORDERED: CARBOHYDRATES FOR HYPOGLYCEMIA PO PRN (15:48)
[2023-08-08] MEDS ORDERED: GLUCOSE 10 TAB/TUBE PO PRN (15:48)
[2023-08-08] MEDS ORDERED: GLUCAGON FOR INJ 1 MG VIAL SQ PRN (15:48)
[2023-08-08] MEDS ORDERED: DEXTROSE 50% 50 ML SYRINGE IV PRN (15:48)
[2023-08-08] MEDS ORDERED: ACETAMINOPHEN 1,000 MG/100 ML VIAL IV PRN (15:51)
[2023-08-08] MEDS: OPTIRAY 320 125ml IV ONE (16:18)
--- NOTE | 2023-08-08 16:35 | Electrocardiogram Report ---
Test Reason : Blood Pressure : / mmHG Vent. Rate : 080 BPM Atrial Rate : 080 BPM P-R Int : 190 ms QRS Dur : 086 ms QT Int : 394 ms P-R-T Axes : 032 -66 -13 degrees QTc Int : 454 ms Normal sinus rhythm Left axis deviation Low voltage QRS Poor R wave progression, consider anterior SD vs. lead placement vs. LVH Diffuse Nonspecific T wave abnormality Abnormal ECG When compared with ECG of 05-SEP-2022 15:08, No significant change Confirmed by Poncho Rivera ([id number]) on 08/08/2023 4:35:17 PM Referred By: Confirmed By:Poncho Rivera
[2023-08-08] MEDS: ASPIRIN 300 MG SUPP PR ONE (16:41)
[2023-08-08] MEDS: LACTATED RINGER'S 500 ML IV ONE (16:41)
--- NOTE | 2023-08-08 16:42 | CT Scan Report ---
CT angio neck with con, CT angio head w con CLINICAL HISTORY: CVA TECHNIQUE: CT angiography of the head and neck was performed following intravenous administration of iodinated contrast. Coronal and sagittal MIPS were obtained from the axial data set and were submitt ed for review. Automated dose lowering techniques and/or adjustment according to patient size were u tilized for this examination. All measurements were calculated based on NASCET criteria. CT DOSE: 476.55 mGy.cm Comparison: Comparison is made to CTA head and neck 03/26/2018 FINDINGS: Lungs and soft tissues are unremarkable. CTA Neck: A 3 vessel aortic arch is shown. There is no significant atherosclerotic plaque in the aor tic arch or the origins of the innominate, left common carotid, and left subclavian arteries. The co mmon carotid, external carotid, cervical segments of the internal carotid arteries, and the cervical segments of the vertebral arteries are patent without hemodynamically significant stenosis. The left vertebral artery is dominant. CTA Head: The anterior and posterior cerebral circulations are patent. No hemodynamically significan t stenosis, aneurysm, dissection, or arteriovenous malformation is shown. Incidental note is made of right-sided origin of the bilateral anterior cerebral arteries. There is approximately 50% stenosis o f the supraclinoid left internal carotid artery. IMPRESSION: 1. No occlusion, hemodynamically significant stenosis, or dissection in the major cervical arteries. 2. No occlusion, hemodynamically significant stenosis, aneurysm, dissection, or arteriovenous malfor mation in the major intracranial arteries. 3. Additional findings as above. Assessment of stenosis of the internal carotid arteries is based on NASCET criteria. ACT 112: Negative or not required by law. Electronically signed by: Grzegorz Palmer M.D. 08/08/2023 4:41 PM
[2023-08-08] MEDS: CEFEPIME 2,000 MG in SYRINGE 0 ML IV STA (16:55)
[2023-08-08] MEDS: LACTATED RINGER'S 1,000 ML IV SCH (16:55)
--- NOTE | 2023-08-08 17:01 | XCELERA ---
[id number]
[2023-08-08] MEDS: GADOBUTROL 65ML VIAL IV ONE (19:07)
--- NOTE | 2023-08-08 19:50 | Magnetic Resonance Report ---
MR brain wo/w con CLINICAL HISTORY: CVA TECHNIQUE: Multiplanar and multisequence MR images of the brain were obtained prior to and following administration of gadolinium contrast. Comparison: Comparison is made to MRI brain 03/26/2018 FINDINGS: Restricted diffusion is seen in the right periventricular white matter. Foci of T2 and FLAIR hyperint ensity are noted in the paraventricular areas consistent with chronic small vessel ischemic disease. Lacunar infarcts are seen in the bilateral insular cortex. The ventricular system is normal in appear ance. No mass or abnormal enhancement is seen. There is no mass effect or midline shift. There is no evidence of acute intraparenchymal hemorrhage. No extra axial fluid collections are seen. The corpus callosum, pituitary gland, and cerebellar tonsils appear grossly unremarkable. Flow voids of the major intracranial arterial vessels are identified. The imaged portions of the para nasal sinuses, mastoid air cells, and orbits are unremarkable. IMPRESSION: Acute infarct in the right periventricular white matter. No evidence of hemorrhagic transformation. ACT 112: Negative or not required by law. Electronically signed by: Grzegorz Palmer M.D. 08/08/2023 7:47 PM
[2023-08-08] MEDS: INSULIN ASPART PER UNIT CHARGE SC SCH (20:02)
[2023-08-08] MEDS: HEPARIN SOD 5,000 UNIT/0.5 ML VIAL SQ SCH (21:32)
[2023-08-09] MEDS: CEFEPIME 2,000 MG in SYRINGE 0 ML IV SCH (03:33)
[2023-08-09 06:58] LABS: Basophils # (auto) 0.01 K/uL (0.00-0.20); Basophils % (auto) 0.1 %; Eosinophils # (auto) 0.48 K/uL (0.00-0.50); Eosinophils % (auto) 4.7 %; Hematocrit (blood only) 40.6 % (37.0-47.0); Hemoglobin 13.2 g/dl (12.0-16.0); Immature Granulocytes # (auto) 0.04 K/uL (0.01-0.20); Immature Granulocytes % (auto) 0.4 %; Lymphocytes # (auto) 0.69 K/uL (1.20-3.40); Lymphocytes % (auto) 6.8 %; Mean Corpuscular Hemoglobin 28.3 pg (25.0-34.0); Mean Corpuscular Hgb Conc 32.5 g/dL (32.0-36.0); Mean Corpuscular Volume 86.9 fL (80.0-100.0); Mean Platelet Volume 8.9 fL (9.4-12.4); Monocytes # (auto) 0.33 K/uL (0.11-0.59); Monocytes % (auto) 3.3 %; Neutrophils # (auto) 8.57 K/uL (1.40-6.50); Neutrophils % (auto) 84.7 %; Platelet Count 234 K/uL (130-400); RDW Coefficient of Variation 12.3 % (11.5-14.5); RDW Standard Deviation 39.2 fL (36.4-46.3); Red Blood Count 4.67 M/uL (4.20-5.40); White Blood Count 10.12 K/ul (4.8-10.8)
[2023-08-09 07:14] LABS: Estimated Average Glucose 146 mg/dl; Hemoglobin A1C 6.7 % (4.5-5.6)
[2023-08-09 07:25] LABS: Albumin Globulin Ratio 1.6 (0.9-2); Albumin Level 3.8 gm/dl (3.4-5.0); BUN Creatinine Ratio 15.4 (10-20); Calcium 8.9 mg/dl (8.6-10.3); Chol HDL Ratio 2.5 (0-5); Creatinine Clr Calc Pharmacy 46.1 ml/min; Est GFR (African American) 62.2 ml/min; Est GFR (Non-African American) 53.6 ml/min; Globulin 2.4 gm/dl (2.5-4.0); Magnesium 1.5 mg/dl (1.7-2.4); Potassium 3.7 mmol/L (3.5-5.1); Total Protein 6.2 gm/dl (6.0-8.3)
[2023-08-09 07:39] LABS: Thyroid Stimulating Hormone 1.44 uIu/ml (0.300-4.500)
[2023-08-09] MEDS: ONDANSETRON INJ 2 MG/ML 2 ML VIAL IV PRN (09:02)
[2023-08-09] MEDS: ASPIRIN 81 MG ECTAB PO SCH (09:03)
[2023-08-09] MEDS: ATORVASTATIN 40 MG TAB PO SCH (09:03)
--- NOTE | 2023-08-09 10:27 | Hospitalist Progress Note ---
Date of Service August 09, 2023 Assessment & Plan (1) Stroke-like symptoms: (2) UTI (urinary tract infection): (3) Dyslipidemia: (4) CVA (cerebral vascular accident): (5) Hypertension: (6) Diabetes mellitus, type 2: (7) Bladder cancer: Plan 73 year old female resident of [facility] with a PMH significant for previous CVA in 2018 with baseline right sided weakness, DMII, HTN, Depression, Bladder cancer S/P Transurethral Resection Bladder Tumor with Biopsy with Dr. Mini lyons in 2021, and hyperlipidemia who presented with complaints of slurred speech and difficulty swallowing. #Stroke - H/o stroke in 2018 with residual right-sided weakness and cognitive changes - MRI demonstrated acute right sided periventricular white matter infarct, CTA without significant ischemia - Total cholesterol 116, LDL 52 - continue Atorvastatin 40mg daily - A1c 6.7 - BP appears well-managed, continue home meds - Start DAPT (ASA + Plavix) x 21 days, then Plavix daily - s/p speech therapy evaluation, diet resumed - PT/OT eval and treat #UTI: - Previous urine cx +pseudomonas - Attempted to contact [facility] re: outpatient treatment, left voicemail - Continue Cefepime #HLD: - Continue Atorvastatin 40mg daily #HTN: - Outside of permissive HTN window, resume oral antihypertensives #DM2: - Hold home meds. A1c 6.7. - Insulin sliding scale FEN: HH, DM2 Dispo: pending PT/OT eval, anticipate need for rehab VTE ppx: SQ Heparin Admission and Anticipated Discharge Date Admission Date: August 08, 2023 Supervising Physician Co-Signing Physician Notes Attending Physician Supervision Note: I independently interviewed and examined the patient and verified the ramirez history and physical, reviewed labs and image studies and agree with findings and care plan noted above. Subjective Patient evaluated at bedside this AM, in no apparent distress but with very apparent dysarthria. Replies are limited to a few words but patient articulates that she is not in pain, notes that left side extremities feel weaker in addition to difficulty speaking. Denies CP, SOB. Discussed care of patient with NITA Mattson, all questions answered. Review of Systems Review of Systems: as per HPI Physical Exam Physical Exam: General: Alert and oriented. No acute distress Cardiac: Regular rate and rhythm, no murmurs appreciated Respiratory: Lungs clear to auscultation bilaterally, No increased work of breathing Abdominal: non-tender, non-distended. Neuro: AOx3, strength testing more or less symmetrical bilaterally compared to baseline right sided weakness. +dysarthria. 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
--- NOTE | 2023-08-09 10:31 | Neurology Consultation ---
Date of Consultation August 09, 2023 Assessment & Plan (1) Acute CVA (cerebrovascular accident): (2) Hemiparesis affecting dominant side as late effect of cerebrovascular accident: (3) Dysarthria: Plan This patient had a small left periventricular white matter stroke in March 2018 resulting in some right hemiparesis, gait issues and dysarthria. She has a new acute stroke in the right periventricular white matter resulting in worsening dysarthria and some left arm greater than face weakness. She has multiple risk factors for stroke including hypertension, diabetes, dyslipidemia, and was a former cigarette smoker Interestingly, she had some stenosis of intracranial and carotid vessels noted in 2018 with no significant stenosis by CTA of the head and neck performed August 07 Recommendations: 1. Recommend dual platelet therapy with 81 mg aspirin +75 mg clopidogrel daily for 3 weeks then clopidogrel 75 mg daily alone. 2. Speech, occupational, and physical therapy consults. Increase activity as able 3. Blood pressure is adequately controlled 4. Control glucose as you are doing aiming for hemoglobin A1c of around 6 5. Given her current lipid parameters (total cholesterol less than 120 and triglycerides 85), I would recommend keeping atorvastatin 40 mg daily and not putting her on high-dose atorvastatin. Overall, I spent a total of 90 minutes with this case including review of records, review of CT and MRI films, direct evaluation the patient at bedside, report generation, and discussion of the case with the patient and RN at bedside, speech therapy, and Dr. Bhatt, including differential diagnosis and treatment options. History of Present Illness Reason for Consultation: Patient is a 73-year-old, who I was asked to see at the request of Cj Turner PA-C, for neurologic consultation regarding stroke. Requesting Physician: Cj Turner PA-C Attending Physician: Sri Samson MD History of Present Illness This patient has a history of hypertension on losartan, type 2 diabetes on insulin, dyslipidemia on atorvastatin 40 mg, and depression on citalopram 20. In March 2018 the patient was admitted with right hemiparesis and dysarthria. MRI showed a relatively small left periventricular white matter acute stroke. She was on dual antiplatelet therapy and then eventually switched over to aspirin alone. 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 The patient has been living at [facility], assisted living and apparently still has trouble ambulating requiring a wheelchair. She has right-sided weakness and dysarthria as a baseline. She recently had a urinary tract infection and was put on Cipro. In the afternoon of August 06 she apparently had increased slurred speech and word finding problems and there was a concern of the left facial droop. CT scan of the head, in the morning of August 07 was unremarkable. Because of persistent symptoms she was sent to the emergency room. She arrived at [id number] 07 with a temperature of 36.0, pulse 80s and regular, respiratory rate 20, blood pressure 136/79, and O2 saturation 93%. She was dysarthric with some trouble swallowing and coughing. The left facial droop was noted chest x-ray was unremarkable. CBC and CHEM profile were unremarkable as was a urinalysis. CT angiography of the head and neck were described as normal with no significant stenoses or vascular abnormalities. MRI of the brain showed a right periventricular acute stroke of a small nature. It is almost mirror-image location from the previous stroke of 2018 (on the opposite side). The patient had mild generalized atrophy and mild to moderate old small vessel ischemic disease. I reviewed these films. Echocardiogram revealed mild left ventricular hypertrophy and moderate right ventricular hypertrophy Today CBC and CHEM profile were unremarkable, hemoglobin A1c was 6.7, triglycerides 85 and total cholesterol 116. Patient has no complaint of pain or headache. She is not dizzy and has no vision problems. There is no new weakness or numbness of the limbs as far she i s concerned. Nursing reports no new issues overnight but she has significant dysarthria. Speech therapy was in the room and the patient was handling liquids and solids fairly well. Her diet has been advanced. Blood pressure this morning is 119/74 and she is afebrile Allergies Allergy/AdvReac Type Severity Reaction Status Date / Time prednisone Allergy Mild ITCHING Verified 07/23/23 08:09 ampicillin AdvReac Mild Gastrointestinal Verified 07/23/23 08:09 Upset azithromycin AdvReac Mild Gastrointestinal Verified 07/23/23 08:09 Upset lisinopril AdvReac Mild Gastrointestinal Verified 07/23/23 08:09 Upset Home Medications Medication Instructions Recorded Confirmed Type cholecalciferol (vitamin D3) 50 2,000 unit PO QAM 02/10/18 08/08/23 History mcg (2,000 unit) capsule (Vitamin D3) cyanocobalamin (vitamin B-12) 500 1,000 mcg PO QAM 03/25/18 08/08/23 History mcg tablet (Vitamin B-12) sitagliptin phosphate 100 mg 100 mg PO QAM 03/25/18 08/08/23 History tablet (Januvia) amlodipine 2.5 mg tablet 2.5 mg PO QAM 09/01/20 08/08/23 History aspirin 81 mg chewable tablet 81 mg PO QAM 09/01/20 08/08/23 History bimatoprost 0.01 % eye drops 1 drp OPB HS 09/01/20 08/08/23 History (Lumigan) ferrous sulfate 325 mg (65 mg 325 mg PO QAM 09/01/20 08/08/23 History iron) tablet losartan 100 mg tablet 100 mg PO QAM 09/01/20 08/08/23 History polyethylene glycol 3350 17 17 g PO DAILY PRN Constipation 09/01/20 08/08/23 History gram/dose oral powder (Miralax) potassium chloride 10 mEq 10 meq PO BID 09/01/20 08/08/23 History tablet,extended release fesoterodine 4 mg tablet,extended 4 mg PO QAM 10/04/20 08/08/23 History release 24 hr (Toviaz) albuterol sulfate 90 mcg/actuation 2 puff inhalation QID PRN Wheezing 11/07/20 08/08/23 History aerosol inhaler nystatin 100,000 unit/gram topical 1 applic topical DAILY PRN Rash 11/07/20 08/08/23 History cream ketoconazole 2 % shampoo 1 applic topical .COMPLEX #120 mL 08/08/22 08/08/23 Rx docusate sodium 100 mg capsule 100 mg PO DAILY PRN Constipation 07/23/23 08/08/23 History (Colace) dorzolamide (PF) 2 % (PF) eye drops 2 drp ophthalmic (eye) TID 07/23/23 08/08/23 History insulin glargine 100 unit/mL (3 12 unit subcut QPM 07/23/23 08/08/23 History mL) subcutaneous pen (Moo Serna U-100 Insulin) ipratropium 0.5 mg-albuterol 3 mg 3 ml inhalation Q6H PRN Shortness 07/23/23 08/08/23 History (2.5 mg base)/3 mL nebulization Of Breath Or Wheezing soln magnesium oxide 400 mg PO QPM 07/23/23 08/08/23 History melatonin 3 mg capsule 3 mg PO HS 07/23/23 08/08/23 History white petrolatum-mineral oil 94 1 applic ophthalmic (eye) HS 07/23/23 08/08/23 History %-3 % eye ointment (Systane Nighttime) atorvastatin 40 mg tablet 40 mg PO HS 08/08/23 08/08/23 History betamethasone dipropionate 0.05 % 1 applic topical DAILY PRN Itching 08/08/23 08/08/23 History lotion cetirizine 10 mg tablet 10 mg PO DAILY 08/08/23 08/08/23 History ciprofloxacin HCl 500 mg tablet 500 mg PO BID 08/08/23 08/08/23 History citalopram 20 mg tablet 20 mg PO DAILY 08/08/23 08/08/23 History hydrocortisone 2.5 % topical cream 1 applic topical DAILY PRN Itching 08/08/23 08/08/23 History metformin 500 mg tablet 500 mg PO BID 08/08/23 08/08/23 History Patient History Medical History Cystitis Encounter for pre-operative examination Renal insufficiency DVT prophylaxis Bladder cancer Diabetes mellitus, type 2 History of COVID-19 Had both vaccines, but presented to [facility] 09/01/20 with weakness and tested + for COVID > resolved Glaucoma Anemia Hyperlipemia HTN (hypertension) Pancreatic cyst Neutropenia Encephalopathy Hx of recurrent urinary tract infection CVA (cerebral vascular accident) 2018 Retinopathy Depression Surgical History Hx of colonoscopy History of cystoscopy Transurethral Resection Bladder Tumor Hx of appendectomy Family History Father Diabetes Heart disease Hypertension Other Family history unknown Social History (Updated 08/09/23 @ 10:16 by Devonte Shaw MD) Smoking Status: Former smoker Tobacco Type: Cigarettes Age Started Using Tobacco: 21; Age Quit Using Tobacco: 31; Second Hand Exposure: No; Do You Dip or Chew Tobacco: No; Hx Alcohol Use: No Hx Substance Use: No Preferred Language: Jordanian Communication Ability: Impaired Silo Filler Required: No Beliefs That Will Affect Care: None marital status: / Current Living Situation: Personal Care Facility Current Living Situation Comment: [facility] current occupational status: retired and disabled Feels Safe at Home: Yes Safety Concerns: Feels Safe At This Time Assistive Devices: Walker and Wheelchair Review of Systems Constitutional: no fever, no fatigue and no weakness Eyes: no diplopia, no eye pain and no worsening vision Ear, Nose, Mouth, Throat: no ear pain, no tinnitus, no hearing loss, no dizziness, no snoring, no hoarseness and no dysphagia Respiratory: no cough and no dyspnea Cardiovascular: no chest pain, no palpitations and no lightheadedness Gastrointestinal: no abdominal pain, no nausea and no vomiting Genitourinary: no dysuria, no urinary frequency and no urinary incontinence Musculoskeletal: no back pain, no neck pain, no radicular pain, no joint pain and no myalgia Integumentary: no rash and no lesions Neurologic: + gait abnormality and + abnormal speech ; no localized weakness, no generalized weakness, no tingling, no numbness, no tremor(s), no abnormal movements, no headache(s), no confusion and no memory loss Psychiatric: no depression, no irritability, no anxiety, no difficulty concentrating, no confusion and no hallucinations Endocrine: no fatigue and no flushing Hematologic / Lymphatic: no easy bleeding and no easy bruising Allergy / Immunological: no urticaria and no problem reported Exam (Neuro) Physical Exam: The patient is right-handed. The patient is awake, alert, and attentive. Speech is not obvious and significant dysarthria. She understands and follows commands well. Mentation and thought processes seem intact, with full orientation. Mood and affect are normal and appropriate. Appearance and grooming are normal. Although I cannot exclude a mild form of expressive aphasia she actually can name objects and colors and identify objects. Pupils are 4 mm bilaterally and reactive to light. Extraocular eye muscles are intact without nystagmus. Visual acuity and visual lucas seem normal grossly to confrontation. There are no deficits to sensation in the face in all 3 distributions of the fifth cranial nerve bilaterally. Corneal reflexes are positive bilaterally. There is very mild asymmetry at the corner of the mouth on the left being a droop compared to the right which is normal. It moves well with voluntary smile. Hearing seems intact grossly to voice and finger rub bilaterally. Palate moves well without asymmetry. There is normal sternocleidomastoid and trapezius strength bilaterally. Tongue is midline with good strength bilaterally. Neck has a full range of motion without discomfort. There are no cervical bruits bilaterally. There are no cranial or ocular bruits. Heart is without murmur. There is a regular rhythm and rate. Cervical, thoracic, and lumbar spine are nontender to palpation. Gait was not tested. Stance sitting up in bed is reasonable. With outstretched arms there is no drift. There are no resting, postural, or action tremors. There is no ataxia with finger to nose testing. There is good facility in the hands. No other abnormal involuntary movements are noted. Motor strength is essentially 5/5 diffusely in the right upper extremity proximally and distally. Left upper extremity is 4/5 proximally and close siuta 5/5 distally. Leg strength is 4+/5 bilaterally. The limbs have good tone without rigidity or spasticity. There is no atrophy noted in the muscles. Muscle bulk is normal, there is no tenderness to palpation, no myotonia to percussion, and no fasciculations seen. Sensory examination is intact to touch and pin throughout all 4 limbs diffusely. Reflexes are 2/4 in the biceps, triceps, brachioradialis, and quadriceps tendons bilaterally. Achilles tendon reflexes are absent on the right and 1/4 on the left. Toes are downgoing with plantar stimulation on the left and upgoing on the right. Peripheral pulses are present and of normal quality distally in all 4 limbs. There is no peripheral edema noted in the limbs. Results & Data Vital Signs (Past 12 Hours) Vital Signs Temp Pulse Resp BP Pulse Ox O2 Del Method 08/09/23 08:37 36.8 C 83 18 119/74 94 Room Air 08/09/23 03:32 36.6 C 77 20 119/77 97 Room Air 08/08/23 23:45 36.5 C 73 20 122/80 93 Room Air PG Care Time/CCT Total # of Minutes Spent Total Time Spent with Patient: Total time spent is greater than 50% in coordination of care (as documented) at patient's floor/unit and/or counseling patient: Coding Level of Care Code 03596 INT INP/OBS CARE MIN Diagnoses Acute CVA (cerebrovascular accident) I63.9 Hemiparesis affecting dominant side as late effect of cerebrovascular accident I69.359 Dysarthria R47.1 Time Spent (min) 90
--- NOTE | 2023-08-09 11:18 | Pharmacy Report ---
- Date of Service August 09, 2023 - Pharmacy CVA/TIA Medication Review Medications to Prevent Stroke handout has been added to the patients discharge packet. Antiplatelet(s) * Aspirin 81 mg daily * Plavix 75 mg daily (continue this lifelong after 3 x of DAPT) Cholesterol * High intensity statin: atorvastatin 40 mg daily DVT Prophylaxis * Heparin SQ Therapeutic Anticoagulation * No history of Afib/Aflutter noted Type 2 Diabetes * Patient has T2DM, but per Dr. Bhatt, a diabetes medication with proven CVD benefit will be deferred to their outpatient provider due to familiarity with risks/benefits of such therapies. "Medications to prevent stroke" handout has already been added to the patient's discharge packet, which instructs the patient to follow up with their outpatient provider to evaluate which diabetes medication with proven CVD benefit is best for them
[2023-08-09] MEDS: CLOPIDOGREL BISULFATE 75 MG TAB PO SCH (12:00)
[2023-08-09] MEDS: INSULIN ASPART PER UNIT CHARGE SC SCH (12:00)
[2023-08-09] MEDS ORDERED: ALBUT/IPRATROP 3MG/0.5MG NEB 3 ML VIAL INH PRN (21:05)
--- NOTE | 2023-08-09 21:10 | Communication Note ---
Date of Service: August 09, 2023 Called to bedside by nursing for new itchy rash. Patient with charted adverse reaction to azithromycin and ampicillin (GI upset) no true allergies documented. Per chart review patient on daily antihistamine therapy in addition to multiple topical anti-itch agents. These have not been given during hospital stay as patient was previously NPO for stroke r/o. Upon my exam diffuse pruritic erythematous rash consistent with dermatitis. HDS - MAP 71, HR 86, O2Sat 94% on RA.. No wheezing. No distress or increased work of breathing. Good air movement. Less like drug eruption as previous tolerance of antibiotics and timing does not line up with cefepime initiation. Presentation not consistent with anaphylaxis. Will give one time dose of IV Benadryl and restart home Zyrtec. Will also add on hydrocortisone cream for anti-itch properties and nystatin powder as patient with probable yeast rash in the groin area. Will continue to closely follow patient's clinical course. Resident Activity Tracking Resident Involvement: Resident Care Provided Care Provided: Adult Hospital Medicine
[2023-08-09] MEDS: diphenhydrAMINE 50 MG/ML VIAL IV STA (21:48)
--- NOTE | 2023-08-10 07:44 | Hospitalist Progress Note ---
Date of Service August 10, 2023 Assessment & Plan (1) Stroke-like symptoms: (2) UTI (urinary tract infection): (3) Dyslipidemia: (4) CVA (cerebral vascular accident): (5) Hypertension: (6) Diabetes mellitus, type 2: (7) Bladder cancer: Plan 73 year old female resident of [facility] with a PMH significant for previous CVA in 2018 with baseline right sided weakness, DMII, HTN, Depression, Bladder cancer S/P Transurethral Resection Bladder Tumor with Biopsy with Dr. Valeri bhat in 2021, and hyperlipidemia who presented with complaints of slurred speech and difficulty swallowing. #Stroke - H/o stroke in 2018 with residual right-sided weakness and cognitive changes - MRI demonstrated acute right sided periventricular white matter infarct, CTA without significant ischemia - Total cholesterol 116, LDL 52 - continue Atorvastatin 40mg daily - A1c 6.7 - BP appears well-managed, continue home meds - Start DAPT (ASA + Plavix) x 21 days, then Plavix daily - s/p speech therapy evaluation, diet resumed, recommending continued INTERIOR BLOCK WIRER treatment upon discharge - PT/OT eval and treat, recommending acute rehab placement - CM following re: placement #UTI: - Previous urine cx +pseudomonas - Attempted to contact [facility] re: outpatient treatment, left voicemail 08/08 - Continue Cefepime #HLD: - Continue Atorvastatin 40mg daily #HTN: - Continue oral antihypertensives #DM2: - Hold home meds - Insulin sliding scale FEN: HH, DM2 Dispo: Likely acute rehab, CM following VTE ppx: SQ Heparin Admission and Anticipated Discharge Date Admission Date: August 08, 2023 Supervising Physician Co-Signing Physician Notes Attending Physician Supervision Note: I independently interviewed and examined the patient and verified the ramirez history and physical, reviewed labs and image studies and agree with findings and care plan noted above. Subjective Patient evaluated at bedside this AM, in no apparent distress but with ongoing dysarthria. Overnight physician contacted regarding diffuse, erythematous rash that developed on upper extremities, no associated sx, given IV Benadryl x1 home antihistamine +prn hydrocortisone and nystatin creams restarted. Patient able to communicate that she is no longer itchy, felt much better after Benadryl. Difficult to elucidate further history of any prior rashes. Review of Systems Review of Systems: as per HPI Physical Exam Physical Exam: General: Alert and oriented. No acute distress Cardiac: Regular rate and rhythm, no murmurs appreciated Respiratory: Lungs clear to auscultation bilaterally, No increased work of breathing Abdominal: non-tender, non-distended. Skin: Erythematous plaque-like lesions diffusely spread across UEs bilaterally Neuro: AOx3, strength testing more or less symmetrical bilaterally compared to baseline right sided weakness. +dysarthria. Results & Data Results & Data Vital Signs (Past 12 Hours) Vital Signs Temp Pulse Pulse Resp BP Pulse Ox O2 Del Method 08/10/23 03:27 36.8 C 90 20 126/62 93 Room Air 08/09/23 23:00 36.7 C 83 16 115/77 91 Room Air 08/09/23 22:23 85 08/09/23 21:15 Room Air 08/09/23 19:37 37.0 C 86 20 107/54 L 94 Room Air 08/09/23 18:50 92 H Resident Activity Tracking Resident Involvement: Resident Care Provided Care Provided: Adult Hospital Medicine (5) Hypertension Hypertension type: primary hypertension Qualified Code(s): I10 - Essential (primary) hypertension (6) Diabetes mellitus, type 2 Diabetes mellitus group home insulin use: with extracorporeal circulation specialist use
[2023-08-10] MEDS: amLODIPine BESYLATE 5 MG TAB PO SCH (09:29)
[2023-08-10] MEDS: CETIRIZINE HCL 10 MG TABLET PO SCH (09:34)
[2023-08-10] MEDS: CITALOPRAM 20 MG TAB PO SCH (09:34)
[2023-08-10] MEDS: ATORVASTATIN 40 MG TAB PO SCH (09:35)
[2023-08-10] MEDS: LOSARTAN POTASSIUM 50 MG TAB PO SCH (09:35)
[2023-08-10] MEDS: NYSTATIN CR 15 GM TUBE EXT PRN (23:07)
[2023-08-10] MEDS: MELATONIN 3 MG TAB PO PRN (23:07)
--- NOTE | 2023-08-11 07:17 | Hospitalist Progress Note ---
Date of Service August 11, 2023 Assessment & Plan (1) Stroke-like symptoms: (2) UTI (urinary tract infection): (3) Dyslipidemia: (4) CVA (cerebral vascular accident): (5) Hypertension: (6) Diabetes mellitus, type 2: (7) Bladder cancer: Plan 73 year old female resident of [facility] with a PMH significant for previous CVA in 2018 with baseline right sided weakness, DMII, HTN, Depression, Bladder cancer S/P Transurethral Resection Bladder Tumor with Biopsy with Dr. Valeri bhat in 2021, and hyperlipidemia who presented with complaints of slurred speech and difficulty swallowing. #Stroke - H/o stroke in 2018 with residual right-sided weakness and cognitive changes - MRI demonstrated acute right sided periventricular white matter infarct, CTA without significant ischemia - Total cholesterol 116, LDL 52 - continue Atorvastatin 40mg daily - A1c 6.7 - BP appears well-managed, continue home meds - Start DAPT (ASA + Plavix) x 21 days, then Plavix daily - s/p speech therapy evaluation, diet resumed, recommending continued TRUCKER treatment upon discharge - PT/OT eval and treat, recommending acute rehab placement - CM following, likely placement at [facility] tomorrow #UTI: - Previous urine cx +pseudomonas - Contacted [facility] physician, notes that Cipro was started when urine culture resulted on 08/02 - Discontinue Cefepime, abx complete #HLD: - Continue Atorvastatin 40mg daily #HTN: - Continue oral antihypertensives #DM2: - Hold home meds - Insulin sliding scale FEN: HH, DM2 Dispo: Likely discharge to [facility] tomorrow, CM following VTE ppx: SQ Heparin Admission and Anticipated Discharge Date Admission Date: August 08, 2023 Supervising Physician Co-Signing Physician Notes I personally examined the patient and verified all ramirez points of history and exam, discussed case, and agree with decision making with Dr Bhtat doing okay. Trying to eat. POA comes in, updated the best my ability as well. Vitals noted, in general she is awake and alert pleasant no distress. HEENT normocephalic atraumatic mucous membranes moist. Breathing unlabored no accessory muscle use good effort. Skin shows no rashes no pallor or icterus. Neuro without focal deficits. CVAsecondary risk reduction, PT/OT, for SNF with rehab emphasis once this is able to be set up (I am informed tomorrow). DVT prophylaxisheparin subcu Subjective Patient evaluated at bedside this AM, in no apparent distress but with ongoing dysarthria. No significant overnight events, patient notes itching/rash resolved. No major changes. Review of Systems Review of Systems: as per HPI Physical Exam Physical Exam: General: Alert and oriented. No acute distress Cardiac: Regular rate and rhythm, no murmurs appreciated Respiratory: Lungs clear to auscultation bilaterally, No increased work of breathing Abdominal: non-tender, non-distended. Neuro: AOx3, strength testing more or less symmetrical bilaterally compared to baseline right sided weakness. +dysarthria. Results & Data Results & Data Vital Signs (Past 12 Hours) Vital Signs Temp Pulse Pulse Resp BP BP Pulse Ox 08/11/23 02:53 36.8 C 76 16 128/73 93 08/10/23 23:20 67 08/10/23 23:16 37 C 76 14 118/71 95 08/10/23 20:55 O2 Del Method 08/11/23 02:53 Room Air 08/10/23 23:20 08/10/23 23:16 Room Air 08/10/23 20:55 Room Air Resident Activity Tracking Resident Involvement: Resident Care Provided Care Provided: Adult Hospital Medicine (5) Hypertension Hypertension type: primary hypertension Qualified Code(s): I10 - Essential (primary) hypertension (6) Diabetes mellitus, type 2 Diabetes mellitus terminal clerk insulin use: with jail use
[2023-08-11 08:22] LABS: BUN Creatinine Ratio 12.1 (10-20); Calcium 8.6 mg/dl (8.6-10.3); Creatinine Clr Calc Pharmacy 40.8 ml/min; Est GFR (African American) 54.5 ml/min; Magnesium 1.7 mg/dl (1.7-2.4); Potassium 3.5 mmol/L (3.5-5.1)
[2023-08-11] MEDS: HYDROCORTISONE 2.5% CR 30 GM TUBE EXT PRN (10:57)
[2023-08-11] MEDS: POLYETHYLENE (MIRALAX) 17 GM PACK PO PRN (10:57)
--- NOTE | 2023-08-11 18:00 | Billing Data ---
Date of Service August 11, 2023 Coding Level of Care Code 71329 SUB INP/OBS CARE
--- NOTE | 2023-08-12 07:17 | Discharge Summary ---
Date of Service August 12, 2023 Admission HPI Per Admitting Provider Krystal is a 73 year old female resident of [facility] with a PMH significant for previous CVA in 2018 with baseline right sided weakness, DMII, HTN, Depression, Bladder cancer S/P Transurethral Resection Bladder Tumor with Biopsy with Dr. Loo in 2021, and hyperlipidemia who presented to the [facility] ED with complaints of slurred speech and difficulty swallowing which began approximately 24 hours ago. She remained stable in the ED. Labs including CBC and CMP were unremarkable. The patient's UA appears to be improving compared to her UA on 07/31 when she was diagnosed with a UTI. CT of the head/brain wo con or dered this am by the PCP at [facility] was negative for acute findings. Chest xray was also read as negative for acute findings. We were asked to admit the patient for ongoing workup of her symptoms. At the time of the exam the patient was sitting in bed in no acute distress. Communication was difficult with the patient's current slurred speech and difficulty clearing secretions. She is currently alert and oriented to person, place, month, and year. States that the her slurred speech and swallowing difficulties started yesterday but cannot give me a time. She denies any new paresthesias or weakness in her extremities, fever, chills, chest pain, SOB, and pain, nausea, vomiting, diarrhea, dysuria hematuria, melena, and recent trauma. I was able to call and speak with her Friend/Medical POA, Sulema Huangyle ([phone]). She states that she talks on the phone with the patient daily and visits her multiple times a week. She explains that since the patient's large stroke in 2018 the patient has had significant cognitive issues and right sided weakness. Sulema has been her medical POA since the last stroke in 2018. At baseline the patient has right sided weakness and significant mobility issues. She can ambulate small distances with the use of a walker and one person assist. She states that she spoke on the phone with patient yesterday around 1:00 pm and noticed that the patient's speech was slurred. She communicated her concerns to [facility] staff and called them multiple times yesterday for further workup as the patient's symptoms seemed to progress throughout the day. Sulema confirmed that Krystal is a full code at this time. She explains that the patient has been treated with Augmentin since 07/31 for UTI. Please refer to Dr. Sal' attestation for any changes to the treatment plan Admission Exam Per Admitting Provider Physical Exam: General: In no acute distress, stated age, chronically ill appearing but non- toxic HEENT: Baseline right sided facial droop noted, no scleral icterus, pupils ar ound round, symmetrical, and reactive to light, moist mucus membranes, tongue deviates slightly to the right when sticking out during CN exam, no abnormalities noted in the oropharynx on inspection, no swelling of the tongue or throat, trachea midline, no thyromegaly Chest/Pulm: No respiratory distress, symmetrical chest expansion, clear breath sounds throughout Cardiac: RRR, no murmurs noted Abdomen: Negative for ascites and bruising, normoactive bowel sounds, soft, non- tender to palpation throughout Musculoskeletal: Symmetrical and without signs of acute trauma, able to voluntarily move both upper extremities but with weakness BL Extremities: Radial, dorsalis pedis, and posterior tibial pulses are intact and symmetrical, no edema noted in the BL LE's Skin: Warm, dry, no rashes , lesions, or scars noted Neuro: Alert and oriented to person, place, month, year, CN II-XII tested slight right facial droop and tongue deviation to the right, otherwise WNL, patient with new left sided upper extremity weakness/coordination issues on cerebellar testing and pronator drift compared to right (right side is normally weaker since last CVA), LLE currently more weak than RLE which is new as well Psych: No acute distress, calm and cooperative during the exam Principal Diagnosis Stroke Discharge Exam General: Alert and oriented. No acute distress Cardiac: Regular rate and rhythm, no murmurs appreciated Respiratory: Lungs clear to auscultation bilaterally, No increased work of breathing Abdominal: non-tender, non-distended. Neuro: AOx3, strength testing more or less symmetrical bilaterally compared to baseline right sided weakness. +dysarthria. Discharge Data Allergies Allergy/AdvReac Type Severity Reaction Status Date / Time prednisone Allergy Mild ITCHING Verified 07/23/23 08:09 ampicillin AdvReac Mild Gastrointestinal Verified 07/23/23 08:09 Upset azithromycin AdvReac Mild Gastrointestinal Verified 07/23/23 08:09 Upset lisinopril AdvReac Mild Gastrointestinal Verified 07/23/23 08:09 Upset Consultations 08/08/23 15:18 ED Decision to Admit Stat 08/08/23 21:23 Consult Neurology Routine Ordered Studies 08/08/23 15:14 CT angio head w con Stat CT angio neck with con Stat MR brain wo/w con Routine Hospital Course (1) Stroke-like symptoms: (2) UTI (urinary tract infection): (3) Dyslipidemia: (4) CVA (cerebral vascular accident): (5) Hypertension: (6) Diabetes mellitus, type 2: (7) Bladder cancer: Plan 73 year old female resident of [facility] with a PMH significant for previous CVA in 2018 with baseline right sided weakness, DMII, HTN, Depression, Bladder cancer S/P Transurethral Resection Bladder Tumor with Biopsy with Dr. Loo in 2021, and hyperlipidemia who presented with complaints of slurred speech and difficulty swallowing. #Stroke - H/o stroke in 2018 with residual right-sided weakness and cognitive changes - MRI demonstrated acute right sided periventricular white matter infarct, CTA without significant ischemia - Total cholesterol 116, LDL 52 - continue Atorvastatin 40mg daily - A1c 6.7 - Start DAPT (ASA + Plavix) x 21 days, then Plavix daily #UTI - Resolved: - Previous urine cx +pseudomonas - Contacted [facility] physician, noted that Cipro was started when urine culture resulted on 08/02 - Abx course finished during hospitalization #HLD: - Continue Atorvastatin 40mg daily #HTN: - Continue oral antihypertensives #DM2: - Continue home meds Total Time Total Time Spent Total Time Spent (In Minutes): <30 Discharge Plan Discharge Items Patient Disposition: Transfer [facility] Fac Reason For Visit: STROKE LIKE SYMPTOMS Discharge Diagnosis: Acute stroke Activity: As commented below Activity Comment: Progress activity as tolerated and as directec by PT/OT Non-emergency contact: Primary Care Provider Call non-emergency contact if: you have any medication questions and your symptoms worsen Follow-up/Referrals: Dionte Maria [Primary Care Provider] - Diet: Carb Consistent or DM2 and Heart Healthy Addtl Attending Provider Instructions: You were admitted to the hospital with an acute stroke. You were seen by neurology while in the hospital, and were started on a new medication called Plavix (clopidogrel). Upon discharge, please continue to take both Aspirin 81mg and Plavix 75mg daily until August 30. Starting on August 31, please continue to take the Plavix daily but you may discontinue daily aspirin. A discharge summary will be sent to your primary care physician to ensure continuity of care. Please bring this discharge summary with you to your next office appointment so that your provider can review it at that time. Medications: Your medication list has been reviewed and reconciled upon discharge to ensure accuracy and continuity of care. An updated list of all your medications is included with your hospital discharge paperwork. Please review this list closely and make note of any changes to your medications. New Medications: - Plavix: Please take as directed above. No other changes were made to your home medications. Please continue to take as previously directed. Follow up appointments: - Make a follow up appointment with your PCP within the next week. It is very important that you follow up with them shortly after discharge from the hospital. - Keep all of your follow up appointments as already scheduled. If you cannot make an appointment, notify your provider. CONTACT YOUR PRIMARY CARE PROVIDER if you experience any of the following: - Difficulty following your treatment plan - Difficulty taking any of your medications CALL 911 OR GO TO THE EMERGENCY DEPARTMENT if you experience any of the following: - Sudden, severe abdominal pain or nausea/vomiting - Severe chest pain or chest pain that radiates to your jaw or arm - Sudden, severe shortness of breath or difficulty breathing Pending Studies at Discharge: No Stand-Alone Forms: My [facility], Medications to Prevent Stroke Skilled Items Patient informed of condition?: Yes DNR: No Discharge Level of Care: Skilled Communicable Disease: No Discharge Prognosis: Stable Lines: None Urinary Catheter: No Medications and DC Order Prescriptions: New clopidogrel 75 mg Tablet 75 mg PO DAILY 30 Days Qty: 30 1RF Continued ketoconazole 2 % shampoo 1 applic topical .COMPLEX Qty: 120 1RF Rx Instructions: 1 applic topical to the scalp 2-3 times a week. Allow to sit on the scalp for 5 minutes before rinsing. dorzolamide (PF) 2 % drops 2 drp ophthalmic (eye) TID melatonin 3 mg capsule 3 mg PO HS Systane Nighttime 94-3 % ointment 1 applic ophthalmic (eye) HS docusate sodium [Colace] 100 mg capsule 100 mg PO DAILY PRN (Reason: Constipation) ipratropium-albuterol 0.5 mg-3 mg(2.5 mg base)/3 mL solution for nebulization 3 ml inhalation Q6H PRN (Reason: Shortness Of Breath Or Wheezing) cyanocobalamin (vitamin B-12) [Vitamin B-12] 500 mcg Tablet 1,000 mcg PO QAM Januvia 100 mg Tablet 100 mg PO QAM Basaglar KwikPen U-100 Insulin 100 unit/mL (3 mL) insulin pen 12 unit SUBCUT QPM cholecalciferol (vitamin D3) [Vitamin D3] 2,000 unit Capsule 2,000 unit PO QAM fesoterodine [Toviaz] 4 mg tablet extended release 24 hr 4 mg PO QAM magnesium oxide 250 mg magnesium tablet 400 mg PO QPM nystatin 100,000 unit/gram Cream 1 applic TOPICAL DAILY PRN (Reason: Rash) Rx Instructions: ON GROIN albuterol sulfate 90 mcg/actuation Hfa Aerosol Inhaler 2 puff INHALATION QID PRN (Reason: Wheezing) amlodipine 2.5 mg tablet 2.5 mg PO QAM potassium chloride 10 mEq tablet extended release 10 meq PO BID ferrous sulfate 325 mg (65 mg iron) Tablet 325 mg PO QAM aspirin 81 mg Tablet,Chewable 81 mg PO QAM polyethylene glycol 3350 [Miralax] 17 gram/dose Powder 17 g PO DAILY PRN (Reason: Constipation) losartan 100 mg tablet 100 mg PO QAM Lumigan 0.01 % drops 1 drp OPB HS citalopram 20 mg tablet 20 mg PO DAILY atorvastatin 40 mg tablet 40 mg PO HS metformin 500 mg tablet 500 mg PO BID hydrocortisone 2.5 % cream 1 applic topical DAILY PRN (Reason: Itching) Rx Instructions: Apply to the eyebrows as needed for itching. cetirizine 10 mg Tablet 10 mg PO DAILY betamethasone dipropionate 0.05 % lotion 1 applic topical DAILY PRN (Reason: Itching) Rx Instructions: Apply to the scalp as needed for itching or redness. Discontinued ciprofloxacin HCl 500 mg tablet 500 mg PO BID Discharge Orders: Discharge Order (Routine); Ordered 08/12/23 Ordered By: Zaid Bhatt Admission Data Admit Date/Time: 08/08/23 15:35 Attending Provider: Chinmay Brooks Admit Provider: Teddy Sal Primary Care Provider: Dionte Maria Other Providers: Teddy Sal; Devonte Shaw Other Interventions: Discharge Summary Assessment (RN) Last Done: 08/12/23 14:05 Supervising Physician Co-Signing Physician Notes I personally examined the patient and verified all ramirez points of history and exam, discussed case, and agree with decision making with Dr Bhatt no new issues, for rehab/SNF today. Vitals noted, resting appears comfortable and in no distress. HEENT normocephalic atraumatic mucous membranes moist. Breathing unlabored no accessory muscle use good effort. Skin shows no rashes no pallor or icterus. CVAsecondary risk reduction, PT/OT, for SNF with rehab emphasis today DVT prophylaxisheparin subcu utilized during her stay Resident Activity Tracking Resident Involvement: Resident Care Provided Care Provided: Adult Hospital Medicine
--- NOTE | 2023-08-12 09:13 | Billing Data ---
Date of Service August 12, 2023 Coding Level of Care Code 31806 IN/OBS DISCH 30 MIN/LESS
== END 2023-08-12 15:33 | DRG 65 ==
LOC: ED 13:05 → SUATTDRO 15:35 → EDINP 15:35 → 2S 19:23

== ENCOUNTER 2023-08-27 11:25 | Inpatient (IN) ==
--- NOTE | 2023-08-27 12:21 | Emergency Department Note ---
Impression & Plan Generalized weakness, Slurred speech ED Provider Note HISTORY OF PRESENT ILLNESS: Patient is a 73-year-old female presenting with slurred speech. History is obtained mainly from EMS, as patient's speech is very garbled and difficult to understand. Patient is able to express that her speech became abnormal last night. She has a previous history of strokes. She reports she is on a blood thinner but does not remember the name. Denies any chest pain or shortness of breath. Denies any numbness or tingling or weakness in extremities. ROS: as above PHYSICAL EXAM: Constitutional: Patient appears in no acute distress. HENT: Head: Normocephalic and atraumatic. Eyes: EOMI, PERRL Mouth/Throat: Mucous membranes moist. Neck: Trachea midline. Neck supple. Cardiovascular: RRR, No murmurs, rubs or gallops. Intact distal pulses. Pulmonary/Chest: No respiratory distress. Breath sounds clear and equal bilaterally. Coarse breath sounds bilaterally Abdominal: Abdomen soft, no tenderness, rebound or guarding. Musculoskeletal: No edema, tenderness or deformity noted. Skin: Warm and dry. No rash, erythema, pallor or cyanosis Psychiatric: Appropriate mood and affect for situation. Neurological: Alert and keenly responsive. Patient has significantly slurred speech that is garbled. Right-sided facial droop. Strength 5/5 in bilateral upper and lower extremities. SILT throughout bilateral upper and lower extremities. MDM: - Vitals signs stable - History obtained via EMS, given patient's slurred speech. History as above. - Chronic conditions affecting care: HTN; HLD; CVA; DM-2; bladder cancer - Differential diagnoses include, but are not limited to: CVA; intracranial hemorrhage; ACS; pneumonia; UTI; dysrhythmia - Order placed for continuous cardiac monitoring. At this time, monitor showed rate of 78 bpm with normal sinus rhythm, per my interpretation. - External medical records reviewed. Discharge summary dated 08/12/2023 was reviewed. Patient was admitted at that time for slurred speech and difficulty swallowing that began 24 hours prior. Patient was admitted at that time for stroke. MRI demonstrated acute right-sided periventricular white matter infarct. She was started on aspirin and Plavix for 21 days. - Unknown LKW. Patient also reports symptoms started last night, so outside of the window for TNK. - EKG interpreted by myself showed normal sinus rhythm. Rate 82 bpm. QT 396. No acute ischemic changes. - Laboratory workup interpreted by myself showed normal WBC; stable electrolytes; normal troponin; normal BNP - CXR negative for pneumonia, per my interpretation. Radiology notes mild pulmonary vascular congestion. - CT head wo contrast negative for acute intracranial pathology. - CTA head/neck negative for acute pathology. - Patient is still having garbled speech on assessment. She is currently on aspirin and plavix. MRI brain ordered. - Discussion was had with disease case manager about patient's case and need for admission - Hospitalist consulted for admission - Patient admitted to [facility] for further evaluation and management. ASSESSMENT AND PLAN: Diagnosis: generalized weakness; slurred speech Plan: admit Past Med/Surg History Medical History Cystitis Encounter for pre-operative examination Renal insufficiency DVT prophylaxis Bladder cancer Diabetes mellitus, type 2 History of COVID-19 Had both vaccines, but presented to [facility] 09/01/20 with weakness and tested + for COVID > resolved Glaucoma Anemia Hyperlipemia HTN (hypertension) Pancreatic cyst Neutropenia Encephalopathy Hx of recurrent urinary tract infection CVA (cerebral vascular accident) 2018 Retinopathy Depression Surgical History Hx of colonoscopy History of cystoscopy Transurethral Resection Bladder Tumor Hx of appendectomy Family History Father Diabetes Heart disease Hypertension Other Family history unknown Social History (Updated 08/09/23 @ 10:16 by Devonte Shaw MD) Smoking Status: Former smoker Tobacco Type: Cigarettes Age Started Using Tobacco: 21; Age Quit Using Tobacco: 31; Second Hand Exposure: No; Do You Dip or Chew Tobacco: No; Hx Alcohol Use: No Hx Substance Use: No Preferred Language: Andorran Communication Ability: Impaired Plant Etiologist Required: No Beliefs That Will Affect Care: None marital status: / Current Living Situation: Personal Care Facility Current Living Situation Comment: [facility] current occupational status: retired and disabled Feels Safe at Home: Yes Assistive Devices: Walker and Wheelchair Allergies Allergies Allergy/AdvReac Type Severity Reaction Status Date / Time prednisone Allergy Mild ITCHING Verified 07/23/23 08:09 ampicillin AdvReac Mild Gastrointestinal Verified 07/23/23 08:09 Upset azithromycin AdvReac Mild Gastrointestinal Verified 07/23/23 08:09 Upset lisinopril AdvReac Mild Gastrointestinal Verified 07/23/23 08:09 Upset Home Meds Home Medications Medication Instructions Recorded Confirmed cholecalciferol (vitamin D3) 50 2,000 unit PO QAM 02/10/18 08/08/23 mcg (2,000 unit) capsule (Vitamin D3) cyanocobalamin (vitamin B-12) 500 1,000 mcg PO QAM 03/25/18 08/08/23 mcg tablet (Vitamin B-12) sitagliptin phosphate 100 mg 100 mg PO QAM 03/25/18 08/08/23 tablet (Januvia) amlodipine 2.5 mg tablet 2.5 mg PO QAM 09/01/20 08/08/23 aspirin 81 mg chewable tablet 81 mg PO QAM 09/01/20 08/08/23 bimatoprost 0.01 % eye drops 1 drp OPB HS 09/01/20 08/08/23 (Lumigan) ferrous sulfate 325 mg (65 mg 325 mg PO QAM 09/01/20 08/08/23 iron) tablet losartan 100 mg tablet 100 mg PO QAM 09/01/20 08/08/23 polyethylene glycol 3350 17 17 g PO DAILY PRN Constipation 09/01/20 08/08/23 gram/dose oral powder (Miralax) potassium chloride 10 mEq 10 meq PO BID 09/01/20 08/08/23 tablet,extended release fesoterodine 4 mg tablet,extended 4 mg PO QAM 10/04/20 08/08/23 release 24 hr (Toviaz) albuterol sulfate 90 mcg/actuation 2 puff inhalation QID PRN Wheezing 11/07/20 08/08/23 aerosol inhaler nystatin 100,000 unit/gram topical 1 applic topical DAILY PRN Rash 11/07/20 08/08/23 cream docusate sodium 100 mg capsule 100 mg PO DAILY PRN Constipation 07/23/23 08/08/23 (Colace) dorzolamide (PF) 2 % (PF) eye drops 2 drp ophthalmic (eye) TID 07/23/23 08/08/23 insulin glargine 100 unit/mL (3 12 unit subcut QPM 07/23/23 08/08/23 mL) subcutaneous pen (Basaglar KwikPen U-100 Insulin) ipratropium 0.5 mg-albuterol 3 mg 3 ml inhalation Q6H PRN Shortness 07/23/23 08/08/23 (2.5 mg base)/3 mL nebulization Of Breath Or Wheezing soln magnesium oxide 400 mg PO QPM 07/23/23 08/08/23 melatonin 3 mg capsule 3 mg PO HS 07/23/23 08/08/23 white petrolatum-mineral oil 94 1 applic ophthalmic (eye) HS 07/23/23 08/08/23 %-3 % eye ointment (Systane Nighttime) atorvastatin 40 mg tablet 40 mg PO HS 08/08/23 08/08/23 betamethasone dipropionate 0.05 % 1 applic topical DAILY PRN Itching 08/08/23 08/08/23 lotion cetirizine 10 mg tablet 10 mg PO DAILY 08/08/23 08/08/23 citalopram 20 mg tablet 20 mg PO DAILY 08/08/23 08/08/23 hydrocortisone 2.5 % topical cream 1 applic topical DAILY PRN Itching 08/08/23 08/08/23 metformin 500 mg tablet 500 mg PO BID 08/08/23 08/08/23 Previous Rx's Medication Instructions Recorded ketoconazole 2 % shampoo 1 applic topical .COMPLEX #120 mL 08/08/22 clopidogrel 75 mg tablet 75 mg PO DAILY 30 days #30 tabs 08/11/23 Results & Data (ED) Vital Signs Vital Signs - 24 hr 08/27/23 11:40 08/27/23 12:05 08/27/23 12:17 Temperature 37.1 C Temperature Source Oral Pulse Rate 82 83 Pulse Rate [Apical] Pulse Rhythm Regular Pulse Rhythm [Apical] Pulse Strength [Apical] Respiratory Rate 18 Respiratory Effort / Characteristics Non-Labored Respiratory Depth Normal Respiratory Pattern Regular Blood Pressure 137/80 Blood Pressure [Right Arm] Blood Pressure Mean 99 Blood Pressure Mean [Right Arm] Pulse Oximetry 95 96 Oxygen Delivery Method Room Air Room Air Sepsis Recent Fever Within 48 Hours No Sepsis New/Unexplained Change in Mental Status No Sepsis Action Taken by Nursing No Action Required 08/27/23 13:00 Temperature Temperature Source Pulse Rate Pulse Rate [Apical] 78 Pulse Rhythm Pulse Rhythm [Apical] Regular Pulse Strength [Apical] Normal Respiratory Rate 19 Respiratory Effort / Characteristics Non-Labored Respiratory Depth Normal Respiratory Pattern Regular Blood Pressure Blood Pressure [Right Arm] 154/119 H Blood Pressure Mean Blood Pressure Mean [Right Arm] 130 Pulse Oximetry 99 Oxygen Delivery Method Room Air Sepsis Recent Fever Within 48 Hours Sepsis New/Unexplained Change in Mental Status Sepsis Action Taken by Nursing Laboratory Data 08/27/23 11:35 08/27/23 11:35 Lab Results 08/27/23 08/27/23 Range/Units 11:35 14:12 WBC 8.27 (4.8-10.8) K/ul RBC 4.57 (4.20-5.40) M/uL Hgb 13.1 (12.0-16.0) g/dl Hct 39.3 (37.0-47.0) % MCV 86.0 (80.0-100.0) fL MCH 28.7 (25.0-34.0) pg MCHC 33.3 (32.0-36.0) g/dL RDW Std Deviation 38.5 (36.4-46.3) fL RDW Coeff of Rcoky 12.2 (11.5-14.5) % Plt Count 302 (130-400) K/uL MPV 8.9 L (9.4-12.4) fL Immature Gran % (Auto) 0.2 % Neut % (Auto) 72.2 % Lymph % (Auto) 18.4 % Luce % (Auto) 6.5 % Eos % (Auto) 1.9 % Baso % (Auto) 0.8 % Neut # (Auto) 5.96 (1.40-6.50) K/uL Lymph # (Auto) 1.52 (1.20-3.40) K/uL Luce # (Auto) 0.54 (0.11-0.59) K/uL Eos # (Auto) 0.16 (0.00-0.50) K/uL Baso # (Auto) 0.07 (0.00-0.20) K/uL Immature Gran # (Auto) 0.02 (0.01-0.20) K/uL PT 10.6 (9.0-12.0) Seconds INR 1.0 (0.9-1.1) Sodium 136 (136-145) mmol/L Potassium 4.0 (3.5-5.1) mmol/L Chloride 105 (98-107) mmol/L Carbon Dioxide 24 (21-32) mmol/L Anion Gap 7 (3-11) BUN 16 (6-23) mg/dl Creatinine 1.01 (0.6-1.2) mg/dl Est Cr Clr Drug Dosing 51.8 ml/min Est GFR ( Amer) 64.4 ml/min Est GFR (Non-Af Amer) 55.6 ml/min BUN/Creatinine Ratio 15.8 (10-20) Glucose 112 H (70-99(Fasting)) mg/dl Calcium 9.3 (8.6-10.3) mg/dl Total Bilirubin 0.6 (0.2-1.0) mg/dl AST 16 (13-39) U/L ALT 19 (7-52) U/L Alkaline Phosphatase 71 (34-104) U/L Troponin I High Sens 3.1 (0-14) pg/ml B-Natriuretic Peptide 90 (0-100) pg/ml Total Protein 6.9 (6.0-8.3) gm/dl Albumin 4.0 (3.4-5.0) gm/dl Globulin 2.9 (2.5-4.0) gm/dl Albumin/Globulin Ratio 1.4 (0.9-2) Administered Medications Discontinued Medications Ioversol (Optiray 350 500ml) 116 ml IV ONCE ONE Stop: 08/27/23 12:51 Last Admin: 08/27/23 12:51 Dose: 116 ml Documented By: BRENT Imaging Data Radiologist's Impression: Head CTA 08/27/23 12:03 CT angio neck with con, CT angio head w con CLINICAL HISTORY: slurred speech TECHNIQUE: CT angiography of the head and neck was performed following intravenous administration of iodinated contrast. Coronal and sagittal MIPS were obtained from the axial data set and were submitted for review. Automated dose lowering techniques and/or adjustment according to patient size were utilized for this examination. All measurements were calculated based on NASCET criteria. CT DOSE: 1160.68 mGy.cm Comparison: None available at the time of this dictation. FINDINGS: Lungs and soft tissues are unremarkable. CTA Neck: A 3 vessel aortic arch is shown. There is no significant atherosclerotic plaque in the aortic arch or the origins of the innominate, left common carotid, and left subclavian arteries. The common carotid, external carotid, cervical segments of the internal carotid arteries, and the cervical segments of the vertebral arteries are patent without hemodynamically significant stenosis. The left vertebral artery is dominant. CTA Head: The anterior and posterior cerebral circulations are patent. origin of the right posterior cerebral artery is seen. IMPRESSION: 1. No occlusion, hemodynamically significant stenosis, or dissection in the major cervical arteries. 2. No occlusion, hemodynamically significant stenosis, aneurysm, dissection, or arteriovenous malformation in the major intracranial arteries. Assessment of stenosis of the internal carotid arteries is based on NASCET criteria. ACT 112: Negative or not required by law. Electronically signed by: Grzegorz Palmer M.D. 08/27/2023 1:50 PM Neck CTA 08/27/23 12:03 CT angio neck with con, CT angio head w con CLINICAL HISTORY: slurred speech TECHNIQUE: CT angiography of the head and neck was performed following intravenous administration of iodinated contrast. Coronal and sagittal MIPS were obtained from the axial data set and were submitted for review. Automated dose lowering techniques and/or adjustment according to patient size were utilized for this examination. All measurements were calculated based on NASCET criteria. CT DOSE: 1160.68 mGy.cm Comparison: None available at the time of this dictation. FINDINGS: Lungs and soft tissues are unremarkable. CTA Neck: A 3 vessel aortic arch is shown. There is no significant atherosclerotic plaque in the aortic arch or the origins of the innominate, left common carotid, and left subclavian arteries. The common carotid, external carotid, cervical segments of the internal carotid arteries, and the cervical segments of the vertebral arteries are patent without hemodynamically significant stenosis. The left vertebral artery is dominant. CTA Head: The anterior and posterior cerebral circulations are patent. origin of the right posterior cerebral artery is seen. IMPRESSION: 1. No occlusion, hemodynamically significant stenosis, or dissection in the major cervical arteries. 2. No occlusion, hemodynamically significant stenosis, aneurysm, dissection, or arteriovenous malformation in the major intracranial arteries. Assessment of stenosis of the internal carotid arteries is based on NASCET criteria. ACT 112: Negative or not required by law. Electronically signed by: Grzegorz Palmer M.D. 08/27/2023 1:50 PM Chest X-Ray 08/27/23 12:05 SINGLE VIEW CHEST CLINICAL HISTORY: Slurred speech FINDINGS: An AP, portable, upright chest radiograph is compared to study dated 08/08/2023. Surgical clips project over the mediastinum. The heart is mildly enlarged. There is pulmonary vascular congestion. Chronic interstitial thickening is previous. Mild atelectasis is seen at the lung bases. The lungs and pleural spaces are otherwise clear. No pneumothorax is seen. The skeletal structures are osteopenic. The bony thorax is grossly intact. IMPRESSION: Cardiomegaly with mild pulmonary vascular congestion. ACT 112: Negative or not required by law. Electronically signed by: Noam Luque M.D. 08/27/2023 1:[address] 08/27/23 12:05 CT OF THE HEAD WITHOUT CONTRAST CLINICAL HISTORY: Slurred speech. COMPARISON STUDY: Head CT and MRI of the brain August 08, 2023. TECHNIQUE: Helical axial images of the head were obtained without IV contrast. Automated exposure control was utilized for the study. A dose lowering technique was utilized adhering to the principles of ALARA. FINDINGS: No acute intracranial hemorrhage, midline shift or mass effect is present. Ventricular system is stable. Basal cisterns are patent. White matter hypodensities are unchanged and favor small vessel disease. Old left basal ganglia infarct is noted. There are no findings to suggest acute dural sinus thrombosis or acute territorial infarct. IMPRESSION: No acute intracranial findings. ACT 112: Negative or not required by law. Electronically signed by: Boyd Thomas M.D. 08/27/2023 1:17 PM Discharge Plan Visit Data Chief Complaint: TIA Symptoms Stated Complaint: STROKE SX ED Provider: Juanita Tong Discharge Problem: Generalized weakness, Slurred speech Forms Stand Alone Forms: [facility] Prescriptions Prescriptions: No Action ketoconazole 2 % shampoo 1 applic topical .COMPLEX Qty: 120 1RF Rx Instructions: 1 applic topical to the scalp 2-3 times a week. Allow to sit on the scalp for 5 minutes before rinsing. dorzolamide (PF) 2 % drops 2 drp ophthalmic (eye) TID melatonin 3 mg capsule 3 mg PO HS Systane Nighttime 94-3 % ointment 1 applic ophthalmic (eye) HS docusate sodium [Colace] 100 mg capsule 100 mg PO DAILY PRN (Reason: Constipation) ipratropium-albuterol 0.5 mg-3 mg(2.5 mg base)/3 mL solution for nebulization 3 ml inhalation Q6H PRN (Reason: Shortness Of Breath Or Wheezing) cyanocobalamin (vitamin B-12) [Vitamin B-12] 500 mcg Tablet 1,000 mcg PO QAM Januvia 100 mg Tablet 100 mg PO QAM Basaglar KwikPen U-100 Insulin 100 unit/mL (3 mL) insulin pen 12 unit SUBCUT QPM cholecalciferol (vitamin D3) [Vitamin D3] 2,000 unit Capsule 2,000 unit PO QAM fesoterodine [Toviaz] 4 mg tablet extended release 24 hr 4 mg PO QAM magnesium oxide 250 mg magnesium tablet 400 mg PO QPM nystatin 100,000 unit/gram Cream 1 applic TOPICAL DAILY PRN (Reason: Rash) Rx Instructions: ON GROIN albuterol sulfate 90 mcg/actuation Hfa Aerosol Inhaler 2 puff INHALATION QID PRN (Reason: Wheezing) amlodipine 2.5 mg tablet 2.5 mg PO QAM potassium chloride 10 mEq tablet extended release 10 meq PO BID ferrous sulfate 325 mg (65 mg iron) Tablet 325 mg PO QAM aspirin 81 mg Tablet,Chewable 81 mg PO QAM polyethylene glycol 3350 [Miralax] 17 gram/dose Powder 17 g PO DAILY PRN (Reason: Constipation) losartan 100 mg tablet 100 mg PO QAM Lumigan 0.01 % drops 1 drp OPB HS citalopram 20 mg tablet 20 mg PO DAILY atorvastatin 40 mg tablet 40 mg PO HS metformin 500 mg tablet 500 mg PO BID hydrocortisone 2.5 % cream 1 applic topical DAILY PRN (Reason: Itching) Rx Instructions: Apply to the eyebrows as needed for itching. cetirizine 10 mg Tablet 10 mg PO DAILY betamethasone dipropionate 0.05 % lotion 1 applic topical DAILY PRN (Reason: Itching) Rx Instructions: Apply to the scalp as needed for itching or redness. clopidogrel 75 mg Tablet 75 mg PO DAILY 30 Days Qty: 30 1RF Referrals Referrals: Dionte Maria [Primary Care Provider] -
[2023-08-27 12:26] LABS: Basophils # (auto) 0.07 K/uL (0.00-0.20); Basophils % (auto) 0.8 %; Eosinophils # (auto) 0.16 K/uL (0.00-0.50); Eosinophils % (auto) 1.9 %; Hematocrit (blood only) 39.3 % (37.0-47.0); Hemoglobin 13.1 g/dl (12.0-16.0); Immature Granulocytes # (auto) 0.02 K/uL (0.01-0.20); Immature Granulocytes % (auto) 0.2 %; Lymphocytes # (auto) 1.52 K/uL (1.20-3.40); Lymphocytes % (auto) 18.4 %; Mean Corpuscular Hemoglobin 28.7 pg (25.0-34.0); Mean Corpuscular Hgb Conc 33.3 g/dL (32.0-36.0); Mean Platelet Volume 8.9 fL (9.4-12.4); Monocytes # (auto) 0.54 K/uL (0.11-0.59); Monocytes % (auto) 6.5 %; Neutrophils # (auto) 5.96 K/uL (1.40-6.50); Neutrophils % (auto) 72.2 %; Platelet Count 302 K/uL (130-400); RDW Coefficient of Variation 12.2 % (11.5-14.5); RDW Standard Deviation 38.5 fL (36.4-46.3); Red Blood Count 4.57 M/uL (4.20-5.40); White Blood Count 8.27 K/ul (4.8-10.8)
[2023-08-27 12:32] LABS: Albumin Globulin Ratio 1.4 (0.9-2); BUN Creatinine Ratio 15.8 (10-20); Bilirubin,Total 0.6 mg/dl (0.2-1.0); Calcium 9.3 mg/dl (8.6-10.3); Creatinine Clr Calc Pharmacy 51.8 ml/min; Est GFR (African American) 64.4 ml/min; Est GFR (Non-African American) 55.6 ml/min; Globulin 2.9 gm/dl (2.5-4.0); Total Protein 6.9 gm/dl (6.0-8.3)
[2023-08-27 12:37] LABS: Troponin I High Sensitivity 3.1 pg/ml (0-14)
[2023-08-27 12:50] LABS: Prothrombin Time 10.6 Seconds (9.0-12.0)
[2023-08-27] MEDS: OPTIRAY 350 500ml IV ONE (12:51)
--- NOTE | 2023-08-27 13:20 | CT Scan Report ---
CT OF THE HEAD WITHOUT CONTRAST CLINICAL HISTORY: Slurred speech. COMPARISON STUDY: Head CT and MRI of the brain August 08, 2023. TECHNIQUE: Helical axial images of the head were obtained without IV contrast. Automated exposure con trol was utilized for the study. A dose lowering technique was utilized adhering to the principles o f ALARA. FINDINGS: No acute intracranial hemorrhage, midline shift or mass effect is present. Ventricular syst em is stable. Basal cisterns are patent. White matter hypodensities are unchanged and favor small ves homa disease. Old left basal ganglia infarct is noted. There are no findings to suggest acute dural si nus thrombosis or acute territorial infarct. IMPRESSION: No acute intracranial findings. ACT 112: Negative or not required by law. Electronically signed by: Boyd Thomas M.D. 08/27/2023 1:17 PM
--- NOTE | 2023-08-27 13:25 | XRay Report ---
SINGLE VIEW CHEST CLINICAL HISTORY: Slurred speech FINDINGS: An AP, portable, upright chest radiograph is compared to study dated 08/08/2023. Surgical cli ps project over the mediastinum. The heart is mildly enlarged. There is pulmonary vascular congestion . Chronic interstitial thickening is previous. Mild atelectasis is seen at the lung bases. The lungs and pleural spaces are otherwise clear. No pneumothorax is seen. The skeletal structures are osteopen ic. The bony thorax is grossly intact. IMPRESSION: Cardiomegaly with mild pulmonary vascular congestion. ACT 112: Negative or not required by law. Electronically signed by: Noam Luque M.D. 08/27/2023 1:23 PM
--- NOTE | 2023-08-27 13:51 | CT Scan Report ---
CT angio neck with con, CT angio head w con CLINICAL HISTORY: slurred speech TECHNIQUE: CT angiography of the head and neck was performed following intravenous administration of iodinated contrast. Coronal and sagittal MIPS were obtained from the axial data set and were submitte d for review. Automated dose lowering techniques and/or adjustment according to patient size were ut ilized for this examination. All measurements were calculated based on NASCET criteria. CT DOSE: 1160.68 mGy.cm Comparison: None available at the time of this dictation. FINDINGS: Lungs and soft tissues are unremarkable. CTA Neck: A 3 vessel aortic arch is shown. There is no significant atherosclerotic plaque in the aor tic arch or the origins of the innominate, left common carotid, and left subclavian arteries. The co mmon carotid, external carotid, cervical segments of the internal carotid arteries, and the cervical segments of the vertebral arteries are patent without hemodynamically significant stenosis. The left vertebral artery is dominant. CTA Head: The anterior and posterior cerebral circulations are patent. origin of the right pos terior cerebral artery is seen. IMPRESSION: 1. No occlusion, hemodynamically significant stenosis, or dissection in the major cervical arteries. 2. No occlusion, hemodynamically significant stenosis, aneurysm, dissection, or arteriovenous malfor mation in the major intracranial arteries. Assessment of stenosis of the internal carotid arteries is based on NASCET criteria. ACT 112: Negative or not required by law. Electronically signed by: Grzegorz Palmer M.D. 08/27/2023 1:50 PM
--- NOTE | 2023-08-27 16:11 | History & Physical Report ---
Date of Service August 27, 2023 Assessment & Plan (1) Slurred speech: Plan: Acute change in speech when patient was speaking to her friend on the evening of 08/25 Patient was seen by [facility] nursing staff and speech therapy the following morning, and agreed on an acute change This is in the setting of recent CVA on 08/07; Acute right periventricular stroke Head CT revealed no acute findings Head/neck CTA revealed no acute findings Brain MRI ordered, pending Speech therapy consulted Keep strict n.p.o. until she is seen by speech therapy and passes dysphagia screen; hold all p.o. medications Neurochecks q4h Aspirin 300 mg ME given in the ED given significant garbled speech Aspiration precautions A.m. CBC, BMP, fasting lipid panel, PT/INR, mag (2) History of stroke: Plan: First CVA in 2018 w/ residual deficits right-sided deficits Recent CVA on 08/08/2023: Acute right-sided periventricular stroke Patient's medical POA/friend reports that her speech has been improving upon discharge on 08/11, then acutely worsened again on the evening of 08/25 (3) Diabetes mellitus, type 2: Plan: Last A1c at 6.7% on 08/09/2023 Glucose 112 on admission Hold metformin Patient normally takes 15u basal insulin HS Will defer basal insulin while patient is n.p.o. Loose SSI; with target BSG range 110-150mg/dL, CF 55, carb ratio 18 BSG q6h while NPO BSG ACHS when she is able to eat Advance to T2DM diet/pured diet as tolerated Adjust regimen as needed (4) Hypertension: Plan: Permissive HTN in setting of strokelike symptoms; labetalol 5mg IV as needed for SBP>220 or DBP>120 Patient has been normotensive/mildly elevated in the ED Hold amlodipine, losartan until patient passes dysphagia screen Plan Disposition: Admit to PCU telemetry Full code Keep n.p.o. for now pending dysphagia screen/speech therapy eval VTE PPx: Heparin 5000u SQ q12h History of Present Illness Chief Complaint: TIA symptoms Primary Care Provider: Connieaby Rice is a 73-year-old female with PMH of CVA in 2018 with residual right-sided deficits, T2DM, bladder cancer, HTN, depression, dyslipidemia. She presented via EMS from [facility] for difficulty speaking on 08/26. This was in the setting of an acute stroke on 08/07 for which she was hospitalized at [facility]. On 08/26, she was being seen by speech therapy and they noted a significant change in speech. Patient denies having any facial droop today. Patient reports she did not take any of her regular medications today. She did not take any aspirin or Plavix. She denies history of smoking, tobacco use, and alcohol use. Patient vitals are stable at time of admission; normotensive. ROS: Patient endorses slurred speech and difficulty with word processing. Patient denies fever, chills, nightsweats, dizziness, lightheadedness, MEDINA, facial droop, change in vision/hearing, chest pain, chest palpitations, SOB, cough, pleuritic CP, abdominal pain, N/V/D, urinary s/s, or numbness/tingling in the arms or legs. Spoke on the phone with patient's medical POA/friend, Sulema Huangyle ([phone]). Patient's POA reports that her speech was improving after she was discharged from the hospital on 08/11. She then continued to improve with speech therapy at [facility], but then suddenly got worse last night. Sulema was speaking on the phone with patient, she noted that she could barely understand aware that she was saying. [facility] nursing staff agreed this morning that there had been an acute change overnight, and recommended that she be sent in. Reconfirmed with patient's POA that the patient is full code. Allergies Allergy/AdvReac Type Severity Reaction Status Date / Time prednisone Allergy Mild ITCHING Verified 08/27/23 15:46 ampicillin AdvReac Mild Gastrointestinal Verified 08/27/23 15:46 Upset azithromycin AdvReac Mild Gastrointestinal Verified 08/27/23 15:46 Upset lisinopril AdvReac Mild Gastrointestinal Verified 08/27/23 15:46 Upset Home Medications Medication Instructions Recorded Confirmed Type cholecalciferol (vitamin D3) 50 2,000 unit PO QAM 02/10/18 08/27/23 History mcg (2,000 unit) capsule (Vitamin D3) cyanocobalamin (vitamin B-12) 500 1,000 mcg PO QAM 03/25/18 08/27/23 History mcg tablet (Vitamin B-12) sitagliptin phosphate 100 mg 100 mg PO QAM 03/25/18 08/27/23 History tablet (Januvia) amlodipine 2.5 mg tablet 2.5 mg PO QAM 09/01/20 08/27/23 History aspirin 81 mg chewable tablet 81 mg PO QAM 09/01/20 08/27/23 History bimatoprost 0.01 % eye drops 1 drp OPB HS 09/01/20 08/27/23 History (Lumigan) ferrous sulfate 325 mg (65 mg 325 mg PO QAM 09/01/20 08/27/23 History iron) tablet losartan 100 mg tablet 100 mg PO QAM 09/01/20 08/27/23 History potassium chloride 10 mEq 10 meq PO BID 09/01/20 08/27/23 History tablet,extended release fesoterodine 4 mg tablet,extended 4 mg PO QAM 10/04/20 08/27/23 History release 24 hr (Toviaz) albuterol sulfate 90 mcg/actuation 2 puff inhalation Q6 PRN Wheezing 11/07/20 08/27/23 History aerosol inhaler nystatin 100,000 unit/gram topical 1 applic topical Q12 PRN Rash 11/07/20 08/27/23 History cream ketoconazole 2 % shampoo 1 applic topical .COMPLEX #120 mL 08/08/22 08/27/23 Rx docusate sodium 100 mg capsule 100 mg PO DAILY PRN Constipation 07/23/23 08/27/23 History (Colace) dorzolamide (PF) 2 % (PF) eye drops 2 drp ophthalmic (eye) TID 07/23/23 08/27/23 History insulin glargine 100 unit/mL (3 8 unit subcut HS 07/23/23 08/27/23 History mL) subcutaneous pen (Basaglar KwikPen U-100 Insulin) ipratropium 0.5 mg-albuterol 3 mg 3 ml inhalation Q6H PRN Shortness 07/23/23 08/27/23 History (2.5 mg base)/3 mL nebulization Of Breath Or Wheezing soln magnesium oxide 400 mg PO QPM 07/23/23 08/27/23 History melatonin 3 mg capsule 3 mg PO HS 07/23/23 08/27/23 History white petrolatum-mineral oil 94 1 applic ophthalmic (eye) HS 07/23/23 08/27/23 History %-3 % eye ointment (Systane Nighttime) atorvastatin 40 mg tablet 40 mg PO HS 08/08/23 08/27/23 History betamethasone dipropionate 0.05 % 1 applic topical DAILY PRN Itching 08/08/23 08/27/23 History lotion cetirizine 10 mg tablet 10 mg PO DAILY 08/08/23 08/27/23 History citalopram 20 mg tablet 20 mg PO DAILY 08/08/23 08/27/23 History metformin 500 mg tablet 500 mg PO BID 08/08/23 08/27/23 History clopidogrel 75 mg tablet 75 mg PO DAILY 30 days #30 tabs 08/11/23 08/27/23 Rx acetaminophen 325 mg tablet 650 mg PO Q4 PRN Fever Or Pain 08/27/23 08/27/23 History (Tylenol) acetaminophen 325 mg tablet 650 mg PO QAM 08/27/23 08/27/23 History (Tylenol) cetyl and stearate 1 applic topical BID 08/27/23 08/27/23 History alcohol-propylen glycol-sls topical cream (Cetaphil topical cream) docusate sodium 100 mg capsule 100 mg PO QPM 08/27/23 08/27/23 History (Colace) ketotifen fumarate 0.025 % (0.035 1 drp OPB BID PRN itchy 08/27/23 08/27/23 History %) eye drops triamcinolone acetonide 0.1 % 1 applic topical Q12 PRN .litchen 08/27/23 08/27/23 History topical cream simplex Past Med/Surg History Medical History Cystitis Encounter for pre-operative examination Renal insufficiency DVT prophylaxis Bladder cancer Diabetes mellitus, type 2 History of COVID-19 Had both vaccines, but presented to [facility] 09/01/20 with weakness and tested + for COVID > resolved Glaucoma Anemia Hyperlipemia HTN (hypertension) Pancreatic cyst Neutropenia Encephalopathy Hx of recurrent urinary tract infection CVA (cerebral vascular accident) 2018 Retinopathy Depression Surgical History Hx of colonoscopy History of cystoscopy Transurethral Resection Bladder Tumor Hx of appendectomy Family History Father Diabetes Heart disease Hypertension Other Family history unknown Social History (Updated 08/09/23 @ 10:16 by Devonte Shaw MD) Smoking Status: Former smoker Tobacco Type: Cigarettes Age Started Using Tobacco: 21; Age Quit Using Tobacco: 31; Second Hand Exposure: No; Do You Dip or Chew Tobacco: No; Hx Alcohol Use: No Hx Substance Use: No Preferred Language: Italian Communication Ability: Impaired Digital Computer Operator Required: No Beliefs That Will Affect Care: None marital status: / Current Living Situation: Personal Care Facility Current Living Situation Comment: [facility] current occupational status: retired and disabled Feels Safe at Home: Yes Safety Concerns: Feels Safe At This Time Assistive Devices: Glasses, Walker and Wheelchair Review of Systems 2 Review of Systems: See HPI above Physical Exam Physical Exam: General: no acute distress; pleasant affect; non-toxic appearing; well- nourished; cooperative; SpO2 99% on RA HEENT: normocephalic, atraumatic; no scleral icterus; PERRLA; moist mucus membrane; vision and hearing intact Neck: supple; no lymphadenopathy; trachea midline; patient demonstrates ability to shrug shoulders against resistance and rotate neck without pain/dizziness Skin: warm, dry without signs of tenting; no cyanosis; no rashes, bruising, lesions, or erythema noted CV: chest wall NTP; RRR; S1/S2 normal; no murmurs/rubs/gallops; pulses intact and symmetric at radial, DP, and PT Lungs: no acute respiratory distress; symmetrical chest wall expansion; clear breath sounds across all lung lucas w/o adventitious sounds; no wheezing ABD: Soft, NTP; BS present; no rebound/guarding; no distention MSK: no tics or fasciculations; no edema noted in the LEs b/l, nonerythematous; 5/5 ruby on rails consultant strength bilaterally Neuro: Alert and oriented to name//location, not month; garbled speech; neg ative pronator drift; sensation grossly intact in the face/UEs/LEs bilaterally Results & Data Results & Data Vital Signs (Past 12 Hours) Vital Signs Temp Pulse Pulse Resp BP BP Pulse Ox 08/27/23 15:40 76 17 139/77 08/27/23 13:00 78 19 154/119 H 99 08/27/23 12:17 83 08/27/23 12:05 96 08/27/23 11:40 37.1 C 82 18 137/80 95 O2 Del Method 08/27/23 15:40 08/27/23 13:00 Room Air 08/27/23 12:17 08/27/23 12:05 Room Air 08/27/23 11:40 Room Air Laboratory Results Abnormal lab results 08/27/23 Range/Units 11:35 MPV 8.9 L (9.4-12.4) fL Glucose 112 H (70-99(Fasting)) mg/dl Diagnostic Findings Head CTA 08/27/23 12:03 CT angio neck with con, CT angio head w con CLINICAL HISTORY: slurred speech TECHNIQUE: CT angiography of the head and neck was performed following intravenous administration of iodinated contrast. Coronal and sagittal MIPS were obtained from the axial data set and were submitted for review. Automated dose lowering techniques and/or adjustment according to patient size were utilized for this examination. All measurements were calculated based on NASCET criteria. CT DOSE: 1160.68 mGy.cm Comparison: None available at the time of this dictation. FINDINGS: Lungs and soft tissues are unremarkable. CTA Neck: A 3 vessel aortic arch is shown. There is no significant atherosclerotic plaque in the aortic arch or the origins of the innominate, left common carotid, and left subclavian arteries. The common carotid, external carotid, cervical segments of the internal carotid arteries, and the cervical segments of the vertebral arteries are patent without hemodynamically sign ificant stenosis. The left vertebral artery is dominant. CTA Head: The anterior and posterior cerebral circulations are patent. origin of the right posterior cerebral artery is seen. IMPRESSION: 1. No occlusion, hemodynamically significant stenosis, or dissection in the major cervical arteries. 2. No occlusion, hemodynamically significant stenosis, aneurysm, dissection, or arteriovenous malformation in the major intracranial arteries. Assessment of stenosis of the internal carotid arteries is based on NASCET criteria. ACT 112: Negative or not required by law. Electronically signed by: Grzegorz Palmer M.D. 08/27/2023 1:50 PM Neck CTA 08/27/23 12:03 CT angio neck with con, CT angio head w con CLINICAL HISTORY: slurred speech TECHNIQUE: CT angiography of the head and neck was performed following intravenous administration of iodinated contrast. Coronal and sagittal MIPS were obtained from the axial data set and were submitted for review. Automated dose lowering techniques and/or adjustment according to patient size were utilized for this examination. All measurements were calculated based on NASCET criteria. CT DOSE: 1160.68 mGy.cm Comparison: None available at the time of this dictation. FINDINGS: Lungs and soft tissues are unremarkable. CTA Neck: A 3 vessel aortic arch is shown. There is no significant ather osclerotic plaque in the aortic arch or the origins of the innominate, left common carotid, and left subclavian arteries. The common carotid, external carotid, cervical segments of the internal carotid arteries, and the cervical segments of the vertebral arteries are patent without hemodynamically significant stenosis. The left vertebral artery is dominant. CTA Head: The anterior and posterior cerebral circulations are patent. origin of the right posterior cerebral artery is seen. IMPRESSION: 1. No occlusion, hemodynamically significant stenosis, or dissection in the major cervical arteries. 2. No occlusion, hemodynamically significant stenosis, aneurysm, dissection, or arteriovenous malformation in the major intracranial arteries. Assessment of stenosis of the internal carotid arteries is based on NASCET criteria. ACT 112: Negative or not required by law. Electronically signed by: Grzegorz Palmer M.D. 08/27/2023 1:50 PM Chest X-Ray 08/27/23 12:05 SINGLE VIEW CHEST CLINICAL HISTORY: Slurred speech FINDINGS: An AP, portable, upright chest radiograph is compared to study dated 08/08/2023. Surgical clips project over the mediastinum. The heart is mildly enlarged. There is pulmonary vascular congestion. Chronic interstitial thickening is previous. Mild atelectasis is seen at the lung bases. The lungs and pleural spaces are otherwise clear. No pneumothorax is seen. The skeletal structures are osteopenic. The bony thorax is grossly intact. IMPRESSION: Cardiomegaly with mild pulmonary vascular congestion. ACT 112: Negative or not required by law. Electronically signed by: Noam Luque M.D. 08/27/2023 1:[address] 08/27/23 12:05 CT OF THE HEAD WITHOUT CONTRAST CLINICAL HISTORY: Slurred speech. COMPARISON STUDY: Head CT and MRI of the brain August 08, 2023. TECHNIQUE: Helical axial images of the head were obtained without IV contrast. Automated exposure control was utilized for the study. A dose lowering technique was utilized adhering to the principles of ALARA. FINDINGS: No acute intracranial hemorrhage, midline shift or mass effect is present. Ventricular system is stable. Basal cisterns are patent. White matter hypodensities are unchanged and favor small vessel disease. Old left basal ganglia infarct is noted. There are no findings to suggest acute dural sinus thrombosis or acute territorial infarct. IMPRESSION: No acute intracranial findings. ACT 112: Negative or not required by law. Electronically signed by: Boyd Thomas M.D. 08/27/2023 1:17 PM Code Status & VTE Plan Code Status Full code, per discussion with patient's medical POA on the phone VTE Prophylaxis Plan VTE Prophylaxis will be ordered: Yes PG Care Time/CCT Total # of Minutes Spent Total Time Spent with Patient: Total time spent is greater than 50% in coordination of care (as documented) at patient's floor/unit and/or counseling patient: Coding [place] [address] INT INP/OBS CARE 3/75MIN Patient Type Established History Comprehensive Exam Comprehensive Medical Decision Making High Complexity Diagnoses Slurred speech R47.81 History of stroke Z86.73 Diabetes mellitus, type 2 E11.9 Diabetes mellitus terminal gauger insulin use: with prison use Primary hypertension I10 Hypertension type: primary hypertension (3) Diabetes mellitus, type 2 Diabetes mellitus terminal gauger insulin use: with terminal gauger use (4) Hypertension Hypertension type: primary hypertension Qualified Code(s): I10 - Essential (primary) hypertension
--- NOTE | 2023-08-27 16:18 | Electrocardiogram Report ---
Test Reason : Blood Pressure : / mmHG Vent. Rate : 082 BPM Atrial Rate : 082 BPM P-R Int : 156 ms QRS Dur : 082 ms QT Int : 396 ms P-R-T Axes : 096 -60 -17 degrees QTc Int : 462 ms Normal sinus rhythm Left axis deviation Low voltage QRS Inferior infarct , age undetermined Possible Anterolateral infarct (cited on or before 27-AUG-2023) Abnormal ECG When compared with ECG of 08-AUG-2023 13:31, Inferior infarct is now Present Questionable change in initial forces of Lateral leads Confirmed by Hai Torres ([id number]) on 08/27/2023 4:17:55 PM Referred By: Dionte Maria Confirmed By:Hai Torres
[2023-08-27] MEDS: ASPIRIN 300 MG SUPP PR ONE (17:51)
[2023-08-27 18:07] LABS: Magnesium 1.8 mg/dl (1.7-2.4)
[2023-08-27] MEDS ORDERED: ALBUT/IPRATROP 3MG/0.5MG NEB 3 ML VIAL INH PRN (18:20)
[2023-08-27] MEDS ORDERED: ONDANSETRON INJ 2 MG/ML 2 ML VIAL IV PRN (18:20)
[2023-08-27] MEDS ORDERED: GLUCOSE 10 TAB/TUBE PO PRN (18:20)
[2023-08-27] MEDS ORDERED: PHARMACIST DISCHARGE MED REC CONSULT PRN (18:20)
[2023-08-27] MEDS ORDERED: DEXTROSE 50% 50 ML SYRINGE IV PRN (18:20)
[2023-08-27] MEDS ORDERED: GLUCOSE 40% GEL 15 GM TUBE PO PRN (18:20)
[2023-08-27] MEDS ORDERED: CARBOHYDRATES FOR HYPOGLYCEMIA PO PRN (18:20)
[2023-08-27] MEDS ORDERED: ALBUTEROL HFA 8 GM INHALER INH PRN (18:20)
[2023-08-27] MEDS ORDERED: GLUCAGON FOR INJ 1 MG VIAL SQ PRN (18:20)
[2023-08-27] MEDS ORDERED: TRIAMCINOLONE ACET 0.1% CR 15 GM TUBE TOP PRN (18:20)
[2023-08-27] MEDS ORDERED: LABETALOL HCL IV 5 MG/ML 20ML IV PRN (19:59)
[2023-08-27] MEDS ORDERED: BIMATOPROST 0.01% OP SOLN 2.5 ML BTL OPB SCH ×2 (21:00)
[2023-08-27] MEDS ORDERED: Nursing to Pharmacy Communication SCH (21:45)
--- NOTE | 2023-08-27 22:05 | Magnetic Resonance Report ---
Exam(s): MRI HEAD Without Contrast EXAM: MR Head Without Intravenous Contrast CLINICAL HISTORY: Reason for exam: slurred speech. TECHNIQUE: Magnetic resonance images of the head/brain without intravenous contrast in multiple planes. COMPARISON: CT brain dated 08/27/2023. FINDINGS: Brain: Area of restricted diffusion abnormality identified within the right centrum semiovale/periventricular region compatible with small acute lacunar infarct. Moderate generalized brain atrophy. Areas of increased T2 hyperintensity within the periventricular white matter compatible with microangiopathic disease. No hemorrhage. Ventricles: Unremarkable. No ventriculomegaly. Bones/joints: Unremarkable. No acute fracture. Sinuses: Unremarkable as visualized. No acute sinusitis. Mastoid air cells: Unremarkable as visualized. No mastoid effusion. Orbits: Unremarkable as visualized. IMPRESSION: 1. Small focus of acute lacunar infarct involving the right periventricular region/right centrum semiovale along with underlying microangiopathic white matter changes. 2. No intracranial hemorrhage seen. Communications: Call Doctor Other Electronically signed by: Ana Rosa Patel MD 08/27/23 22:04 PM
[2023-08-27] MEDS: HEPARIN SOD 5,000 UNIT/0.5 ML VIAL SQ SCH (22:17)
[2023-08-27] MEDS: DORZOLAMIDE HCL 2% OPH SOLN 10 ML BTL OP SCH (22:17)
[2023-08-27] MEDS: BIMATOPROST 0.01% OP SOLN 2.5 ML BTL OPB SCH (22:18)
[2023-08-27] MEDS: INSULIN ASPART PER UNIT CHARGE SC SCH (22:19)
[2023-08-27] MEDS: ARTIFICIAL TEARS OP SCH (22:45)
[2023-08-28] MEDS: INSULIN ASPART PER UNIT CHARGE SC SCH ×2 (00:59→16:56)
--- OUTSIDE RECORDS SUMMARY | 2023-08-28 01:19 | External Medical Summary | Summary of Care ---
Author Name Unknown Organization [facility] Address [address] [facility] [address] Phone [phone] Care Team Providers Care Video And Sound Recorder Name Role Phone Rahul Fan MD Primary Care Provider [phone] Reason for Visit * Reason Comments Follow Up * Precert (Within 10 days (routine)) - Authorized Specialty Diagnoses / Procedures Referred By Atilio lloyd Referred To Contact Ophthalmology Diagnoses Type 2 diabetes mellitus with moderate nonproliferative diabetic retinopathy with macular edema, bilateral (HCC) Procedures RI AFLIBERCEPT INJECTION RI INTRAVITREAL NJX PHARMACOLOGIC AGT SPX Tree Jay DO [address] [place] [address] Ophthalmology [facility] [address] [place] [id number] Referral ID Status Reason Start Date Expiration Date V isits Requested Visits Authorized [id number] Authorized Precert 07/29/2023 07/29/[id number] Encounter Details Date Type Department Care Team (Late st Contact Info) Description 08/26/2023 10:15 AM EDT Office Visit Ophthalmology, [facility] [address] [place] [id number] Tree Jay DO [address] [place] [address] Type 2 diabetes mellitus with moderate nonproliferative retinopathy of both eyes and macular edema, unspecified whether detention insulin use (HCC)* Allergies Active Allergy Reactions Criticality Noted Date Comments Ampicillin Nausea/vomiting 02/12/2010 Azithromycin Nausea/vomiting 07/28/2010 Lisinopril 07/04/2010 Rashes itching Prednisone Low 02/12/2010 Not an allergy , it caused her blood sugars to elevate documented as of this encounter (statuses as of 08/26/2023) Medications Medication Sig Dispensed Refills Start Date End Date Status CYANOCOBALAMIN (VITAMIN B-12) 500 MCG Sublingual TabletIndications:Vi tamin B 12 deficiency Take 2 Tabs by mouth daily. 60 Tab 5 02/25/2018 Active Insulin Glargine (BASAGLAR KWIKPEN) 100 UNIT/ML SOPNIndications:Type 2 diabetes mellitus with hemoglobin A1c goal of less than 7.0% ([facility]) Inject 11 units under the skin nightly 6 mL 5 04/14/2018 Active Additional Information Patient taking differently: Inject 8 units under the skin nightly, Reported on 08/26/2023 Cholecalciferol (VITAMIN D3) 2000 units Capsule Take 1 Cap by mouth daily. 30 Cap 0 04/20/2018 Active Insulin Pen Needle (BD PEN NEEDLE MINI U/F) 31G X 5 MM For use with insulin pen four times daily 120 Each 0 04/20/2018 Active losartan (COZAAR) 100 MG TabletIndications:Hy pertension goal BP (blood pressure) < 140/90 Take 1 Tab by mouth daily. 90 Tab 3 09/07/2018 Active JANUVIA 100 MG TabletIndications:Ty pe 2 diabetes mellitus with hemoglobin A1c goal of less than 7.0% ([facility]) 1 TAB BY MOUTH EVERY MORNING DX: DIABETES MELLITUS 2 90 Tab 1 01/04/2019 Active atorvaSTATin (LIPITOR) 80 MG Tablet Take 1 Tab by mouth daily. 90 Tab 0 01/11/2019 Active Additional Information Patient taking differently:80 mg OralHS, Reported on 11/26/2022 bimatoprost (LUMIGAN) 0.01 % ophthalmic solution Instill 1 Drop into both eyes at bedtime. 0 Active Misc. Devices (TRANSPORT CHAIR) MISCIndications:Luis plegia affecting right side in right-dominant patient as late effect of cerebrovascular disease (HCC),Cerebrovascula r disease, arteriosclerotic, post-stroke,Impaired mobility and ADLs,Hemiplegia and hemiparesis following cerebral infarction affecting unspecified side ([facility]),Peripheral vascular disease ([facility]) Able to self propel, needs for daily use with ADL's 1 Each 0 02/24/2019 Active metFORMIN (GLUCOPHAGE) 500 MG TabletIndications:Ty pe 2 diabetes mellitus with hemoglobin A1c goal of less than 7.0% ([facility]) Take 1 Tab by mouth 2 times a day with morning and evening meals. 60 Tab 5 05/21/2019 Active Additional Information Patient taking differently:500 mg OralDaily(AM), Reported on 11/26/2022 amLODIPine Besylate 2.5 MG Oral Tablet (Norvasc) Take 1 Tablet by mouth in the morning. 0 Active Cetirizine HCl 10 MG Oral Tablet (ZyrTEC) Take 0.5 Tablets by mouth at bedtime. 0 Active Magnesium 250 MG Oral Tablet Take 1 Tablet by mouth at bedtime. 0 Active Citalopram Hydrobromide 20 MG Oral Tablet (CeleXA) Take 1 Tablet by mouth in the morning. 0 06/04/2021 Active Ketotifen Fumarate 0.025 % Ophthalmic Solution (Zaditor) Instill into both eyes 1 Drop as needed in the morning AND 1 Drop as needed in the evening for Itching. 5 mL 12 06/28/2021 Active Potassium Chloride ER 10 MEQ Oral Capsule Extended Release 1 Capsule in the morning and 1 Capsule before bedtime. 0 08/27/2021 Active Dorzolamide HCl 2 % Ophthalmic Solution (Trusopt Ocumeter Plus) 0 08/20/2022 Active Ipratropium-Albutero l 0.5-2.5 (3) MG/3ML Inhalation Solution (Duoneb) 3 mL. 0 07/23/2023 Active Clopidogrel Bisulfate 75 MG Oral Tablet (Plavix) Take 1 Tablet by mouth in the morning. 0 Active Melatonin 3 MG Oral Tablet Disintegrating Take by mouth. 0 Active Systane Nighttime Ophthalmic Ointment Instill into eye. 0 Active Ferrous Sulfate 324 (65 Fe) MG Oral Tablet Delayed Release Take 1 Tablet by mouth daily with breakfast. 0 Active Fesoterodine Fumarate ER 4 MG Oral Tablet Extended Release 24 Hour (Toviaz) Take 1 Tablet by mouth in the morning. 0 Active Tylenol 325 MG Oral Capsule (Acetaminophen) Take by mouth. 0 Activ e Aspirin 81 MG Oral Tablet Delayed Release (Aspirin 81) Take 1 Tablet by mouth in the morning. 0 Active Docusate Sodium 100 MG Oral Capsule (Colace) Take 1 Capsule by mouth in the morning and 1 Capsule before bedtime. 0 Active Albuterol Sulfate 108 (90 Base) MCG/ACT Inhalation Aerosol Powder Breath Activated Inhale by mouth as needed. 0 Active aspirin 81 MG chewable tablet Take 1 Tab by mouth daily. 30 Tab 0 04/20/2018 4 Discontinue d(Medicatio n List Clean Up) ferrous sulfate (FEOSOL) 325 (65 FE) MG Tablet Take 1 Tablet by mouth daily with breakfast. 0 4 Discontinue d(Medicatio n List Clean Up) Toviaz 4 MG Oral Tablet Extended Release 24 Hour 0 03/24/2021 4 Discontinue d(Medicatio n List Clean Up) LubriFresh P.M. Ophthalmic Ointment 1/2 inch in left eye 3 times per day for 3 day as needed for irritation following eye injection. 1 g 6 04/30/2021 4 Discontinue d(Medicatio n List Clean Up) Ciprofloxacin HCl 250 MG Oral Tablet (Cipro) 0 09/02/2021 4 Discontinue d(Medicatio n List Clean Up) Triamcinolone Acetonide 0.1 % External Cream (Aristocort) 0 08/07/2021 4 Discontinue d(Medicatio n List Clean Up) Clobetasol Propionate 0.05 % External Solution 0 02/13/2022 4 Discontinue d(Medicatio n List Clean Up) Silver sulfADIAZINE 1 % External Cream (Silvadene) 0 02/21/2022 4 Discontinue d(Medicatio n List Clean Up) Mupirocin 2 % External Ointment (Bactroban) 0 03/22/2022 4 Discontinue d(Medicatio n List Clean Up) Hydrocortisone 2.5 % External Cream 0 06/04/2022 4 Discontinue d(Medicatio n List Clean Up) Ketoconazole 2 % External Shampoo (Nizoral) 0 08/04/2022 4 Discontinue d(Medicatio n List Clean Up) Sulfamethoxazole-Tri methoprim 800-160 MG Oral Tablet (Bactrim DS) 0 07/16/2022 4 Discontinue d(Medicatio n List Clean Up) buPROPion HCl ER (SR) 150 MG Oral Tablet Extended Release 12 Hour (Wellbutrin SR) 0 08/29/2022 4 Discontinue d(Medicatio n List Clean Up) Bisacodyl 10 MG Rectal Suppository (Dulcolax) 1 Suppository. 0 09/20/2021 4 Discontinue d(Medicatio n List Clean Up) Betamethasone Dipropionate 0.05 % External Lotion (Diprosone) DAILY 0 06/04/2022 4 Discontinue d(Medicatio n List Clean Up) Hospital, Clinic, or Other Facility Administered Medication Ordered Dose Route Frequency Start Date End Date Status bevaCIZumab (Avastin) inj 1.25 mgIndications:Type 2 diabetes mellitus with moderate nonproliferative retinopathy of both eyes and macular edema, unspecified whether detention insulin use (HCC) 1.25 mg IZ PRN 06/10/2023 06/09/2024 Active ROPivacaine (Naropin) inj 1.5 mgIndications:Type 2 diabetes mellitus with moderate nonproliferative retinopathy of both eyes and macular edema, unspecified whether detention insulin use (HCC) 1.5 mg PERINEURAL PRN 06/10/2023 06/09/2024 Active documented as of this encounter (statuses as of 08/26/2023) Active Problems Problem Noted Date Diagnosed Date Type 2 diabetes mellitus wit h stage 3 chronic kidney disease 03/19/2019 Hypertensive kidney disease with chronic kidney disease stage III 03/19/2019 Type 2 diabetes mellitus with peripheral vascula r disease 12/11/2018 Urinary incontinence, nocturnal enuresis 019 Advanced directives, counseling/discussion 10/23 Hemiplegia affecting right s aaron in right-dominant patient as late effect of cerebrovascular disease 07/17/2018 Current use of insulin 07/17/2018 Hypertension goal BP (blood pressure) < 140/90 0 07/08/2018 Diastolic dysfunction 07/08/2018 Memory changes 05/06/2018 Cerebrovascular disease, arteriosclerotic, post- stroke 04/02/2018 Encephalopathy 04/02/2018 Dysarthria, post-stroke 04/02/2018 Vitamin D deficiency 04/02/2018 Recurrent major depressive disorder, in partial remission 04/02/2018 History of tobacco abuse 02/24/2018 History of stroke 02/24/2018 Overview: MCA stroke Impaired mobility and ADLs 02/05/2018 Nonproliferative diabetic retinopathy of left ey e 10/21/2017 Hyperlipidemia with target LDL less than 70 12/01 Type 2 diabetes mellitus wit h hemoglobin A1c goal of less than 7.0% 02/12/2010 Overview: ICD-10 update of inactive term documented as of this encounter (statuses as of 08/26/2023) Resolved Problems Problem Noted Date Diagnosed Date Resolved Date Kidney disease, chronic, sta ge III (GFR 30-59 ml/min) 01/11/2019 04/16/2019 Overview: Per CKD protocol Neutropenia 04/02/2018 07/08/2018 Ischemic cerebrovascular accident (CVA) 04/02/2018 07/08/2018 retirement resident 04/02/20182018 Acute ischemic left MCA stroke 02/04/2018 03/25/2019 Tobacco use 02/02/2018 02/24/2018 Ischemic stroke 02/01/2018 02/05/2018 Overview: left basal ganglia/internal capsule Major depressive disorder, s татьяна episode, mild 07/24/2017 10/21/2017 Non compliance with medical treatment 12/26/2016 07/08/2018 HTN, goal below 130/80 07/31/201202/05 Tendonitis of ankle, left 01/13/2012 Closed fx of fibula 11/11/2011 12/27/19 17 HTN, goal below 140/80 09/16/201107/31 ADVANCE DIRECTIVE INFORMATION 05/02/2010 02/02/2018 Overview: No, Advance Directive brochure given to patient. HTN, goal below 130/80 02/12/201009/15 Adjustment disorder with depressed mood 02/12/2010 10/21/2017 documented as of this encounter (statuses as of 08/26/2023) Immunizations Name Administration Dates Next Due Pneumococcal Conjugate Vacc, 13 Valent (Prevnar) 05/01/2016 Pneumococcal Polysaccharide PPV23 (Pneumovax) 02/24/2018,05/02/2010 Season Influenza, Cell Cultu re, 18+ Yrs, With Preserv (Flucelvax) 04/19/2013 Seasonal Influenza, PF, 6 M & above, IM , (FluLaval or Fluzone) 02/24/2018,04/02/2017 Seasonal Influenza, Split, I IV3, With Preserve, Inj 04/11/2016,02/14/2015,03/17/2014,04/17,03/25/2011,05/02/2010,05/16/2009 ,03/02/2008,04/21/2007,03/12/2006 Seasonal Influenza, Trivalen t, Adjuvanted, 65+ yrs 02/24/2019 Seasonal Influenza, Trivalen t, High Dose, No Preserve, IM 03/19/2017 TDAP (age 10 and older)(Boostrix) 02/24/2018 documented as of this encounter Social History Tobacco Use Types Packs/Day Years Used Date Smoking Tobacco: Former Cigarettes 0.5 30 Smokeless Tobacco: Never Alcohol Use Standard Drinks/Week Comments Yes 0 (1 standard drink = 0.6 oz pur e alcohol) very seldom 1 per month PHQ-2 Answer Date Recorded PHQ-2 Score 0 03/25/2019 Hunger Vital Sign Answer Date Recorded Worried About Running Out of Food in the Last Ye ar Never true 08/31/2020 Ran Out of Food in the Last Year Never true 08/31/2020 Sex and Gender Information Value Date Recorded Sex Assigned at Female 12/11/2018 1:30 PM EDT Gender Identity Female 12/11/2018 1:30 PM EDT Sexual Orientation Straight 12/11/2018 1: 30 PM EDT Job Start Date Occupation Industry Not on file Not on file Not on file documented as of this encounter Functional Status Functional Status Response Date of Assess ment Are you deaf or do you have serious difficulty h earing? No 01/31/2018 Are you blind or do you have serious difficulty seeing, even when wearing glasses? No 01/31/2018 Do you have serious difficul ty walking or climbing stairs? (5 years old or older) No 01/31/2018 Do you have difficulty dress ing or bathing? (5 years old or older) No 01/31/2018 Because of a physical, menta l, or emotional condition, do you have difficulty doing errands alone such as visiting a doctor s office or shopping? (15 years old or older) No 02/01/20 18 Cognitive Status Response Date of Assessm ent Because of a physical, menta l, or emotional condition, do you have serious difficulty concentrating, remembering, or making decisions? (5 years old or older) No 01/31/2018 documented as of this encounter Progress Notes * Tree Jay, - 08/26/2023 10:15 AM EDT [facility] [place] HPI: Krystal Pressley is a 73 year old female who presents for NPDR. Base Eye Exam Visual Acuity (Snellen - Linear) Right Left Dist cc 20/40 20/50 Dist ph cc 20/30 -1 NI Correction: Glasses Tonometry (Tonopen, 10:39 AM) Right Left Pressure 21 19 Pupils Pupils APD Right PERRL None Left PERRL None Visual Young (Counting fingers) Right Left Full Full Extraocular Movement Right Left Full, Ortho Full, Ortho Neuro/Psych Mood/Affect: Normal AAO x 2 Dilation Both eyes: 0.5% Proparacaine @ 10:38 AM Dilation #2 Both eyes: 1.0% Mydriacyl, 2.5% Phenylephrine @ 10:38 AM Dilation Comments Patient cautioned that effects of dilation may last 2-7 hours dependant upon individual reaction. It was discussed that driving while dilated is not recommended. EXTERNAL: The ocular adnexae are unremarkable. SLE: Lids/Lashes: wnl OU Conjunctiva/Sclera: quiet OU Cornea: clear OU Anterior Chamber: deep and quiet OU Iris: LPI superotemporally OU; no NVI OU Lens: 2+ mixed cataract OU Dilated fundus exam OD: vitreous: clear optic nerve: 0.15, no edema/pallor/NVD macula: VP [employer]GANIZATIONAL DEVELOPMENT vessels: wnl periphery: superior horizontal choroidal folds, VP [employer]GANIZATIONAL DEVELOPMENT, no RT/RD Dilated fundus exam OS: vitreous: PVD optic nerve: 0.2, no edema/pallor/NVD macula: VP [employer]GAN[employer]ATIONAL DEVELOPMENT with focal DME vessels: wnl periphery: VP [employer]GANIZATIONAL DEVELOPMENT, no RT/RD OCT Interpretation: OD: trace CIDME, no PVD - STABLE, prior STABLE OS: CIDME, +PVD -improved 42um prior no sig change, prior worse 57um prior worse 19um, prior improved 12um A/P: 1. Moderate Nonproliferative Diabetic Retinopathy OU - DM2 OD: - CIDME - Avastin OD 11/16/21 ->1 year -monitor -An examination for this condition was completed which is unrelated to the procedure that was performed today. OS: - CIDME - Avastin OS 04/18/22, 01/25/22, 05/30/21, 04/30/21 ->1 year, has gone 8-10 months -OCT/VA worse over past several visits -Avastin 07/29/23, 06/10/23 -7 weeks, no change; -persistent fluid on Avastin; approved for Eylea -recent stroke ; hold injection today -recommend HgbA1C <7, BP and lipid control. 2. Glaucoma OU - continue Lumigan qhs OU 3. Cataracts OU - monitor F/u 8-10 weeks - dilate and OCT OU Tree Jay DO CC: Dr. Rashid PCP: Rahul Fan MD documented in this encounter Nursing Notes * Shona Sosa RN - 08/26/2023 10:31 AM EDT Krystal Pressley is a 73 year old year old female who presents for Mod. NPDR OU. Last Office Visit: 07/29/2023 (in office), Visit date not found (telemedicine) Patient currently states no change in vision. Are you diabetic? Yes. Do you check your blood sugars daily? YES. Did not measure this morning. Yesterday 140 per retirement documentation Last Hemoglobin A1C: Lab Results Component Value Date/Time HGBA1C 6.4 (H) 03/12/2021 04:44 AM HGBA1C 6.5 (H) 03/25/2019 12:11 PM HGBA1C 6.4 (H) 12/11/2018 01:46 PM HGBA1C 6.7 (H) 09/11/2018 03:[address] no OCT image(s) of both eyes acquired and filed/scanned into chart. documented in this encounter Plan of Treatment Upcoming Encounters Date Type Department Care Team (Late st Contact Info) Description 10/23/2023 10:00 AM EDT Office Visit Ophthalmology, [facility] [address] [facility] [place] [address] Tree Jay DO [address] [place] [address] Scheduled Orders Name Type Priority Associated Diagnoses Orde r Schedule RETINA SCAN DIAGNOSTIC IMAGE, POSTERIOR Procedures Routine Type 2 diabetes mellitus with moderate nonproliferative retinopathy of both eyes and macular edema, unspecified whether detention insulin use (HCC) Ordered: 08/26/2023 Health Maintenance Due Date Last Done Comments Zoster Vaccines (1 of 2) 1970 COLONOSCOPY-EVERY 5 YRS AGES 18-100 08/31/2018 08/31/2013 Mammogram 10/13/2019 10/12/2018, 08/2017, 12/12/2016, Additional history exists Albumin/Creatinine Ratio 03/25/2020 019, 05/01/2016, 09/12/2014, Additional history exists CKD PHOS USE SMARTSET 14681 03/25/2020 03/25/2019 Depression Screening 03/25/2020 03/25/2019 Diabetic Foot Exam 06/21/2020 06/21/2019, 0 07/08/2018, 07/24/2017, Additional history exists GFR 09/10/2021 03/12/2021, 06/03, 05/14/2019, Additional history exists HbA1c 09/10/2021 03/12/2021, 03/03, 12/11/2018, Additional history exists B-12 03/12/2022 03/12/2021, 11/30, 04/28/2018, Additional history exists CKD HGB USE SMARTSET 14769 03/12/202203/12, 08/11/2018, 07/23/2018, Additional history exists COVID-19 Vaccine ( season) 2023 02/26/2022, 09/12/2021, 04/05/2021, Additional history exists Influenza Vaccine (FLU shot) (#1) 2023 02/24/2019, 02/24/2018, 04/02/2017, Additional history exists Diabetic Eye Exam 11/27/2023 11/26/2022, , 09/10/2021, Additional history exists DXA Scan 12/15/2023 12/14/2018 DTaP,Tdap,and Td Vaccines (2 - Td or Tdap) 02/25/2028 02/24/2018 Pneumococcal Vaccine: 65+ Years Completed 02/24/2018, 05/01/2016, 05/02/2010 GARDASIL-HPV IMMUNIZATION SERIES Aged Out No longer eligible based on patient's age to complete this topic Hepatitis B Aged Out No longer eligi ble based on patient's age to complete this topic MENINGOCOCCAL (MENACTRA/MENVEO) Aged Out No longer eligible based on patient's age to complete this topic documented as of this encounter Medical Devices Not on filedocumented as of this encounter Visit Diagnoses Diagnosis Type 2 diabetes mellitus with moderate nonproliferative retinopathy of both eyes and macular edema, unspecified whether terminal press operator insulin use (HCC)- Primary documented in this encounter Advance Directives Documents on File Type Date Recorded 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 Question Answer Comments Discussion of Advance Directives occurred with: Not Discussed Care Teams Video And Sound Recorder Relationship Specialty Start Date End Date Rahul Fan MD [address] [place] [id number] PCP - General Internal Medicine 09/15/20 documented as of this encounter
[2023-08-28 06:30] LABS: BUN Creatinine Ratio 14.9 (10-20); Calcium 9.3 mg/dl (8.6-10.3); Chol HDL Ratio 2.4 (0-5); Creatinine Clr Calc Pharmacy 54.8 ml/min; Est GFR (African American) 70.2 ml/min; Est GFR (Non-African American) 60.6 ml/min; Magnesium 1.7 mg/dl (1.7-2.4); Potassium 3.9 mmol/L (3.5-5.1)
[2023-08-28 06:31] LABS: Basophils # (auto) 0.07 K/uL (0.00-0.20); Basophils % (auto) 0.8 %; Eosinophils # (auto) 0.17 K/uL (0.00-0.50); Eosinophils % (auto) 1.9 %; Hematocrit (blood only) 38.6 % (37.0-47.0); Hemoglobin 12.8 g/dl (12.0-16.0); Immature Granulocytes # (auto) 0.02 K/uL (0.01-0.20); Immature Granulocytes % (auto) 0.2 %; Lymphocytes % (auto) 24.9 %; Mean Corpuscular Hemoglobin 28.4 pg (25.0-34.0); Mean Corpuscular Hgb Conc 33.2 g/dL (32.0-36.0); Mean Corpuscular Volume 85.6 fL (80.0-100.0); Mean Platelet Volume 8.8 fL (9.4-12.4); Monocytes # (auto) 0.62 K/uL (0.11-0.59); Neutrophils # (auto) 5.74 K/uL (1.40-6.50); Neutrophils % (auto) 65.2 %; Platelet Count 287 K/uL (130-400); RDW Coefficient of Variation 12.2 % (11.5-14.5); Red Blood Count 4.51 M/uL (4.20-5.40); White Blood Count 8.82 K/ul (4.8-10.8)
[2023-08-28 06:55] LABS: Prothrombin Time 10.9 Seconds (9.0-12.0)
[2023-08-28 07:14] LABS: Estimated Average Glucose 146 mg/dl; Hemoglobin A1C 6.7 % (4.5-5.6)
--- NOTE | 2023-08-28 12:45 | Fluoroscopy Report ---
MODIFIED BARIUM SWALLOW CLINICAL HISTORY: assess for aspiration COMPARISON STUDY: None. FLUOROSCOPY TIME: 2.22. Ka, r: 20.7 mGy. TECHNIQUE: A modified barium swallow was performed in conjunction with Speech Pathology. The patient ingested varying consistencies of barium containing material. Video fluoroscopy was performed. FINDINGS: There were several episodes of tracheal aspiration with thin liquids. There was trace silen t aspiration with nectar thick liquids. Premature spillage was noted. Mild residuals were noted withi n the piriform sinuses and vallecula with several consistencies. There was no aspiration with pudding consistency. No aspiration with honey was identified. IMPRESSION: 1. Several episodes of tracheal aspiration with thin liquids. Trace tracheal aspiration with nectar t hick liquids. 2. Premature spillage with mild residuals with several consistencies. 3. Full recommendations by Speech pathology to follow. ACT 112: Negative or not required by law. Electronically signed by: Boyd Thomas M.D. 08/28/2023 12:44 PM
--- NOTE | 2023-08-28 15:43 | Hospitalist Progress Note ---
Date of Service August 28, 2023 Assessment & Plan (1) Acute CVA (cerebrovascular accident): Plan: - Presented due to acute change in speech in the evening on 08/25 at [facility] nursing, in the setting of recent CVA on 08/08/2023 (acute right periventricular stroke) - Brain MRI from this visit showed acute lacunar infarct of right periventricular region, no intracranial hemorrhage - Extend 21-day DAPT (aspirin and Plavix) from this stay, then can discontinue aspirin -- Discussed with neurology - Moderate to severe oral stage dysphagia -- Speech therapy recommends moderately thick liquids and pured diet texture - Neurochecks q4h - Aspiration precautions - Will need continued PT, OT, speech therapy at [facility] upon discharge (2) Diabetes mellitus, type 2: Plan: Last A1c at 6.7% on 08/09/2023 Glucose 112 on admission Hold metformin while inpatient Patient normally takes 15u basal insulin HS Loose SSI; with target BSG range 110-150mg/dL, CF 55, carb ratio 18 BSG ACHS Adjust regimen as needed (3) Hypertension: Plan: Permissive HTN in setting of strokelike symptoms; labetalol 5mg IV as needed for SBP>220 or DBP>120 Continue amlodipine and losartan -- speech therapy recommends crushed medications in a carrier Plan Full code VTE PPx: Heparin 5000u SQ q12h Admission and Anticipated Discharge Date Admission Date: August 27, 2023 Subjective Patient seen and evaluated at bedside. She currently has expressive aphasia with dysarthria. I spoke with the patient's friend/POA at bedside who reports that her speech was improving after she was discharged from the hospital on 08/12/2023. She reports that there was continued improvement with speech therapy at [facility], however on the night of 08/26/2023 she could barely understand her on the phone. Patient denies any complaints at this time. Physical Exam Physical Exam: General: No acute distress, nondiaphoretic, well-developed, well-nourished. Skin: The skin was warm, dry, without rashes, erythema, edema, or bruising. Cardiac: Regular rate and rhythm without murmurs gallops or rubs. Pulm: Clear to auscultation bilaterally without wheezes, rales or rhonchi. No retractions or accessory muscle use. SpO2 94% on RA Abdominal: Positive bowel sounds x 4. Soft, nontender, without masses or organomegaly. No guarding or rebound tenderness. Neuro: A&O x3. Expressive aphasia with garbled speech. Sensation grossly intact in the face/UEs/LEs bilaterally Results & Data Results & Data Vital Signs (Past 12 Hours) Vital Signs Temp Pulse Pulse Resp BP Pulse Ox O2 Del Method 08/28/23 11:24 36.8 C 95 H 18 152/84 H 94 Room Air 08/28/23 08:39 73 08/28/23 08:04 Room Air 08/28/23 07:47 36.5 C 78 18 142/69 H 95 Room Air Laboratory Results Reviewed CBC Reviewed chemistries Diagnostic Findings Reviewed brain MRI 08/27/2023: IMPRESSION: 1. Small focus of acute lacunar infarct involving the right periventricular region/right centrum semiovale along with underlying microangiopathic white matter changes. 2. No intracranial hemorrhage seen. Videofluoroscopic swallow 08/28/2023: IMPRESSION: 1. Several episodes of tracheal aspiration with thin liquids. Trace tracheal aspiration with nectar thick liquids. 2. Premature spillage with mild residuals with several consistencies. 3. Full recommendations by Speech pathology to follow. PG Care Time/CCT Total # of Minutes Spent Total Time Spent with Patient: Total time spent is greater than 50% in coordination of care (as documented) at patient's floor/unit and/or counseling patient: Coding Level of Care Code 94400 SUB INP/OBS CARE MIN Diagnoses Acute CVA (cerebrovascular accident) I63.9 Diabetes mellitus, type 2 E11.9 Diabetes mellitus terminal carman insulin use: with terminal carman use Primary hypertension I10 Hypertension type: primary hypertension (2) Diabetes mellitus, type 2 Diabetes mellitus terminal carman insulin use: with long-term use (3) Hypertension Hypertension type: primary hypertension Qualified Code(s): I10 - Essential (primary) hypertension
[2023-08-29 06:45] LABS: Basophils # (auto) 0.08 K/uL (0.00-0.20); Basophils % (auto) 0.9 %; Eosinophils # (auto) 0.11 K/uL (0.00-0.50); Eosinophils % (auto) 1.2 %; Hematocrit (blood only) 39.6 % (37.0-47.0); Immature Granulocytes # (auto) 0.02 K/uL (0.01-0.20); Immature Granulocytes % (auto) 0.2 %; Lymphocytes # (auto) 2.32 K/uL (1.20-3.40); Lymphocytes % (auto) 25.4 %; Mean Corpuscular Hemoglobin 28.2 pg (25.0-34.0); Mean Corpuscular Hgb Conc 32.8 g/dL (32.0-36.0); Mean Corpuscular Volume 85.9 fL (80.0-100.0); Monocytes # (auto) 0.76 K/uL (0.11-0.59); Monocytes % (auto) 8.3 %; Neutrophils # (auto) 5.85 K/uL (1.40-6.50); Platelet Count 279 K/uL (130-400); RDW Coefficient of Variation 12.4 % (11.5-14.5); RDW Standard Deviation 38.6 fL (36.4-46.3); Red Blood Count 4.61 M/uL (4.20-5.40); White Blood Count 9.14 K/ul (4.8-10.8)
[2023-08-29 06:56] LABS: BUN Creatinine Ratio 16.7 (10-20); Calcium 9.4 mg/dl (8.6-10.3); Est GFR (African American) 63.6 ml/min; Est GFR (Non-African American) 54.9 ml/min; Potassium 3.6 mmol/L (3.5-5.1)
[2023-08-29] MEDS: amLODIPine BESYLATE 5 MG TAB PO SCH (08:33)
[2023-08-29] MEDS: LOSARTAN POTASSIUM 50 MG TAB PO SCH (08:34)
--- NOTE | 2023-08-29 15:16 | Hospitalist Progress Note ---
Date of Service August 29, 2023 Assessment & Plan (1) Acute CVA (cerebrovascular accident): Plan: - Presented due to acute change in speech in the evening on 08/25 at [facility], in the setting of recent CVA on 08/08/2023 (acute right periventricular stroke) - Brain MRI from this visit showed acute lacunar infarct of right periventricular region, no intracranial hemorrhage - Initially, patient was tolerating moderately thick liquids and pured diet texture. However there is a decline in her status, and she is now unsafe to eat by mouth due to high risk of airway obstruction. - N.p.o. status including meds. May have 1 ice chip at a time only with direct supervision for comfort. Aspiration and reflux precautions. - Possible placement of a feeding tube, however still high risk for aspiration and airway obstruction due to aspirating secretions and reflux from tube feedings. - Consider palliative care consult for discussion of goals of care. (2) Diabetes mellitus, type 2: Plan: Last A1c at 6.7% on 08/09/2023 Glucose 112 on admission Hold metformin while inpatient Patient normally takes 15u basal insulin HS Loose SSI; with target BSG range 110-150mg/dL, CF 55, carb ratio 18 BSG ACHS Adjust regimen as needed (3) Hypertension: Plan: - Permissive HTN in setting of strokelike symptoms; labetalol 5mg IV as needed for SBP>185 or DBP>95 - Switched antihypertensive to IV Enalaprilat Plan Full code VTE PPx: Heparin 5000u SQ q12h Admission and Anticipated Discharge Date Admission Date: August 27, 2023 Subjective Patient was seen and evaluated at bedside. She continues to have expressive aphasia with dysarthria. However, compared to yesterday there has been a decline in her dysphagia. Patient experienced increased coughing at breakfast today and while taking oral medications with her modified diet. She also had a significant coughing episode at lunch today, which required suctioning of food from her throat. She is no longer tolerating any p.o. intake safely. Given she is already at the most restrictive diet modification, her diet cannot be modified any further. She is also unable to complete safe swallow strategies fo r improved airway protection. Unfortunately, she is now at a high risk for aspiration and airway obstruction given her decline and the events today. I had a discussion with the patient on goals of care, including possible placement of a feeding tube, but explained this will not prevent aspiration from happening as she will aspirate her secretions and is at high risk to aspirate from reflux from the tube feedings, versus palliative care. I also discussed this with her POA, Sulema. No decision has been explicitly made at this time. Physical Exam Physical Exam: General: No acute distress, nondiaphoretic, well-developed. Skin: The skin was warm, dry, without rashes, erythema, edema, or bruising. Cardiac: Regular rate and rhythm without murmurs gallops or rubs. Pulm: Clear to auscultation bilaterally without wheezes, rales or rhonchi. No retractions or accessory muscle use. SpO2 95% on RA Abdominal: Positive bowel sounds x 4. Soft, nontender, without masses or organomegaly. No guarding or rebound tenderness. Neuro: A&O x3. Expressive aphasia with garbled speech. Sensation grossly in tact in the face/UEs/LEs bilaterally Results & Data Results & Data Vital Signs (Past 12 Hours) Vital Signs Temp Pulse Pulse Resp BP Pulse Ox O2 Del Method 08/29/23 11:07 36.5 C 87 14 135/81 95 Room Air 08/29/23 08:00 Room Air 08/29/23 07:35 36.4 C L 72 15 135/80 91 Room Air 08/29/23 07:30 74 08/29/23 03:49 37.1 C 69 16 118/70 96 Room Air Laboratory Results Reviewed CBC Reviewed chemistries PG Care Time/CCT Total # of Minutes Spent Total Time Spent with Patient: Total time spent is greater than 50% in coordination of care (as documented) at patient's floor/unit and/or counseling patient: Prolonged Care Time Total Prolonged Care Time: 60 Total of 60 minutes of prolonged care time including discussion of status decline with patient and POA, with goals of care options including palliative care versus tube feedings, along with associated risks. Coding Level of Care Code 67612 SUB INP/OBS CARE 3/50MIN (25 - SIGNIFICANT, SEPARATELY IDENTIFIABLE ) Diagnoses Acute CVA (cerebrovascular accident) I63.9 Diabetes mellitus, type 2 E11.9 Diabetes mellitus longterm insulin use: with termite exterminator helper use Primary hypertension I10 Hypertension type: primary hypertension (2) Diabetes mellitus, type 2 Diabetes mellitus termite exterminator helper insulin use: with longterm use (3) Hypertension Hypertension type: primary hypertension Qualified Code(s): I10 - Essential (primary) hypertension
[2023-08-29] MEDS ORDERED: LABETALOL HCL IV 5 MG/ML 20ML IV PRN (15:39)
[2023-08-29] MEDS: SODIUM CHLORIDE 0.9% 1,000 ML IV SCH (17:39)
[2023-08-29] MEDS ORDERED: Nursing to Pharmacy Communication SCH (21:00)
[2023-08-29] MEDS: INSULIN ASPART PER UNIT CHARGE SC SCH (23:19)
[2023-08-30 08:06] LABS: Basophils # (auto) 0.06 K/uL (0.00-0.20); Basophils % (auto) 0.7 %; Eosinophils # (auto) 0.08 K/uL (0.00-0.50); Eosinophils % (auto) 0.9 %; Hematocrit (blood only) 40.1 % (37.0-47.0); Hemoglobin 12.8 g/dl (12.0-16.0); Immature Granulocytes # (auto) 0.03 K/uL (0.01-0.20); Immature Granulocytes % (auto) 0.3 %; Lymphocytes # (auto) 2.08 K/uL (1.20-3.40); Lymphocytes % (auto) 23.4 %; Mean Corpuscular Hemoglobin 28.1 pg (25.0-34.0); Mean Corpuscular Hgb Conc 31.9 g/dL (32.0-36.0); Mean Corpuscular Volume 87.9 fL (80.0-100.0); Mean Platelet Volume 9.2 fL (9.4-12.4); Monocytes # (auto) 0.73 K/uL (0.11-0.59); Monocytes % (auto) 8.2 %; Neutrophils # (auto) 5.91 K/uL (1.40-6.50); Neutrophils % (auto) 66.5 %; Platelet Count 246 K/uL (130-400); RDW Coefficient of Variation 12.4 % (11.5-14.5); RDW Standard Deviation 39.7 fL (36.4-46.3); Red Blood Count 4.56 M/uL (4.20-5.40); White Blood Count 8.89 K/ul (4.8-10.8)
[2023-08-30 08:21] LABS: BUN Creatinine Ratio 14.2 (10-20); Calcium 9.1 mg/dl (8.6-10.3); Creatinine Clr Calc Pharmacy 42.9 ml/min; Est GFR (African American) 52.3 ml/min; Est GFR (Non-African American) 45.1 ml/min; Potassium 3.9 mmol/L (3.5-5.1)
[2023-08-30] MEDS: ENALAPRILAT 2.5 MG in DEXTROSE 5% 25 ML IV SCH (09:12)
--- NOTE | 2023-08-30 15:51 | Hospitalist Progress Note ---
Date of Service August 30, 2023 Assessment & Plan (1) Acute CVA (cerebrovascular accident): Plan: - Presented due to acute change in speech in the evening on 08/25 at [facility], in the setting of recent CVA on 08/08/2023 (acute right periventricular stroke) - Brain MRI from this visit showed acute lacunar infarct of right periventricular region, no intracranial hemorrhage - Initially, patient was tolerating moderately thick liquids and pured diet texture. However there was a decline in her status, and she is now unsafe to eat by mouth due to high risk of airway obstruction and aspiration. - N.p.o. status including meds. May have 1 ice chip at a time only with direct supervision for comfort. Aspiration and reflux precautions. - Possible trial of NG tube, however still high risk for aspiration and airway obstruction due to aspirating secretions and reflux from tube feedings. - Plan to meet with palliative care for discussion of goals of care on Friday. (2) Diabetes mellitus, type 2: Plan: - Last A1c at 6.7% on 08/09/2023 - Loose SSI; with target BSG range 110-150mg/dL, CF 55, carb ratio 18 - BSG ACHS - Adjust regimen as needed - Now on strict NPO status (3) Hypertension: Plan: - Permissive HTN in setting of strokelike symptoms; labetalol 5mg IV as needed for SBP>185 or DBP>95 - Switched antihypertensive to IV Enalaprilat Plan Full code VTE PPx: Heparin 5000u SQ q12h Admission and Anticipated Discharge Date Admission Date: August 27, 2023 Subjective Patient was seen and evaluated at bedside with Sulema MOYA, and Sulema's . She continues to have expressive aphasia, dysphagia, and dysarthria. She communicates via writing on paper. We had another discussion about the patient's goals of care today. It has been determined to continue maintenance fluids until Friday, when palliative care can meet with the patient. After that, a decision will be made on moving forward with palliative care versus a trial of NG tube feeding. The patient continues to request drinking soda, however we continue to reinforce that she can no longer tolerate any p.o. intake. Physical Exam Physical Exam: General: No acute distress, nondiaphoretic, well-developed. Skin: The skin was warm, dry, without rashes, erythema, edema, or bruising. Cardiac: Regular rate and rhythm without murmurs gallops or rubs. Pulm: Clear to auscultation bilaterally without wheezes, rales or rhonchi. No retractions or accessory muscle use. SpO2 95% on RA Abdominal: Positive bowel sounds x 4. Soft, nontender, without masses or organomegaly. No guarding or rebound tenderness. Neuro: A&O x3. Expressive aphasia. Results & Data Results & Data Vital Signs (Past 12 Hours) Vital Signs Temp Pulse Pulse Resp BP Pulse Ox O2 Del Method 08/30/23 15:05 36.4 C L 83 18 133/91 94 Room Air 08/30/23 11:45 36.8 C 85 18 159/83 H 96 Room Air 08/30/23 07:37 36.8 C 76 17 141/83 H 96 Room Air 08/30/23 07:00 66 Laboratory Results Reviewed CBC Reviewed chemistries PG Care Time/CCT Total # of Minutes Spent Total Time Spent with Patient: Total time spent is greater than 50% in coordination of care (as documented) at patient's floor/unit and/or counseling patient: Coding Level of Care Code 07641 SUB INP/OBS CARE 3/50MIN Diagnoses Acute CVA (cerebrovascular accident) I63.9 Diabetes mellitus, type 2 E11.9 Diabetes mellitus bed bug exterminator insulin use: with bed bug exterminator use Primary hypertension I10 Hypertension type: primary hypertension (2) Diabetes mellitus, type 2 Diabetes mellitus bed bug exterminator insulin use: with snf use (3) Hypertension Hypertension type: primary hypertension Qualified Code(s): I10 - Essential (primary) hypertension
[2023-08-30] MEDS: LACTATED RINGER'S 1,000 ML IV SCH (16:17)
[2023-08-31 08:09] LABS: Hematocrit (blood only) 41.6 % (37.0-47.0); Hemoglobin 13.1 g/dl (12.0-16.0); Mean Corpuscular Hemoglobin 27.9 pg (25.0-34.0); Mean Corpuscular Hgb Conc 31.5 g/dL (32.0-36.0); Mean Corpuscular Volume 88.7 fL (80.0-100.0); Mean Platelet Volume 8.8 fL (9.4-12.4); Platelet Count 275 K/uL (130-400); RDW Coefficient of Variation 12.3 % (11.5-14.5); RDW Standard Deviation 39.6 fL (36.4-46.3); Red Blood Count 4.69 M/uL (4.20-5.40); White Blood Count 9.61 K/ul (4.8-10.8)
[2023-08-31 08:35] LABS: BUN Creatinine Ratio 14.3 (10-20); Calcium 9.5 mg/dl (8.6-10.3); Est GFR (African American) 66.8 ml/min; Est GFR (Non-African American) 57.6 ml/min; Potassium 3.6 mmol/L (3.5-5.1)
--- NOTE | 2023-08-31 09:29 | XRay Report ---
SINGLE VIEW CHEST CLINICAL HISTORY: Stroke. Concern for pneumonia. FINDINGS: An AP, portable, upright chest radiograph is compared to study dated 08/27/2023. The examina tion is mildly degraded by portable technique and patient rotation. Surgical clips project over the mediastinum. The heart is mildly enlarged. The pulmonary vasculature is noncongested. Chronic interst itial thickening is previous. Mild atelectasis is seen at the left lung base. The lungs and pleural s paces are otherwise clear. No pneumothorax is seen. The skeletal structures are osteopenic. The bony thorax is grossly intact. Residual enteric contrast is noted in the colon. IMPRESSION: No acute cardiopulmonary abnormality. ACT 112: Negative or not required by law. Electronically signed by: Noam Luque M.D. 08/31/2023 9:28 AM
--- NOTE | 2023-08-31 15:39 | Hospitalist Progress Note ---
Date of Service August 31, 2023 Assessment & Plan (1) Acute CVA (cerebrovascular accident): Plan: - Presented due to acute change in speech in the evening on 08/25 at [facility], in the setting of recent CVA on 08/08/2023 (acute right periventricular stroke) - Brain MRI from this visit showed acute lacunar infarct of right periventricular region, no intracranial hemorrhage - Initially, patient was tolerating moderately thick liquids and pured diet texture. However there was a decline in her status, and she is now unsafe to eat by mouth due to high risk of airway obstruction and aspiration. - N.p.o. status including meds. May have 1 ice chip at a time only with direct supervision for comfort. Aspiration and reflux precautions. - Possible trial of NG tube, however still high risk for aspiration and airway obstruction due to aspirating secretions and reflux from tube feedings. - Plan to meet with palliative care for discussion of goals of care on Friday. - Increased anion gap, concern for metabolic acidosis secondary to infection -- CXR ordered due to concern for pneumonia, revealed mild atelectasis at the left lung base, but no acute cardiopulmonary abnormalities. -- UA and urine culture, pending -- Procal and CRP added for AM labs 09/01/23 (2) Diabetes mellitus, type 2: Plan: - Last A1c at 6.7% on 08/09/2023 - Loose SSI; with target BSG range 110-150mg/dL, CF 55, carb ratio 18 - BSG ACHS - Adjust regimen as needed - Now on strict NPO status (3) Hypertension: Plan: - Permissive HTN in setting of strokelike symptoms; labetalol 5mg IV as needed for SBP>185 or DBP>95 - Switched antihypertensive to IV Enalaprilat Plan Full code VTE PPx: Heparin 5000u SQ q12h Admission and Anticipated Discharge Date Admission Date: August 27, 2023 Subjective Patient seen and evaluated at bedside. She continues to have dysphagia, expressive aphasia, and dysarthria. Communicates well via writing on paper. She had intermittent coughing during my evaluation, further concern for continued aspiration. Plan for palliative care to meet with patient and Sulema MOYA, tomorrow to discuss goals of care. Physical Exam Physical Exam: General: No acute distress, nondiaphoretic, well-developed. Communication via writing on paper/white board. Skin: The skin was warm, dry, without rashes, erythema, edema, or bruising. Cardiac: Regular rate and rhythm without murmurs gallops or rubs. Pulm: Clear to auscultation bilaterally without wheezes, rales or rhonchi. No retractions or accessory muscle use. SpO2 95% on RA Abdominal: Positive bowel sounds x 4. Soft, nontender, without masses or organomegaly. No guarding or rebound tenderness. Neuro: A&O x3. Expressive aphasia. Results & Data Results & Data Vital Signs (Past 12 Hours) Vital Signs Temp Pulse Resp BP Pulse Ox O2 Del Method 08/31/23 11:55 36.9 C 86 20 152/80 H 96 Room Air 08/31/23 08:00 36.8 C 88 16 156/93 H 92 Room Air Laboratory Results Reviewed CBC Reviewed BMP Diagnostic Findings Reviewed CXR 08/31/2023 FINDINGS: An AP, portable, upright chest radiograph is compared to study dated 08/27/2023. The examination is mildly degraded by portable technique and patient rotation. Surgical clips project over the mediastinum. The heart is mildly enlarged. The pulmonary vasculature is noncongested. Chronic interstitial thickening is previous. Mild atelectasis is seen at the left lung base. The lungs and pleural spaces are otherwise clear. No pneumothorax is seen. The skeletal structures are osteopenic. The bony thorax is grossly intact. Residual enteric contrast is noted in the colon. IMPRESSION: No acute cardiopulmonary abnormality. PG Care Time/CCT Total # of Minutes Spent Total Time Spent with Patient: Total time spent is greater than 50% in coordination of care (as documented) at patient's floor/unit and/or counseling patient: Coding Level of Care Code 59220 SUB INP/OBS CARE 50MIN Diagnoses Acute CVA (cerebrovascular accident) I63.9 Diabetes mellitus, type 2 E11.9 Diabetes mellitus terminal computer operator insulin use: with assisted use Primary hypertension I10 Hypertension type: primary hypertension (2) Diabetes mellitus, type 2 Diabetes mellitus terminal computer operator insulin use: with assisted use (3) Hypertension Hypertension type: primary hypertension Qualified Code(s): I10 - Essential (primary) hypertension
[2023-08-31 16:37] LABS: Appearance Urine Clear (Clear); Bilirubin Urine Negative (Negative); Blood Urine Negative (Negative); Color Urine Yellow; Glucose Urine UA Negative (Negative); Ketones Urine 4+ (Negative); Leukocyte Esterase Urine Negative (Negative); Nitrite Urine Negative (Negative); Protein Urine Negative (Negative); Specific Gravity Urine 1.014 (1.000-1.030); Urobilinogen Urine Negative (Negative); pH Urine 6.5 (4.5-7.5)
[2023-08-31] MEDS: LACTATED RINGER'S 1,000 ML IV SCH (16:39)
[2023-08-31] MEDS: LORazepam 0.5 MG in SYRINGE 0.25 ML IV STA (21:56)
[2023-09-01 07:47] LABS: Hematocrit (blood only) 36.9 % (37.0-47.0); Hemoglobin 11.9 g/dl (12.0-16.0); Mean Corpuscular Hemoglobin 28.1 pg (25.0-34.0); Mean Corpuscular Hgb Conc 32.2 g/dL (32.0-36.0); Mean Platelet Volume 8.8 fL (9.4-12.4); Platelet Count 224 K/uL (130-400); RDW Coefficient of Variation 12.1 % (11.5-14.5); RDW Standard Deviation 38.9 fL (36.4-46.3); Red Blood Count 4.24 M/uL (4.20-5.40); White Blood Count 7.25 K/ul (4.8-10.8)
[2023-09-01 07:53] LABS: BUN Creatinine Ratio 13.6 (10-20); C Reactive Protein 0.58 mg/dl (0-0.5); Est GFR (African American) 84.1 ml/min; Est GFR (Non-African American) 72.6 ml/min; Potassium 3.5 mmol/L (3.5-5.1)
--- NOTE | 2023-09-01 10:19 | Palliative Care Consultation ---
Date of Consultation September 01, 2023 Assessment & Plan (1) Generalized weakness: (2) Confusion: (3) Palliative care by specialist: Met with pt/family. Provided overview of Palliative Medicine, a subspecialty that provides specialized medical care for people living with a serious illness by offering a focus on quality of life. Palliative Medicine is often conflated with hospice: I advised patient/family that Palliative and hospice can be partners but we are not the same. It is important to understand the difference so that we may be informed, and not afraid. Palliative Medicine works to improve QOL through reduction of symptom burden/more control over their illness, for both the patient and family. Palliative medicine clinicians are board certified, specially-trained and another member of the patient's medical care team. We often provide an extra layer of support because our care is based on the needs of the patient, not the prognosis; as such, it's appropriate at any age/advancing stage of a serious illness and can be provided along with curative treatment. Palliative Medicine clinicians are also trained in advanced communication methodologies, to facilitate complex discussions about advanced illness planning, which are needed to help assure that the treatment choices match the patient's goals, aka delivering Goal Concordant care. Finally, we discussed that hospice is a visiting nurse service that focuses on care delivered at the very end of life for patients with terminal illness, with life expectancy less than 6 month. (4) Advanced care planning/counseling discussion: A [id number] advance care planning meeting was held with Sulema Cid, Gerardo/NITA backup, and Sandra Pinzon PA-C from the primary medicine service. Total meeting time was 45 minutes. We reviewed the complications from her stroke and now this recurring stroke. We discussed the findings of aspiration and to find this has trouble swallowing food down the right food pipe and how it is going down into her windpipe. We discussed that this is creating more breathing related difficulties. We discussed the options of a feeding tube versus transitioning to a plan of care more focusing on her comfort/quality of life and allowing her to eat and drink as she prefers and is able while excepting that aspiration would be the trade off for this comfort. I asked her these questions and several different manners to determine that she was giving me consistent answers. She was consistently consistent - desiring to be able to eat and drink, and when asked what her 1 - 2 things that matters most to her in life/brought her the most nuno or quality of life, she wrote eating and drinking. She also wishes to return to [facility], where she has been for the last few years and has familiarity with her caregivers who treat her like family. We discussed artificial nutrition and hydration (SHAUNNA) were originally developed to provide short-term support for patients who were acutely ill. For patients nearing/transitioning to EOL, SHAUNNA is unlikely to prolong life in addition to w hich researchers have found that SHAUNNA often leads to complications in patients nearing the end of life. Patients with advanced, life-limiting illness often lose the ability to eat and drink and/or interest in food and fluids. Like other medical interventions, it should be evaluated by weighing its benefits and burdens in light of the patient's clinical circumstances and goals of care. SHAUNNA may offer benefits when administered in the setting of acute, reversible illness, or as a component of chronic disease management, when the patient can appreciate the benefits of the treatment and significant burdens are not disproportionate. Near the end of life, some widely assumed benefits of SHAUNNA, such as alleviation of thirst, may be achieved by less invasive measures including good mouth care or providing ice chips. (Earl DAVIS, Praveena DONISK, Oleg M. after PEG: Results of the National Confidential Enquiry into Patient Outcome and . Gastrointest Endosc. 2008;68:223-227andDebra E, Mia D, Rakesh S, et al. Parenteral hydration in patients with advanced cancer: A multicenter, double-blind, placebo-controlled randomized trial. J Clin Oncol. 2013;31:111-118.) I also advised that continuation of tube feedings and IV fluids will not aid to any comfort in the dying process but in fact will create more secretions, bloating and distention, and possible fluid volume overload and progressive edema. Advised that this would likely only prolong the dying process rather than help make it more comfortable. We specifically discussed that artificial nutrition and hydration (SHAUNNA) by IV, will not prolong life or improve its quality, but will increase distressing symptoms such as shortness of breath, respiratory congestion, restlessness, nausea and vomiting. Educated family that fluids are often avoided at the very end of life to prevent volume overload in the lungs and other organs and our evidence to date demonstrates that data to suggest that IV hydration is unlikely to provide a meaningful benefit to most hospice patients with advanced cancer, even with mild to moderate dehydration. (Debra E, Mia D, Rakesh S, et al. Parenteral hydration in patients with advanced cancer: a multicenter, double-blind, placebo-controlled randomized trial. J Clin Oncol. 2013;31(1):111-118. Doi:10.1200/JCO.2012.44.6518) Palak is clear she would want to focus on quality of life. She has a completed advance directive from 2018 which we reviewed together. She designates Sulema is her power of financial services internship and surrogate decision maker. She is also clear that she would not want to be placed on life support or artificial machinery in an end-of-life or terminal process. We discussed CODE STATUS specifically and she elected DNR/DNI. This is reaffirmed in the review of her advance directive. A POLST was completed with the following elections: DNR/DNI, allow comfort care, no artificial nutrition or hydration, no antibiotics, allow permissive aspiration with return to intermediate with the addition of hospice for comfort focused end-of-life care plan. Sulema reaffirms the patient was always focused on quality of life. She enjoys eating and drinking and would not want to be deprived of these things in an end-of-life state. When I asked Palak to tell me what her 1 or 2 things that mean the most to her would give her a lot of nuno at this stage, she advised in writing that eating and drinking gave her a lot of pleasure and that she also wanted to return to her intermediate where she has been for the last few years with caregivers who are at this point like family to her. (5) Discussion about advance care planning held with family member: See #4 above Plan Comfort Care Discharge Summary & Plan of Care For Snf/SNF/PCH/SOWMYA Patient Name:Krystal Pressley Comfort plan of care agreed upon by: Sulema holt (POA)Avila (back up POA), Shruthi Vines Discussed with Patient/Family on: 09/01/23 Comfort plan of care parameters: 1. Patient/Family want hospice added to their care. 2. NO rehab/PT/OT 3. Strictly End of Life care only 4. NO escalation of care: do not increase oxygen, escalate therapies, etc. The focus is on comfort through end of life, assure this is accomplished with aggressive symptom management (i.e. relief of dyspnea, pain, etc.) 5. NO return to hospital 6. NO labs, imaging, surgery 7. Oral intake as desired for comfort and pleasure: NO dietary restriction. ALLOW PERMISSIVE ASPIRATION 8. If difficulty urinating/commode/bedpan, ok to place Michael catheter for comfort/hygiene/skin protection AND/OR Continue Michael catheter for comfort/hygiene/skin protection 9. NO: calorie counts, artificial nutrition, feeding tubes or IV fluids Medications to continue are noted on discharge summary. Provider to contact if any questions about comfort plan of care: Hospice Mail Order Sorter or designee History of Present Illness Reason for Consultation: goals of care Attending Physician: Naresh Cardenas MD History of Present Illness 73yo female, admitted from [facility] 08/27/23, per admitting note: "Krystal is a 73-year-old female with PMH of CVA in 2018 with residual right-sided deficits, T2DM, bladder cancer, HTN, depression, dyslipidemia. She presented via EMS from [facility] for difficulty speaking on 08/26. This was in the setting of an acute stroke on 08/07 for which she was hospitalized at [facility]. On 08/26, she was being seen by speech therapy and they noted a significant change in speech. Patient denies having any facial droop today. Patient reports she did not take any of her regular medications today. She did not take any aspirin or Plavix. She denies history of smoking, tobacco use, and alcohol use. Patient vitals are stable at time of admission; normotensive. ROS: Patient endorses slurred speech and difficulty with word processing. Patient denies fever, chills, night sweats, dizziness, lightheadedness, MEDINA, facial droop, change in vision/hearing, chest pain, chest palpitations, SOB, cough, pleuritic CP, abdominal pain, N/V/D, urinary s/s, or numbness/tingling in the arms or legs. Spoke on the phone with patient's medical POA/friend, Sulema Mattson ([phone]). Patient's POA reports that her speech was improving after she was discharged from the hospital on 08/11. She then continued to improve with speech therapy at [facility], but then suddenly got worse last night. Sulema was speaking on the phone with patient, she noted that she could barely understand aware that she was saying. [facility] nursing staff agreed this morning that there had been an acute change overnight, and recommended that she be sent in. Reconfirmed with patient's POA that the patient is full code." Unknown LKW. Patient also reports symptoms started last night, so outside of the window for TNK. She has had worsening complications of stroke during this current admission with progressive aspiration. Chart indicates she was initially tolerating moderately thick liquids and pured diet texture but is now unsafe to eat by mouth due to high risk of airway obstruction Krystal has dysphagia, expressive aphasia, and dysarthria; she communicates via writing. She remains on aspirin and plavix CT brain 08/26 was unremarkable, then MRI brain 08/27/23 revealed: "1. Small focus of acute lacunar infarct involving the right periventricular region/right centrum semiovale along with underlying microangiopathic white matter changes. 2. No intracranial hemorrhage seen." MRI Brain done 08/08/23 revealed: "Restricted diffusion is seen in the right periventricular white matter. Foci of T2 and FLAIR hyperintensity are noted in the paraventricular areas consistent with chronic small vessel ischemic disease. Lacunar infarcts are seen in the bilateral insular cortex. The ventricular sy stem is normal in appearance. No mass or abnormal enhancement is seen. There is no mass effect or midline shift. There is no evidence of acute intraparenchymal hemorrhage. No extra axial fluid collections are seen. The corpus callosum, pituitary gland, and cerebellar tonsils appear grossly unremarkable. Flow voids of the major intracranial arterial vessels are identified. The imaged portions of the paranasal sinuses, mastoid air cells, and orbits are unremarkable. IMPRESSION: Acute infarct in the right periventricular white matter. No evidence of hemorrhagic transformation." In addition a video swallow was done 08/27 revealed the following: "1. Several episodes of tracheal aspiration with thin liquids. Trace tracheal aspiration with nectar thick liquids. 2. Premature spillage with mild residuals with several consistencies. 3. Full recommendations by Speech pathology to follow." CXR done 08/30 unremarkable Palak is seen bedside, her power of financial services internship Sulema is also present. She is awake and alert and able to follow a few simple commands. Sulema brought in her hearing aids today and Palak's interactiveness is much improved than previous. Allergies Allergy/AdvReac Type Severity Reaction Status Date / Time prednisone Allergy Mild ITCHING Verified 08/27/23 15:46 ampicillin AdvReac Mild Gastrointestinal Verified 08/27/23 15:46 Upset azithromycin AdvReac Mild Gastrointestinal Verified 08/27/23 15:46 Upset lisinopril AdvReac Mild Gastrointestinal Verified 08/27/23 15:46 Upset Home Medications Medication Instructions Recorded Confirmed Type cholecalciferol (vitamin D3) 50 2,000 unit PO QAM 02/10/18 08/27/23 History mcg (2,000 unit) capsule (Vitamin D3) cyanocobalamin (vitamin B-12) 500 1,000 mcg PO QAM 03/25/18 08/27/23 History mcg tablet (Vitamin B-12) sitagliptin phosphate 100 mg 100 mg PO QAM 03/25/18 08/27/23 History tablet (Januvia) amlodipine 2.5 mg tablet 2.5 mg PO QAM 09/01/20 08/27/23 History aspirin 81 mg chewable tablet 81 mg PO QAM 09/01/20 08/27/23 History bimatoprost 0.01 % eye drops 1 drp OPB HS 09/01/20 08/27/23 History (Lumigan) ferrous sulfate 325 mg (65 mg 325 mg PO QAM 09/01/20 08/27/23 History iron) tablet losartan 100 mg tablet 100 mg PO QAM 09/01/20 08/27/23 History potassium chloride 10 mEq 10 meq PO BID 09/01/20 08/27/23 History tablet,extended release fesoterodine 4 mg tablet,extended 4 mg PO QAM 10/04/20 08/27/23 History release 24 hr (Toviaz) albuterol sulfate 90 mcg/actuation 2 puff inhalation Q6 PRN Wheezing 11/07/20 08/27/23 History aerosol inhaler nystatin 100,000 unit/gram topical 1 applic topical Q12 PRN Rash 11/07/20 08/27/23 History cream ketoconazole 2 % shampoo 1 applic topical .COMPLEX #120 mL 08/08/22 08/27/23 Rx docusate sodium 100 mg capsule 100 mg PO DAILY PRN Constipation 07/23/23 08/27/23 History (Colace) dorzolamide (PF) 2 % (PF) eye drops 2 drp ophthalmic (eye) TID 07/23/23 08/27/23 History insulin glargine 100 unit/mL (3 8 unit subcut HS 07/23/23 08/27/23 History mL) subcutaneous pen (Basaglar KwikPen U-100 Insulin) ipratropium 0.5 mg-albuterol 3 mg 3 ml inhalation Q6H PRN Shortness 07/23/23 08/27/23 History (2.5 mg base)/3 mL nebulization Of Breath Or Wheezing soln magnesium oxide 400 mg PO QPM 07/23/23 08/27/23 History melatonin 3 mg capsule 3 mg PO HS 07/23/23 08/27/23 History white petrolatum-mineral oil 94 1 applic ophthalmic (eye) HS 07/23/23 08/27/23 History %-3 % eye ointment (Systane Nighttime) atorvastatin 40 mg tablet 40 mg PO HS 08/08/23 08/27/23 History betamethasone dipropionate 0.05 % 1 applic topical DAILY PRN Itching 08/08/23 08/27/23 History lotion cetirizine 10 mg tablet 10 mg PO DAILY 08/08/23 08/27/23 History citalopram 20 mg tablet 20 mg PO DAILY 08/08/23 08/27/23 History metformin 500 mg tablet 500 mg PO BID 08/08/23 08/27/23 History clopidogrel 75 mg tablet 75 mg PO DAILY 30 days #30 tabs 08/11/23 08/27/23 Rx acetaminophen 325 mg tablet 650 mg PO Q4 PRN Fever Or Pain 08/27/23 08/27/23 History (Tylenol) acetaminophen 325 mg tablet 650 mg PO QAM 08/27/23 08/27/23 History (Tylenol) cetyl and stearate 1 applic topical BID 08/27/23 08/27/23 History alcohol-propylen glycol-sls topical cream (Cetaphil topical cream) docusate sodium 100 mg capsule 100 mg PO QPM 08/27/23 08/27/23 History (Colace) ketotifen fumarate 0.025 % (0.035 1 drp OPB BID PRN itchy 08/27/23 08/27/23 History %) eye drops triamcinolone acetonide 0.1 % 1 applic topical Q12 PRN .litchen 08/27/23 08/27/23 History topical cream simplex Patient History Medical History (Updated 09/01/23 @ 13:50 by Alba Jones DNP) Discussion about advance care planning held with family member Advanced care planning/counseling discussion Palliative care by specialist Physician orders for life-sustaining treatment (POLST) form indicates patient wish for [id number] status Cystitis Encounter for pre-operative examination Renal insufficiency DVT prophylaxis Bladder cancer Diabetes mellitus, type 2 History of COVID-19 Had both vaccines, but presented to [facility] 09/01/20 with weakness and tested + for COVID > resolved Glaucoma Anemia Hyperlipemia HTN (hypertension) Pancreatic cyst Neutropenia Encephalopathy Hx of recurrent urinary tract infection CVA (cerebral vascular accident) 2018 Retinopathy Depression Surgical History Hx of colonoscopy History of cystoscopy Transurethral Resection Bladder Tumor Hx of appendectomy Family History Father Diabetes Heart disease Hypertension Other Family history unknown Social History (Updated 08/09/23 @ 10:16 by Devonte Shaw MD) Smoking Status: Former smoker Tobacco Type: Cigarettes Age Started Using Tobacco: 21; Age Quit Using Tobacco: 31; Second Hand Exposure: No; Do You Dip or Chew Tobacco: No; Hx Alcohol Use: No Hx Substance Use: No Preferred Language: Nepali Communication Ability: Effective Professor Of Architecture Required: No Beliefs That Will Affect Care: None marital status: / Current Living Situation: Personal Care Facility Current Living Situation Comment: [facility] current occupational status: retired and disabled Feels Safe at Home: Yes Safety Concerns: Feels Safe At This Time Assistive Devices: Walker and Wheelchair Review of Systems Review of Systems: All systems reviewed & are unremarkable except as noted in Subjective Physical Exam Physical Exam: Elderly female, resting in bed. Mildly diaphoretic. Speech is extremely garbled. She is able to follow simple commands. She is awake and alert. She is communicating by writing on a notepad but at times her handwriting becomes very small and she will slant off in an angle or over her right her previous ratings. With some redirection, she is able to space out her letters and communicate a little more clearly. No significant respiratory distress noted. She is aphasic. Rhythm is regular. Abdomen is soft. There is generalized weakness. She is pale and skin is otherwise warm. There is no cyanosis noted. Results & Data Vital Signs (Past 12 Hours) Vital Signs Temp Pulse Resp BP Pulse Ox O2 Del Method 09/01/23 07:15 36.5 C 89 20 156/83 H 96 Room Air 09/01/23 02:50 36.6 C 60 20 118/82 98 Room Air 08/31/23 23:04 36.3 C L 70 18 144/88 H 94 Room Air Laboratory Results Data reviewed, see HPI Diagnostic Findings Data reviewed, see HPI PG Care Time/CCT Total # of Minutes Spent Total Time Spent with Patient: Total time spent is greater than 50% in coordination of care (as documented) at patient's floor/unit and/or counseling patient: I spent 95 minutes overall addressing this case: 15min in medical data review/discussion with referring provider(s) and/or preparation for the visit 10 min in direct interaction with the patient/exam 45 min in Advance Care Planning/Goals of Care discussions as detailed above in note (must be >16min) 10 min in subsequent review and synthesis of assessment and plan 15min communicating with other providers regarding the patient's case: Advanced Care Planning 77321 Advanced Care Planning 30 Min 34262 Advanced Care Planning Additional 30 [place] [address] IN/OBS CONSULT LVL 4,60M Patient Type New History Comprehensive Exam Expanded Problem Focused Medical Decision Making High Complexity Diagnoses Generalized weakness R53.1 Confusion R41.0 Palliative care by specialist Z51.5 Advanced care planning/counseling discussion Z71.89 Discussion about advance care planning held with family member Z71.0 Additional Codes Advanced Care Planning - 69974 Advanced Care Planning 30 Min: 71705 Advanced Care Planning 30 Min ([id number]) Advanced Care Planning - 25084 Advanced Care Planning Additional 30 Min: 37142 Advanced Care Planning Additional 30 Min ([id number])
[2023-09-01] MEDS ORDERED: LORazepam 0.5 MG in SYRINGE 0.25 ML IV PRN (13:39)
[2023-09-01] MEDS ORDERED: ONDANSETRON 4 MG OD TAB SL PRN (13:39)
[2023-09-01] MEDS ORDERED: ONDANSETRON INJ 2 MG/ML 2 ML VIAL IV PRN (13:39)
--- NOTE | 2023-09-01 17:17 | Hospitalist Progress Note ---
Date of Service September 01, 2023 Assessment & Plan (1) Acute CVA (cerebrovascular accident): Plan: - Presented due to acute change in speech in the evening on 08/25 at [facility], in the setting of recent CVA on 08/08/2023 (acute right periventricular stroke) - Brain MRI from this visit showed acute lacunar infarct of right periventricular region, no intracranial hemorrhage - Initially, patient was tolerating moderately thick liquids and pured diet texture. However there was a decline in her status, and she began unsafe to eat by mouth due to high risk of airway obstruction and aspiration. N.p.o. status implemented. - After meeting with palliative care, it was decided to focus on quality of life and move forward with palliative care/hospice. -- Discussed diet recommendations with speech therapy with the understanding of permissive aspiration. They recommended pured diet and thin liquids, with the option of honey thick liquids if violent coughing occurs. - Comfort orders in place - Plan to return to [facility] on 09/02/2023 (2) Diabetes mellitus, type 2: Plan: - Last A1c at 6.7% on 08/09/2023 - Discontinued insulin as patient is now moving forward with palliative care/hospice (3) Hypertension: Plan: - Discontinued antihypertensives as patient is now moving forward with palliative care/hospice Plan CODE STATUS: DNR/DNI Patient is now comfort care Admission and Anticipated Discharge Date Admission Date: August 27, 2023 Subjective Patient seen and evaluated at bedside with Sulema MOYA, and palliative care. We had a discussion on goals of care, and it was ultimately decided to prioritize quality of life and move forward with palliative care and hospice. Patient expressed it is most important to her that she remains comfortable, and continues to eat and drink. I spoke with speech therapy about diet recommendations, allowing for permissive aspiration. They recommended pured diet and thin liquids, with the option of honey thick liquids if violent coughing occurs. A POLST form was completed and CODE STATUS was changed to DNR/DNI. Patient would like to return to [facility], where she has been for the last few years and feels comfortable with the caregivers. Transport back to [facility] is scheduled for tomorrow, 09/02/2023 at 10 AM. Physical Exam Physical Exam: General: No acute distress, nondiaphoretic, well-developed. Communication via writing on paper/white board. Skin: The skin was warm, dry, without rashes, erythema, edema, or bruising. Cardiac: Regular rate and rhythm without murmurs gallops or rubs. Pulm: Clear to auscultation bilaterally without wheezes, rales or rhonchi. No retractions or accessory muscle use. SpO2 97% on RA Abdominal: Positive bowel sounds x 4. Soft, nontender, without masses or organomegaly. No guarding or rebound tenderness. Neuro: A&O x3. Expressive aphasia. Results & Data Results & Data Vital Signs (Past 12 Hours) Vital Signs Temp Pulse Resp BP Pulse Ox O2 Del Method 09/01/23 11:30 36.8 C 97 H 18 148/66 H 97 Room Air 09/01/23 07:15 36.5 C 89 20 156/83 H 96 Room Air Laboratory Results Reviewed CBC Reviewed chemistries PG Care Time/CCT Total # of Minutes Spent Total Time Spent with Patient: Total time spent is greater than 50% in coordination of care (as documented) at patient's floor/unit and/or counseling patient: Coding Level of Care Code 14576 SUB INP/OBS CARE 3/50MIN Diagnoses Acute CVA (cerebrovascular accident) I63.9 Diabetes mellitus, type 2 E11.9 Diabetes mellitus intermodal customer service insulin use: with fci use Primary hypertension I10 Hypertension type: primary hypertension (2) Diabetes mellitus, type 2 Diabetes mellitus intermodal customer service insulin use: with intermodal customer service use (3) Hypertension Hypertension type: primary hypertension Qualified Code(s): I10 - Essential (primary) hypertension
--- NOTE | 2023-09-02 14:24 | Discharge Summary ---
Date of Service September 02, 2023 Admission HPI Per Admitting Provider Krystal is a 73-year-old female with PMH of CVA in 2018 with residual right-sided deficits, T2DM, bladder cancer, HTN, depression, dyslipidemia. She presented via EMS from [facility] for difficulty speaking on 08/26. This was in the setting of an acute stroke on 08/07 for which she was hospitalized at [facility]. On 08/26, she was being seen by speech therapy and they noted a significant change in speech. Patient denies having any facial droop today. Patient reports she did not take any of her regular medications today. She did not take any aspirin or Plavix. She denies history of smoking, tobacco use, and alcohol use. Patient vitals are stable at time of admission; normotensive. ROS: Patient endorses slurred speech and difficulty with word processing. Patient denies fever, chills, nightsweats, dizziness, lightheadedness, MEDINA, facial droop, change in vision/hearing, chest pain, chest palpitations, SOB, cough, pleuritic CP, abdominal pain, N/V/D, urinary s/s, or numbness/tingling in the arms or legs. Spoke on the phone with patient's medical POA/friend, Suelma Mattson ([phone]). Patient's POA reports that her speech was improving after she was discharged from the hospital on 08/11. She then continued to improve with speech therapy at [facility], but then suddenly got worse last night. Sulema was speaking on the phone with patient, she noted that she could barely understand aware that she was saying. [facility] nursing staff agreed this morning that there had been an acute change overnight, and recommended that she be sent in. Reconfirmed with patient's POA that the patient is full code. Admission Exam Per Admitting Provider General: no acute distress; pleasant affect; non-toxic appearing; well- nourished; cooperative; SpO2 99% on RA HEENT: normocephalic, atraumatic; no scleral icterus; PERRLA; moist mucus membrane; vision and hearing intact Neck: supple; no lymphadenopathy; trachea midline; patient demonstrates ability to shrug shoulders against resistance and rotate neck without pain/dizziness Skin: warm, dry without signs of tenting; no cyanosis; no rashes, bruising, lesions, or erythema noted CV: chest wall NTP; RRR; S1/S2 normal; no murmurs/rubs/gallops; pulses intact and symmetric at radial, DP, and PT Lungs: no acute respiratory distress; symmetrical chest wall expansion; clear breath sounds across all lung lucas w/o adventitious sounds; no wheezing ABD: Soft, NTP; BS present; no rebound/guarding; no distention MSK: no tics or fasciculations; no edema noted in the LEs b/l, nonerythematous; 5/5 kitchen assistant strength bilaterally Neuro: Alert and oriented to name//location, not month; garbled speech; negative pronator drift; sensation grossly intact in the face/UEs/LEs bilaterally Principal Diagnosis Acute CVA Dysphagia Transition to palliative care/hospice Discharge Exam General: No acute distress, nondiaphoretic, well-developed. Communication via writing on paper/white board. Skin: The skin was warm, dry, without rashes, erythema, edema, or bruising. Cardiac: Regular rate and rhythm without murmurs gallops or rubs. Pulm: Clear to auscultation bilaterally without wheezes, rales or rhonchi. No retractions or accessory muscle use. SpO2 97% on RA Abdominal: Positive bowel sounds x 4. Soft, nontender, without masses or organomegaly. No guarding or rebound tenderness. Neuro: A&O x3. Expressive aphasia. Discharge Data Allergies Allergy/AdvReac Type Severity Reaction Status Date / Time prednisone Allergy Mild ITCHING Verified 08/27/23 15:46 ampicillin AdvReac Mild Gastrointestinal Verified 08/27/23 15:46 Upset azithromycin AdvReac Mild Gastrointestinal Verified 08/27/23 15:46 Upset lisinopril AdvReac Mild Gastrointestinal Verified 08/27/23 15:46 Upset Consultations 08/27/23 15:08 ED Decision to Admit Stat 08/31/23 15:44 Consult Palliative Care Routine Ordered Studies 08/27/23 12:03 CTA head w con [CT angio head w con] Stat CTA neck with con [CT angio neck with con] Stat 08/27/23 12:05 CT head/brain wo con Stat 08/27/23 15:02 MRI Brain [MR brain wo con] Stat 08/28/23 11:30 FL video swallow Routine Hospital Course (1) Acute CVA (cerebrovascular accident): - Presented due to acute change in speech in the evening on 08/25 at [facility], in the setting of recent CVA on 08/08/2023 (acute right periventricular stroke) - Brain MRI from this visit showed acute lacunar infarct of right periventricular region, no intracranial hemorrhage - Initially, patient was tolerating moderately thick liquids and pured diet texture. However there was a decline in her status, and she began unsafe to eat by mouth due to high risk of airway obstruction and aspiration. N.p.o. status implemented. - After meeting with palliative care, it was decided to focus on quality of life and move forward with palliative care/hospice. -- Discussed diet recommendations with speech therapy with the understanding of permissive aspiration. They recommended pured diet and thin liquids, with the option of honey thick liquids if violent coughing occurs. - Follow comfort plan of care and parameters (2) Diabetes mellitus, type 2: - Last A1c at 6.7% on 08/09/2023 - Discontinued insulin as patient now moving forward with palliative care/hospice (3) Hypertension: - Discontinued antihypertensives as patient now moving forward with palliative care/hospice Plan CODE STATUS: DNR/DNI Patient is now comfort care/hospice Total Time Total Time Spent Total Time Spent (In Minutes): Greater than 30 minutes spent completing this discharge process including direct patient care, medication reconciliation, documentation, review of labs and images, and coordination of care. Discharge Plan Discharge Items Patient Disposition: Hospice - Medical Facility Reason For Visit: SLURRED SPEECH, ACUTE CHANGE Discharge Diagnosis: Acute CVA Dysphagia Transition to palliative care/hospice Activity: Resume your previous activity Non-emergency contact: Primary Care Provider Call non-emergency contact if: you have any medication questions Follow-up/Referrals: Dionte Maria [Primary Care Provider] - Diet: Regular Diet Texture: Pureed (blended smooth) Diet Comment: Recommend pured diet and thin liquids, with the option of honey thick Addtl Attending Provider Instructions: For Bro Laguerre: * Speech therapy recommends pured diet and thin liquids, with the option of honey thick liquids if violent coughing occurs. We are prioritizing patient's desire to eat and drink and understand that there will be permissive aspiratio n. * Please connect with the hospice team as soon as possible and utilize them for prescription refills. Thank you, Sandra Pinzon PA-C Pending Studies at Discharge: No Stand-Alone Forms: My [facility] Skilled Items Patient informed of condition?: Yes DNR: Yes Discharge Level of Care: Skilled Communicable Disease: No Discharge Prognosis: Other Lines: None Urinary Catheter: No Medications and DC Order Prescriptions: New ondansetron 4 mg Tablet,Disintegrating 4 mg sublingual Q4H PRN (Reason: nausea and vomiting) Qty: 30 0RF lorazepam 1 mg tablet 1 mg PO Q1H PRN (Reason: anxiety) Qty: 30 0RF Rx Instructions: Take 1 tablet by mouth are placed under the tongue every hour as needed for anxiety or agitation. glycopyrrolate [Robinul] 1 mg tablet 1 mg PO Q4H PRN (Reason: secretions) Qty: 10 0RF Rx Instructions: Give 1 to 2 tablets every 4 hours as needed for secretions. Continued ketoconazole 2 % shampoo 1 applic topical .COMPLEX Qty: 120 1RF Rx Instructions: 1 applic topical to the scalp/eye brows 2-3 times a week. Allow to sit on the scalp for 5 minutes before rinsing. Apply wed & sun. dorzolamide (PF) 2 % drops 2 drp ophthalmic (eye) TID melatonin 3 mg capsule 3 mg PO HS Systane Nighttime 94-3 % ointment 1 applic ophthalmic (eye) HS docusate sodium [Colace] 100 mg capsule 100 mg PO DAILY PRN (Reason: Constipation) magnesium oxide 250 mg magnesium tablet 400 mg PO QPM nystatin 100,000 unit/gram Cream 1 applic TOPICAL Q12 PRN (Reason: Rash) Rx Instructions: Apply to afected area Lumigan 0.01 % drops 1 drp OPB HS betamethasone dipropionate 0.05 % lotion 1 applic topical DAILY PRN (Reason: Itching) Rx Instructions: Apply to the scalp as needed for itching or redness. docusate sodium [Colace] 100 mg Capsule 100 mg PO QPM Cetaphil Cream 1 applic TOPICAL BID Rx Instructions: Apply to arms & legs ketotifen fumarate 0.025 % (0.035 %) Drops 1 drp OPB BID PRN (Reason: itchy) Rx Instructions: administer at least 8 hours apart triamcinolone acetonide 0.1 % cream 1 applic TOPICAL Q12 PRN (Reason: .litchen simplex) Rx Instructions: apply to arms Discontinued ipratropium-albuterol 0.5 mg-3 mg(2.5 mg base)/3 mL solution for nebulization 3 ml inhalation Q6H PRN (Reason: Shortness Of Breath Or Wheezing) cyanocobalamin (vitamin B-12) [Vitamin B-12] 500 mcg Tablet 1,000 mcg PO QAM Januvia 100 mg Tablet 100 mg PO QAM Basaglar KwikPen U-100 Insulin 100 unit/mL (3 mL) insulin pen 8 unit SUBCUT HS cholecalciferol (vitamin D3) [Vitamin D3] 2,000 unit Capsule 2,000 unit PO QAM fesoterodine [Toviaz] 4 mg tablet extended release 24 hr 4 mg PO QAM albuterol sulfate 90 mcg/actuation Hfa Aerosol Inhaler 2 puff INHALATION Q6 PRN (Reason: Wheezing) amlodipine 2.5 mg tablet 2.5 mg PO QAM potassium chloride 10 mEq tablet extended release 10 meq PO BID ferrous sulfate 325 mg (65 mg iron) Tablet 325 mg PO QAM aspirin 81 mg Tablet,Chewable 81 mg PO QAM losartan 100 mg tablet 100 mg PO QAM citalopram 20 mg tablet 20 mg PO DAILY atorvastatin 40 mg tablet 40 mg PO HS metformin 500 mg tablet 500 mg PO BID cetirizine 10 mg Tablet 10 mg PO DAILY clopidogrel 75 mg Tablet 75 mg PO DAILY 30 Days Qty: 30 1RF acetaminophen [Tylenol] 325 mg Tablet 650 mg PO Q4 PRN (Reason: Fever Or Pain) acetaminophen [Tylenol] 325 mg Tablet 650 mg PO QAM Discharge Orders: Discharge Order (Routine); Ordered 09/02/23 Ordered By: Sandra Pinzon Admission Data Admit Date/Time: 08/27/23 16:52 Attending Provider: Naresh Cardenas Admit Provider: Jared Noguera Primary Care Provider: Dionte Maria Other Providers: Dionte Maria; Jared Noguera; Alba Jones Other Interventions: Discharge Summary Assessment (RN) Last Done: 09/02/23 10:30 Coding Level of Care Code 46054 INP/OBS DISCH >30 MIN Diagnoses Acute CVA (cerebrovascular accident) I63.9 Diabetes mellitus, type 2 E11.9 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
== END 2023-09-02 10:57 | disposition hospice, inpatient (51) | DRG 66 ==
LOC: ED 11:25 → 2E 16:52 → SUATTDRO 16:52 → 2E 18:35 → 3N 09-01 21:20